=== PATIENT | male | born 1955 | race Caucasian/White ===

== ENCOUNTER 2018-06-13 11:13 | Emergency (ER) | payer MEDICAID, MEDICARE ==
[2018-06-13 11:22] VITALS: BP 96/79
[2018-06-13] MEDS ORDERED: LORazepam 2 MG/ML SDV IVPUSH ONE (11:45)
[2018-06-13] MEDS ORDERED: Sodium Chloride 0.9% 1,000 ML IV SCH (11:45)
[2018-06-13] MEDS ORDERED: Sodium Chloride 0.9% 10 ML Syringe FLUSH PRN (11:45)
--- NOTE | 2018-06-13 12:04 | EDM.PDOC ---
ED HPI GENERAL MEDICAL PROBLEM - General Chief Complaint: Drug or Alcohol Abuse Stated Complaint: [facility] Time Seen by Provider: 06/13/18 11:31 Source of Information: Reports: Patient, RN Notes Reviewed, Other ([facility] Staff) - History of Present Illness INITIAL COMMENTS - FREE TEXT/NARRATIVE: 62 year old male has been brought here by [facility] Staff for evaluation, medical clearance for admission to the [facility] program. He had been clear of alcohol for a couple of years or more, is stated to have started drinking again about a yr ago, drinking much more heavily the past several weeks or more. Family and his counselors have helped Boaz understand he needs help to stop, he has agreed to go voluntarily into the [facility] program for help to stop drinking. His last beer was last evening about 15 hours ago. He feels mildly shaky at this time. He does have hx of seizure disorder on keppra. He states he has continued to take that twice daily as prescribed. No chest pain or difficulty breathing. No abd pain, current N or vomiting. He states when he does go through withdrawal he gets "really shaky". He denies previous hx of Hallucinations, withdrawal seizures or what would sound like true Dt's Generalized Pain Score (Numeric/FACES): 3 - Related Data Allergies Allergy/AdvReac Type Severity Reaction Status Date / Time aspirin Allergy Cannot Verified 06/13/18 11:26 Remember Penicillins Allergy unknown Verified 06/13/18 11:26 Home Meds: Home Meds ClonazePAM [KlonoPIN] 0.5 mg PO DAILY 06/13/18 [History] Cyclobenzaprine [Flexeril] 10 mg PO DAILY 06/13/18 [History] Diltiazem HCl [Diltiazem ER] 240 mg PO DAILY 06/13/18 [History] Escitalopram [Lexapro] 20 mg PO DAILY 06/13/18 [History] levETIRAcetam [Keppra] 1,500 mg PO BID 06/13/18 [History] Past Medical History HEENT History: Reports: Cataract, Glaucoma Neurological History: Reports: Seizure Psychiatric History: Reports: Addiction, Depression - Past Surgical History HEENT Surgical History: Reports: Cataract Surgery Social & Family History - Family History Family Medical History: Noncontributory - Tobacco Use Smoking Status *Q: Current Every Day Smoker Years of Tobacco use: 40 Packs/Tins Daily: 1 - Alcohol Use Days Per Week of Alcohol Use: 7 Number of Drinks Per Day: 15 Total Drinks Per Week: 105 - Recreational Drug Use Recreational Drug Use: No ED ROS GENERAL - Review of Systems Review Of Systems: See Below Constitutional: Denies: Fever, Chills, Diaphoresis HEENT: Denies: Sinus Problem, Throat Pain Respiratory: Reports: Cough, Sputum (clear). Denies: Shortness of Breath, Wheezing Cardiovascular: Denies: Chest Pain GI/Abdominal: Reports: Decreased Appetite. Denies: Abdominal Pain, Nausea, Vomiting Musculoskeletal: Reports: Leg Pain (occas. leg cramps) Skin: Reports: No Symptoms Neurological: Reports: Tremors (mild at this time) Psychiatric: Denies: Hallucinations ED EXAM, GENERAL - Physical Exam Exam: See Below General Appearance: Alert, No Apparent Distress Eye Exam: Bilateral Eye: PERRL Throat/Mouth: Normal Inspection Head: Atraumatic. No: Facial Swelling Neck: Supple, Full Range of Motion Respiratory/Chest: No Respiratory Distress, Lungs Clear, Normal Breath Sounds. No: Rales, Rhonchi, Wheezing Cardiovascular: Regular Rate, Rhythm GI/Abdominal: Soft, Non-Tender. No: Guarding Extremities: No: Pedal Edema, Leg Pain Neurological: Alert, Oriented, No Motor/Sensory Deficits Skin Exam: Warm, Dry Course - Vital Signs Last Recorded V/S: Last Vital Signs Temp 98.1 F 06/13/18 11:20 Pulse 95 06/13/18 11:20 Resp 16 06/13/18 11:20 BP 96/79 06/13/18 11:20 Pulse Ox 92 L 06/13/18 11:20 - Orders/Labs/Meds Orders: Active Orders 24 hr Category Date Time Status Peripheral IV Care [RC] . DIRECTED Care 06/13/18 11:46 Active Peripheral IV Insertion Adult [OM.PC] Stat Oth 06/13/18 11:45 Ordered Labs: Laboratory Tests 06/13/18 06/13/18 Range/Units 11:55 11:55 WBC 9.69 H (4.23-9.07) K/mm3 RBC 5.46 (4.63-6.08) M/mm3 Hgb 18.2 H (13.7-17.5) gm/L Hct 54.6 H (40.1-51.0) % MCV 100.0 H (79.0-92.2) fl MCH 33.3 H (25.7-32.2) pg MCHC 33.3 (32.2-35.5) g/dl RDW Std Deviation 53.1 H (35.1-43.9) fL Plt Count 214 (163-337) K/mm3 MPV 10.2 (9.4-12.3) fl Neut % (Auto) 71.2 H (34.0-67.9) % Lymph % (Auto) 16.6 L (21.8-53.1) % [place] % (Auto) 9.8 (5.3-12.2) % Eos % (Auto) 1.5 (0.8-7.0) Baso % (Auto) 0.5 (0.1-1.2) % Neut # (Auto) 6.89 H (1.78-5.38) K/mm3 Lymph # (Auto) 1.61 (1.32-3.57) K/mm3 [place] # (Auto) 0.95 H (0.30-0.82) K/mm3 Eos # (Auto) 0.15 (0.04-0.54) K/mm3 Baso # (Auto) 0.05 (0.01-0.08) K/mm3 Sodium 138 (136-145) mEq/L Potassium 4.0 (3.5-5.1) mEq/L Chloride 98 (98-107) mEq/L Carbon Dioxide 29 (21-32) mEq/L Anion Gap 15.0 (5-15) BUN 9 (7-18) mg/dL Creatinine 1.3 (0.7-1.3) mg/dL Est Cr Clr Drug Dosing 69.61 mL/min Estimated GFR (MDRD) 56 (>60) mL/min BUN/Creatinine Ratio 6.9 L (14-18) Glucose 95 (80-115) mg/dL Calcium 9.7 (8.5-10.1) mg/dL Total Bilirubin 3.1 H (0.2-1.0) mg/dL AST 69 H (15-37) U/L ALT 79 H (16-63) U/L Alkaline Phosphatase 128 H (46-116) U/L Total Protein 8.6 H (6.4-8.2) g/dl Albumin 4.3 (3.4-5.0) g/dl Globulin 4.3 gm/dL Albumin/Globulin Ratio 1.0 (1-2) Ethyl Alcohol 0.00 (0.00) gm% Meds: Medications Discontinued Medications Generic Name Dose Route Start Last Admin Trade Name Freq PRN Reason Stop Dose Admin Sodium Chloride 1,000 mls @ 999 mls/hr 06/13/18 11:45 06/13/18 12:03 Normal Saline IV 999 mls/hr ONETIME PARVIN Administration Lorazepam 1 mg 06/13/18 11:45 06/13/18 12:03 Ativan IVPUSH 06/13/18 11:46 1 mg ONETIME ONE Administration Lorazepam 1 mg 06/13/18 14:25 06/13/18 14:33 Ativan PO 06/13/18 14:26 1 mg ONETIME ONE Administration Sodium Chloride 10 ml 06/13/18 11:45 06/13/18 12:04 Saline Flush FLUSH 10 ml ASDIRECTED PRN Administration Keep Vein Open - Re-Assessments/Exams Free Text/Narrative Re-Assessment/Exam: 06/13/18 18:41 I did discuss labs, hx, exam, course with Janis, intake nurse for the [facility] program. Labs are relatively OK, blood alcohol is zero. We did give ativan 1 mg IV and he has been resting very comfortably, very mild tremor only. Not anxious, restless or agitated. We did discharge him to the care of Andrae, staff member of [facility] who will help him get admitted to the [facility] program. Departure - Departure Time of Disposition: 14:22 Disposition: Home, Self-Care 01 Condition: Fair Clinical Impression: Alcohol abuse Alcohol dependency Qualifiers: Substance use status: unspecified alcohol-induced disorder Qualified Code(s): F10.29 - Alcohol dependence with unspecified alcohol-induced disorder - Discharge Information Instructions: What You Need to Know About Alcohol Abuse and Dependence, Adult Referrals: Yuriy Bowen Jr, MD [Primary Care Provider] - Additional Instructions: A medical screening exam has been provided. Alcohol abuse and dependency has been discussed. No acute medical emergency condition is apparent at this time. Discharge to the [facility] program as planned. 1 liter of NS has been given. Ativan 1 mg IV was given at around 12 noon today and ativan 1 mg orally will be given now at about 14:30. ativan 1 mg q 8 hr or three times daily for 3 days, than ativan 1 mg twice daily for 2 days, than ativan 1/2 mg twice daily for 2 days. Other meds: Keppra 1500 mg twice daily, lexapro 20 mg daily, diltiazam 240 mg daily. Drink plenty of water. Follow up clinic as needed, return to ED as needed. - My Orders Last 24 Hours: My Active Orders 06/13/18 11:45 Peripheral IV Insertion Adult [OM.PC] Stat 06/13/18 11:46 Peripheral IV Care [RC] . DIRECTED - Assessment/Plan Last 24 Hours: My Active Orders 06/13/18 11:45 Peripheral IV Insertion Adult [OM.PC] Stat 06/13/18 11:46 Peripheral IV Care [RC] . DIRECTED
[2018-06-13] MEDS ORDERED: LORazepam 1 MG Tab PO ONE (14:25)
== END 2018-06-13 14:45 | disposition home or self-care (01) ==
LOC: JD.ED 11:13
DX: F10.29 Alcohol dependence with unspecified alcohol-induced disorder (principal); F32.9 Major depressive disorder, single episode, unspecified; F17.210 Nicotine dependence, cigarettes, uncomplicated; Z88.0 Allergy status to penicillin; Z79.899 Other long term (current) drug therapy; Z88.8 Allergy status to other drugs, medicaments and biological substances
CPT/HCPCS: 36415; 80053; 85025; 96361; 96374; 99285; A9270; G0480; J2060; J7040; 99284

== ENCOUNTER 2018-06-20 11:38 | Emergency (ER) | payer MEDICAID ==
[2018-06-20 11:50] VITALS: BP 123/96
[2018-06-20] MEDS ORDERED: Sodium Chloride 0.9% 500 ML IV ONE (12:00)
[2018-06-20] MEDS ORDERED: Sodium Chloride 0.9% 10 ML Syringe FLUSH PRN (12:00)
--- NOTE | 2018-06-20 13:23 | CR ---
Chest: Frontal view of the chest was obtained. Comparison: Prior chest x-ray of 02/03/14. Heart size appears within normal limits for portable technique. Tortuous thoracic aorta is seen. Lungs are clear with no acute parenchymal change. Bony structures are grossly intact. Impression: 1. Nothing acute is appreciated on portable chest x-ray. Diagnostic code #1
[2018-06-20] MEDS ORDERED: levETIRAcetam 500 MG in Sodium Chloride 0.9% 100 ML IV ONE (14:12)
--- NOTE | 2018-06-20 14:38 | EDM.PDOC ---
ED HPI GENERAL MEDICAL PROBLEM - General Chief Complaint: General Stated Complaint: [facility] Time Seen by Provider: 06/20/18 11:50 Source of Information: Reports: Patient, EMS, RN Notes Reviewed - History of Present Illness INITIAL COMMENTS - FREE TEXT/NARRATIVE: 62-year-old male has been brought in by ambulance after some left jaw and arm discomfort and also severe "shakiness, lightheadedness and dizziness well over it [facility] for group therapy session. He currently is a resident at the residential home for alcohol treatment. He was admitted to the residential program about 7 or 8 days ago. He has not had any alcohol during this time. At this time on arrival to ED he denies chest or abdominal pain. He does not feel short of breath. He has no focal weakness. He no longer feels lightheaded or dizzy. He does have history of seizures. He states he has been taking his Keppra on a regular basis twice daily as prescribed. Right Eye Pain Score (Numeric/FACES): 1 - Related Data Allergies Allergy/AdvReac Type Severity Reaction Status Date / Time aspirin Allergy Cannot Verified 06/13/18 11:26 Remember Penicillins Allergy unknown Verified 06/13/18 11:26 Home Meds: Home Meds Cyclobenzaprine [Flexeril] 10 mg PO BID 06/13/18 [History] Diltiazem HCl [Diltiazem ER] 240 mg PO DAILY 06/13/18 [History] Escitalopram [Lexapro] 20 mg PO DAILY 06/13/18 [History] levETIRAcetam [Keppra] 1,500 mg PO BID 06/13/18 [History] LORazepam 1 mg PO TID 06/20/18 [History] traZODone HCl [Trazodone HCl] 75 mg PO BEDTIME 06/20/18 [History] Past Medical History HEENT History: Reports: Cataract, Glaucoma Cardiovascular History: Reports: Afib Neurological History: Reports: Seizure Psychiatric History: Reports: Addiction, Depression - Past Surgical History HEENT Surgical History: Reports: Cataract Surgery, Oral Surgery Dermatological Surgical History: Reports: Other (See Below) Social & Family History - Family History Family Medical History: Noncontributory - Tobacco Use Smoking Status *Q: Current Every Day Smoker Years of Tobacco use: 60 Packs/Tins Daily: 1 - Caffeine Use Caffeine Use: Reports: Tea - Recreational Drug Use Recreational Drug Use: Yes Drug Use in Last 12 Months: No ED ROS GENERAL - Review of Systems Review Of Systems: See Below Constitutional: Denies: Fever, Chills, Diaphoresis HEENT: Denies: Throat Pain Respiratory: Denies: Shortness of Breath Cardiovascular: Denies: Chest Pain GI/Abdominal: Denies: Abdominal Pain, Nausea, Vomiting Musculoskeletal: Reports: Shoulder Pain. Denies: Back Pain Neurological: Reports: Dizziness (Now better), Weakness ED EXAM, GENERAL - Physical Exam Exam: See Below General Appearance: Alert, No Apparent Distress Eye Exam: Bilateral Eye: PERRL Throat/Mouth: Normal Inspection, Normal Oropharynx Head: Atraumatic. No: Facial Swelling Neck: Normal Inspection, Supple, Full Range of Motion Respiratory/Chest: No Respiratory Distress, Lungs Clear, Normal Breath Sounds Cardiovascular: Irregularly Irregular GI/Abdominal: Soft, Non-Tender Back Exam: No: CVA Tenderness (L), CVA Tenderness (R) Extremities: Normal Inspection. No: Pedal Edema, Leg Pain Neurological: Alert, Oriented, No Motor/Sensory Deficits Skin Exam: Warm, Dry, Normal Color Course - Vital Signs Last Recorded V/S: Last Vital Signs Temp 97.6 F 06/20/18 11:44 Pulse 95 06/20/18 11:44 Resp 19 06/20/18 11:44 BP 123/96 H 06/20/18 11:44 Pulse Ox 97 06/20/18 11:44 - Orders/Labs/Meds Orders: Active Orders 24 hr Category Date Time Status EKG 12 Lead [EKG Documentation Completion] [RC] STAT Care 06/20/18 11:59 Active Peripheral IV Care [RC] . DIRECTED Care 06/20/18 12:00 Active Sodium Chloride 0.9% [Saline Flush] Med 06/20/18 12:00 Active 10 ml FLUSH ASDIRECTED PRN Peripheral IV Insertion Adult [OM.PC] Stat Oth 06/20/18 11:59 Ordered Medication Orders Sodium Chloride (Saline Flush) 10 ml FLUSH ASDIRECTED PRN PRN Reason: Keep Vein Open Last Admin: 06/20/18 12:08 Dose: 10 ml Labs: Laboratory Tests 06/20/18 06/20/18 06/20/18 Range/Units 12:10 12:10 14:25 WBC 7.68 (4.23-9.07) K/mm3 RBC 4.21 L (4.63-6.08) M/mm3 Hgb 14.0 (13.7-17.5) gm/L Hct 44.0 (40.1-51.0) % MCV 104.5 H (79.0-92.2) fl MCH 33.3 H (25.7-32.2) pg MCHC 31.8 L (32.2-35.5) g/dl RDW Std Deviation 51.7 H (35.1-43.9) fL Plt Count 176 (163-337) K/mm3 MPV 10.7 (9.4-12.3) fl Neut % (Auto) 54.1 (34.0-67.9) % Lymph % (Auto) 19.8 L (21.8-53.1) % [place] % (Auto) 22.0 H (5.3-12.2) % Eos % (Auto) 2.6 (0.8-7.0) Baso % (Auto) 1.0 (0.1-1.2) % Neut # (Auto) 4.15 (1.78-5.38) K/mm3 Lymph # (Auto) 1.52 (1.32-3.57) K/mm3 [place] # (Auto) 1.69 H (0.30-0.82) K/mm3 Eos # (Auto) 0.20 (0.04-0.54) K/mm3 Baso # (Auto) 0.08 (0.01-0.08) K/mm3 Manual Slide Review Abnormal smear Sodium 142 (136-145) mEq/L Potassium 3.7 (3.5-5.1) mEq/L Chloride 104 (98-107) mEq/L Carbon Dioxide 28 (21-32) mEq/L Anion Gap 13.7 (5-15) BUN 11 (7-18) mg/dL Creatinine 1.0 (0.7-1.3) mg/dL Est Cr Clr Drug Dosing 90.97 mL/min Estimated GFR (MDRD) > 60 (>60) mL/min BUN/Creatinine Ratio 11.0 L (14-18) Glucose 92 (80-115) mg/dL Calcium 9.4 (8.5-10.1) mg/dL Total Bilirubin 0.6 (0.2-1.0) mg/dL AST 36 (15-37) U/L ALT 81 H (16-63) U/L Alkaline Phosphatase 98 (46-116) U/L Troponin I 0.025 0.025 (0.00-0.056) ng/mL Total Protein 7.2 (6.4-8.2) g/dl Albumin 3.4 (3.4-5.0) g/dl Globulin 3.8 gm/dL Albumin/Globulin Ratio 0.9 L (1-2) Ethyl Alcohol 0.00 (0.00) gm% Meds: Medications Generic Name Dose Route Start Last Admin Trade Name Freq PRN Reason Stop Dose Admin Sodium Chloride 10 ml 06/20/18 12:00 06/20/18 12:08 Saline Flush FLUSH 10 ml ASDIRECTED PRN Administration Keep Vein Open Discontinued Medications Generic Name Dose Route Start Last Admin Trade Name Freq PRN Reason Stop Dose Admin Sodium Chloride 500 mls @ 999 mls/hr 06/20/18 12:00 06/20/18 12:08 Normal Saline IV 06/20/18 12:30 999 mls/hr .BOLUS ONE Administration Levetiracetam 500 mg/ Sodium 105 mls @ 400 mls/hr 06/20/18 14:12 06/20/18 14: 46 Chloride IV 06/20/18 14:26 400 mls/hr ONETIME ONE Administration Departure - Departure Time of Disposition: 16:16 Disposition: Home, Self-Care 01 Condition: Fair Clinical Impression: Atypical chest pain, Near syncope - Discharge Information Referrals: Yuriy Bowen Jr, MD [Primary Care Provider] - Forms: ED Department Discharge Additional Instructions: Drink plenty of water to maintain hydration, continue home medications as previously prescribed except hold diltiazem if blood pressure less than 120s systolic. Follow-up clinic as needed, return to ED as needed if symptoms worsening in any way. - My Orders Last 24 Hours: My Active Orders 06/20/18 11:59 EKG 12 Lead [EKG Documentation Completion] [RC] STAT Peripheral IV Insertion Adult [OM.PC] Stat 06/20/18 12:00 Peripheral IV Care [RC] . DIRECTED Sodium Chloride 0.9% [Saline Flush] 10 ml FLUSH ASDIRECTED PRN - Assessment/Plan Last 24 Hours: My Active Orders 06/20/18 11:59 EKG 12 Lead [EKG Documentation Completion] [RC] STAT Peripheral IV Insertion Adult [OM.PC] Stat 06/20/18 12:00 Peripheral IV Care [] . DIRECTED Sodium Chloride 0.9% [Saline Flush] 10 ml FLUSH ASDIRECTED PRN
== END 2018-06-20 16:30 | disposition home or self-care (01) ==
LOC: JD.ED 11:38
DX: R07.89 Other chest pain (principal); R55 Syncope and collapse; F32.9 Major depressive disorder, single episode, unspecified; I48.91 Unspecified atrial fibrillation; F17.210 Nicotine dependence, cigarettes, uncomplicated; Z88.0 Allergy status to penicillin; Z88.6 Allergy status to analgesic agent; Z79.899 Other long term (current) drug therapy
CPT/HCPCS: 36415; 71045; 80053; 84484; 85025; 93005; 96361; 96365; 99285; G0480; J1953; J7030; J7040

== ENCOUNTER 2019-06-19 22:18 | Inpatient (IN) | payer MEDICARE, MEDICAID ==
[2019-06-19] MEDS ORDERED: Ondansetron 4 MG/2 ML SDV IVPUSH ONE (22:22)
--- NOTE | 2019-06-19 22:26 | EDM.PDOC ---
ED HPI GENERAL MEDICAL PROBLEM - General Chief Complaint: Fever Stated Complaint: [facility] Time Seen by Provider: 06/19/19 22:21 Source of Information: Reports: Patient, EMS, Care Home Records History Limitations: Reports: Altered Mental Status, Physical Impairment (She has a history of dementia with behavior abnormalities and therefore history is taken with a gr of salt. He answers I don't know to a lot of questions.) - History of Present Illness INITIAL COMMENTS - FREE TEXT/NARRATIVE: 63-year-old male currently a resident at [facility] is brought to the ED per [place] [facility] due to recognized fever by 104.1. Apparently had a fever like this at 6:00 tonight and treated with Tylenol. Fever chills and rigors since early this morning. He does have bilateral flank pain. Apparently had a Goldman catheter placed on June [address] [facility] and taken out on June 17. Catheter was placed for urinary retention. it is unclear if he had in and out procedures or if he received prophylactic antibiotics. patient was in [facility] getting medications sorted out for his dementia with behavioral abnormalities and admitted to [facility] as a new patient on June 09. States it is somewhat painful to urinate and he does feel at this time that his bladder is emptying all the way. Denies cough or sputum production. He states he did eat and drink today. He has had no nausea vomiting or diarrhea. Does have a mild headache. Onset: Today, Other Onset Date: 06/19/19 (He reports fever and chills during the night last night.) Duration: Hour(s): (.), Getting Worse, Waxing/Waning Location: Reports: Generalized, Other (Dear fever chills with rigors. Urine 4.1 orally.) Quality: Reports: Ache (Normalized myalgia.), Other Severity: Severe Improves with: Reports: Medication (No seem to help a little bit with aches and pains and fever). Denies: Cold Therapy, Eating, Heat Therapy, Immobilization Worsens with: Reports: None Context: Reports: Other (Juan his currents of high fever with chills and rigors starting this morning by his history.). Denies: Activity, Exercise, Lifting, Sick Contact, Trauma Associated Symptoms: Reports: Fever/Chills, Headaches, Malaise, Weakness. 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: Acetaminophen (Analyzed weakness dosage was at 1800 hrs.) Back Pain Score (Numeric/FACES): 8 - Related Data Allergies Allergy/AdvReac Type Severity Reaction Status Date / Time aspirin Allergy Cannot Verified 06/19/19 22:24 Remember Penicillins Allergy unknown Verified 06/19/19 22:24 Home Meds: Home Meds levETIRAcetam [Levetiracetam] 1,500 mg PO BID 04/08/19 [History] Calamine/Zinc Oxide [Calamine Lotion] 118 ml TP ASDIRECTED PRN #1 suspension [Rx] Digoxin [Lanoxin] 250 mcg PO DAILY #1 tablet 04/23/19 [Rx] Metoprolol Succinate [Toprol XL] 25 mg PO DAILY tab.er 04/23/19 [Rx] Nicotine [Habitrol] 21 mg TRDERM DAILY patch 04/23/19 [Rx] Acetaminophen [Tylenol] 650 mg PO QID 06/19/19 [History] Albuterol [Proventil HFA] 2 puff INH Q6HR PRN 06/19/19 [History] Apixaban [Eliquis] 5 mg PO BID 06/19/19 [History] Diltiazem HCl [Cardizem Cd] 240 mg PO DAILY 06/19/19 [History] Donepezil [Aricept] 5 mg PO QPM 06/19/19 [History] Escitalopram [Lexapro] 15 mg PO DAILY 06/19/19 [History] Finasteride [Proscar] 5 mg PO DAILY 06/19/19 [History] Magnesium Chloride [Slow-Mag] 150 mg PO BID 06/19/19 [History] Mecobal/Levomefolat Ca/B6 Phos [Foltanx Tablet] 1 tab PO BID 06/19/19 [History] Memantine HCl [Namenda] 5 mg PO BID 06/19/19 [History] Multivit-Min/FA/Lycopen/Lutein [Certavite Sr-Antioxidant Tab] 1 tab PO DAILY [History] QUEtiapine [SEROquel] 100 mg PO BID 06/19/19 [History] Sennosides/Docusate Sodium [Senna Plus 8.6-50 mg Tablet] 1 tab PO BID 06/19/19 [ History] Tamsulosin HCl [Flomax] 0.4 mg PO BEDTIME 06/19/19 [History] Thiamine [Vitamin B-1] 100 mg PO BID 06/19/19 [History] Past Medical History HEENT History: Reports: Cataract, Glaucoma Cardiovascular History: Reports: Afib Other Respiratory History: Long time smoker with a barrell chest Neurological History: Reports: Seizure Psychiatric History: Reports: Addiction, Depression - Past Surgical History HEENT Surgical History: Reports: Cataract Surgery, Oral Surgery Dermatological Surgical History: Reports: Other (See Below) Social & Family History - Family History Family Medical History: Noncontributory - Caffeine Use Caffeine Use: Reports: Tea - Living Situation & Occupation Living situation: Reports: Single, Extended Care Facility Occupation: Disabled ([facility].) ED ROS GENERAL - Review of Systems Review Of Systems: Unable To Obtain (Unable to obtain with any degree of certainty as the patient has significant dementia and answers I don't note to most of the questions.) Reason Not Obtained: Has dementia and answers questions many times that I don't know. Constitutional: Reports: Fever, Chills, Malaise, Decreased Appetite, Other (As was recognized by staff early this morning.) Respiratory: Denies: Cough, Sputum ED EXAM, SEPSIS - Physical Exam Exam: See Below Exam Limited By: Altered Mental Status General Appearance: Alert, Mild Distress, Severe Distress, Other (Since current enters 38.6 by skin assessment he feels warmer than this.) Eye Exam: Bilateral Eye: Normal Inspection (No peripheral pallor. No scleral icterus.) Throat/Mouth: Normal Inspection, Normal Lips, Normal Oropharynx (Tongue is dry and coated.), Other Head: Atraumatic, Normocephalic Neck: Normal Inspection, Supple, Non-Tender, Full Range of Motion. No: Carotid Bruit, Lymphadenopathy (L), Lymphadenopathy (R) Respiratory/Chest: No Respiratory Distress, Lungs Clear, Normal Breath Sounds, No Accessory Muscle Use, Chest Non-Tender Cardiovascular: Normal Peripheral Pulses, Regular Rate, Rhythm, No Edema, No Gallop, No Murmur Peripheral Pulses: 2+: Posterior Tibial (L), Posterior Tibial (R), Dorsalis Pedis (L), Dorsalis Pedis (R) GI/Abdominal Exam: Normal Bowel Sounds, Soft, Non-Tender, No Organomegaly, No Abnormal Bruit, No Mass, Pelvis Stable, Other (Fullness appreciated suprapubically. Dullness to percussion in this area. Query full bladder) (Male) Exam: No Hernia, Other (No obvious pus at the urethral meatus.) Back: CVA Tenderness (L), CVA Tenderness (R) (3 she will tenderness to palpation both costovertebral angles.) Extremities: Normal Inspection, Normal Range of Motion Neurological: Alert, CN II-XII Intact (Oriented to time and place), No Motor/ Sensory Deficits (Moves all limbs.). No: Oriented, Normal Cognition, Normal Gait, Normal Reflexes Psychiatric: Anxious Skin: Warm, Intact (Mildly anxious but being phlebotomized at this time.), Normal Color, No Rash, Other (Are warm to palpation due to fever.) EKG INTERPRETATION EKG Date: 06/19/19 Time: 23:07 Rhythm: NSR Rate (Beats/Min): 90 Holmes: Normal P-Wave: Present (P-wave is inverted V1 nonspecific finding) QRS: Other (Decreased voltage limb leads COPD pattern) QT: Prolonged (Minimally prolonged) EKG Interpretation Comments: Borderline ECG Course - Vital Signs Last Recorded V/S: Last Vital Signs Temp 39.1 C H 06/19/19 23:05 Pulse 95 06/19/19 22:20 Resp 14 06/19/19 22:20 BP 138/68 06/19/19 22:20 Pulse Ox 93 L 06/19/19 22:20 - Orders/Labs/Meds Orders: Active Orders 24 hr Category Date Time Status Bladder Scan [RC] ASDIRECTED Care 06/19/19 22:47 Active EKG Documentation Completion [RC] STAT Care 06/19/19 22:23 Active Oxygen Therapy [RC] ASDIRECTED Care 06/20/19 00:05 Active Chest 1V Frontal [CR] Stat Exams 06/19/19 22:23 Taken CULTURE BLOOD [BC] Stat Lab 06/19/19 22:38 Received CULTURE BLOOD [BC] Stat Lab 06/19/19 23:01 Received CULTURE URINE [RM] Stat Lab 06/19/19 23:35 Received Acetaminophen [Tylenol] Med 06/19/19 22:22 Active 975 mg PO Q4H PRN Dextrose 5%-0.9% NaCl with KCl [D5 NS with 20 mEq KCl] Med 06/20/19 00:45 Active 1,000 ml IV ASDIRECTED Levofloxacin/Dextrose 5%-Water [Levaquin in D5W 750 MG/ Med 06/20/19 00:03 Active 150 ML] 750 mg Premix Bag 1 bag IV ONETIME Sodium Chloride 0.9% [Normal Saline] 1,000 ml Med 06/19/19 22:30 Active IV ASDIRECTED Blood Culture x2 Reflex Set [OM.PC] Stat Oth 06/19/19 22:24 Ordered Medication Orders Acetaminophen (Tylenol) 975 mg PO Q4H PRN PRN Reason: Pain Last Admin: 06/19/19 23:05 Dose: 975 mg Sodium Chloride (Normal Saline) 1,000 mls @ 999 mls/hr IV ASDIRECTED [facility] Last Admin: 06/19/19 23:05 Dose: 999 mls/hr Levofloxacin/Dextrose 750 mg/ (Premix) 150 mls @ 100 mls/hr IV ONETIME ONE Stop: 06/20/19 01:32 Last Admin: 06/20/19 00:08 Dose: 100 mls/hr Potassium Chloride/Dextrose/Sod Cl (D5 Ns With 20 Meq Kcl) 1,000 mls @ 125 mls/ hr IV ASDIRECTED [facility] Labs: Laboratory Tests 06/19/19 06/19/19 06/19/19 Range/Units 22:38 22:38 22:38 WBC (4.23-9.07) K/mm3 RBC (4.63-6.08) M/mm3 Hgb (13.7-17.5) gm/dl Hct (40.1-51.0) % MCV (79.0-92.2) fl MCH (25.7-32.2) pg MCHC (32.2-35.5) g/dl RDW Std Deviation (35.1-43.9) fL Plt Count (163-337) K/mm3 MPV (9.4-12.3) fl Neutrophils % (Manual) (40-60) % Band Neutrophils % (0-10) % Lymphocytes % (Manual) (20-40) % Atypical Lymphs % % Monocytes % (Manual) (2-10) % Eosinophils % (Manual) (0.8-7.0) % Basophils % (Manual) (0.2-1.2) Platelet Estimate RBC Morph Comment ESR (0-15) mm/hr PT 11.0 (9.7-12.0) SECONDS INR 1.01 APTT 29 (22-31) SECONDS Sodium 139 (136-145) mEq/L Potassium 4.2 (3.5-5.1) mEq/L Chloride 102 (98-107) mEq/L Carbon Dioxide 26 (21-32) mEq/L Anion Gap 15.2 H (5-15) BUN 17 (7-18) mg/dL Creatinine 1.5 H (0.7-1.3) mg/dL Est Cr Clr Drug Dosing 59.85 mL/min Estimated GFR (MDRD) 47 (>60) mL/min BUN/Creatinine Ratio 11.3 L (14-18) Glucose 126 H (80-115) mg/dL Lactic Acid 2.0 (0.4-2.0) mmol/L Calcium 9.2 (8.5-10.1) mg/dL Magnesium 1.5 L (1.8-2.4) mg/dl Total Bilirubin 0.3 (0.2-1.0) mg/dL AST 16 (15-37) U/L ALT 17 (16-63) U/L Alkaline Phosphatase 89 (46-116) U/L CK-MB (CK-2) < 0.5 (0-3.6) ng/ml Troponin I < 0.017 (0.00-0.056) ng/mL C-Reactive Protein 3.7 H* (<1.0) mg/dL NT-Pro-B Natriuret Pep (0-125) pg/mL Total Protein 7.9 (6.4-8.2) g/dl Albumin 3.5 (3.4-5.0) g/dl Globulin 4.4 gm/dL Albumin/Globulin Ratio 0.8 L (1-2) Urine Color (Yellow) Urine Appearance (Clear) Urine pH (5.0-8.0) Ur Specific [place] (1.005-1.030) Urine Protein (Negative) Urine Glucose (UA) (Negative) Urine Ketones (Negative) Urine Occult Blood (Negative) Urine Nitrite (Negative) Urine Bilirubin (Negative) Urine Urobilinogen (0.2-1.0) Ur Leukocyte Esterase (Negative) Urine RBC (0-5) /hpf Urine WBC (0-5) /hpf Ur Squamous Epith Cells (0-5) /hpf Urine Bacteria (FEW) /hpf Urine Mucus (FEW) /hpf 06/19/19 06/19/19 06/19/19 Range/Units 22:38 22:38 23:01 WBC 14.74 H (4.23-9.07) K/mm3 RBC 4.30 L (4.63-6.08) M/mm3 Hgb 12.9 L (13.7-17.5) gm/dl Hct 41.3 (40.1-51.0) % MCV 96.0 H D (79.0-92.2) fl MCH 30.0 (25.7-32.2) pg MCHC 31.2 L (32.2-35.5) g/dl RDW Std Deviation 48.3 H (35.1-43.9) fL Plt Count 334 D (163-337) K/mm3 MPV 9.8 (9.4-12.3) fl Neutrophils % (Manual) 91 H (40-60) % Band Neutrophils % 0 (0-10) % Lymphocytes % (Manual) 7 L (20-40) % Atypical Lymphs % 0 % Monocytes % (Manual) 1 L (2-10) % Eosinophils % (Manual) 1 (0.8-7.0) % Basophils % (Manual) 0 L (0.2-1.2) Platelet Estimate Adequate RBC Morph Comment Normal ESR 59 H (0-15) mm/hr PT (9.7-12.0) SECONDS INR APTT (22-31) SECONDS Sodium (136-145) mEq/L Potassium (3.5-5.1) mEq/L Chloride (98-107) mEq/L Carbon Dioxide (21-32) mEq/L Anion Gap (5-15) BUN (7-18) mg/dL Creatinine (0.7-1.3) mg/dL Est Cr Clr Drug Dosing mL/min Estimated GFR (MDRD) (>60) mL/min BUN/Creatinine Ratio (14-18) Glucose (80-115) mg/dL Lactic Acid (0.4-2.0) mmol/L Calcium (8.5-10.1) mg/dL Magnesium (1.8-2.4) mg/dl Total Bilirubin (0.2-1.0) mg/dL AST (15-37) U/L ALT (16-63) U/L Alkaline Phosphatase (46-116) U/L CK-MB (CK-2) (0-3.6) ng/ml Troponin I (0.00-0.056) ng/mL C-Reactive Protein (<1.0) mg/dL NT-Pro-B Natriuret Pep 606 H (0-125) pg/mL Total Protein (6.4-8.2) g/dl Albumin (3.4-5.0) g/dl Globulin gm/dL Albumin/Globulin Ratio (1-2) Urine Color (Yellow) Urine Appearance (Clear) Urine pH (5.0-8.0) Ur Specific [place] (1.005-1.030) Urine Protein (Negative) Urine Glucose (UA) (Negative) Urine Ketones (Negative) Urine Occult Blood (Negative) Urine Nitrite (Negative) Urine Bilirubin (Negative) Urine Urobilinogen (0.2-1.0) Ur Leukocyte Esterase (Negative) Urine RBC (0-5) /hpf Urine WBC (0-5) /hpf Ur Squamous Epith Cells (0-5) /hpf Urine Bacteria (FEW) /hpf Urine Mucus (FEW) /hpf 06/19/19 Range/Units 23:35 WBC (4.23-9.07) K/mm3 RBC (4.63-6.08) M/mm3 Hgb (13.7-17.5) gm/dl Hct (40.1-51.0) % MCV (79.0-92.2) fl MCH (25.7-32.2) pg MCHC (32.2-35.5) g/dl RDW Std Deviation (35.1-43.9) fL Plt Count (163-337) K/mm3 MPV (9.4-12.3) fl Neutrophils % (Manual) (40-60) % Band Neutrophils % (0-10) % Lymphocytes % (Manual) (20-40) % Atypical Lymphs % % Monocytes % (Manual) (2-10) % Eosinophils % (Manual) (0.8-7.0) % Basophils % (Manual) (0.2-1.2) Platelet Estimate RBC Morph Comment ESR (0-15) mm/hr PT (9.7-12.0) SECONDS INR APTT (22-31) SECONDS Sodium (136-145) mEq/L Potassium (3.5-5.1) mEq/L Chloride (98-107) mEq/L Carbon Dioxide (21-32) mEq/L Anion Gap (5-15) BUN (7-18) mg/dL Creatinine (0.7-1.3) mg/dL Est Cr Clr Drug Dosing mL/min Estimated GFR (MDRD) (>60) mL/min BUN/Creatinine Ratio (14-18) Glucose (80-115) mg/dL Lactic Acid (0.4-2.0) mmol/L Calcium (8.5-10.1) mg/dL Magnesium (1.8-2.4) mg/dl Total Bilirubin (0.2-1.0) mg/dL AST (15-37) U/L ALT (16-63) U/L Alkaline Phosphatase (46-116) U/L CK-MB (CK-2) (0-3.6) ng/ml Troponin I (0.00-0.056) ng/mL C-Reactive Protein (<1.0) mg/dL NT-Pro-B Natriuret Pep (0-125) pg/mL Total Protein (6.4-8.2) g/dl Albumin (3.4-5.0) g/dl Globulin gm/dL Albumin/Globulin Ratio (1-2) Urine Color Yellow (Yellow) Urine Appearance Clear (Clear) Urine pH 5.5 (5.0-8.0) Ur Specific [place] 1.020 (1.005-1.030) Urine Protein Negative (Negative) Urine Glucose (UA) Negative (Negative) Urine Ketones Negative (Negative) Urine Occult Blood 2+ H (Negative) Urine Nitrite Negative (Negative) Urine Bilirubin Negative (Negative) Urine Urobilinogen 0.2 (0.2-1.0) Ur Leukocyte Esterase Negative (Negative) Urine RBC 10-20 H (0-5) /hpf Urine WBC 5-10 H (0-5) /hpf Ur Squamous Epith Cells 0-5 (0-5) /hpf Urine Bacteria Few (FEW) /hpf Urine Mucus Not seen (FEW) /hpf Meds: Medications Generic Name Dose Route Start Last Admin Trade Name Freq PRN Reason Stop Dose Admin Acetaminophen 975 mg 06/19/19 22:22 06/19/19 23:05 Tylenol PO 975 mg Q4H PRN Administration Pain Sodium Chloride 1,000 mls @ 999 mls/hr 06/19/19 22:30 06/19/19 23:05 Normal Saline IV 999 mls/hr ASDIRECTED PARVIN Administration Levofloxacin/Dextrose 750 mg/ 150 mls @ 100 mls/hr 06/20/19 00:03 06/20/19 00 :08 Premix IV 06/20/19 01:32 100 mls/hr ONETIME ONE Administration Potassium Chloride/Dextrose/Sod Cl 1,000 mls @ 125 mls/hr 06/20/19 00:45 D5 Ns With 20 Meq Kcl IV ASDIRECTED PARVIN Discontinued Medications Generic Name Dose Route Start Last Admin Trade Name Freq PRN Reason Stop Dose Admin Ondansetron HCl 4 mg 06/19/19 22:22 06/19/19 23:06 Zofran IVPUSH 06/19/19 22:23 4 mg ONETIME ONE Administration - Radiology Interpretation Free Text/Narrative:: 63-year-old male from [facility] presents to the ED due to a high fever 104.1. From what I can ascertain he had fever and chills with rigors early this morning and again tonight. Tylenol was given at 1800 hrs. in the correction. Radiate fairly well I have no way of being able to know if this is true or not. Patient's has significant dementia and behavioral abnormalities on Seroquel. He answers I don't know to most questions. Clinically suffering high fever. Apparently there is some history of a Goldman catheter placed for urinary retention a few days ago for 2 days and then removed. This is the likely source of infection. S2 is clear. He will have a complete septic workup including chest x-ray blood cultures 2 lactic acid and influenza screen. He will have a bladder scan done post void. - Re-Assessments/Exams Free Text/Narrative Re-Assessment/Exam: 06/19/19 23:25 nurse reports that he is 227 mils in his bladder on bladder scan. He doesn't feel a need to void. He will therefore be catheterized for sample of urine as this is most likely the source of his current sepsis. Apparently was catheterized around the sixth of this month and the catheter was removed on the --2 days ago. Apparently was catheterized due to urinary retention. He been transferred from [place] to [facility]. Told the nurse to go ahead and Mee first specimen this time. 06/19/19 23:52 chest x-ray done portably reveals hyperinflated lung thomas statement of COPD. Prominent right pulmonary artery. Questionable nodule in the left lower lobe of the lung. No pneumonia.Count is elevated at 14.74 with 91% neutrophils and no band cells reported. Hemoglobin is 12.9 with hematocrit of 41.3. MCV is elevated at 96.0. Platelet count is 334,000. Lactic acid is 2.0 06/20/19 00:04 Sedimentation rate is 59. PT is 11.0 with an INR 1.01. PTT is 29. Urinalysis collected by catheterization shows 2+ occult blood negative leukocyte esterase with 10-20 RBCs per power field and 5-10 WBCs per high-power field. Urine culture has been ordered. We'll start him on Levaquin 750 mg IV. History is pending. He has completed the first liter of IV fluids. Current blood pressure is 111/82. Influenza screen is reported to be negative. 06/20/19 00:34 Chemistry is now back. Sodium 139 potassium of 4.2. Chloride is 102 with a bicarbonate 26. Anion gap is 15.2. B1 is 17 with a creatinine of 1.5. GFR is 47. Glucose 126. Lactic acid is 2.0. Calcium is 9.2 and a medium 1.5 slightly low. Liver function is normal. CK-MB fraction is less than 0.5. Troponin I is less than 0.017. C-reactive protein is 3.7. BNP is 606. Total protein is 7.9. Albumin fraction is 3.5. I will discuss the case with Dr. Laboy administration dean hospitalist. Plan will be to admit him to the [facility] surgery floor and I will write bridge orders for him. He doesn't need any sepsis criteria at this time. I will have lactic acid done in 3 hours. He completed the first liter of IV fluids. He will placed on D5 normal saline with 20 mg of KCl to run at 125 mils an hour overnight. She is showing mild signs of CHF with slightly elevated BNP. Source of infection is not yet clear. Urinalysis is only partially suggestive of infection. 06/20/19 00:[address] Laboy administration dean hospitalist and patient will be admitted to the med surgery floor on telemetry. He asked that we start Tamiflu 75 mg twice a day just in case he is a false-negative for influenza since it is rampant at present. Departure - Departure Time of Disposition: :02 Disposition: Admitted As Inpatient 64 Condition: Fair Clinical Impression: Acute febrile illness, Hypoxia, History of urinary retention, Prostatism Dementia Qualifiers: Dementia type: Alzheimer's disease Alzheimer's disease onset: early-onset Dementia behavioral disturbance: with behavioral disturbance Qualified Code(s): G30.0 - Alzheimer's disease with early onset; F02.81 - Dementia in other diseases classified elsewhere with behavioral disturbance Nicotine dependence Qualifiers: Nicotine product type: cigarettes Substance use status: in withdrawal Qualified Code(s): F17.213 - Nicotine dependence, cigarettes, with withdrawal COPD (chronic obstructive pulmonary disease) Qualifiers: COPD type: emphysema CHF (congestive heart failure) Qualifiers: Heart failure type: combined systolic and diastolic Heart failure chronicity: acute on chronic Qualified Code(s): I50.43 - Acute on chronic combined systolic (congestive) and diastolic (congestive) heart failure - Discharge Information *PRESCRIPTION DRUG MONITORING PROGRAM REVIEWED*: Not Applicable *COPY OF PRESCRIPTION DRUG MONITORING REPORT IN PATIENT AUSTEN: Not Applicable Referrals: Quirino Greene MD [Primary Care Provider] - Forms: ED Department Discharge Additional Instructions: Patient will be admitted to the hospital due to onset of high fever 104.1 recorded. No started within the last 24 hours. Recent Goldman catheterization from June 09 and removed June 17 suspect to be the source of infection but not conclusive on lab assessment. Leukocytosis and left shift. Other sources of infection identified including a negative influenza screen. Dilaudid on antibiotics prophylactically Levaquin 750 mg IV. Has a history of dementia with behavioral abnormalities recently discharged from [facility] to [facility] June 09. CODE STATUS is DO NOT RESUSCITATE Sepsis Event Note - Focused Exam Vital Signs: Vital Signs Temp Temp Pulse Resp BP Pulse Ox 06/19/19 23:05 39.1 C H 06/19/19 22:20 38.6 C H 95 14 138/68 93 L Date Exam was Performed: 06/20/19 Time Exam was Performed: 00:47 - My Orders Last 24 Hours: My Active Orders 06/19/19 22:22 Acetaminophen [Tylenol] 975 mg PO Q4H PRN 06/19/19 22:23 EKG Documentation Completion [RC] STAT Chest 1V Frontal [CR] Stat 06/19/19 22:24 Blood Culture x2 Reflex Set [OM.PC] Stat 06/19/19 22:30 Sodium Chloride 0.9% [Normal Saline] 1,000 ml IV ASDIRECTED 06/19/19 22:38 CULTURE BLOOD [BC] Stat 06/19/19 22:47 Bladder Scan [RC] ASDIRECTED 06/19/19 23:01 CULTURE BLOOD [BC] Stat 06/19/19 23:35 CULTURE URINE [RM] Stat 06/20/19 00:03 Levofloxacin/Dextrose 5%-Water [Levaquin in D5W 750 MG/150 ML] 750 mg Premix Bag 1 bag IV ONETIME 06/20/19 00:05 Oxygen Therapy [RC] ASDIRECTED 06/20/19 00:45 Dextrose 5%-0.9% NaCl with KCl [D5 NS with 20 mEq KCl] 1,000 ml IV ASDIRECTED - Assessment/Plan Last 24 Hours: My Active Orders 06/19/19 22:22 Acetaminophen [Tylenol] 975 mg PO Q4H PRN 06/19/19 22:23 EKG Documentation Completion [RC] STAT Chest 1V Frontal [CR] Stat 06/19/19 22:24 Blood Culture x2 Reflex Set [OM.PC] Stat 06/19/19 22:30 Sodium Chloride 0.9% [Normal Saline] 1,000 ml IV ASDIRECTED 06/19/19 22:38 CULTURE BLOOD [BC] Stat 06/19/19 22:47 Bladder Scan [RC] ASDIRECTED 06/19/19 23:01 CULTURE BLOOD [BC] Stat 06/19/19 23:35 CULTURE URINE [RM] Stat 06/20/19 00:03 Levofloxacin/Dextrose 5%-Water [Levaquin in D5W 750 MG/150 ML] 750 mg Premix Bag 1 bag IV ONETIME 06/20/19 00:05 Oxygen Therapy [RC] ASDIRECTED 06/20/19 00:45 Dextrose 5%-0.9% NaCl with KCl [D5 NS with 20 mEq KCl] 1,000 ml IV ASDIRECTED
[2019-06-19] MEDS ORDERED: Sodium Chloride 0.9% 1,000 ML IV SCH (22:30)
[2019-06-19] MEDS: Acetaminophen 325 MG Tab PO PRN (23:05)
[2019-06-20] MEDS ORDERED: Levofloxacin/Dextrose 5%-Water 750 MG in Premix Bag 1 BAG IV ONE (00:03)
[2019-06-20] MEDS ORDERED: Oseltamivir 75 MG Cap PO ONE (00:48)
[2019-06-20] MEDS ORDERED: Magnesium Sulfate/Water 4 GM in Premix Bag 1 BAG IV ONE (00:55)
[2019-06-20] MEDS ORDERED: Albuterol 6.7 GM Inhaler INH PRN (01:43)
[2019-06-20] MEDS: Dextrose 5%-0.9% NaCl with KCl 1,000 ML IV SCH ×2 (02:09→09:26)
[2019-06-20] MEDS: Acetaminophen 325 MG Tab PO PRN ×3 (04:24→13:46)
[2019-06-20] MEDS ORDERED: Ondansetron 4 MG/2 ML SDV IV PRN (07:08)
[2019-06-20] MEDS ORDERED: Albuterol/Ipratropium 3.0-0.5 MG/3 ML Neb Soln NEB PRN (07:08)
[2019-06-20] MEDS ORDERED: Calamine/Zinc Oxide Lotion 177 ML Bottle TOP PRN (07:13)
--- NOTE | 2019-06-20 07:29 | PCM.HP.2 ---
H&P History of Present Illness - General Date of Service: 06/20/19 Admit Problem/Dx: Admission Diagnosis/Problem Admission Diagnosis/Problem Fever Source of Information: Patient, Old Records, Provider, RN, RN Notes Reviewed History Limitations: Reports: Altered Mental Status (History of ETOH induced dementia ) - History of Present Illness Initial Comments - Free Text/Narative: Boaz Morrell is a 63 yo male who presented to our ED on 06/19/18 from [facility] with a fever via [facility]. Fever reportedly 104.1. Per the notes he had a prior fever which was similar around 1800 and was given Tylenol. Fever, chills, rigors, and bilateral flank pain have been ongoing since earlier in the morning. Patient notes he had a Goldman catheter placed on June 09 due to urinary retention at [facility] and this was taken out on June 17. Unclear if he had any antibiotics. Prior to this the patient had been admitted to the [facility] in [place] for psychiatric treatment. Per the patient he reports pain with urination but he reports that it feels like his bladder is emptying all the way. Denies cough, sputum, nausea, vomiting, diarrhea. In the ED temp was 39.1 Celsius. Pulse 95. Respirations 14. Blood pressure 138/68. Pulse ox 93%. Twelve-lead EKG is obtained showing a sinus rhythm at 90 bpm nonspecific T wave inversion in V1 and decreased limb lead voltage. QT is minimally prolonged. Labs were obtained: WBC is elevated at 14.74. Hemoglobin low at 12.9. Hematocrit 41.3. He is macrocytic. Platelets are good at 334,000. Neutrophils are elevated at 91%. There is no bandemia. ESR is 59. PT is 11. INR 1.01. APTT is 29. Sodium 139. Potassium 4.2. Chloride 102. Carbon oxide 26. Anion gap is slightly high at 15.2. BUN is 17. Creatinine 1.5. EGFR is 47. Glucose 126. Lactic acid 2.0. Magnesium is low 1.5. AST 16, ALT 17, alkaline phosphatase 89. CK-MB is less than 0.5. Troponin is less than 0.017. CRP is elevated at 3.71. Protein is 7.9. Albumin 3.5. proBNP is 606. Urine is obtained and is grossly negative however 2+ occult blood, 10-20 RBCs, and 5-10 WBCs are noted along with few bacteria. Is given Tylenol for fever and 1 L saline bolus. He is also given 750 mg Levaquin and 4 mg of Zofran. Magnesium is supplemented and he is started on D5 NS with 20 mEq KCl. Urine and blood cultures are was obtained. Chest x-rays obtained interpreted by Dr. Lopez as "1. Patchy increased density within the left base possibly due to early pneumonia. 2. mild bibasilar atelectasis. 3. Two healing left mid to lower rib fractures." Influenza screen is negative. Repeat lactic acid 3 hours later remains 2.0. He started on 75 mg twice daily Tamiflu. He carries a history of: cataracts, glaucoma, A. 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 He is a DNR. His PCP is Dr. Greene. Back Pain Score (Numeric/FACES): 8 - Related Data Allergies/Adverse Reactions: Allergies Allergy/AdvReac Type Severity Reaction Status Date / Time aspirin Allergy Cannot Verified 06/20/19 03:21 Remember Penicillins Allergy unknown Verified 06/20/19 03:21 Home Medications: Home Meds levETIRAcetam [Levetiracetam] 1,500 mg PO BID 04/08/19 [History] Digoxin [Lanoxin] 250 mcg PO DAILY #1 tablet 04/23/19 [Rx] Metoprolol Succinate [Toprol XL] 25 mg PO DAILY tab.er 04/23/19 [Rx] Nicotine [Habitrol] 21 mg TRDERM DAILY patch 04/23/19 [Rx] Acetaminophen [Tylenol] 650 mg PO QID 06/19/19 [History] Albuterol [Proventil HFA] 2 puff INH Q6HR PRN 06/19/19 [History] Apixaban [Eliquis] 5 mg PO BID 06/19/19 [History] Diltiazem HCl [Cardizem Cd] 240 mg PO DAILY 06/19/19 [History] Donepezil [Aricept] 5 mg PO QPM 06/19/19 [History] Escitalopram [Lexapro] 15 mg PO DAILY 06/19/19 [History] Finasteride [Proscar] 5 mg PO DAILY 06/19/19 [History] Magnesium Chloride [Slow-Mag] 140 mg PO BID 06/19/19 [History] Mecobal/Levomefolat Ca/B6 Phos [Foltanx Tablet] 1 tab PO BID 06/19/19 [History] Memantine HCl [Namenda] 5 mg PO BID 06/19/19 [History] Multivit-Min/FA/Lycopen/Lutein [Certavite Sr-Antioxidant Tab] 1 tab PO DAILY [History] QUEtiapine [SEROquel] 100 mg PO BID 06/19/19 [History] Sennosides/Docusate Sodium [Senna Plus 8.6-50 mg Tablet] 1 tab PO BID 06/19/19 [ History] Tamsulosin HCl [Flomax] 0.4 mg PO BEDTIME 06/19/19 [History] Thiamine [Vitamin B-1] 100 mg PO BID 06/19/19 [History] Calamine/Zinc Oxide [Calamine Lotion] 1 applic TOP Q8HR PRN 06/20/19 [History] Mupirocin Cream [Bactroban Crm] 1 applic TOP DAILY 06/20/19 [History] Past Medical History HEENT History: Reports: Cataract, Glaucoma Cardiovascular History: Reports: Afib Respiratory History: Reports: COPD Other Respiratory History: Long time smoker with a barrell chest Gastrointestinal History: Reports: Chronic Constipation Genitourinary History: Reports: BPH Neurological History: Reports: Seizure Psychiatric History: Reports: Addiction, Depression Other Psychiatric History: 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), nicotine dependence Endocrine/Metabolic History: Reports: Hypothyroidism Other Endocrine/Metabolic History: vitamin B deficiency Hematologic History: Reports: Anticoagulation Therapy Dermatologic History: Reports: Other (See Below) Other Dermatologic History: pruritus - Past Surgical History HEENT Surgical History: Reports: Cataract Surgery, Oral Surgery Dermatological Surgical History: Reports: Other (See Below) Social & Family History - Family History Family Medical History: Noncontributory - Tobacco Use Smoking Status *Q: Unknown Ever Smoked Used Tobacco, but Quit: Yes Month/Year Tobacco Last Used: 05/2019 Tobacco Use Comment: pt wears nicotine patch - Caffeine Use Caffeine Use: Reports: Tea - Recreational Drug Use Recreational Drug Use: No - Living Situation & Occupation Living situation: Reports: Single, Extended Care Facility Occupation: Disabled ([facility] H&P Review of Systems - Review of Systems: Review Of Systems: See Below General: Reports: Fever, Chills, Malaise, Weakness, Fatigue, Diaphoresis Pulmonary: Denies: Shortness of Breath, Cough, Sputum Cardiovascular: Denies: Chest Pain Gastrointestinal: Denies: Abdominal Pain, Constipation, Diarrhea, Nausea, Vomiting Genitourinary: Reports: Pain (with urination), Retention (history of ) Psychiatric: Reports: Confusion (baseline ) Neurological: Denies: Difficulty Walking, Gait Disturbance Review of Systems Comment:: Due to patient dementia ROS cannot be obtained with any certainty. ROS is a combination of patient responses, nursing notes, and SNF notes. Exam - Exam Exam: See Below - Vital Signs Vital Signs: Last Vital Signs Temp 102.7 F H 06/20/19 04:24 Pulse 84 06/20/19 04:21 Resp 16 06/20/19 04:21 BP 103/58 L 06/20/19 04:21 Pulse Ox 93 L 06/20/19 04:21 Weight: 185 lb 8 oz - Exam Quality Assessment: Supplemental Oxygen (2L), DVT Prophylaxis. No: Urinary Catheter General: Alert, Cooperative, Mild Distress (appears ill) HEENT: Conjunctiva Clear, EACs Clear, Hearing Intact, Mucosa Moist & [place], Posterior Pharynx Clear, PERRLA Neck: Supple, Trachea Midline Lungs: Clear to Auscultation, Normal Respiratory Effort Cardiovascular: Regular Rate, Regular Rhythm GI/Abdominal Exam: Normal Bowel Sounds, Soft, Non-Tender, No Distention, No Abnormal Bruit (Male) Exam: Deferred Rectal (Males) Exam: Deferred Back Exam: Normal Inspection, Full Range of Motion, CVA Tenderness (L), CVA Tenderness (R) Extremities: Normal Inspection, Normal Range of Motion, Non-Tender Skin: Warm, Dry, Intact Neurological: Cranial Nerves Intact (limited but intact ) Neuro Extensive - Mental Status: Alert - Patient Data Lab Results Last 24 hrs: Laboratory Results - last 24 hr 06/19/19 06/19/19 06/19/19 Range/Units 22:38 22:38 22:38 WBC (4.23-9.07) K/mm3 RBC (4.63-6.08) M/mm3 Hgb (13.7-17.5) gm/dl Hct (40.1-51.0) % MCV (79.0-92.2) fl MCH (25.7-32.2) pg MCHC (32.2-35.5) g/dl RDW Std Deviation (35.1-43.9) fL Plt Count (163-337) K/mm3 MPV (9.4-12.3) fl Neutrophils % (Manual) (40-60) % Band Neutrophils % (0-10) % Lymphocytes % (Manual) (20-40) % Atypical Lymphs % % Monocytes % (Manual) (2-10) % Eosinophils % (Manual) (0.8-7.0) % Basophils % (Manual) (0.2-1.2) Platelet Estimate RBC Morph Comment ESR (0-15) mm/hr PT 11.0 (9.7-12.0) SECONDS INR 1.01 APTT 29 (22-31) SECONDS Sodium 139 (136-145) mEq/L Potassium 4.2 (3.5-5.1) mEq/L Chloride 102 (98-107) mEq/L Carbon Dioxide 26 (21-32) mEq/L Anion Gap 15.2 H (5-15) BUN 17 (7-18) mg/dL Creatinine 1.5 H (0.7-1.3) mg/dL Est Cr Clr Drug Dosing 59.85 mL/min Estimated GFR (MDRD) 47 (>60) mL/min BUN/Creatinine Ratio 11.3 L (14-18) Glucose 126 H (80-115) mg/dL Lactic Acid 2.0 (0.4-2.0) mmol/L Calcium 9.2 (8.5-10.1) mg/dL Magnesium 1.5 L (1.8-2.4) mg/dl Total Bilirubin 0.3 (0.2-1.0) mg/dL AST 16 (15-37) U/L ALT 17 (16-63) U/L Alkaline Phosphatase 89 (46-116) U/L CK-MB (CK-2) < 0.5 (0-3.6) ng/ml Troponin I < 0.017 (0.00-0.056) ng/mL C-Reactive Protein 3.7 H* (<1.0) mg/dL NT-Pro-B Natriuret Pep (0-125) pg/mL Total Protein 7.9 (6.4-8.2) g/dl Albumin 3.5 (3.4-5.0) g/dl Globulin 4.4 gm/dL Albumin/Globulin Ratio 0.8 L (1-2) Urine Color (Yellow) Urine Appearance (Clear) Urine pH (5.0-8.0) Ur Specific [place] (1.005-1.030) Urine Protein (Negative) Urine Glucose (UA) (Negative) Urine Ketones (Negative) Urine Occult Blood (Negative) Urine Nitrite (Negative) Urine Bilirubin (Negative) Urine Urobilinogen (0.2-1.0) Ur Leukocyte Esterase (Negative) Urine RBC (0-5) /hpf Urine WBC (0-5) /hpf Ur Squamous Epith Cells (0-5) /hpf Urine Bacteria (FEW) /hpf Urine Mucus (FEW) /hpf MRSA (PCR) 06/19/19 06/19/19 06/19/19 Range/Units 22:38 22:38 23:01 WBC 14.74 H (4.23-9.07) K/mm3 RBC 4.30 L (4.63-6.08) M/mm3 Hgb 12.9 L (13.7-17.5) gm/dl Hct 41.3 (40.1-51.0) % MCV 96.0 H D (79.0-92.2) fl MCH 30.0 (25.7-32.2) pg MCHC 31.2 L (32.2-35.5) g/dl RDW Std Deviation 48.3 H (35.1-43.9) fL Plt Count 334 D (163-337) K/mm3 MPV 9.8 (9.4-12.3) fl Neutrophils % (Manual) 91 H (40-60) % Band Neutrophils % 0 (0-10) % Lymphocytes % (Manual) 7 L (20-40) % Atypical Lymphs % 0 % Monocytes % (Manual) 1 L (2-10) % Eosinophils % (Manual) 1 (0.8-7.0) % Basophils % (Manual) 0 L (0.2-1.2) Platelet Estimate Adequate RBC Morph Comment Normal ESR 59 H (0-15) mm/hr PT (9.7-12.0) SECONDS INR APTT (22-31) SECONDS Sodium (136-145) mEq/L Potassium (3.5-5.1) mEq/L Chloride (98-107) mEq/L Carbon Dioxide (21-32) mEq/L Anion Gap (5-15) BUN (7-18) mg/dL Creatinine (0.7-1.3) mg/dL Est Cr Clr Drug Dosing mL/min Estimated GFR (MDRD) (>60) mL/min BUN/Creatinine Ratio (14-18) Glucose (80-115) mg/dL Lactic Acid (0.4-2.0) mmol/L Calcium (8.5-10.1) mg/dL Magnesium (1.8-2.4) mg/dl Total Bilirubin (0.2-1.0) mg/dL AST (15-37) U/L ALT (16-63) U/L Alkaline Phosphatase (46-116) U/L CK-MB (CK-2) (0-3.6) ng/ml Troponin I (0.00-0.056) ng/mL C-Reactive Protein (<1.0) mg/dL NT-Pro-B Natriuret Pep 606 H (0-125) pg/mL Total Protein (6.4-8.2) g/dl Albumin (3.4-5.0) g/dl Globulin gm/dL Albumin/Globulin Ratio (1-2) Urine Color (Yellow) Urine Appearance (Clear) Urine pH (5.0-8.0) Ur Specific [place] (1.005-1.030) Urine Protein (Negative) Urine Glucose (UA) (Negative) Urine Ketones (Negative) Urine Occult Blood (Negative) Urine Nitrite (Negative) Urine Bilirubin (Negative) Urine Urobilinogen (0.2-1.0) Ur Leukocyte Esterase (Negative) Urine RBC (0-5) /hpf Urine WBC (0-5) /hpf Ur Squamous Epith Cells (0-5) /hpf Urine Bacteria (FEW) /hpf Urine Mucus (FEW) /hpf MRSA (PCR) 06/19/19 06/20/19 06/20/19 Range/Units 23:35 01:30 02:04 WBC (4.23-9.07) K/mm3 RBC (4.63-6.08) M/mm3 Hgb (13.7-17.5) gm/dl Hct (40.1-51.0) % MCV (79.0-92.2) fl MCH (25.7-32.2) pg MCHC (32.2-35.5) g/dl RDW Std Deviation (35.1-43.9) fL Plt Count (163-337) K/mm3 MPV (9.4-12.3) fl Neutrophils % (Manual) (40-60) % Band Neutrophils % (0-10) % Lymphocytes % (Manual) (20-40) % Atypical Lymphs % % Monocytes % (Manual) (2-10) % Eosinophils % (Manual) (0.8-7.0) % Basophils % (Manual) (0.2-1.2) Platelet Estimate RBC Morph Comment ESR (0-15) mm/hr PT (9.7-12.0) SECONDS INR APTT (22-31) SECONDS Sodium (136-145) mEq/L Potassium (3.5-5.1) mEq/L Chloride (98-107) mEq/L Carbon Dioxide (21-32) mEq/L Anion Gap (5-15) BUN (7-18) mg/dL Creatinine (0.7-1.3) mg/dL Est Cr Clr Drug Dosing mL/min Estimated GFR (MDRD) (>60) mL/min BUN/Creatinine Ratio (14-18) Glucose (80-115) mg/dL Lactic Acid 2.0 (0.4-2.0) mmol/L Calcium (8.5-10.1) mg/dL Magnesium (1.8-2.4) mg/dl Total Bilirubin (0.2-1.0) mg/dL AST (15-37) U/L ALT (16-63) U/L Alkaline Phosphatase (46-116) U/L CK-MB (CK-2) (0-3.6) ng/ml Troponin I (0.00-0.056) ng/mL C-Reactive Protein (<1.0) mg/dL NT-Pro-B Natriuret Pep (0-125) pg/mL Total Protein (6.4-8.2) g/dl Albumin (3.4-5.0) g/dl Globulin gm/dL Albumin/Globulin Ratio (1-2) Urine Color Yellow (Yellow) Urine Appearance Clear (Clear) Urine pH 5.5 (5.0-8.0) Ur Specific [place] 1.020 (1.005-1.030) Urine Protein Negative (Negative) Urine Glucose (UA) Negative (Negative) Urine Ketones Negative (Negative) Urine Occult Blood 2+ H (Negative) Urine Nitrite Negative (Negative) Urine Bilirubin Negative (Negative) Urine Urobilinogen 0.2 (0.2-1.0) Ur Leukocyte Esterase Negative (Negative) Urine RBC 10-20 H (0-5) /hpf Urine WBC 5-10 H (0-5) /hpf Ur Squamous Epith Cells 0-5 (0-5) /hpf Urine Bacteria Few (FEW) /hpf Urine Mucus Not seen (FEW) /hpf MRSA (PCR) Negative Result Diagrams: 06/20/19 08:10 06/20/19 08:10 Shekhar Results Last 24 hrs: Microbiology 06/19/19 22:40 Influenza Type A Antigen Screen - Final Nasal Aspirate, Unspecified NEGATIVE INFLUENZA A VIRUS AG REFERENCE RANGE: NEGATIVE Influenza Type B Antigen Screen - Final NEGATIVE INFLUENZA B VIRUS AG REFERENCE RANGE: NEGATIVE Sepsis Event Note - Evaluation Sepsis Screening Result: Sepsis Risk Current Stage of Sepsis: Ruled Out Reason for Ruling Out Sepsis: Lactic acid not greater than 2 - Focused Exam Vital Signs: Vital Signs Temp Temp Pulse Pulse Resp BP BP 06/20/19 04:24 102.7 F H 06/20/19 04:21 104.0 F H 84 16 103/58 L 06/20/19 01:29 101.1 F H 84 12 108/62 06/19/19 23:05 102.3 F H 06/19/19 22:20 101.4 F H 95 14 138/68 Pulse Ox 06/20/19 04:24 06/20/19 04:21 93 L 06/20/19 01:29 99 06/19/19 23:05 06/19/19 22:20 93 L Date Exam was Performed: 06/20/19 Time Exam was Performed: 11:35 - Problem List (1) Acute febrile illness SNOMED Code(s): 729436591 ICD Code: R50.9 - FEVER, UNSPECIFIED Status: Acute Priority: High Current Visit: Yes (2) COPD (chronic obstructive pulmonary disease) SNOMED Code(s): 53258636 ICD Code: J44.9 - CHRONIC OBSTRUCTIVE PULMONARY DISEASE, UNSPECIFIED Status : Chronic Priority: Medium Current Visit: Yes Qualifiers: COPD type: emphysema (3) Congestive heart failure SNOMED Code(s): 61909529 ICD Code: I50.9 - HEART FAILURE, UNSPECIFIED Status: Chronic Priority: Medium Current Visit: Yes Qualifiers: Heart failure type: combined systolic and diastolic Heart failure chronicity: acute on chronic Qualified Code(s): I50.43 - Acute on chronic combined systolic (congestive) and diastolic (congestive) heart failure (4) 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 SNOMED Code(s): 73395224 ICD Code: F10.26 - ALCOHOL DEPEND W ALCOH-INDUCE PERSISTING AMNESTIC DISORDER Status: Chronic Priority: Medium Current Visit: Yes (5) BPH (benign prostatic hyperplasia) SNOMED Code(s): 391603251 ICD Code: N40.0 - BENIGN PROSTATIC HYPERPLASIA WITHOUT LOWER URINRY TRACT SYMP Status: Chronic Priority: Medium Current Visit: Yes Qualifiers: Lower urinary tract symptom presence: unspecified whether lower urinary tract symptoms present Qualified Code(s): N40.0 - Benign prostatic hyperplasia without lower urinary tract symptoms (6) 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 SNOMED Code(s): 967622966 ICD Code: Z79.01 - [facility] (CURRENT) USE OF ANTICOAGULANTS Status: Chronic Priority: Low Current Visit: Yes (7) History of urinary retention SNOMED Code(s): 611422118 ICD Code: Z87.898 - PERSONAL HISTORY OF OTHER SPECIFIED CONDITIONS Status: Chronic Priority: Medium Current Visit: No (8) Hypoxia SNOMED Code(s): 035461502 ICD Code: R09.02 - HYPOXEMIA Status: Acute Priority: High Current Visit : Yes (9) Nicotine dependence SNOMED Code(s): 99451693 ICD Code: F17.200 - NICOTINE DEPENDENCE, UNSPECIFIED, UNCOMPLICATED Status : Chronic Priority: Medium Current Visit: Yes Qualifiers: Nicotine product type: cigarettes Substance use status: in withdrawal Qualified Code(s): F17.213 - Nicotine dependence, cigarettes, with withdrawal (10) Prostatism SNOMED Code(s): 50659373 ICD Code: N40.0 - BENIGN PROSTATIC HYPERPLASIA WITHOUT LOWER URINRY TRACT SYMP Status: Chronic Priority: Medium Current Visit: Yes Problem List Initiated/Reviewed/Updated: Yes Orders Last 24hrs: Active Orders 24 hr Category Date Time Status Admission Status [Patient Status] [ADT] Routine ADT 06/20/19 00:48 Active Antiembolic Devices [RC] PER UNIT ROUTINE Care 06/20/19 07:09 Active Bladder Scan [RC] ASDIRECTED Care 06/19/19 22:47 Active Cardiac Monitoring [RC] CONTINUOUS Care 06/20/19 07:08 Active Height and Weight [RC] DAILY Care 06/20/19 07:08 Active Intake and Output [RC] QSHIFT Care 06/20/19 07:08 Active Oxygen Therapy [RC] ASDIRECTED Care 06/20/19 00:05 Active Oxygen Therapy [RC] ASDIRECTED Care 06/20/19 01:40 Active Pulse Oximetry [RC] PRN Care 06/20/19 07:08 Active RT Aerosol Therapy [RC] ASDIRECTED Care 06/20/19 07:09 Active RT Incentive Spirometry [RC] ASDIRECTED Care 06/20/19 07:10 Active RT Post Treatment Assessment [RC] Click to Edit Care 06/20/19 01:44 Active RT Pre-Treatment Assessment [RC] Click to Edit Care 06/20/19 01:44 Active Up With Assistance [RC] ASDIRECTED Care 06/20/19 01:40 Active VTE/DVT Education [RC] PER UNIT ROUTINE Care 06/20/19 07:08 Active Vital Signs [RC] Q4H Care 06/20/19 07:08 Active Consult to Spiritual Care [CONS] Routine Cons 06/20/19 07:08 Active OT Evaluation and Treatment [CONS] Routine Cons 06/20/19 07:08 Active PT Evaluation and Treatment [CONS] Routine Cons 06/20/19 07:08 Active Respiratory Care Assess and Treatment [CONS] Routine Cons 06/20/19 07:08 Active Clear Liquid Diet [DIET] Diet 06/20/19 Breakfast Active Chest 1V Frontal [CR] Stat Exams 06/19/19 22:23 Taken Chest Abdomen Pelvis w Cont [CT] Routine Exams 06/20/19 07:19 Ordered BASIC METABOLIC PANEL,BMP [CHEM] AM Lab 06/21/19 05:11 Ordered BASIC METABOLIC PANEL,BMP [CHEM] AM Lab 06/22/19 05:11 Ordered BASIC METABOLIC PANEL,BMP [CHEM] AM Lab 06/23/19 05:11 Ordered BASIC METABOLIC PANEL,BMP [CHEM] AM Lab 06/24/19 05:11 Ordered CBC WITH AUTO DIFF [HEME] AM Lab 06/21/19 05:11 Ordered CBC WITH AUTO DIFF [HEME] AM Lab 06/22/19 05:11 Ordered CBC WITH AUTO DIFF [HEME] AM Lab 06/23/19 05:11 Ordered CBC WITH AUTO DIFF [HEME] AM Lab 06/24/19 05:11 Ordered CRP [C-REACTIVE PROTEIN] [CHEM] AM Lab 06/21/19 05:11 Ordered CRP [C-REACTIVE PROTEIN] [CHEM] AM Lab 06/22/19 05:11 Ordered CRP [C-REACTIVE PROTEIN] [CHEM] AM Lab 06/23/19 05:11 Ordered CRP [C-REACTIVE PROTEIN] [CHEM] AM Lab 06/24/19 05:11 Ordered CULTURE BLOOD [BC] Stat Lab 06/19/19 22:38 Received CULTURE BLOOD [BC] Stat Lab 06/19/19 23:01 Received CULTURE URINE [RM] Stat Lab 06/19/19 23:35 Received LEGIONELLA ANTIGEN [MREF] Routine Lab 06/20/19 07:12 Ordered MAGNESIUM [CHEM] AM Lab 06/21/19 05:11 Ordered MAGNESIUM [CHEM] AM Lab 06/22/19 05:11 Ordered MAGNESIUM [CHEM] AM Lab 06/23/19 05:11 Ordered MAGNESIUM [CHEM] AM Lab 06/24/19 05:11 Ordered RESPIRATORY PANEL Routine Lab 06/20/19 07:11 Ordered STREP PNEUMONIAE ANTIGEN [MREF] Routine Lab 06/20/19 07:10 Ordered Acetaminophen [Tylenol] Med 06/19/19 22:22 Active 975 mg PO Q4H PRN Albuterol [Proventil HFA] Med 06/20/19 01:43 Active See Dose Instructions INH Q2H PRN Albuterol/Ipratropium [DuoNeb 3.0-0.5 MG/3 ML] Med 06/20/19 07:08 Active 3 ml NEB Q4H PRN Apixaban [Eliquis] Med 06/20/19 09:00 Active 5 mg PO BID Calamine/Zinc Oxide [Calamine Lotion] Med 06/20/19 07:13 Ordered DOSE ml TOP Q8HR PRN Dextrose 5%-0.9% NaCl with KCl [D5 NS with 20 mEq KCl] Med 06/20/19 00:45 Active 1,000 ml IV ASDIRECTED Digoxin [Lanoxin] Med 06/20/19 09:00 Active 250 mcg PO DAILY Diltiazem [Dilacor XR] Med 06/20/19 09:00 Active 240 mg PO DAILY Docusate Sodium/Sennosides [Senna Plus] Med 06/20/19 09:00 Active 1 tab PO BID Donepezil Med 06/20/19 18:00 Ordered 5 mg PO QPM Escitalopram Med 06/20/19 09:00 Ordered 15 mg PO DAILY Finasteride [Proscar] Med 06/20/19 09:00 Active 5 mg PO DAILY Memantine HCl [Namenda] Med 06/20/19 09:00 Ordered 5 mg PO BID Metoprolol Succinate [Toprol XL] Med 06/20/19 09:00 Active 25 mg PO DAILY Multivit-Min/FA/Lycopen/Lutein [Certavite Sr- Med 06/20/19 09:00 Ordered Antioxidant Tab] 1 tab PO DAILY Mupirocin Cream Med 06/20/19 09:00 Ordered 1 applic TOP DAILY Nicotine [Habitrol] Med 06/20/19 09:00 Active 21 mg TRDERM DAILY Ondansetron [Zofran] Med 06/20/19 07:08 Active 4 mg IV Q6H PRN QUEtiapine [SEROqueL] Med 06/20/19 09:00 Ordered 100 mg PO BID Remove Patch Med 06/20/19 09:00 Active 1 ea TRDERM DAILY Tamsulosin [Flomax] Med 06/20/19 21:00 Ordered 0.4 mg PO BEDTIME Thiamine [Vitamin B-1] Med 06/20/19 09:00 Ordered 100 mg PO BID levETIRAcetam [Keppra] Med 06/20/19 09:00 Active 1,500 mg PO BID levETIRAcetam [Levetiracetam] Med 06/20/19 09:00 Ordered 1,500 mg PO BID Blood Culture x2 Reflex Set [OM.PC] Stat Oth 06/19/19 22:24 Ordered Resuscitation Status Routine Resus Stat 06/20/19 01:39 Ordered Medication Orders Acetaminophen (Tylenol) 975 mg PO Q4H PRN PRN Reason: Pain Last Admin: 06/20/19 04:24 Dose: 975 mg Admin: 06/19/19 23:05 Dose: 975 mg Albuterol (Proventil Hfa) 0 gm INH Q2H PRN PRN Reason: Shortness of Breath Albuterol/Ipratropium (Duoneb 3.0-0.5 Mg/3 Ml) 3 ml NEB Q4H PRN PRN Reason: Shortness Of Breath/wheezing Apixaban (Eliquis) 5 mg PO BID [facility] Calamine/Zinc Oxide (Calamine Lotion) ml TOP Q8HR PRN PRN Reason: Itching Citalopram Hydrobromide (Celexa) 30 mg PO DAILY [facility] Digoxin (Lanoxin) 250 mcg PO DAILY [facility] Diltiazem HCl (Dilacor Xr) 240 mg PO DAILY [facility] Donepezil HCl (Aricept) 5 mg PO QPM [facility] Finasteride (Proscar) 5 mg PO DAILY [facility] Potassium Chloride/Dextrose/Sod Cl (D5 Ns With 20 Meq Kcl) 1,000 mls @ 125 mls/ hr IV ASDIRECTED [facility] Last Admin: 06/20/19 02:09 Dose: 125 mls/hr Levetiracetam (Keppra) 1,500 mg PO BID [facility] Metoprolol Succinate (Toprol Xl) 25 mg PO DAILY [facility] Miscellaneous Information (Remove Patch) 1 ea TRDERM DAILY [facility] Nicotine (Habitrol) 21 mg TRDERM DAILY [facility] Non-Formulary Medication (Levetiracetam [Levetiracetam]) 1,500 mg PO BID [facility] Non-Formulary Medication (Memantine Hcl [Namenda]) 5 mg PO BID [facility] Non-Formulary Medication (Multivit-Min/Fa/Lycopen/Lutein [Certavite Sr- Antioxidant Tab]) 1 tab PO DAILY [facility] Non-Formulary Medication (Mupirocin Cream) 1 applic TOP DAILY [facility] Ondansetron HCl (Zofran) 4 mg IV Q6H PRN PRN Reason: Nausea/Vomiting Quetiapine Fumarate (Seroquel) 100 mg PO BID [facility] Senna/Docusate Sodium (Senna Plus) 1 tab PO BID [facility] Tamsulosin HCl (Flomax) 0.4 mg PO BEDTIME [facility] Thiamine HCl (Vitamin B-1) 100 mg PO BID [facility] Assessment/Plan Comment:: I/P: Acute: Fever of unknown origin -Reports 104 degree fever over past day at [facility], Chills, Rigor -Reports urinary pain, retention, but denies cough, SOB -Recently removed urinary catheter -Sepsis screen: -Fever greater than 100.9 -WBC >12K -Lactic acid not greater than 2 -Hx/o untreated suspected renal cell carcinoma with possible metastasis from prior CT scan -CXR shows questionable infiltrate in left lung base -UA negative -Urine culture pending -Blood cultures pending -WBC 14.74-->17.31 -CRP 3.7-->10.7 -Started on 750mg Levaquin in ED - continue -Lactic acid 2.0-->2.0 -MRSA negative -Influenza screen negative -RVP, Legionella, Strep pneumo pending -Chest/Abdomen/Pelvis CT -Droplet precautions -IS/RT/Acapella -PRN Duonebs -O2 as needed -Tamiflu 75mg started in ED - continue BID Acute Kidney Injury -Baseline GFR >60 -BUN 17 -Creatinine 1.5 -GFR 47 -IV fluids as ordered -Avoid nephrotoxice meds if possible Hypermagnesemia -Magnesium 1.3 in ED and supplemented -2/2 oversupplementation -monitor Chronic: cataracts glaucoma A. fib on Eliquis tobacco use seizure 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 Major depressive disorder single episode, unspecified COPD Constipation Pruritus BPH without lower urinary tract symptoms FDC use of anticoagulants Hypothyroidism Vitamin D deficiency Heart failure Plan: Admit to medical floor on telemetry CM/SW for discharge planning Routine AM Labs Home medications as ordered PT/OT DVT prophylaxis: Home Eliquis Code status:DNR; PCP: Dr. Greene - Mortality Measure Prognosis:: Poor
--- NOTE | 2019-06-20 08:58 | CR ---
Chest: Frontal view of the chest is obtained. Comparison: Prior chest CT of 04/16/19 and chest x-ray of 04/07/19. Patchy increased lung markings within the left base are noted. Findings may represent an early area of pneumonia. Mild atelectasis is also seen within both lung bases. Upper lungs are clear. Heart size is normal. Tortuous thoracic aorta is seen. Two healing rib fractures are seen within the left mid to lower chest. Impression: 1. Patchy increased density within the left base possibly due to early pneumonia. 2. Mild bibasilar atelectasis. 3. Two healing left mid to lower rib fractures. Diagnostic code #3 This report was dictated in [place] [employer]
[2019-06-20] MEDS ORDERED: Apixaban 5 MG Tab PO SCH (09:00)
[2019-06-20] MEDS ORDERED: Citalopram 10 MG Tab PO SCH (09:00)
[2019-06-20] MEDS ORDERED: Metoprolol Succinate 25 MG Tab.ER PO SCH (09:00)
[2019-06-20] MEDS ORDERED: levETIRAcetam 500 MG Tab PO SCH ×2 (09:00)
[2019-06-20] MEDS ORDERED: Memantine 10 MG Tab PO SCH (09:00)
[2019-06-20] MEDS ORDERED: Finasteride 5 MG Tab PO SCH (09:00)
[2019-06-20] MEDS ORDERED: Diltiazem 240 MG Cap.ER PO SCH (09:00)
[2019-06-20] MEDS ORDERED: Multivitamins with Minerals/Folic Acid/Lutein/Zeaxanth Tab PO SCH (09:00)
[2019-06-20] MEDS ORDERED: Thiamine 100 MG Tab PO SCH (09:00)
[2019-06-20] MEDS ORDERED: Nicotine 21 MG/24 Hr Patch TRDERM SCH (09:00)
[2019-06-20] MEDS ORDERED: QUEtiapine 100 MG Tab PO SCH (09:00)
[2019-06-20] MEDS ORDERED: Mupirocin Oint 22 GM Tube TOP SCH (09:00)
[2019-06-20] MEDS ORDERED: lamoTRIgine 100 MG Tab PO SCH (09:00)
[2019-06-20] MEDS ORDERED: Digoxin 250 MCG Tab PO SCH (09:00)
[2019-06-20] MEDS ORDERED: Sodium Chloride 0.9% 10 ML Syringe FLUSH PRN (09:40)
[2019-06-20] MEDS ORDERED: Iopamidol 612 MG/ML 100 ML Bottle IVPUSH ONE (09:40)
[2019-06-20] MEDS ORDERED: Sodium Chloride 0.9% 100 ML IV SCH (09:45)
--- NOTE | 2019-06-20 11:00 | CT ---
CT chest Technique: Multiple axial sections were obtained from above the lung apices inferiorly through the lung bases. Intravenous contrast was utilized. Comparison: Prior chest CT study of 04/16/19. Findings: Mild coronary artery calcification is seen. Mild calcification is noted within the thoracic aorta. No aneurysm is seen. No mediastinal adenopathy is noted. No axillary adenopathy is seen. No pericardial thickening is seen. Nodule noted within the right lung base measuring about 8 mm. This appears to be stable from previous exam. Mild emphysematous change is seen. Slight scarring is noted within both lung bases. Previous study showed a small pleural effusion which is no longer present. Incompletely healed rib fractures are noted within the posterior 9th and 10th left ribs. Impression: 1. Stable 8 mm nodule within the right lung base from previous chest CT. Differential still remains a solitary pulmonary nodule. 2. Incompletely healed rib fractures within the posterior 9th and 10th left ribs. 3. Other findings believed to be incidental as noted above. Diagnostic code #3 CT abdomen and pelvis Technique: Multiple axial sections were obtained from above the dome of the diaphragm inferiorly through the pubic symphysis. Intravenous contrast was utilized. No oral contrast has been given. Comparison: Previous CT stone protocol study of 04/14/19. Findings: There is an obstructing stone within the proximal right ureter. This is noted on prior study and has only slightly moved distally. This stone measures approximately 6 mm in size. Stone causes significant obstruction as there is decreased perfusion of the right kidney as compared to the left side. Enhancing mass is noted within the right kidney measuring approximately 4.4 cm in size. This appears to be fairly stable from prior study and has the appearance of a renal cell carcinoma. Cyst is noted off the upper right kidney measuring 1.9 cm. There is a low density mass being seen within the left kidney containing several calcifications measuring 2.7 cm. This also appears stable from prior exam. Difficult at this point to exclude second renal cell carcinoma. Left kidney shows evidence of stable cysts with largest cyst measuring about 3.1 cm. Left ureter shows no dilatation or obstruction. Small nodule is noted within the left adrenal gland which is stable. On the coronal image this measures 1.1 cm in size. Previously noted nodule within the right adrenal gland is not definitely appreciated on the coronal image. Liver contains no focal abnormality. Small hiatal hernia is noted. Spleen appears within normal limits. Gallbladder contains no calcified gallstones. Pancreas shows no discrete abnormality. Aorta shows atherosclerotic calcification which continues into the iliac vessels. No aneurysm is seen. No retroperitoneal adenopathy or mesenteric abnormalities are seen. No pelvic mass or adenopathy is noted. Bladder wall thickening is seen. Appendix not definitely visualized. No free fluid is identified. Bone window settings were reviewed which show a compression deformity within L1 which appears stable. Disc space narrowing and vacuum phenomena is noted at within the L5-S1 disc. No acute osseous finding is appreciated. Impression: 1. Obstructing stone within the proximal right ureter measuring 6 mm. This stone is noted on prior study and has slightly moved distally. This stone causes fairly significant obstruction as decreased enhancement is noted of this kidney. 2. Right sided renal mass is noted. This is stable from prior exam and likely represents a renal cell carcinoma. 3. Solid low density lesion within the left kidney showing calcifications. This finding measures 2.7 cm. Difficult to exclude additional renal cell carcinoma. 4. Cysts within both kidneys. 5. Previous right adrenal nodule not appreciated on this exam. Small stable nodule within the left adrenal gland is noted. 6. Other findings believed to be incidental. Diagnostic code #9 This report was dictated in [place] [employer] called report to Keo Finch at 10:50 on 06/20/2019
[2019-06-20] MEDS ORDERED: Cefepime 2 GM in Premix Bag 1 BAG IV ONE (11:30)
[2019-06-20 11:42] VITALS: BP 108/65; PULSE 79
--- NOTE | 2019-06-20 11:42 | PCM.DCSUM1 ---
Discharge Summary - Hospital Course HPI Initial Comments: Boaz Morrell is a 63 yo male who presented to our ED on 06/19/[address] [facility] with a fever via [facility]. Fever reportedly 104.1. Per the notes he had a prior fever which was similar around 1800 and was given Tylenol. Fever, chills, rigors, and bilateral flank pain have been ongoing since earlier in the morning. Patient notes he had a Goldman catheter placed on June 09 due to urinary retention at [facility] and this was taken out on June 17. Unclear if he had any antibiotics. Prior to this the patient had been admitted to the [facility] in [place] for psychiatric treatment. Per the patient he reports pain with urination but he reports that it feels like his bladder is emptying all the way. Denies cough, sputum, nausea, vomiting, diarrhea. In the ED temp was 39.1 Celsius. Pulse 95. Respirations 14. Blood pressure 138/68. Pulse ox 93%. Twelve-lead EKG is obtained showing a sinus rhythm at 90 bpm nonspecific T wave inversion in V1 and decreased limb lead voltage. QT is minimally prolonged. Labs were obtained: WBC is elevated at 14.74. Hemoglobin low at 12.9. Hematocrit 41.3. He is macrocytic. Platelets are good at 334,000. Neutrophils are elevated at 91%. There is no bandemia. ESR is 59. PT is 11. INR 1.01. APTT is 29. Sodium 139. Potassium 4.2. Chloride 102. Carbon oxide 26. Anion gap is slightly high at 15.2. BUN is 17. Creatinine 1.5. EGFR is 47. Glucose 126. Lactic acid 2.0. Magnesium is low 1.5. AST 16, ALT 17, alkaline phosphatase 89. CK-MB is less than 0.5. Troponin is less than 0.017. CRP is elevated at 3.71. Protein is 7.9. Albumin 3.5. proBNP is 606. Urine is obtained and is grossly negative however 2+ occult blood, 10-20 RBCs, and 5-10 WBCs are noted along with few bacteria. Is given Tylenol for fever and 1 L saline bolus. He is also given 750 mg Levaquin and 4 mg of Zofran. Magnesium is supplemented and he is started on D5 NS with 20 mEq KCl. Urine and blood cultures are was obtained. Chest x-rays obtained interpreted by Dr. Lopez as "1. Patchy increased density within the left base possibly due to early pneumonia. 2. mild bibasilar atelectasis. 3. Two healing left mid to lower rib fractures." Influenza screen is negative. Repeat lactic acid 3 hours later remains 2.0. He started on 75 mg twice daily Tamiflu. He carries a history of: cataracts, glaucoma, A. 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 He is a DNR. His PCP is Dr. Greene. Diagnosis: Stroke: No - Discharge Data Discharge Date: 06/20/19 (Admit date: 06/20/19) Discharge Disposition: DC/Tfer to Acute Hospital 02 Condition: Stable - Referral to Home Health Primary Care Physician: Quirino Greene MD - Discharge Diagnosis/Problem(s) (1) Acute febrile illness SNOMED Code(s): 091464929 ICD Code: R50.9 - FEVER, UNSPECIFIED Status: Acute Priority: High Current Visit: Yes (2) COPD (chronic obstructive pulmonary disease) SNOMED Code(s): 77916545 ICD Code: J44.9 - CHRONIC OBSTRUCTIVE PULMONARY DISEASE, UNSPECIFIED Status : Chronic Priority: Medium Current Visit: Yes Qualifiers: COPD type: emphysema (3) Congestive heart failure SNOMED Code(s): 53624713 ICD Code: I50.9 - HEART FAILURE, UNSPECIFIED Status: Chronic Priority: Medium Current Visit: Yes Qualifiers: Heart failure type: combined systolic and diastolic Heart failure chronicity: acute on chronic Qualified Code(s): I50.43 - Acute on chronic combined systolic (congestive) and diastolic (congestive) heart failure (4) 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 SNOMED Code(s): 74427358 ICD Code: F10.26 - ALCOHOL DEPEND W ALCOH-INDUCE PERSISTING AMNESTIC DISORDER Status: Chronic Priority: Medium Current Visit: Yes (5) BPH (benign prostatic hyperplasia) SNOMED Code(s): 611974460 ICD Code: N40.0 - BENIGN PROSTATIC HYPERPLASIA WITHOUT LOWER URINRY TRACT SYMP Status: Chronic Priority: Medium Current Visit: Yes Qualifiers: Lower urinary tract symptom presence: unspecified whether lower urinary tract symptoms present Qualified Code(s): N40.0 - Benign prostatic hyperplasia without lower urinary tract symptoms (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 SNOMED Code(s): 338898902 ICD Code: Z79.01 - [facility] (CURRENT) USE OF ANTICOAGULANTS Status: Chronic Priority: Low Current Visit: Yes (7) History of urinary retention SNOMED Code(s): 144306031 ICD Code: Z87.898 - PERSONAL HISTORY OF OTHER SPECIFIED CONDITIONS Status: Chronic Priority: Medium Current Visit: No (8) Hypoxia SNOMED Code(s): 063894215 ICD Code: R09.02 - HYPOXEMIA Status: Acute Priority: High Current Visit : Yes (9) Nicotine dependence SNOMED Code(s): 66695915 ICD Code: F17.200 - NICOTINE DEPENDENCE, UNSPECIFIED, UNCOMPLICATED Status : Chronic Priority: Medium Current Visit: Yes Qualifiers: Nicotine product type: cigarettes Substance use status: in withdrawal Qualified Code(s): F17.213 - Nicotine dependence, cigarettes, with withdrawal (10) Prostatism SNOMED Code(s): 41077918 ICD Code: N40.0 - BENIGN PROSTATIC HYPERPLASIA WITHOUT LOWER URINRY TRACT SYMP Status: Chronic Priority: Medium Current Visit: Yes - Patient Summary/Data Consults: Consultations 06/20/19 07:08 Consult to Spiritual Care [CONS] Routine OT Evaluation and Treatment [CONS] Routine PT Evaluation and Treatment [CONS] Routine Respiratory Care Assess and Treatment [CONS] Routine Labs Pending at D/C: Respiratory viral panel, Blood cultures, Urine cultures, Strep Pneumo, Legionella, Procalcitonin Hospital Course: Boaz Morrell was admitted to the floor with telemetry this morning due to a fever of unknown origin. Patient denies any respiratory symptoms. He did have a Goldman catheter which was recently removed at the retirement. Urine was negative with the exception of some red blood cells. Due to no clear source patient was started on Levaquin in the ED and a thorough infectious work-up was started. Respiratory viral panel, strep pneumo, Legionella, blood cultures, and urine cultures were obtained but had not yet returned. CT of the chest abdomen pelvis was obtained after there was some suggestion of a pneumonia on the official read of the chest x-ray. Chest CT was interpreted by Dr. Goodson, radiology as "1. Stable 8 mm nodule within the right lung base from previous chest CT. Differential still remains a solitary pulmonary nodule. 2. Incompletely healed rib fractures within the posterior ninth and 10th left ribs. 3. Other findings believed to be incidental as noted above." CT of the abdomen and pelvis was obtained and interpreted by Dr. Goodson, radiologist, as 1. Obstructing stone within the proximal right ureter measuring 6 mm. This stone is noted on prior study and has slightly moved distally. The stone causes fairly significant obstruction as decreased enhancement is noted of this kidney. 2. Right-sided renal mass is noted. This is stable from prior exam and likely represents a renal cell carcinoma. 3. Solid low-density lesion within the left kidney showing calcifications. This finding measures 2.7 cm. Difficult to exclude additional renal cell carcinoma. 4. Cyst within both kidneys. 5. Previous right adrenal nodule not appreciated on this exam. Small stable nodule within the left adrenal gland is noted. 6. Other findings believed to be incidental." [facility] one call was then contacted and report was given to Dr. Salas, Hospitalist. She would like the patient started on Zosyn and accepted care. Unfortunately patient is allergic to penicillins so cefepime was started, as it should have similar coverage. Unfortunately local ambulance services were unavailable to take the patient with ALS, so [facility] ambulance service was contacted and did transfer the patient to [place]. He left without incident. - Discharge Plan *PRESCRIPTION DRUG MONITORING PROGRAM REVIEWED*: Not Applicable *COPY OF PRESCRIPTION DRUG MONITORING REPORT IN PATIENT AUSTEN: Not Applicable Home Medications: Home Meds levETIRAcetam [Levetiracetam] 1,500 mg PO BID 04/08/19 [History] Digoxin [Lanoxin] 250 mcg PO DAILY #1 tablet 04/23/19 [Rx] Metoprolol Succinate [Toprol XL] 25 mg PO DAILY tab.er 04/23/19 [Rx] Nicotine [Habitrol] 21 mg TRDERM DAILY patch 04/23/19 [Rx] Acetaminophen [Tylenol] 650 mg PO QID 06/19/19 [History] Albuterol [Proventil HFA] 2 puff INH Q6HR PRN 06/19/19 [History] Apixaban [Eliquis] 5 mg PO BID 06/19/19 [History] Diltiazem HCl [Cardizem Cd] 240 mg PO DAILY 06/19/19 [History] Donepezil [Aricept] 5 mg PO QPM 06/19/19 [History] Escitalopram [Lexapro] 15 mg PO DAILY 06/19/19 [History] Finasteride [Proscar] 5 mg PO DAILY 06/19/19 [History] Magnesium Chloride [Slow-Mag] 140 mg PO BID 06/19/19 [History] Mecobal/Levomefolat Ca/B6 Phos [Foltanx Tablet] 1 tab PO BID 06/19/19 [History] Memantine HCl [Namenda] 5 mg PO BID 06/19/19 [History] Multivit-Min/FA/Lycopen/Lutein [Certavite Sr-Antioxidant Tab] 1 tab PO DAILY [History] QUEtiapine [SEROquel] 100 mg PO BID 06/19/19 [History] Sennosides/Docusate Sodium [Senna Plus 8.6-50 mg Tablet] 1 tab PO BID 06/19/19 [ History] Tamsulosin HCl [Flomax] 0.4 mg PO BEDTIME 06/19/19 [History] Thiamine [Vitamin B-1] 100 mg PO BID 06/19/19 [History] Calamine/Zinc Oxide [Calamine Lotion] 1 applic TOP Q8HR PRN 06/20/19 [History] Mupirocin Cream [Bactroban Crm] 1 applic TOP DAILY 06/20/19 [History] Oxygen Therapy Mode: Nasal Cannula Oxygen Flow Rate (L/min): 2 Patient Handouts: Sepsis, Adult, Heart Failure, Steps to Quit Smoking Referrals: Quirino Greene MD [Primary Care Provider] - - Discharge Summary/Plan Comment DC Time >30 min.: Yes (60 minutes) - General Info Date of Service: 06/20/19 Admission Dx/Problem (Free Text: Admission Diagnosis/Problem Admission Diagnosis/Problem Fever Functional Status: Reports: Pain Controlled, Tolerating Diet, Ambulating, Urinating, Incentive Spirometry, Other (acapella ). Denies: New Symptoms - Review of Systems General: Reports: Fever, Weakness, Fatigue, Malaise, Chills HEENT: Reports: No Symptoms. Denies: Headaches, Sore Throat Pulmonary: Reports: No Symptoms. Denies: Shortness of Breath, Cough, Sputum, Wheezing Cardiovascular: Reports: No Symptoms. Denies: Chest Pain, Palpitations, Edema Gastrointestinal: Reports: No Symptoms. Denies: Abdominal Pain, Constipation, Diarrhea, Nausea, Vomiting Genitourinary: Reports: Pain, Hematuria, Retention Musculoskeletal: Reports: Neck Pain (chroinc ), Hand Pain (left - chronic ) Skin: Reports: No Symptoms. Denies: Cyanosis Neurological: Reports: Confusion (baseline ) - Patient Data Vitals - Most Recent: Last Vital Signs Temp 100.5 F 06/20/19 09:13 Pulse 111 H 06/20/19 09:13 Resp 20 06/20/19 08:11 BP 121/61 06/20/19 09:13 Pulse Ox 100 06/20/19 08:11 Weight - Most Recent: 185 lb 8 oz I&O - Last 24 hours: Intake & Output 06/19/19 06/20/19 06/20/19 22:59 06:59 14:59 Intake Total 534 0 Output Total 0 Balance 534 0 Lab Results - Last 24 hrs: Laboratory Results - last 24 hr 06/19/19 06/19/19 06/19/19 Range/Units 22:38 22:38 22:38 WBC (4.23-9.07) K/mm3 RBC (4.63-6.08) M/mm3 Hgb (13.7-17.5) gm/dl Hct (40.1-51.0) % MCV (79.0-92.2) fl MCH (25.7-32.2) pg MCHC (32.2-35.5) g/dl RDW Std Deviation (35.1-43.9) fL Plt Count (163-337) K/mm3 MPV (9.4-12.3) fl Neut % (Auto) (34.0-67.9) % Lymph % (Auto) (21.8-53.1) % [place] % (Auto) (5.3-12.2) % Eos % (Auto) (0.8-7.0) Baso % (Auto) (0.1-1.2) % Neut # (Auto) (1.78-5.38) K/mm3 Lymph # (Auto) (1.32-3.57) K/mm3 [place] # (Auto) (0.30-0.82) K/mm3 Eos # (Auto) (0.04-0.54) K/mm3 Baso # (Auto) (0.01-0.08) K/mm3 Neutrophils % (Manual) (40-60) % Band Neutrophils % (0-10) % Lymphocytes % (Manual) (20-40) % Atypical Lymphs % % Monocytes % (Manual) (2-10) % Eosinophils % (Manual) (0.8-7.0) % Basophils % (Manual) (0.2-1.2) Manual Slide Review Platelet Estimate RBC Morph Comment ESR (0-15) mm/hr PT 11.0 (9.7-12.0) SECONDS INR 1.01 APTT 29 (22-31) SECONDS Sodium 139 (136-145) mEq/L Potassium 4.2 (3.5-5.1) mEq/L Chloride 102 (98-107) mEq/L Carbon Dioxide 26 (21-32) mEq/L Anion Gap 15.2 H (5-15) BUN 17 (7-18) mg/dL Creatinine 1.5 H (0.7-1.3) mg/dL Est Cr Clr Drug Dosing 59.85 mL/min Estimated GFR (MDRD) 47 (>60) mL/min BUN/Creatinine Ratio 11.3 L (14-18) Glucose 126 H (80-115) mg/dL Lactic Acid 2.0 (0.4-2.0) mmol/L Calcium 9.2 (8.5-10.1) mg/dL Magnesium 1.5 L (1.8-2.4) mg/dl Total Bilirubin 0.3 (0.2-1.0) mg/dL AST 16 (15-37) U/L ALT 17 (16-63) U/L Alkaline Phosphatase 89 (46-116) U/L CK-MB (CK-2) < 0.5 (0-3.6) ng/ml Troponin I < 0.017 (0.00-0.056) ng/mL C-Reactive Protein 3.7 H* (<1.0) mg/dL NT-Pro-B Natriuret Pep (0-125) pg/mL Total Protein 7.9 (6.4-8.2) g/dl Albumin 3.5 (3.4-5.0) g/dl Globulin 4.4 gm/dL Albumin/Globulin Ratio 0.8 L (1-2) Urine Color (Yellow) Urine Appearance (Clear) Urine pH (5.0-8.0) Ur Specific [place] (1.005-1.030) Urine Protein (Negative) Urine Glucose (UA) (Negative) Urine Ketones (Negative) Urine Occult Blood (Negative) Urine Nitrite (Negative) Urine Bilirubin (Negative) Urine Urobilinogen (0.2-1.0) Ur Leukocyte Esterase (Negative) Urine RBC (0-5) /hpf Urine WBC (0-5) /hpf Ur Squamous Epith Cells (0-5) /hpf Urine Bacteria (FEW) /hpf Urine Mucus (FEW) /hpf MRSA (PCR) 06/19/19 06/19/19 06/19/19 Range/Units 22:38 22:38 23:01 WBC 14.74 H (4.23-9.07) K/mm3 RBC 4.30 L (4.63-6.08) M/mm3 Hgb 12.9 L (13.7-17.5) gm/dl Hct 41.3 (40.1-51.0) % MCV 96.0 H D (79.0-92.2) fl MCH 30.0 (25.7-32.2) pg MCHC 31.2 L (32.2-35.5) g/dl RDW Std Deviation 48.3 H (35.1-43.9) fL Plt Count 334 D (163-337) K/mm3 MPV 9.8 (9.4-12.3) fl Neut % (Auto) (34.0-67.9) % Lymph % (Auto) (21.8-53.1) % [place] % (Auto) (5.3-12.2) % Eos % (Auto) (0.8-7.0) Baso % (Auto) (0.1-1.2) % Neut # (Auto) (1.78-5.38) K/mm3 Lymph # (Auto) (1.32-3.57) K/mm3 [place] # (Auto) (0.30-0.82) K/mm3 Eos # (Auto) (0.04-0.54) K/mm3 Baso # (Auto) (0.01-0.08) K/mm3 Neutrophils % (Manual) 91 H (40-60) % Band Neutrophils % 0 (0-10) % Lymphocytes % (Manual) 7 L (20-40) % Atypical Lymphs % 0 % Monocytes % (Manual) 1 L (2-10) % Eosinophils % (Manual) 1 (0.8-7.0) % Basophils % (Manual) 0 L (0.2-1.2) Manual Slide Review Platelet Estimate Adequate RBC Morph Comment Normal ESR 59 H (0-15) mm/hr PT (9.7-12.0) SECONDS INR APTT (22-31) SECONDS Sodium (136-145) mEq/L Potassium (3.5-5.1) mEq/L Chloride (98-107) mEq/L Carbon Dioxide (21-32) mEq/L Anion Gap (5-15) BUN (7-18) mg/dL Creatinine (0.7-1.3) mg/dL Est Cr Clr Drug Dosing mL/min Estimated GFR (MDRD) (>60) mL/min BUN/Creatinine Ratio (14-18) Glucose (80-115) mg/dL Lactic Acid (0.4-2.0) mmol/L Calcium (8.5-10.1) mg/dL Magnesium (1.8-2.4) mg/dl Total Bilirubin (0.2-1.0) mg/dL AST (15-37) U/L ALT (16-63) U/L Alkaline Phosphatase (46-116) U/L CK-MB (CK-2) (0-3.6) ng/ml Troponin I (0.00-0.056) ng/mL C-Reactive Protein (<1.0) mg/dL NT-Pro-B Natriuret Pep 606 H (0-125) pg/mL Total Protein (6.4-8.2) g/dl Albumin (3.4-5.0) g/dl Globulin gm/dL Albumin/Globulin Ratio (1-2) Urine Color (Yellow) Urine Appearance (Clear) Urine pH (5.0-8.0) Ur Specific [place] (1.005-1.030) Urine Protein (Negative) Urine Glucose (UA) (Negative) Urine Ketones (Negative) Urine Occult Blood (Negative) Urine Nitrite (Negative) Urine Bilirubin (Negative) Urine Urobilinogen (0.2-1.0) Ur Leukocyte Esterase (Negative) Urine RBC (0-5) /hpf Urine WBC (0-5) /hpf Ur Squamous Epith Cells (0-5) /hpf Urine Bacteria (FEW) /hpf Urine Mucus (FEW) /hpf MRSA (PCR) 06/19/19 06/20/19 06/20/19 Range/Units 23:35 01:30 02:04 WBC (4.23-9.07) K/mm3 RBC (4.63-6.08) M/mm3 Hgb (13.7-17.5) gm/dl Hct (40.1-51.0) % MCV (79.0-92.2) fl MCH (25.7-32.2) pg MCHC (32.2-35.5) g/dl RDW Std Deviation (35.1-43.9) fL Plt Count (163-337) K/mm3 MPV (9.4-12.3) fl Neut % (Auto) (34.0-67.9) % Lymph % (Auto) (21.8-53.1) % [place] % (Auto) (5.3-12.2) % Eos % (Auto) (0.8-7.0) Baso % (Auto) (0.1-1.2) % Neut # (Auto) (1.78-5.38) K/mm3 Lymph # (Auto) (1.32-3.57) K/mm3 [place] # (Auto) (0.30-0.82) K/mm3 Eos # (Auto) (0.04-0.54) K/mm3 Baso # (Auto) (0.01-0.08) K/mm3 Neutrophils % (Manual) (40-60) % Band Neutrophils % (0-10) % Lymphocytes % (Manual) (20-40) % Atypical Lymphs % % Monocytes % (Manual) (2-10) % Eosinophils % (Manual) (0.8-7.0) % Basophils % (Manual) (0.2-1.2) Manual Slide Review Platelet Estimate RBC Morph Comment ESR (0-15) mm/hr PT (9.7-12.0) SECONDS INR APTT (22-31) SECONDS Sodium (136-145) mEq/L Potassium (3.5-5.1) mEq/L Chloride (98-107) mEq/L Carbon Dioxide (21-32) mEq/L Anion Gap (5-15) BUN (7-18) mg/dL Creatinine (0.7-1.3) mg/dL Est Cr Clr Drug Dosing mL/min Estimated GFR (MDRD) (>60) mL/min BUN/Creatinine Ratio (14-18) Glucose (80-115) mg/dL Lactic Acid 2.0 (0.4-2.0) mmol/L Calcium (8.5-10.1) mg/dL Magnesium (1.8-2.4) mg/dl Total Bilirubin (0.2-1.0) mg/dL AST (15-37) U/L ALT (16-63) U/L Alkaline Phosphatase (46-116) U/L CK-MB (CK-2) (0-3.6) ng/ml Troponin I (0.00-0.056) ng/mL C-Reactive Protein (<1.0) mg/dL NT-Pro-B Natriuret Pep (0-125) pg/mL Total Protein (6.4-8.2) g/dl Albumin (3.4-5.0) g/dl Globulin gm/dL Albumin/Globulin Ratio (1-2) Urine Color Yellow (Yellow) Urine Appearance Clear (Clear) Urine pH 5.5 (5.0-8.0) Ur Specific [place] 1.020 (1.005-1.030) Urine Protein Negative (Negative) Urine Glucose (UA) Negative (Negative) Urine Ketones Negative (Negative) Urine Occult Blood 2+ H (Negative) Urine Nitrite Negative (Negative) Urine Bilirubin Negative (Negative) Urine Urobilinogen 0.2 (0.2-1.0) Ur Leukocyte Esterase Negative (Negative) Urine RBC 10-20 H (0-5) /hpf Urine WBC 5-10 H (0-5) /hpf Ur Squamous Epith Cells 0-5 (0-5) /hpf Urine Bacteria Few (FEW) /hpf Urine Mucus Not seen (FEW) /hpf MRSA (PCR) Negative 06/20/19 06/20/19 Range/Units 08:10 08:10 WBC 17.31 H (4.23-9.07) K/mm3 RBC 4.18 L (4.63-6.08) M/mm3 Hgb 12.7 L (13.7-17.5) gm/dl Hct 40.7 (40.1-51.0) % MCV 97.4 H (79.0-92.2) fl MCH 30.4 (25.7-32.2) pg MCHC 31.2 L (32.2-35.5) g/dl RDW Std Deviation 48.8 H (35.1-43.9) fL Plt Count 321 (163-337) K/mm3 MPV 9.1 L (9.4-12.3) fl Neut % (Auto) 84.1 H (34.0-67.9) % Lymph % (Auto) 4.0 L (21.8-53.1) % [place] % (Auto) 11.3 (5.3-12.2) % Eos % (Auto) 0.1 L (0.8-7.0) Baso % (Auto) 0.2 (0.1-1.2) % Neut # (Auto) 14.56 H (1.78-5.38) K/mm3 Lymph # (Auto) 0.70 L (1.32-3.57) K/mm3 [place] # (Auto) 1.96 H (0.30-0.82) K/mm3 Eos # (Auto) 0.01 L (0.04-0.54) K/mm3 Baso # (Auto) 0.03 (0.01-0.08) K/mm3 Neutrophils % (Manual) (40-60) % Band Neutrophils % (0-10) % Lymphocytes % (Manual) (20-40) % Atypical Lymphs % % Monocytes % (Manual) (2-10) % Eosinophils % (Manual) (0.8-7.0) % Basophils % (Manual) (0.2-1.2) Manual Slide Review Abnormal smear Platelet Estimate RBC Morph Comment ESR (0-15) mm/hr PT (9.7-12.0) SECONDS INR APTT (22-31) SECONDS Sodium 135 L (136-145) mEq/L Potassium 4.1 (3.5-5.1) mEq/L Chloride 101 (98-107) mEq/L Carbon Dioxide 26 (21-32) mEq/L Anion Gap 12.1 (5-15) BUN 17 (7-18) mg/dL Creatinine 1.5 H (0.7-1.3) mg/dL Est Cr Clr Drug Dosing 58.43 mL/min Estimated GFR (MDRD) 47 (>60) mL/min BUN/Creatinine Ratio 11.3 L (14-18) Glucose 113 (80-115) mg/dL Lactic Acid (0.4-2.0) mmol/L Calcium 9.2 (8.5-10.1) mg/dL Magnesium 2.5 H (1.8-2.4) mg/dl Total Bilirubin (0.2-1.0) mg/dL AST (15-37) U/L ALT (16-63) U/L Alkaline Phosphatase (46-116) U/L CK-MB (CK-2) (0-3.6) ng/ml Troponin I (0.00-0.056) ng/mL C-Reactive Protein 10.7 H* (<1.0) mg/dL NT-Pro-B Natriuret Pep (0-125) pg/mL Total Protein (6.4-8.2) g/dl Albumin (3.4-5.0) g/dl Globulin gm/dL Albumin/Globulin Ratio (1-2) Urine Color (Yellow) Urine Appearance (Clear) Urine pH (5.0-8.0) Ur Specific [place] (1.005-1.030) Urine Protein (Negative) Urine Glucose (UA) (Negative) Urine Ketones (Negative) Urine Occult Blood (Negative) Urine Nitrite (Negative) Urine Bilirubin (Negative) Urine Urobilinogen (0.2-1.0) Ur Leukocyte Esterase (Negative) Urine RBC (0-5) /hpf Urine WBC (0-5) /hpf Ur Squamous Epith Cells (0-5) /hpf Urine Bacteria (FEW) /hpf Urine Mucus (FEW) /hpf MRSA (PCR) [facility] Results - Last 24 hrs: Microbiology 06/19/19 22:40 Influenza Type A Antigen Screen - Final Nasal Aspirate, Unspecified NEGATIVE INFLUENZA A VIRUS AG REFERENCE RANGE: NEGATIVE Influenza Type B Antigen Screen - Final NEGATIVE INFLUENZA B VIRUS AG REFERENCE RANGE: NEGATIVE Med Orders - Current: Current Medications Acetaminophen (Tylenol) 975 mg PO Q4H PRN PRN Reason: Pain Last Admin: 06/20/19 09:13 Dose: 975 mg Albuterol (Proventil Hfa) 0 gm INH Q2H PRN PRN Reason: Shortness of Breath Albuterol/Ipratropium (Duoneb 3.0-0.5 Mg/3 Ml) 3 ml NEB Q4H PRN PRN Reason: Shortness Of Breath/wheezing Apixaban (Eliquis) 5 mg PO BID [facility] Last Admin: 06/20/19 09:11 Dose: 5 mg Citalopram Hydrobromide (Celexa) 30 mg PO DAILY [facility] Last Admin: 06/20/19 09:12 Dose: 30 mg Digoxin (Lanoxin) 250 mcg PO DAILY [facility] Last Admin: 06/20/19 09:12 Dose: 250 mcg Diltiazem HCl (Dilacor Xr) 240 mg PO DAILY [facility] Last Admin: 06/20/19 09:12 Dose: 240 mg Donepezil HCl (Aricept) 5 mg PO QPM [facility] Finasteride (Proscar) 5 mg PO DAILY [facility] Last Admin: 06/20/19 09:11 Dose: 5 mg Potassium Chloride/Dextrose/Sod Cl (D5 Ns With 20 Meq Kcl) 1,000 mls @ 125 mls/ hr IV ASDIRECTED [facility] Last Admin: 06/20/19 09:26 Dose: 125 mls/hr Levofloxacin/Dextrose 750 mg/ (Premix) 150 mls @ 100 mls/hr IV Q24H [facility] Sodium Chloride (Normal Saline) 100 mls @ 75 mls/hr IV ASDIRECTED [facility] Stop: 06/20/19 18:00 Last Admin: 06/20/19 09:51 Dose: 75 mls/hr Cefepime HCl 2 gm/ Premix 50 mls @ 100 mls/hr IV ONETIME ONE Stop: 06/20/19 11:59 Levetiracetam (Keppra) 1,500 mg PO BID [facility] Last Admin: 06/20/19 09:12 Dose: 1,500 mg Memantine (Namenda) 5 mg PO BID [facility] Last Admin: 06/20/19 09:14 Dose: 5 mg Metoprolol Succinate (Toprol Xl) 25 mg PO DAILY [facility] Last Admin: 06/20/19 09:13 Dose: 25 mg Miscellaneous Information (Remove Patch) 1 ea TRDERM DAILY [facility] Last Admin: 06/20/19 09:34 Dose: 1 ea Mupirocin (Bactroban Oint) 0 gm TOP DAILY [facility] Last Admin: 06/20/19 09:14 Dose: 1 applic Nicotine (Habitrol) 21 mg TRDERM DAILY [facility] Last Admin: 06/20/19 09:13 Dose: 21 mg Calamine/Zinc Oxide (Lotion 177 Ml Bottle) 0 each TOP Q8H PRN PRN Reason: Itching Ondansetron HCl (Zofran) 4 mg IV Q6H PRN PRN Reason: Nausea/Vomiting Oseltamivir Phosphate (Tamiflu) 75 mg PO BID [facility] Quetiapine Fumarate (Seroquel) 100 mg PO BID [facility] Last Admin: 06/20/19 09:12 Dose: 100 mg Senna/Docusate Sodium (Senna Plus) 1 tab PO BID [facility] Last Admin: 06/20/19 09:12 Dose: 1 tab Sodium Chloride (Saline Flush) 10 ml FLUSH ONETIME PRN PRN Reason: IV FLUSH Stop: 06/20/19 18:00 Last Admin: 06/20/19 09:51 Dose: 10 ml Tamsulosin HCl (Flomax) 0.4 mg PO BEDTIME [facility] Thiamine HCl (Vitamin B-1) 100 mg PO BID [facility] Last Admin: 06/20/19 09:11 Dose: 100 mg Vit A/Vit C/Vit E/Selen/Cu/Zn/Lutei (Icaps Mv) 1 tab PO DAILY [facility] Last Admin: 06/20/19 09:12 Dose: 1 tab Discontinued Medications Sodium Chloride (Normal Saline) 1,000 mls @ 999 mls/hr IV ASDIRECTED [facility] Last Admin: 06/19/19 23:05 Dose: 999 mls/hr Levofloxacin/Dextrose 750 mg/ (Premix) 150 mls @ 100 mls/hr IV ONETIME ONE Stop: 06/20/19 01:32 Last Admin: 06/20/19 00:08 Dose: 100 mls/hr Magnesium Sulfate 4 gm/ Premix 50 mls @ 12.5 mls/hr IV ONETIME ONE Stop: 06/20/19 04:54 Last Admin: 06/20/19 02:09 Dose: 12.5 mls/hr Iopamidol (Isovue-300 (61%)) 100 ml IVPUSH ONETIME ONE Stop: 06/20/19 09:41 Last Admin: 06/20/19 09:51 Dose: 100 ml Levetiracetam (Keppra) 1,500 mg PO BID [facility] Ondansetron HCl (Zofran) 4 mg IVPUSH ONETIME ONE Stop: 06/19/19 22:23 Last Admin: 06/19/19 23:06 Dose: 4 mg Oseltamivir Phosphate (Tamiflu) 75 mg PO ONETIME ONE Stop: 06/20/19 00:49 Last Admin: 06/20/19 02:07 Dose: 75 mg - Exam Quality Assessment: Reports: Supplemental Oxygen (2L), DVT Prophylaxis. Denies : Urine Catheter General: Reports: Alert, Cooperative, Mild Distress (looks ill). Denies: Oriented HEENT: Reports: Pupils Equal, Pupils Reactive, Mucous Membr. Moist/[place] Neck: Reports: Supple, Trachea Midline Lungs: Reports: Clear to Auscultation, Normal Respiratory Effort Cardiovascular: Reports: Regular Rate, Regular Rhythm GI/Abdominal Exam: Normal Bowel Sounds, Soft, Non-Tender, No Distention (Male) Exam: Deferred Rectal (Males) Exam: Deferred Back Exam: Reports: Normal Inspection, Full Range of Motion, CVA Tenderness (L) , CVA Tenderness (R) Extremities: Normal Inspection, Normal Range of Motion, Non-Tender, No Pedal Edema, Normal Capillary Refill Skin: Reports: Warm, Intact, Other (Diaphoretic. ) Neurological: Reports: No New Focal Deficit Psy/Mental Status: Reports: Alert, Normal Mood
[2019-06-20] MEDS ORDERED: Donepezil 10 MG Tab PO SCH (18:00)
[2019-06-20] MEDS ORDERED: Oseltamivir 75 MG Cap PO SCH (21:00)
[2019-06-20] MEDS ORDERED: Tamsulosin 0.4 MG Cap.ER PO SCH (21:00)
[2019-06-21] MEDS ORDERED: Levofloxacin/Dextrose 5%-Water 750 MG in Premix Bag 1 BAG IV SCH ×2
== END 2019-06-20 13:53 | DRG 871 ==
LOC: JD.ED 22:18 → JD.MS 06-20 00:48
PROVIDERS: ADMIT Family Medicine; ATTEND Family Medicine
DX: R50.9 Fever, unspecified (principal); A41.9 Sepsis, unspecified organism; J18.9 Pneumonia, unspecified organism; I50.43 Acute on chronic combined systolic (congestive) and diastolic (congestive) heart failure; F17.213 Nicotine dependence, cigarettes, with withdrawal; N17.9 Acute kidney failure, unspecified; N40.0 Benign prostatic hyperplasia without lower urinary tract symptoms; F02.81 Dementia in other diseases classified elsewhere, unspecified severity, with behavioral disturbance; J98.11 Atelectasis; I48.91 Unspecified atrial fibrillation; F32.9 Major depressive disorder, single episode, unspecified; Z66 Do not resuscitate; G40.909 Epilepsy, unspecified, not intractable, without status epilepticus; H40.9 Unspecified glaucoma; E03.9 Hypothyroidism, unspecified; F10.26 Alcohol dependence with alcohol-induced persisting amnestic disorder; R09.02 Hypoxemia; J43.9 Emphysema, unspecified; E83.41 Hypermagnesemia; H26.9 Unspecified cataract; N40.1 Benign prostatic hyperplasia with lower urinary tract symptoms; R33.8 Other retention of urine; G30.0 Alzheimer's disease with early onset; Z79.01 Long term (current) use of anticoagulants; Z88.0 Allergy status to penicillin; Z88.6 Allergy status to analgesic agent; Z79.899 Other long term (current) drug therapy; Z98.49 Cataract extraction status, unspecified eye; Z99.81 Dependence on supplemental oxygen
CPT/HCPCS: 36415; 71045; 80053; 81001; 82553; 83605; 83735; 83880; 84484; 85007; 85027; 85610; 85652; 85730; 86140; 87040 ×2; 87086; 87088; 87186; 87804 ×2; 93005; A9270; J1956; J2405; J7030; 51798; 71260; 71260-26; 74177; 74177-26; 80048; 84145; 85025; 87077; 87486; 87581; 87632; 87641; 87798; 93010; 94667; 94760; 96361; 96365; 96375; 97162-GP; 97165-GO; 97535-GO; 99235; 99285; 99285-25; J0692; J3475; J3480; J7050; Q9967

== ENCOUNTER 2020-12-29 07:16 | Emergency (ER) | payer MEDICARE, MEDICAID ==
--- NOTE | 2020-12-29 07:27 | EDM.PDOC ---
ED HPI GENERAL MEDICAL PROBLEM - General Chief Complaint: Neuro Symptoms/Deficits Stated Complaint: [facility] Time Seen by Provider: 12/29/20 07:22 Source of Information: Reports: EMS, Skilled Nursing Records History Limitations: Reports: Altered Mental Status (Patient is unresponsive to verbal and physical stimuli) - History of Present Illness INITIAL COMMENTS - FREE TEXT/NARRATIVE: 65-year-old male presents to the ED from [facility] where he resides. Last known well time was apparently midnight. He presents to the ED unresponsive after being found this way in bed this morning. He is nonverbal and not responding even to deep painful stimuli. He moans a wee bit on movement of his head and opening of his eyes. Pupils are pinpoint and no gaze palsy. They did not appear to be responding to light. Patient by history is on Eliquis. No known falls or injuries. No other history is gleaned from the patient or the [facility]. Bedside blood sugar is 169. CODE STATUS is listed as DNR/DNI. Onset: Today, Sudden Onset Date: 12/29/20 Duration: Hour(s): Location: Reports: Generalized Quality: Reports: Other (Patient arrives unresponsive to verbal and physical stimuli. Unresponsive to physical and verbal stimuli.) Severity: Severe Improves with: Reports: None Worsens with: Reports: None Context: Denies: Activity, Exercise, Lifting, Sick Contact, Trauma, Other Associated Symptoms: Reports: Other Treatments LIBRARIAN HEAD: Reports: Other (see below) (Lately unresponsive. Patient is on [place] 3 times daily as well as lorazepam unclear when he would have received his last dose of medications.) - Related Data Allergies Allergy/AdvReac Type Severity Reaction Status Date / Time aspirin Allergy Cannot Verified 12/29/20 07:58 Remember Penicillins Allergy unknown Verified 12/29/20 07:58 Home Meds: Home Meds levETIRAcetam [Levetiracetam] 750 mg PO BID 04/08/19 [History] Digoxin [Lanoxin] 250 mcg PO DAILY #1 tablet 04/23/19 [Rx] Acetaminophen [Tylenol] 650 mg PO QID 06/19/19 [History] Albuterol [Proventil HFA] 2 puff INH Q6HR PRN 06/19/19 [History] Apixaban [Eliquis] 5 mg PO BID 06/19/19 [History] Donepezil [Aricept] 10 mg PO QPM 06/19/19 [History] Escitalopram [Lexapro] 10 mg PO DAILY 06/19/19 [History] Finasteride [Proscar] 5 mg PO DAILY 06/19/19 [History] Magnesium Chloride [Slow-Mag] 140 mg PO BID 06/19/19 [History] Memantine HCl [Namenda] 28 mg PO BID 06/19/19 [History] Multivit-Min/FA/Lycopen/Lutein [Certavite Sr-Antioxidant Tab] 1 tab PO DAILY 06/19/19 [History] QUEtiapine [SEROquel] 300 mg PO BID 06/19/19 [History] Sennosides/Docusate Sodium [Senna Plus 8.6-50 mg Tablet] 1 tab PO BID 06/19/19 [History] Tamsulosin HCl [Flomax] 0.4 mg PO BEDTIME 06/19/19 [History] Thiamine [Vitamin B-1] 100 mg PO BID 06/19/19 [History] Calamine/Zinc Oxide [Calamine Lotion] 1 applic TOP Q8HR PRN 06/20/19 [History] Acetaminophen/HYDROcodone [HYDROcodone-Acetaminophen 5-525 MG] 2.5 - 162.5 mg PO 12/29/20 [History] Cyanocobalamin (Vitamin B-12) [Cyanocobalamin Injection] 1,000 mcg INJECT WEEKLY 12/29/20 [History] Hydrocodone/Acetaminophen [HYDROcodone-Acetaminophen 5-325 MG] 2.5 - 162.5 mg PO BID PRN 12/29/20 [History] Insulin Aspart [Novolog Flexpen] 4 units SQ TIDMEALS 12/29/20 [History] Insulin Aspart [Novolog Flexpen] See Protocol SQ TID 12/29/20 [History] Insulin Glarg,Human.Rec.Analog [Lantus] 10 units SQ ACBREAKFAST 12/29/20 [History] Insulin Glarg,Human.Rec.Analog [Lantus] 40 units SQ 12/29/20 [History] LORazepam [Ativan] 1 mg PO BID 12/29/20 [History] Metoprolol Succinate [Toprol XL] 50 mg PO DAILY 12/29/20 [History] amLODIPine [Norvasc] 10 mg PO DAILY 12/29/20 [History] bisacodyL [Bisacodyl] 10 mg PO DAILY PRN 12/29/20 [History] Past Medical History HEENT History: Reports: Cataract, Glaucoma Cardiovascular History: Reports: Afib Respiratory History: Reports: COPD Other Respiratory History: Long time smoker with a barrell chest Gastrointestinal History: Reports: Chronic Constipation Genitourinary History: Reports: BPH Neurological History: Reports: Seizure Psychiatric History: Reports: Addiction, Depression Other Psychiatric History: 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), nicotine dependence Endocrine/Metabolic History: Reports: Hypothyroidism Other Endocrine/Metabolic History: vitamin B deficiency Hematologic History: Reports: Anticoagulation Therapy Dermatologic History: Reports: Other (See Below) Other Dermatologic History: pruritus - Past Surgical History HEENT Surgical History: Reports: Cataract Surgery, Oral Surgery Dermatological Surgical History: Reports: Other (See Below) Social & Family History - Family History Family Medical History: No Pertinent Family History - Caffeine Use Caffeine Use: Reports: Tea - Living Situation & Occupation Living situation: Reports: Single, Extended Care Facility Occupation: Disabled ([facility].) ED ROS GENERAL - Review of Systems Review Of Systems: See Below (Patient arrives in the ED unresponsive to verbal and physical stimuli) Constitutional: Denies: Fever ED EXAM, NEURO - Physical Exam Exam: See Below Exam Limited By: Altered Mental Status (Unresponsive to verbal or physical stimuli.) General Appearance: Obtunded, Other Eye Exam: Bilateral Eye: Normal Inspection, PERRL (Pinpoint pupils no gaze palsy no response to light previous intraocular lens implants and cataract extrac tions) Throat/Mouth: Normal Lips, Other. No: Normal Teeth (Dentures uppers.) Head Exam: Atraumatic, Normocephalic Neck: Normal Inspection, Supple, Full Range of Motion. No: Non-Tender, Carotid Bruit, Lymphadenopathy (L), Lymphadenopathy (R) Respiratory/Chest: No Respiratory Distress, Lungs Clear, Normal Breath Sounds, No Accessory Muscle Use Cardiovascular: Normal Peripheral Pulses, Regular Rate, Rhythm, No Edema, No Gallop, No JVD, No Rub GI/Abdominal: Normal Bowel Sounds, Soft, Non-Tender, No Organomegaly, No Abnormal Bruit, No Mass, Pelvis Stable Neurological: No Response to Pain, Abnormal Motor (No spontaneous movement of any of his limbs.), Other (No sustained clonus). No: Normal Mood/Affect, Normal Dorsiflexion, CN II-XII Intact, Normal Plantar Flexion, Normal Gait, Normal Reflexes, No Motor/Sensory Deficits, Babinski DTR: 0: Bicep (R), Bicep (L), Patella (R), Patella (L), Achilles (R), Achilles (L) Extremities: Normal Inspection, Other (No spontaneous movement of any of his limbs. Hyporeflexic no musculoskeletal tone no spasm.) Skin Exam: Warm, Dry, Intact, Normal Color, No Rash #1 Interpretation EKG Date: 12/29/20 Time: 07:52 Rhythm: NSR Rate (Beats/Min): 90 [place]: Normal P-Wave: Present QRS: Other ST-T: Other (Initial poor R wave progression decreased voltage limb leads. Nonspecific T wave flattening aVL.) QT: Prolonged EKG Interpretation Comments: Borderline ECG Course - Vital Signs Last Recorded V/S: Last Vital Signs Temp 36.4 C 12/29/20 07:20 Pulse 88 12/29/20 07:20 Resp 16 12/29/20 07:20 BP 150/95 H 12/29/20 07:20 Pulse Ox 95 12/29/20 07:20 - Orders/Labs/Meds Orders: Active Orders 24 hr Category Date Time Status EKG Documentation Completion [RC] STAT Care 12/29/20 07:23 Active REFLEX LACTIC ACID YES OR NO [CHEM] Routine Lab 12/29/20 12:52 Received URINALYSIS W/MICROSCOPIC [UA W/MICROSCOPIC] [URIN] Stat Lab 12/29/20 10:10 Results Dextrose 5%-0.9% NaCl [Dextrose 5%-Normal Saline] 1,000 Med 12/29/20 10:15 Active ml IV ASDIRECTED Blood Culture x2 Reflex Set [OM.PC] Stat Oth 12/29/20 07:24 Ordered Medication Orders Dextrose/Sodium Chloride (Dextrose 5%-Normal Saline) 1,000 mls @ 999 mls/hr IV ASDIRECTED PARVIN Last Admin: 12/29/20 12:34 Dose: 999 mls/hr Documented by: SHAYY Labs: Laboratory Tests 12/29/20 12/29/20 12/29/20 Range/Units 07:24 07:40 07:40 WBC 9.52 H (4.23-9.07) K/mm3 RBC 4.58 L (4.63-6.08) M/mm3 Hgb 13.1 L (13.7-17.5) gm/dl Hct 42.4 (40.1-51.0) % MCV 92.6 H D (79.0-92.2) fl MCH 28.6 (25.7-32.2) pg MCHC 30.9 L (32.2-35.5) g/dl RDW Std Deviation 46.7 H (35.1-43.9) fL Plt Count 334 (163-337) K/mm3 MPV 9.2 L (9.4-12.3) fl Neut % (Auto) 70.0 H (34.0-67.9) % Lymph % (Auto) 17.3 L (21.8-53.1) % Rice % (Auto) 10.0 (5.3-12.2) % Eos % (Auto) 1.3 (0.8-7.0) Baso % (Auto) 0.3 (0.1-1.2) % Neut # (Auto) 6.67 H (1.78-5.38) K/mm3 Lymph # (Auto) 1.65 (1.32-3.57) K/mm3 [place] # (Auto) 0.95 H (0.30-0.82) K/mm3 Eos # (Auto) 0.12 (0.04-0.54) K/mm3 Baso # (Auto) 0.03 (0.01-0.08) K/mm3 ESR (0-15) mm/hr PT 10.6 (9.7-12.0) SECONDS INR 0.99 APTT 28.8 (21.7-31.4) SECONDS Sodium (136-145) mEq/L Potassium (3.5-5.1) mEq/L Chloride (98-107) mEq/L Carbon Dioxide (21-32) mEq/L Anion Gap (5-15) BUN (7-18) mg/dL Creatinine (0.7-1.3) mg/dL Est Cr Clr Drug Dosing Estimated GFR (MDRD) (>60) mL/min BUN/Creatinine Ratio (14-18) Glucose (70-99) mg/dL POC Glucose 159 H (70-99) mg/dL Lactic Acid (0.4-2.0) mmol/L Calcium (8.5-10.1) mg/dL Magnesium (1.8-2.4) mg/dL Total Bilirubin (0.2-1.0) mg/dL AST (15-37) U/L ALT (16-63) U/L Alkaline Phosphatase (46-116) U/L Troponin I (0.00-0.056) ng/mL C-Reactive Protein (<1.0) mg/dL NT-Pro-B Natriuret Pep (0-125) pg/mL Total Protein (6.4-8.2) g/dl Albumin (3.4-5.0) g/dl Globulin gm/dL Albumin/Globulin Ratio (1-2) Urine Color (Yellow) Urine Appearance (Clear) Urine pH (5.0-8.0) Ur Specific [place] (1.005-1.030) Urine Protein (Negative) Urine Glucose (UA) (Negative) Urine Ketones (Negative) Urine Occult Blood (Negative) Urine Nitrite (Negative) Urine Bilirubin (Negative) Urine Urobilinogen (0.2-1.0) Ur Leukocyte Esterase (Negative) Digoxin (0.9-2.0) ng/mL 12/29/20 12/29/20 12/29/20 Range/Units 07:40 07:40 07:40 WBC (4.23-9.07) K/mm3 RBC (4.63-6.08) M/mm3 Hgb (13.7-17.5) gm/dl Hct (40.1-51.0) % MCV (79.0-92.2) fl MCH (25.7-32.2) pg MCHC (32.2-35.5) g/dl RDW Std Deviation (35.1-43.9) fL Plt Count (163-337) K/mm3 MPV (9.4-12.3) fl Neut % (Auto) (34.0-67.9) % Lymph % (Auto) (21.8-53.1) % [place] % (Auto) (5.3-12.2) % Eos % (Auto) (0.8-7.0) Baso % (Auto) (0.1-1.2) % Neut # (Auto) (1.78-5.38) K/mm3 Lymph # (Auto) (1.32-3.57) K/mm3 [place] # (Auto) (0.30-0.82) K/mm3 Eos # (Auto) (0.04-0.54) K/mm3 Baso # (Auto) (0.01-0.08) K/mm3 ESR 73 H (0-15) mm/hr PT (9.7-12.0) SECONDS INR APTT (21.7-31.4) SECONDS Sodium 138 (136-145) mEq/L Potassium 4.6 (3.5-5.1) mEq/L Chloride 101 (98-107) mEq/L Carbon Dioxide 27 (21-32) mEq/L Anion Gap 14.6 (5-15) BUN 13 (7-18) mg/dL Creatinine 1.8 H (0.7-1.3) mg/dL Est Cr Clr Drug Dosing TNP Estimated GFR (MDRD) 38 (>60) mL/min BUN/Creatinine Ratio 7.2 L (14-18) Glucose 163 H (70-99) mg/dL POC Glucose (70-99) mg/dL Lactic Acid (0.4-2.0) mmol/L Calcium 9.2 (8.5-10.1) mg/dL Magnesium 2.0 (1.8-2.4) mg/dL Total Bilirubin 0.3 (0.2-1.0) mg/dL AST 11 L (15-37) U/L ALT 30 (16-63) U/L Alkaline Phosphatase 123 H (46-116) U/L Troponin I < 0.017 (0.00-0.056) ng/mL C-Reactive Protein 6.5 H* (<1.0) mg/dL NT-Pro-B Natriuret Pep 134 H (0-125) pg/mL Total Protein 7.8 (6.4-8.2) g/dl Albumin 3.2 L (3.4-5.0) g/dl Globulin 4.6 gm/dL Albumin/Globulin Ratio 0.7 L (1-2) Urine Color (Yellow) Urine Appearance (Clear) Urine pH (5.0-8.0) Ur Specific [place] (1.005-1.030) Urine Protein (Negative) Urine Glucose (UA) (Negative) Urine Ketones (Negative) Urine Occult Blood (Negative) Urine Nitrite (Negative) Urine Bilirubin (Negative) Urine Urobilinogen (0.2-1.0) Ur Leukocyte Esterase (Negative) Digoxin (0.9-2.0) ng/mL 12/29/20 12/29/20 12/29/20 Range/Units 07:40 08:40 10:10 WBC (4.23-9.07) K/mm3 RBC (4.63-6.08) M/mm3 Hgb (13.7-17.5) gm/dl Hct (40.1-51.0) % MCV (79.0-92.2) fl MCH (25.7-32.2) pg MCHC (32.2-35.5) g/dl RDW Std Deviation (35.1-43.9) fL Plt Count (163-337) K/mm3 MPV (9.4-12.3) fl Neut % (Auto) (34.0-67.9) % Lymph % (Auto) (21.8-53.1) % [place] % (Auto) (5.3-12.2) % Eos % (Auto) (0.8-7.0) Baso % (Auto) (0.1-1.2) % Neut # (Auto) (1.78-5.38) K/mm3 Lymph # (Auto) (1.32-3.57) K/mm3 [place] # (Auto) (0.30-0.82) K/mm3 Eos # (Auto) (0.04-0.54) K/mm3 Baso # (Auto) (0.01-0.08) K/mm3 ESR (0-15) mm/hr PT (9.7-12.0) SECONDS INR APTT (21.7-31.4) SECONDS Sodium (136-145) mEq/L Potassium (3.5-5.1) mEq/L Chloride (98-107) mEq/L Carbon Dioxide (21-32) mEq/L Anion Gap (5-15) BUN (7-18) mg/dL Creatinine (0.7-1.3) mg/dL Est Cr Clr Drug Dosing Estimated GFR (MDRD) (>60) mL/min BUN/Creatinine Ratio (14-18) Glucose (70-99) mg/dL POC Glucose (70-99) mg/dL Lactic Acid 2.8 H* (0.4-2.0) mmol/L Calcium (8.5-10.1) mg/dL Magnesium (1.8-2.4) mg/dL Total Bilirubin (0.2-1.0) mg/dL AST (15-37) U/L ALT (16-63) U/L Alkaline Phosphatase (46-116) U/L Troponin I (0.00-0.056) ng/mL C-Reactive Protein (<1.0) mg/dL NT-Pro-B Natriuret Pep (0-125) pg/mL Total Protein (6.4-8.2) g/dl Albumin (3.4-5.0) g/dl Globulin gm/dL Albumin/Globulin Ratio (1-2) Urine Color Yellow (Yellow) Urine Appearance Clear (Clear) Urine pH 6.5 (5.0-8.0) Ur Specific [place] 1.015 (1.005-1.030) Urine Protein Negative (Negative) Urine Glucose (UA) Negative (Negative) Urine Ketones Negative (Negative) Urine Occult Blood Negative (Negative) Urine Nitrite Negative (Negative) Urine Bilirubin Negative (Negative) Urine Urobilinogen 0.2 (0.2-1.0) Ur Leukocyte Esterase Negative (Negative) Digoxin 1.1 (0.9-2.0) ng/mL 12/29/20 Range/Units 12:10 WBC (4.23-9.07) K/mm3 RBC (4.63-6.08) M/mm3 Hgb (13.7-17.5) gm/dl Hct (40.1-51.0) % MCV (79.0-92.2) fl MCH (25.7-32.2) pg MCHC (32.2-35.5) g/dl RDW Std Deviation (35.1-43.9) fL Plt Count (163-337) K/mm3 MPV (9.4-12.3) fl Neut % (Auto) (34.0-67.9) % Lymph % (Auto) (21.8-53.1) % [place] % (Auto) (5.3-12.2) % Eos % (Auto) (0.8-7.0) Baso % (Auto) (0.1-1.2) % Neut # (Auto) (1.78-5.38) K/mm3 Lymph # (Auto) (1.32-3.57) K/mm3 [place] # (Auto) (0.30-0.82) K/mm3 Eos # (Auto) (0.04-0.54) K/mm3 Baso # (Auto) (0.01-0.08) K/mm3 ESR (0-15) mm/hr PT (9.7-12.0) SECONDS INR APTT (21.7-31.4) SECONDS Sodium (136-145) mEq/L Potassium (3.5-5.1) mEq/L Chloride (98-107) mEq/L Carbon Dioxide (21-32) mEq/L Anion Gap (5-15) BUN (7-18) mg/dL Creatinine (0.7-1.3) mg/dL Est Cr Clr Drug Dosing Estimated GFR (MDRD) (>60) mL/min BUN/Creatinine Ratio (14-18) Glucose (70-99) mg/dL POC Glucose (70-99) mg/dL Lactic Acid 2.9 H* (0.4-2.0) mmol/L Calcium (8.5-10.1) mg/dL Magnesium (1.8-2.4) mg/dL Total Bilirubin (0.2-1.0) mg/dL AST (15-37) U/L ALT (16-63) U/L Alkaline Phosphatase (46-116) U/L Troponin I (0.00-0.056) ng/mL C-Reactive Protein (<1.0) mg/dL NT-Pro-B Natriuret Pep (0-125) pg/mL Total Protein (6.4-8.2) g/dl Albumin (3.4-5.0) g/dl Globulin gm/dL Albumin/Globulin Ratio (1-2) Urine Color (Yellow) Urine Appearance (Clear) Urine pH (5.0-8.0) Ur Specific [place] (1.005-1.030) Urine Protein (Negative) Urine Glucose (UA) (Negative) Urine Ketones (Negative) Urine Occult Blood (Negative) Urine Nitrite (Negative) Urine Bilirubin (Negative) Urine Urobilinogen (0.2-1.0) Ur Leukocyte Esterase (Negative) Digoxin (0.9-2.0) ng/mL Meds: Medications Generic Name Dose Route Start Last Admin Trade Name Graciela PRN Reason Stop Dose Admin Dextrose/Sodium Chloride 1,000 mls @ 999 mls/hr 12/29/20 10:15 12/29/20 12:34 Dextrose 5%-Normal Saline IV 999 mls/hr ASDIRECTED PARVIN Administration Discontinued Medications Generic Name Dose Route Start Last Admin Trade Name Arbenq PRN Reason Stop Dose Admin Dextrose/Sodium Chloride 1,000 mls @ 125 mls/hr 12/29/20 07:30 12/29/20 07:51 Dextrose 5%-Normal Saline IV 125 mls/hr ASDIRECTED PARVIN Administration Ceftriaxone Sodium 2 gm/ 100 mls @ 200 mls/hr 12/29/20 12:09 12/29/20 12:34 Sodium Chloride IV 12/29/20 12:38 200 mls/hr ONETIME ONE Administration Naloxone HCl 0.4 mg 12/29/20 07:31 12/29/20 07:45 Naloxone 0.4 Mg/Ml Sdv IVPUSH 12/29/20 07:32 0.4 mg ONETIME ONE Administration Naloxone HCl Confirm 12/29/20 07:32 12/29/20 07:53 Naloxone 0.4 Mg/Ml Sdv Administered 12/29/20 07:33 Not Given Dose 0.4 mg .ROUTE .[facility] - Radiology Interpretation Free Text/Narrative:: 65-year-old male [facility] un[facility] to verbal and painful stimuli. Pupils are pinpoint with no gaze palsy he is completely areflexic and moves no limbs. Stertorous respirations. Few rhonchi left upper lobe. He appears to have had a intracranial or brainstem event. Patient is on Eliquis. Bedside blood sugar is 169. He is on [place] 3 times daily plus lorazepam. He will give me a dose of Narcan to see if it makes any difference. Last known well time was midnight or 0 0 hours. - Re-Assessments/Exams Free Text/Narrative Re-Assessment/Exam: 12/29/20 07:47 CT of the brain has been completed. It read far reveals prominence of the sulci and convexities compared with the patient's age. There is dilated ventricles again combined with the patient's age. Diffuse small vessel ischemic change appreciated in both basal ganglia without any obvious infarcts. There is no intracranial bleeding or mass-effect. Calvarium appears to be intact. 12/29/20 08:20: Patient showed no response to Narcan 0.4 mg IV. Over read of head CT is similar to my findings other than mention of slight atherosclerotic calcification within the carotid siphon. He agrees with diffuse atrophy which is similar to prior head CT exam. 12/29/20 08:33 nurses are commenting the patient is now speaking a little bit and answering a few questions. He may of had an autonomic nervous system dysfunction secondary to severe dementia causing deep obtundation as there is no sign of stroke on CT of the head. The brainstem that is visualized also appears normal. Chest x-ray done portably reveals prominence of the right pulmonary artery and I believe a chronic infiltrate at the right medial heart border. Linear densities are also seen within the left lung base. Mild cardiomegaly. Unable to assess the left costophrenic angle. Previous CTs showed a small nodule within the right lung base which is too small to be seen on the chest x-ray. Mild tortuosity of the thoracic aorta is seen. 12/29/20 08:54 White count is normal at 9.52. The auto differential reveals 70% neutrophils. Hemoglobin is 13.1 with hematocrit of 42.4. Platelet count 334,000. PT is 10.6 with an INR of 0.99 and a PTT of 28.8. Sodium 138 with a potassium of 4.6 and a chloride of 101 bicarb is 27. Anion gap is 14.6 with a BUN of 13 and a creatinine of 1.8 GFR is 38. Glucose 163 bedside glucose was 159. Calcium 9.2 with a magnesium of 2.0 liver function normal. Troponin I is less than 0.017. C-reactive protein is mildly elevated at 6.5. BNP is 134 with a total protein of 7.8 digoxin level is therapeutic at 1.1. 12/29/20 10:00 Lactic acid has returned elevated at 2.8. IV fluids will be increased to 999 mils per hour. Urine catheterization has yet to be performed. 12/29/20 11:14 still awaiting urinalysis. 12/29/20 11:53 Apparently there has been some mixup in the urinalysis on this patient with another patient's urine. Patient has awoken and is cursing and swearing at the nursing staff. It therefore appears that his sudden lapse of unconsciousness was secondary to autonomic dysfunction secondary to dementia. I am still waiting a urinalysis. 12/29/20 13:36 Urinalysis came back completely normal. His lactic acid is 2.8. Did go down at all after a liter of IV fluids and it appears that this is fuller brush man mary from one of his medications. He is showing no signs of sepsis there is no fever there is no tachypnea there is no hypoxia there is no low blood pressure readings 163/87. I did give him 1 dose of Rocephin as there was a mixup in urinalyses and I was told initial 1 was positive for an infective process. I would not continue any further antibiotics he will be [facility] back [facility] the jail. Departure - Departure Time of Disposition: 13:36 Disposition: DC[facility] Condition: Poor Clinical Impression: Dysfunctional autonomic nervous system Dementia Qualifiers: Dementia type: Alzheimer's disease Alzheimer's disease onset: early-onset Dementia behavioral disturbance: with behavioral disturbance Qualified Code(s): G30.0 - Alzheimer's disease with early onset - Discharge Information *PRESCRIPTION DRUG MONITORING PROGRAM REVIEWED*: Not Applicable *COPY OF PRESCRIPTION DRUG MONITORING REPORT IN PATIENT AUSTEN: Not Applicable Referrals: Quirino Greene MD [Primary Care Provider] - Forms: ED Department Discharge Additional Instructions: Evaluation in the emergency room today in regards to unresponsive spell when found this morning. Last known well time was midnight. A stroke alert was called on this patient as he was completely areflexic with pinpoint pupils. He responded minimally to painful stimuli ie.sternal rub. CT of the head reveals changes compatible with dementia but there was no signs of intracranial bleeding mass-effect or new stroke. Patient awoke approximately an hour after arrival in the ED and was of course disoriented to person place and time and and exhibiting behavioral abnormalities with cursing at the nurses as well as hitting out etc. the cause of his prolonged unresponsive event is secondary to autonomic nervous system dysfunction which we see associated with some patients with bad dementia. This is going to happen again. He was worked up to make sure there was no signs of infection his initial urinalysis suggested he did have a urinary tract infection but apparently there was a mixup in the lab and his urinalysis in fact came back completely normal. In the meantime he had received Rocephin 2 g intravenously for suspect urinary tract infection. His vital signs of remained completely stable while in the ED with no signs of infection a fever no hypoxemia and blood pressure of 163/87. He has a persistent mild lactic acidosis likely secondary to medications. Follow-up with personal physician in this regard Sepsis Event Note (ED) - Focused Exam Vital Signs: Vital Signs Temp Pulse Resp BP Pulse Ox 12/29/20 07:20 36.4 C 88 16 150/95 H 95 - My Orders Last 24 Hours: My Active Orders 12/29/20 07:23 EKG Documentation Completion [RC] STAT 12/29/20 07:24 Blood Culture x2 Reflex Set [OM.PC] Stat 12/29/20 10:10 URINALYSIS W/MICROSCOPIC [UA W/MICROSCOPIC] [URIN] Stat 12/29/20 10:15 Dextrose 5%-0.9% NaCl [Dextrose 5%-Normal Saline] 1,000 ml IV ASDIRECTED 12/29/20 12:52 REFLEX LACTIC ACID YES OR NO [CHEM] Routine - Assessment/Plan Last 24 Hours: My Active Orders 12/29/20 07:23 EKG Documentation Completion [RC] STAT 12/29/20 07:24 Blood Culture x2 Reflex Set [OM.PC] Stat 12/29/20 10:10 URINALYSIS W/MICROSCOPIC [UA W/MICROSCOPIC] [URIN] Stat 12/29/20 10:15 Dextrose 5%-0.9% NaCl [Dextrose 5%-Normal Saline] 1,000 ml IV ASDIRECTED 12/29/20 12:52 REFLEX LACTIC ACID YES OR NO [CHEM] Routine
[2020-12-29] MEDS ORDERED: Dextrose 5%-0.9% NaCl 1,000 ML IV SCH ×2 (07:30→10:15)
[2020-12-29] MEDS ORDERED: Naloxone 0.4 MG/ML SDV IVPUSH ONE (07:31)
[2020-12-29] MEDS ORDERED: Naloxone 0.4 MG/ML SDV ONE (07:32)
[2020-12-29 07:41] VITALS: BP 150/95; PULSE 88
--- NOTE | 2020-12-29 08:08 | CT ---
Head CT Technique: Multiple axial sections through the brain were obtained. Intravenous contrast was not utilized. Reconstructed coronal and sagittal images were obtained. Comparison: Prior head CT study of 04/07/19. Findings: Ventricles along with basal cisterns and sulci over the convexities are moderately prominent. No abnormal parenchymal densities are seen. No evidence of intracranial hemorrhage is seen. No midline shift or mass-effect is seen. Bone window settings were reviewed. No acute calvarial abnormality is appreciated. Visualized mastoid sinuses show a small amount of fluid on the left side. Visualized paranasal sinuses show a small retention cyst within the right maxillary sinus. Slight atherosclerotic calcification is seen within the carotid siphon. Impression: 1. Diffuse atrophy which is similar to prior head CT study. Other senescent change as noted above. 2. Minimal sinus findings which are most likely incidental. 3. Nothing acute is otherwise seen on noncontrast CT study of the brain. Diagnostic code #2
--- NOTE | 2020-12-29 08:45 | CR ---
Chest: Portable view of the chest was obtained. Comparison: Prior chest CT study of 10/04/20 and chest x-ray of 06/19/19. Linear densities are seen within the left lung base. Mild linear density is noted within the right lung base. Lungs otherwise are clear. CT study shows a small nodule within the right lung base which is too small to be seen by chest x-ray. Heart is within normal limits. Mild tortuosity of the thoracic aorta is seen. No definite acute osseous abnormality is appreciated. Impression: 1. Atelectasis within both lung bases, worse on the left side. 2. Nothing acute is otherwise seen on portable chest x-ray. Diagnostic code #2
[2020-12-29] MEDS ORDERED: cefTRIAXone 2 GM in Sodium Chloride 0.9% 100 ML IV ONE (12:09)
== END 2020-12-29 14:12 ==
LOC: JD.ED 07:16
DX: G30.0 Alzheimer's disease with early onset (principal); F02.81 Dementia in other diseases classified elsewhere, unspecified severity, with behavioral disturbance; G90.8 Other disorders of autonomic nervous system; I48.91 Unspecified atrial fibrillation; J44.9 Chronic obstructive pulmonary disease, unspecified; Z79.01 Long term (current) use of anticoagulants; Z88.0 Allergy status to penicillin; Z88.8 Allergy status to other drugs, medicaments and biological substances; Z79.899 Other long term (current) drug therapy
CPT/HCPCS: 36415; 70450; 71045; 80053; 80162; 81001; 82947; 83605; 83735; 83880; 84484; 85025; 85610; 85652; 85730; 86140; 93005; 96365; 96375; 99285; J0696; J2310; J7042; 93010; 99284

== ENCOUNTER 2021-04-22 10:50 | Inpatient (IN) | payer MEDICARE, MEDICAID ==
[2021-04-22] MEDS ORDERED: Sodium Chloride 0.9% 10 ML Syringe FLUSH PRN (11:30)
--- NOTE | 2021-04-22 11:44 | EDM.PDOC ---
ED HPI GENERAL MEDICAL PROBLEM - General Chief Complaint: General Stated Complaint: ABDOMINAL PAIN Time Seen by Provider: 04/22/21 11:26 Source of Information: Reports: Patient, Snf Records, Old Records (outpt visit from today (CT and Lab)), Provider (Dr. Lyles), RN Notes Reviewed History Limitations: Reports: Other (PT has dementia-is poor historian) - History of Present Illness INITIAL COMMENTS - FREE TEXT/NARRATIVE: Patient is a 65-year-old male who presents to the ER for evaluation of abnormal CT findings. Patient has a history of renal cell carcinoma, and gets regular CT scans performed. Patient showed up for routine CT scan and basic labs today, and his CT scan did demonstrate an enlarged appendix that measured about 1.4 cm in size with slight inflammatory change that was suspicious for appendicitis, it was an interval change from his prior exam. Other findings included several slightly enlarged lymph nodes within the right axillary difficult to exclude mild metastatic disease, and a suspicious increased density within the right lung base possible pneumonia please correlate symptoms. The patient's BMP was unremarkable. We did get a call from his primary care provider, Dr. Greene, and was made aware of the CT findings and that he was being sent over for evaluation. Dr. Greene stated that he did not have any sort of abdominal pain or other symptoms. When I go in to examine the patient, he does not really know why he is in the ER, and he does flinch a little bit when I palpate his abdomen indicating some slight abdominal discomfort. States that he did not eat anything this morning however due to his dementia and being a poor historian we will contact the snf in which he resides to make sure. Patient's vital signs are stable, no fever, he is not complaining about any cough or other sick- like symptoms. - Related Data Allergies Allergy/AdvReac Type Severity Reaction Status Date / Time aspirin Allergy Cannot Verified 04/22/21 11:33 Remember Penicillins Allergy unknown Verified 04/22/21 11:33 Home Meds: Home Meds levETIRAcetam [Levetiracetam] 750 mg PO BID 04/08/19 [History] Digoxin [Lanoxin] 250 mcg PO DAILY #1 tablet 04/23/19 [Rx] Acetaminophen [Tylenol] 650 mg PO QID 06/19/19 [History] Albuterol [Proventil HFA] 2 puff INH Q6HR PRN 06/19/19 [History] Apixaban [Eliquis] 5 mg PO BID 06/19/19 [History] Donepezil [Aricept] 10 mg PO QPM 06/19/19 [History] Escitalopram [Lexapro] 10 mg PO DAILY 06/19/19 [History] Finasteride [Proscar] 5 mg PO DAILY 06/19/19 [History] Magnesium Chloride [Slow-Mag] 140 mg PO BID 06/19/19 [History] Memantine HCl [Namenda] 28 mg PO BID 06/19/19 [History] Multivit-Min/FA/Lycopen/Lutein [Certavite Sr-Antioxidant Tab] 1 tab PO DAILY 06/19/19 [History] QUEtiapine [SEROquel] 300 mg PO BID 06/19/19 [History] Sennosides/Docusate Sodium [Senna Plus 8.6-50 mg Tablet] 1 tab PO BID 06/19/19 [History] Tamsulosin HCl [Flomax] 0.4 mg PO BEDTIME 06/19/19 [History] Thiamine [Vitamin B-1] 100 mg PO BID 06/19/19 [History] Calamine/Zinc Oxide [Calamine Lotion] 1 applic TOP Q8HR PRN 06/20/19 [History] Acetaminophen/HYDROcodone [HYDROcodone-Acetaminophen 5-525 MG] 2.5 - 162.5 mg PO 12/29/20 [History] Cyanocobalamin (Vitamin B-12) [Cyanocobalamin Injection] 1,000 mcg INJECT WEEKLY 12/29/20 [History] Hydrocodone/Acetaminophen [HYDROcodone-Acetaminophen 5-325 MG] 2.5 - 162.5 mg PO BID PRN 12/29/20 [History] Insulin Aspart [Novolog Flexpen] 4 units SQ TIDMEALS 12/29/20 [History] Insulin Aspart [Novolog Flexpen] See Protocol SQ TID 12/29/20 [History] Insulin Glarg,Human.Rec.Analog [Lantus] 10 units SQ ACBREAKFAST 12/29/20 [History] Insulin Glarg,Human.Rec.Analog [Lantus] 40 units SQ 12/29/20 [History] LORazepam [Ativan] 1 mg PO BID 12/29/20 [History] Metoprolol Succinate [Toprol XL] 50 mg PO DAILY 12/29/20 [History] amLODIPine [Norvasc] 10 mg PO DAILY 12/29/20 [History] bisacodyL [Bisacodyl] 10 mg PO DAILY PRN 12/29/20 [History] Past Medical History HEENT History: Reports: Cataract, Glaucoma Cardiovascular History: Reports: Afib Respiratory History: Reports: COPD Other Respiratory History: Long time smoker with a barrell chest Gastrointestinal History: Reports: Chronic Constipation Genitourinary History: Reports: BPH Neurological History: Reports: Seizure Psychiatric History: Reports: Addiction, Dementia, Depression Other Psychiatric History: 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), nicotine dependence Endocrine/Metabolic History: Reports: Diabetes, Type II, Hypothyroidism, Obesity/BMI 30+ Other Endocrine/Metabolic History: vitamin B deficiency Hematologic History: Reports: Anticoagulation Therapy Oncologic (Cancer) History: Reports: Renal (renal carcinoma) Dermatologic History: Reports: Other (See Below) Other Dermatologic History: pruritus - Infectious Disease History Infectious Disease History: Reports: Shingles - Past Surgical History HEENT Surgical History: Reports: Cataract Surgery, Oral Surgery Social & Family History - Family History Family Medical History: No Pertinent Family History - Caffeine Use Caffeine Use: Reports: Other Other Caffeine Use: Unknown - Living Situation & Occupation Living situation: Reports: Single, Extended Care Facility ([facility]) Occupation: Disabled ED ROS GENERAL - Review of Systems Review Of Systems: Comprehensive ROS is negative, except as noted in HPI. ED EXAM, GENERAL - Physical Exam Exam: See Below Exam Limited By: No Limitations General Appearance: Alert, WD/WN, No Apparent Distress Respiratory/Chest: No Respiratory Distress, Lungs Clear, Normal Breath Sounds, No Accessory Muscle Use, Chest Non-Tender Cardiovascular: Normal Peripheral Pulses, Regular Rate, Rhythm, No Edema GI/Abdominal: Normal Bowel Sounds, Soft, No Distention, No Mass, Tender (slight generalized - seems more tender on Right abdomen) Extremities: Normal Inspection, Normal Capillary Refill Neurological: Alert, Oriented, Normal Cognition, No Motor/Sensory Deficits Psychiatric: Normal Affect, Normal Mood Skin Exam: Warm, Dry, Intact, Normal Color, No Rash Course - Vital Signs Last Recorded V/S: Last Vital Signs Temp 97.6 F 04/22/21 11:27 Pulse 65 04/22/21 11:27 Resp 16 04/22/21 11:27 BP 154/80 H 04/22/21 11:27 Pulse Ox 96 04/22/21 11:27 - Orders/Labs/Meds Orders: Active Orders 24 hr Category Date Time Status Admission Status [Patient Status] [ADT] Routine ADT 04/22/21 12:36 Ordered Peripheral IV Care [RC] . DIRECTED Care 04/22/21 11:30 Active Ertapenem [INVanz] 1 gm Med 04/22/21 12:36 Ordered Sodium Chloride 0.9% [Normal Saline] 50 ml IV ONETIME Sodium Chloride 0.9% [Normal Saline] 1,000 ml Med 04/22/21 12:35 Ordered IV ONETIME Sodium Chloride 0.9% [Saline Flush] Med 04/22/21 11:30 Active 10 ml FLUSH ASDIRECTED PRN Peripheral IV Insertion Adult [OM.PC] Routine Oth 04/22/21 11:30 Ordered Medication Orders Sodium Chloride (Sodium Chloride 0.9% 10 Ml Syringe) 10 ml FLUSH ASDIRECTED PRN PRN Reason: Keep Vein Open Last Admin: 04/22/21 11:45 Dose: 10 ml Documented by: YECENIA Labs: Laboratory Tests 04/22/21 04/22/21 04/22/21 Range/Units 11:20 11:42 11:42 WBC 6.56 (4.23-9.07) K/mm3 RBC 4.68 (4.63-6.08) M/mm3 Hgb 13.4 L (13.7-17.5) gm/dl Hct 43.5 (40.1-51.0) % MCV 92.9 H (79.0-92.2) fl MCH 28.6 (25.7-32.2) pg MCHC 30.8 L (32.2-35.5) g/dl RDW Std Deviation 48.2 H (35.1-43.9) fL Plt Count 234 D (163-337) K/mm3 MPV 9.0 L (9.4-12.3) fl Neut % (Auto) 63.9 (34.0-67.9) % Lymph % (Auto) 18.6 L (21.8-53.1) % [place] % (Auto) 10.7 (5.3-12.2) % Eos % (Auto) 5.8 (0.8-7.0) Baso % (Auto) 0.5 (0.1-1.2) % Neut # (Auto) 4.20 (1.78-5.38) K/mm3 Lymph # (Auto) 1.22 L (1.32-3.57) K/mm3 [place] # (Auto) 0.70 (0.30-0.82) K/mm3 Eos # (Auto) 0.38 (0.04-0.54) K/mm3 Baso # (Auto) 0.03 (0.01-0.08) K/mm3 Total Bilirubin 0.3 (0.2-1.0) mg/dL Direct Bilirubin 0.10 (0.0-0.2) mg/dl Indirect Bilirubin 0.20 AST 23 (15-37) U/L ALT 33 (16-63) U/L Alkaline Phosphatase 88 (46-116) U/L C-Reactive Protein 3.2 H* (<1.0) mg/dL Total Protein 8.0 (6.4-8.2) g/dl Albumin 3.5 (3.4-5.0) g/dl Globulin 4.5 gm/dL Albumin/Globulin Ratio 0.8 L (1-2) Influenza Type A RNA Negative (NEGATIVE) Influenza Type B RNA Negative (NEGATIVE) SARS-CoV-2 RNA (MADELEINE) Negative (NEGATIVE) Meds: Medications Generic Name Dose Route Start Last Admin Trade Name Freq PRN Reason Stop Dose Admin Sodium Chloride 10 ml 04/22/21 11:30 04/22/21 11:45 Sodium Chloride 0.9% 10 Ml Syringe FLUSH 10 ml ASDIRECTED PRN Administration Keep Vein Open - Re-Assessments/Exams Free Text/Narrative Re-Assessment/Exam: 04/22/21 12:38 Patient's other laboratory evaluation done at today's visit is fairly unremarkable, white cell count within normal limits, CRP mildly elevated at 3.2. I did go over the patient's course with Dr. Coronel, and he states that the patient will need to be admitted to have oral anticoagulants held for about 48 hours prior to surgery, have put in admission orders per Dr. Coronel's verbal orders and patient will be admitted to the floor for appendicitis. Departure - Departure Time of Disposition: 12:39 Disposition: Refer to Observation Condition: Good Clinical Impression: Appendicitis Qualifiers: Appendicitis type: acute appendicitis Acute appendicitis type: with localized peritonitis Appendicitis gangrene presence: without gangrene Appendicitis perforation presence: without perforation Appendicitis abscess presence: without abscess Qualified Code(s): K35.30 - Acute appendicitis with localized peritonitis, without perforation or gangrene - Discharge Information Referrals: Quirino Greene MD [Primary Care Provider] - Forms: ED Department Discharge Sepsis Event Note (ED) - Evaluation Sepsis Screening Result: No Definite Risk - Focused Exam Vital Signs: Vital Signs Temp Pulse Pulse Resp BP Pulse Ox 04/22/21 11:27 97.6 F 65 16 154/80 H 96 04/22/21 11:25 96.8 F L 66 18 154/80 H 95 - My Orders Last 24 Hours: My Active Orders 04/22/21 11:30 Peripheral IV Care [RC] . DIRECTED Sodium Chloride 0.9% [Saline Flush] 10 ml FLUSH ASDIRECTED PRN Peripheral IV Insertion Adult [OM.PC] Routine 04/22/21 12:35 Sodium Chloride 0.9% [Normal Saline] 1,000 ml IV ONETIME 04/22/21 12:36 Admission Status [Patient Status] [ADT] Routine Ertapenem [INVanz] 1 gm Sodium Chloride 0.9% [Normal Saline] 50 ml IV ONETIME - Assessment/Plan Last 24 Hours: My Active Orders 04/22/21 11:30 Peripheral IV Care [RC] . DIRECTED Sodium Chloride 0.9% [Saline Flush] 10 ml FLUSH ASDIRECTED PRN Peripheral IV Insertion Adult [OM.PC] Routine 04/22/21 12:35 Sodium Chloride 0.9% [Normal Saline] 1,000 ml IV ONETIME 04/22/21 12:36 Admission Status [Patient Status] [ADT] Routine Ertapenem [INVanz] 1 gm Sodium Chloride 0.9% [Normal Saline] 50 ml IV ONETIME
[2021-04-22 12:26] LABS: CORONAVIRUS COVID-19 NAA NEGATIVE (NEGATIVE)
[2021-04-22] MEDS ORDERED: Sodium Chloride 0.9% 1,000 ML IV ONE (12:35)
[2021-04-22] MEDS ORDERED: Ertapenem 1 GM in Sodium Chloride 0.9% 50 ML IV ONE ×2 (12:36→16:15)
[2021-04-22] MEDS ORDERED: Ertapenem 1 GM Vial ONE (12:41)
--- NOTE | 2021-04-22 16:23 | PCM.HP.2 ---
H&P History of Present Illness - General Date of Service: 04/22/21 Admit Problem/Dx: Admission Diagnosis/Problem Admission Diagnosis/Problem Appendicitis Source of Information: Patient History Limitations: Reports: No Limitations - History of Present Illness Initial Comments - Free Text/Narative: The patient has dementia and lives in a SNF. He has history of renal cell cancer s/p right nephrectomy in the past for which he undergoes annual CT scans for surveillance. He presented for another exam today and incident inflamed, dilated appendix was found so the patient was sent to the ER for evaluation. He he cannot give me a history so this was obtained from his brother who is POA. He had Afib - on Digoxin and Eliquis, CHF - with ECHO in 2019 showing EF around 50%. He is on 2L oxygen at baseline. I reviewed his CT from today compared to the one from December 2019, the appendix is now enlarged with mild inflammation. Duration of Symptoms: Reports: Day(s): (1) Location: Reports: Abdomen Quality: Reports: Other (no pain, CT findings) Severity: Mild Improves with: Reports: None Worsens with: Reports: None Associated Symptoms: Reports: No Other Symptoms - Related Data Allergies/Adverse Reactions: Allergies Allergy/AdvReac Type Severity Reaction Status Date / Time aspirin Allergy Cannot Verified 04/22/21 11:33 Remember Penicillins Allergy unknown Verified 04/22/21 11:33 Home Medications: Home Meds levETIRAcetam [Levetiracetam] 750 mg PO BID 04/08/19 [History] Digoxin [Lanoxin] 250 mcg PO DAILY #1 tablet 04/23/19 [Rx] Acetaminophen [Tylenol] 650 mg PO QID 06/19/19 [History] Albuterol [Proventil HFA] 2 puff INH Q6HR PRN 06/19/19 [History] Apixaban [Eliquis] 5 mg PO BID 06/19/19 [History] Donepezil [Aricept] 10 mg PO QPM 06/19/19 [History] Escitalopram [Lexapro] 10 mg PO DAILY 06/19/19 [History] Finasteride [Proscar] 5 mg PO DAILY 06/19/19 [History] Magnesium Chloride [Slow-Mag] 140 mg PO BID 06/19/19 [History] Memantine HCl [Namenda] 28 mg PO BID 06/19/19 [History] Multivit-Min/FA/Lycopen/Lutein [Certavite Sr-Antioxidant Tab] 1 tab PO DAILY 06/19/19 [History] QUEtiapine [SEROquel] 200 mg PO BID 06/19/19 [History] Sennosides/Docusate Sodium [Senna Plus 8.6-50 mg Tablet] 1 tab PO BID 06/19/19 [History] Tamsulosin HCl [Flomax] 0.8 mg PO BEDTIME 06/19/19 [History] Thiamine [Vitamin B-1] 100 mg PO DAILY 06/19/19 [History] Calamine/Zinc Oxide [Calamine Lotion] 1 applic TOP Q8HR PRN 06/20/19 [History] Acetaminophen/HYDROcodone [HYDROcodone-Acetaminophen 5-525 MG] 5 - 325 mg PO TID 12/29/20 [History] Cyanocobalamin (Vitamin B-12) [Cyanocobalamin Injection] 1,000 mcg INJECT WEEKLY 12/29/20 [History] Hydrocodone/Acetaminophen [HYDROcodone-Acetaminophen 5-325 MG] 2.5 - 162.5 mg PO BID PRN 12/29/20 [History] Insulin Aspart [Novolog Flexpen] 4 units SQ TIDMEALS 12/29/20 [History] Insulin Aspart [Novolog Flexpen] See Protocol SQ TID 12/29/20 [History] Insulin Glarg,Human.Rec.Analog [Lantus] 10 units SQ ACBREAKFAST 12/29/20 [History] Insulin Glarg,Human.Rec.Analog [Lantus] 40 units SQ DAILY 12/29/20 [History] LORazepam [Ativan] 1 mg PO BID 12/29/20 [History] Metoprolol Succinate [Toprol XL] 50 mg PO DAILY 12/29/20 [History] amLODIPine [Norvasc] 10 mg PO DAILY 12/29/20 [History] bisacodyL [Bisacodyl] 10 mg PO DAILY PRN 12/29/20 [History] Gabapentin [Neurontin] 100 mg PO TID 04/22/21 [History] Insulin Lispro [Insulin Lispro Kwikpen U-100] 3 units SQ TID 04/22/21 [History] Insulin Lispro [Insulin Lispro Kwikpen U-100] See Protocol SQ TIDMEALS 04/22/21 [History] Lanolin Alcohol/MO/W.Pet/[place] [Therapeutic Moisturizing Cream] 1 applic TOP BID 04/22/21 [History] Magnesium Oxide 400 mg PO BID 04/22/21 [History] Meloxicam 7.5 mg PO DAILY 04/22/21 [History] Memantine HCl/Donepezil HCl [Namzaric 28 mg-10 mg Capsule] 1 cap.sr PO DAILY 04/22/21 [History] Past Medical History HEENT History: Reports: Cataract, Glaucoma Cardiovascular History: Reports: Afib, Hypertension Respiratory History: Reports: COPD Other Respiratory History: Long time smoker with a barrell chest Gastrointestinal History: Reports: Chronic Constipation Genitourinary History: Reports: BPH Musculoskeletal History: Reports: Other (See Below) Other Musculoskeletal History: bilat knee pain, generalized muscle weakness Neurological History: Reports: Seizure Psychiatric History: Reports: Addiction, Dementia, Depression Other Psychiatric History: 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), nicotine dependence Endocrine/Metabolic History: Reports: Diabetes, Type II, Hypothyroidism, Obesity/BMI 30+ Other Endocrine/Metabolic History: vitamin B deficiency Hematologic History: Reports: Anticoagulation Therapy Oncologic (Cancer) History: Reports: Renal (renal carcinoma) Other Oncologic History: renal cell carcinoma Dermatologic History: Reports: Other (See Below) Other Dermatologic History: pruritus - Infectious Disease History Infectious Disease History: Reports: Shingles - Past Surgical History HEENT Surgical History: Reports: Cataract Surgery, Oral Surgery Social & Family History - Family History Family Medical History: No Pertinent Family History - Tobacco Use Tobacco Use Status *Q: Former Tobacco User Used Tobacco, but Quit: Yes Month/Year Tobacco Last Used: [place] - Caffeine Use Caffeine Use: Reports: Other Other Caffeine Use: Unknown - Recreational Drug Use Recreational Drug Use: No - Living Situation & Occupation Living situation: Reports: Single, Extended Care Facility ([facility]) Occupation: Disabled H&P Review of Systems - Review of Systems: Review Of Systems: Unable To Obtain (due to severe dementia) Reason Not Obtained: Patient has severe dementia Exam - Exam Exam: See Below - Vital Signs Vital Signs: Last Vital Signs Temp 97.6 F 04/22/21 11:27 Pulse 65 04/22/21 11:27 Resp 16 04/22/21 11:27 BP 154/80 H 04/22/21 11:27 Pulse Ox 96 04/22/21 11:27 Weight: 122.651 kg - Exam General: Alert, Other (oriented only to self) Lungs: Clear to Auscultation Cardiovascular: Normal S1, Normal S2, Irregular Rhythm GI/Abdominal Exam: Soft, No Distention, No Abnormal Bruit, No Mass - Patient Data Lab Results Last 24 hrs: Laboratory Results - last 24 hr 04/22/21 04/22/21 04/22/21 Range/Units 11:20 11:42 11:42 WBC 6.56 (4.23-9.07) K/mm3 RBC 4.68 (4.63-6.08) M/mm3 Hgb 13.4 L (13.7-17.5) gm/dl Hct 43.5 (40.1-51.0) % MCV 92.9 H (79.0-92.2) fl MCH 28.6 (25.7-32.2) pg MCHC 30.8 L (32.2-35.5) g/dl RDW Std Deviation 48.2 H (35.1-43.9) fL Plt Count 234 D (163-337) K/mm3 MPV 9.0 L (9.4-12.3) fl Neut % (Auto) 63.9 (34.0-67.9) % Lymph % (Auto) 18.6 L (21.8-53.1) % [place] % (Auto) 10.7 (5.3-12.2) % Eos % (Auto) 5.8 (0.8-7.0) Baso % (Auto) 0.5 (0.1-1.2) % Neut # (Auto) 4.20 (1.78-5.38) K/mm3 Lymph # (Auto) 1.22 L (1.32-3.57) K/mm3 [place] # (Auto) 0.70 (0.30-0.82) K/mm3 Eos # (Auto) 0.38 (0.04-0.54) K/mm3 Baso # (Auto) 0.03 (0.01-0.08) K/mm3 Total Bilirubin 0.3 (0.2-1.0) mg/dL Direct Bilirubin 0.10 (0.0-0.2) mg/dl Indirect Bilirubin 0.20 AST 23 (15-37) U/L ALT 33 (16-63) U/L Alkaline Phosphatase 88 (46-116) U/L C-Reactive Protein 3.2 H* (<1.0) mg/dL Total Protein 8.0 (6.4-8.2) g/dl Albumin 3.5 (3.4-5.0) g/dl Globulin 4.5 gm/dL Albumin/Globulin Ratio 0.8 L (1-2) Influenza Type A RNA Negative (NEGATIVE) Influenza Type B RNA Negative (NEGATIVE) SARS-CoV-2 RNA (MADELEINE) Negative (NEGATIVE) Result Diagrams: 04/22/21 11:42 Sepsis Event Note - Evaluation Sepsis Screening Result: No Definite Risk - Focused Exam Vital Signs: Vital Signs Temp Pulse Pulse Resp BP Pulse Ox 04/22/21 11:27 97.6 F 65 16 154/80 H 96 04/22/21 11:25 96.8 F L 66 18 154/80 H 95 Problem List Initiated/Reviewed/Updated: No Orders Last 24hrs: Active Orders 24 hr Category Date Time Status Admission Status [Patient Status] [ADT] Routine ADT 04/22/21 12:36 Active Notify Provider Consults [RC] ASDIRECTED Care 04/22/21 12:43 Active Peripheral IV Care [RC] . DIRECTED Care 04/22/21 11:30 Active Consult to Physician [CONS] Stat Cons 04/22/21 12:42 Active Sodium Chloride 0.9% [Normal Saline] 1,000 ml Med 04/22/21 12:35 Active IV ONETIME Sodium Chloride 0.9% [Saline Flush] Med 04/22/21 11:30 Active 10 ml FLUSH ASDIRECTED PRN Peripheral IV Insertion Adult [OM.PC] Routine Oth 04/22/21 11:30 Ordered Medication Orders Sodium Chloride (Normal Saline) 1,000 mls @ 75 mls/hr IV ONETIME ONE Stop: 04/23/21 01:54 Last Admin: 04/22/21 12:46 Dose: 75 mls/hr Documented by: MIKI Sodium Chloride (Sodium Chloride 0.9% 10 Ml Syringe) 10 ml FLUSH ASDIRECTED PRN PRN Reason: Keep Vein Open Last Admin: 04/22/21 11:45 Dose: 10 ml Documented by: YECENIA Assessment/Plan Comment:: Patient has incidental finding of acute appendicitis. He has severe dementia and exam not reliable. The patient is at risk for disease progression as he is not communicative. Best approach would be to proceed with appendectomy. I discussed this with his older brother Navarro Morrell who is POA and discussed my recommendations. He agrees. We will suspend DNR status 24 hrs perioperatively. We will hold Eliquis for 48 hrs and proceed with surgery after that if deemed candidate. informed consent was obtained. Plan - Ok to have CLD - IVF - NPO 04/23 at [facility] daily - CBC/BMP in the AM - Mortality Measure Prognosis:: Good (localized disease)
--- NOTE | 2021-04-22 16:30 | PCM.PREANE ---
Preanesthetic Assessment - Procedure Proposed Procedure: Laparoscopic appendicitis - Anesthesia/Transfusion/Family Hx Anesthesia History: Prior Anesthesia Without Reaction Family History of Anesthesia Reaction: No Transfusion History: No Prior Transfusion(s) Intubation History: Unknown - Review of Systems General: No Symptoms Pulmonary: Wheezing (2 liters nasal cannula baseline all the time, PRN albuterol) Cardiovascular: Edema (wears ANDREA hose) Gastrointestinal: Abdominal Pain Neurological: Confusion (dementia/alzheimeiers ), Numbness, Tingling (bilateral legs, diabetic neuropathy), Difficulty Walking (uses wheelchair), Weakness Other: Reports: Easy Bleeding, Easy Bruising, Diabetes, Liver Problems (history of ETOH abuse in past), Thyroid Problems (hypothyroidism), Anxiety - Physical Assessment NPO Status Date: 04/23/21 NPO Status Time: 23:59 Vital Signs: Last Vital Signs Temp 97.6 F 04/22/21 11:27 Pulse 65 04/22/21 11:27 Resp 16 04/22/21 11:27 BP 154/80 H 04/22/21 11:27 Pulse Ox 96 04/22/21 11:27 Height: 1.96 m Weight: 122.651 kg ASA Class: 3 Mental Status: Other (Dementia/Alzheimers) Airway Class: Mallampati = 3 Dentition: Reports: Edentulous Thyro-Mental Finger Breadths: 2 Mouth Opening Finger Breadths: 2 ROM/Head Extension: Full Lungs: Clear to Auscultation, Normal Respiratory Effort Cardiovascular: Regular Rate, Regular Rhythm (History of Afib, on exam patient sounded regular, will observed rhythm in OR), No Murmurs - Lab Values: Laboratory Last Values WBC 6.56 K/mm3 (4.23-9.07) 04/22/21 11:42 RBC 4.68 M/mm3 (4.63-6.08) 04/22/21 11:42 Hgb 13.4 gm/dl (13.7-17.5) L 04/22/21 11:42 Hct 43.5 % (40.1-51.0) 04/22/21 11:42 MCV 92.9 fl (79.0-92.2) H 04/22/21 11:42 MCH 28.6 pg (25.7-32.2) 04/22/21 11:42 MCHC 30.8 g/dl (32.2-35.5) L 04/22/21 11:42 RDW Std Deviation 48.2 fL (35.1-43.9) H 04/22/21 11:42 Plt Count 234 K/mm3 (163-337) D 04/22/21 11:42 MPV 9.0 fl (9.4-12.3) L 04/22/21 11:42 Neut % (Auto) 63.9 % (34.0-67.9) 04/22/21 11:42 Lymph % (Auto) 18.6 % (21.8-53.1) L 04/22/21 11:42 Louisa % (Auto) 10.7 % (5.3-12.2) 04/22/21 11:42 Eos % (Auto) 5.8 (0.8-7.0) 04/22/21 11:42 Baso % (Auto) 0.5 % (0.1-1.2) 04/22/21 11:42 Neut # (Auto) 4.20 K/mm3 (1.78-5.38) 04/22/21 11:42 Lymph # (Auto) 1.22 K/mm3 (1.32-3.57) L 04/22/21 11:42 Louisa # (Auto) 0.70 K/mm3 (0.30-0.82) 04/22/21 11:42 Eos # (Auto) 0.38 K/mm3 (0.04-0.54) 04/22/21 11:42 Baso # (Auto) 0.03 K/mm3 (0.01-0.08) 04/22/21 11:42 Total Bilirubin 0.3 mg/dL (0.2-1.0) 04/22/21 11:42 Direct Bilirubin 0.10 mg/dl (0.0-0.2) 04/22/21 11:42 Indirect Bilirubin 0.20 04/22/21 11:42 AST 23 U/L (15-37) 04/22/21 11:42 ALT 33 U/L (16-63) 04/22/21 11:42 Alkaline Phosphatase 88 U/L (46-116) 04/22/21 11:42 C-Reactive Protein 3.2 mg/dL (<1.0) H* 04/22/21 11:42 Total Protein 8.0 g/dl (6.4-8.2) 04/22/21 11:42 Albumin 3.5 g/dl (3.4-5.0) 04/22/21 11:42 Globulin 4.5 gm/dL 04/22/21 11:42 Albumin/Globulin Ratio 0.8 (1-2) L 04/22/21 11:42 Influenza Type A RNA Negative (NEGATIVE) 04/22/21 11:20 Influenza Type B RNA Negative (NEGATIVE) 04/22/21 11:20 SARS-CoV-2 RNA (MADELEINE) Negative (NEGATIVE) 04/22/21 11:20 - Imaging/EKG Impressions: EKG NSR HR 90 - Allergies Allergies/Adverse Reactions: Allergies Allergy/AdvReac Type Severity Reaction Status Date / Time aspirin Allergy Cannot Verified 04/22/21 11:33 Remember Penicillins Allergy unknown Verified 04/22/21 11:33 - Anesthesia Plan Beta David: Metoprolol Med Last Dose Date: 04/24/21 Med Last Dose Time: 08:33 - Acknowledgements Anesthesia Type Planned: General Anesthesia Pt an Appropriate Candidate for the Planned Anesthesia: Yes Alternatives and Risks of Anesthesia Discussed w Pt/Guardian: Yes Pt/Guardian Understands and Agrees with Anesthesia Plan: Yes Additional Comments: Confirmed medical history with TASNEEM Rose from [facility], [facility], and with CHUCK Morrell also requested for patient to be full code the entire hospital stay. accounting administrative assistant and assigned floor RN aware and code status changed. PreAnesthesia Questionnaire HEENT History: Reports: Cataract, Glaucoma Cardiovascular History: Reports: Afib, Heart Failure, Hypertension Respiratory History: Reports: COPD Other Respiratory History: Long time smoker with a barrell chest Gastrointestinal History: Reports: Chronic Constipation Genitourinary History: Reports: BPH, Diabetic Nephropathy, Other (See Below) Other Genitourinary History: only one kidney, history of kidney cancer- kidney removed Musculoskeletal History: Reports: Other (See Below) Other Musculoskeletal History: bilat knee pain, generalized muscle weakness Neurological History: Reports: Seizure (on keppra, no witnessed seizures since December (since the RN I spoke with whom started working with him in December) or longer; 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, not intractable, with status epilepticus) Psychiatric History: Reports: Addiction, Dementia (Apr 2019), Depression Other Psychiatric History: 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), nicotine dependence Endocrine/Metabolic History: Reports: Diabetes, Type II, Hypothyroidism, Obesity/BMI 30+ Other Endocrine/Metabolic History: vitamin B deficiency Hematologic History: Reports: Anticoagulation Therapy Immunologic History: Reports: None Oncologic (Cancer) History: Reports: Renal (renal carcinoma) Other Oncologic History: renal cell carcinoma Dermatologic History: Reports: Other (See Below) Other Dermatologic History: pruritus - Infectious Disease History Infectious Disease History: Reports: Shingles - Past Surgical History HEENT Surgical History: Reports: Cataract Surgery, Oral Surgery Male Surgical History: Reports: Other (See Below) (kidney removal) Other Surgical History Comment: Apr 2019 - no seizures since medical coma for seizures - SUBSTANCE USE Tobacco Use Status *Q: Former Tobacco User Tobacco Use Within Last Twelve Months: No Second Hand Smoke Exposure: No Days Per Week of Alcohol Use: 0 Number of Drinks Per Day: 0 Total Drinks Per Week: 0 Recreational Drug Use History: No - HOME MEDS Home Medications: Home Meds levETIRAcetam [Levetiracetam] 750 mg PO BID 04/08/19 [History] Digoxin [Lanoxin] 250 mcg PO DAILY #1 tablet 04/23/19 [Rx] Albuterol [Proventil HFA] 2 puff INH Q6HR PRN 06/19/19 [History] Apixaban [Eliquis] 5 mg PO BID 06/19/19 [History] Escitalopram [Lexapro] 10 mg PO DAILY 06/19/19 [History] Finasteride [Proscar] 5 mg PO DAILY 06/19/19 [History] Multivit-Min/FA/Lycopen/Lutein [Certavite Sr-Antioxidant Tab] 1 tab PO DAILY 06/19/19 [History] QUEtiapine [SEROquel] 200 mg PO BID 06/19/19 [History] Sennosides/Docusate Sodium [Senna Plus 8.6-50 mg Tablet] 1 tab PO BID 06/19/19 [History] Tamsulosin HCl [Flomax] 0.8 mg PO BEDTIME 06/19/19 [History] Thiamine [Vitamin B-1] 100 mg PO DAILY 06/19/19 [History] Calamine/Zinc Oxide [Calamine Lotion] 1 applic TOP Q8HR PRN 06/20/19 [History] Acetaminophen/HYDROcodone [HYDROcodone-Acetaminophen 5-525 MG] 5 - 325 mg PO TID 12/29/20 [History] Cyanocobalamin (Vitamin B-12) [Cyanocobalamin Injection] 1,000 mcg INJECT WEEKLY 12/29/20 [History] Insulin Glarg,Human.Rec.Analog [Lantus] 10 units SQ ACBREAKFAST 12/29/20 [History] Insulin Glarg,Human.Rec.Analog [Lantus] 40 units SQ BEDTIME 12/29/20 [History] LORazepam [Ativan] 1 mg PO BID 12/29/20 [History] Metoprolol Succinate [Toprol XL] 50 mg PO DAILY 12/29/20 [History] amLODIPine [Norvasc] 10 mg PO DAILY 12/29/20 [History] bisacodyL [Bisacodyl] 10 mg PO DAILY PRN 12/29/20 [History] Gabapentin [Neurontin] 100 mg PO TID 04/22/21 [History] Insulin Lispro [Insulin Lispro Kwikpen U-100] 3 units SQ TID 04/22/21 [History] Insulin Lispro [Insulin Lispro Kwikpen U-100] See Protocol SQ TIDMEALS 04/22/21 [History] Lanolin Alcohol/MO/W.Pet/[place] [Therapeutic Moisturizing Cream] 1 applic TOP BID 04/22/21 [History] Magnesium Oxide 400 mg PO BID 04/22/21 [History] Meloxicam 7.5 mg PO DAILY 04/22/21 [History] Memantine HCl/Donepezil HCl [Namzaric 28 mg-10 mg Capsule] 1 cap.sr PO BEDTIME 04/22/21 [History] - CURRENT (IN HOUSE) MEDS Current Meds: Current Medications Sodium Chloride (Normal Saline) 1,000 mls @ 75 mls/hr IV ONETIME ONE Stop: 04/23/21 01:54 Last Admin: 04/22/21 12:46 Dose: 75 mls/hr Documented by: Sodium Chloride (Sodium Chloride 0.9% 10 Ml Syringe) 10 ml FLUSH ASDIRECTED PRN PRN Reason: Keep Vein Open Last Admin: 04/22/21 11:45 Dose: 10 ml Documented by: Discontinued Medications Ertapenem (Ertapenem 1 Gm Vial) Confirm Administered Dose 1 gm .ROUTE .STK-MED ONE Stop: 04/22/21 12:42 Last Admin: 04/22/21 12:46 Dose: Not Given Documented by: Ertapenem 1 gm/ Sodium (Chloride) 50 mls @ 100 mls/hr IV ONETIME ONE Stop: 04/22/21 13:05 Ertapenem 1 gm/ Sodium (Chloride) 50 mls @ 100 mls/hr IV ONETIME ONE Stop: 04/22/21 16:44
[2021-04-22] MEDS ORDERED: Ondansetron 4 MG/2 ML SDV IV PRN (16:48)
[2021-04-22] MEDS ORDERED: Albuterol 6.7 GM Inhaler INH PRN (16:56)
[2021-04-22] MEDS ORDERED: Bisacodyl 5 MG Tab PO PRN (16:56)
[2021-04-22] MEDS ORDERED: Insulin Lispro 100 Unit/ML 3 ML KwikPen SUBCUT PRN (20:02)
--- NOTE | 2021-04-22 20:24 | PCM.CONS ---
H&P History of Present Illness - General Date of Service: 04/22/21 Admit Problem/Dx: Admission Diagnosis/Problem Admission Diagnosis/Problem Appendicitis - History of Present Illness Initial Comments - Free Text/Narative: 65-year-old male with history of severe dementia, CHF, atrial fibrillation, renal cell carcinoma diabetes, hypertension, COPD, chronic constipation, BPH, seizure disorder, depression, alcohol dependence with alcohol-induced persistent amnestic disorder, hypothyroidism admitted by Dr. Coronel after a routine follow-up CT scan of his abdomen for renal cell carcinoma showed an enlarged appendix measuring about 1.4 cm in size with slight inflammatory changes that was suspicious for appendicitis. After evaluation by Dr. Coronel it was felt patient would need an appendectomy. Patient was unable to give a history so the entire history was obtained through ER and surgeries chart notes. In the emergency department patient was found to have stable vitals with temperature of 97.6, respiratory rate of 16, pulse of 65, and a blood pressure of 154/80. Oxygen saturations in the mid 90s on 2 L. He is on 2 L baseline at home. DBC of 6.56, hemoglobin 13.4, platelets 234. CRP 3.2. No electrolytes, renal function was drawn in the emergency department. LFTs were normal. - Related Data Allergies/Adverse Reactions: Allergies Allergy/AdvReac Type Severity Reaction Status Date / Time aspirin Allergy Cannot Verified 04/22/21 11:33 Remember Penicillins Allergy unknown Verified 04/22/21 11:33 Home Medications: Home Meds levETIRAcetam [Levetiracetam] 750 mg PO BID 04/08/19 [History] Digoxin [Lanoxin] 250 mcg PO DAILY #1 tablet 04/23/19 [Rx] Albuterol [Proventil HFA] 2 puff INH Q6HR PRN 06/19/19 [History] Apixaban [Eliquis] 5 mg PO BID 06/19/19 [History] Escitalopram [Lexapro] 10 mg PO DAILY 06/19/19 [History] Finasteride [Proscar] 5 mg PO DAILY 06/19/19 [History] Multivit-Min/FA/Lycopen/Lutein [Certavite Sr-Antioxidant Tab] 1 tab PO DAILY 06/19/19 [History] QUEtiapine [SEROquel] 200 mg PO BID 06/19/19 [History] Sennosides/Docusate Sodium [Senna Plus 8.6-50 mg Tablet] 1 tab PO BID 06/19/19 [History] Tamsulosin HCl [Flomax] 0.8 mg PO BEDTIME 06/19/19 [History] Thiamine [Vitamin B-1] 100 mg PO DAILY 06/19/19 [History] Calamine/Zinc Oxide [Calamine Lotion] 1 applic TOP Q8HR PRN 06/20/19 [History] Acetaminophen/HYDROcodone [HYDROcodone-Acetaminophen 5-525 MG] 5 - 325 mg PO TID 12/29/20 [History] Cyanocobalamin (Vitamin B-12) [Cyanocobalamin Injection] 1,000 mcg INJECT WEEKLY 12/29/20 [History] Insulin Glarg,Human.Rec.Analog [Lantus] 10 units SQ ACBREAKFAST 12/29/20 [History] Insulin Glarg,Human.Rec.Analog [Lantus] 40 units SQ BEDTIME 12/29/20 [History] LORazepam [Ativan] 1 mg PO BID 12/29/20 [History] Metoprolol Succinate [Toprol XL] 50 mg PO DAILY 12/29/20 [History] amLODIPine [Norvasc] 10 mg PO DAILY 12/29/20 [History] bisacodyL [Bisacodyl] 10 mg PO DAILY PRN 12/29/20 [History] Gabapentin [Neurontin] 100 mg PO TID 04/22/21 [History] Insulin Lispro [Insulin Lispro Kwikpen U-100] 3 units SQ TID 04/22/21 [History] Insulin Lispro [Insulin Lispro Kwikpen U-100] See Protocol SQ TIDMEALS 04/22/21 [History] Lanolin Alcohol/MO/W.Pet/Naches [Therapeutic Moisturizing Cream] 1 applic TOP BID 04/22/21 [History] Magnesium Oxide 400 mg PO BID 04/22/21 [History] Meloxicam 7.5 mg PO DAILY 04/22/21 [History] Memantine HCl/Donepezil HCl [Namzaric 28 mg-10 mg Capsule] 1 cap.sr PO BEDTIME 04/22/21 [History] Past Medical History HEENT History: Reports: Cataract, Glaucoma Cardiovascular History: Reports: Afib, Heart Failure, Hypertension Respiratory History: Reports: COPD Other Respiratory History: Long time smoker with a barrell chest Gastrointestinal History: Reports: Chronic Constipation Genitourinary History: Reports: BPH, Diabetic Nephropathy, Other (See Below) Other Genitourinary History: only one kidney, history of kidney cancer- kidney removed Musculoskeletal History: Reports: Other (See Below) Other Musculoskeletal History: bilat knee pain, generalized muscle weakness, shoulder pain Neurological History: Reports: Seizure (on keppra, no witnessed seizures since December (since the RN I spoke with whom started working with him in December) or longer; 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, not intractable, with status epilepticus) Other Neuro History: dementia Psychiatric History: Reports: Addiction, Dementia (Apr 2019), Depression Other Psychiatric History: 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), nicotine dependence; psychosis with delusions Endocrine/Metabolic History: Reports: Diabetes, Type II, Hypomagnesemia, Hypothyroidism, Obesity/BMI 30+ Other Endocrine/Metabolic History: vitamin B deficiency Hematologic History: Reports: Anticoagulation Therapy Immunologic History: Reports: None Oncologic (Cancer) History: Reports: Renal Other Oncologic History: renal cell carcinoma Dermatologic History: Reports: Other (See Below) Other Dermatologic History: pruritus - Infectious Disease History Infectious Disease History: Reports: Shingles, Other (See Below) Other Infectious Disease History: nCOV acute respiratory disease, other than SNF record, unable to obtain from patient - Past Surgical History Other Surgical History Comment: Apr 2019 - no seizures since medical coma for seizures Social & Family History - Family History Family Medical History: No Pertinent Family History - Tobacco Use Tobacco Use Status *Q: Former Tobacco User Used Tobacco, but Quit: Yes Month/Year Tobacco Last Used: unknown Second Hand Smoke Exposure: No - Caffeine Use Caffeine Use: Reports: Other Other Caffeine Use: Unknown - Alcohol Use Days Per Week of Alcohol Use: 0 Number of Drinks Per Day: 0 Total Drinks Per Week: 0 - Recreational Drug Use Recreational Drug Use: No - Living Situation & Occupation Living situation: Reports: Single, Extended Care Facility ([facility]) Occupation: Disabled H&P Review of Systems - Review of Systems: Review Of Systems: Unable To Obtain Reason Not Obtained: Severe dementia Exam - Exam Exam: See Below - Vital Signs Vital Signs: Last Vital Signs Temp 97.7 F 04/22/21 15:54 Pulse 60 04/22/21 15:54 Resp 14 04/22/21 15:54 BP 138/72 04/22/21 15:54 Pulse Ox 96 04/22/21 16:48 Weight: 275 lb 11.2 oz - Exam Quality Assessment: Supplemental Oxygen General: Alert. No: Oriented HEENT: Conjunctiva Clear, Mucosa Moist & [place] Neck: Supple, Trachea Midline, 2 Lungs: Clear to Auscultation, Normal Respiratory Effort Cardiovascular: Irregular Rhythm (Rate and rhythm) GI/Abdominal Exam: Normal Bowel Sounds, Soft, Non-Tender, No Organomegaly, No Distention, No Abnormal Bruit, No Mass Extremities: Non-Tender, Normal Capillary Refill, Pedal Edema (2+) Skin: Warm, Dry, Intact Neuro Extensive - Mental Status: Alert. No: Normal Cognition, Memory Intact Psychiatric: Alert, Normal Affect, Normal Mood - Patient Data Lab Results Last 24 hrs: Laboratory Results - last 24 hr 04/22/21 04/22/21 04/22/21 Range/Units 11:20 11:42 11:42 WBC 6.56 (4.23-9.07) K/mm3 RBC 4.68 (4.63-6.08) M/mm3 Hgb 13.4 L (13.7-17.5) gm/dl Hct 43.5 (40.1-51.0) % MCV 92.9 H (79.0-92.2) fl MCH 28.6 (25.7-32.2) pg MCHC 30.8 L (32.2-35.5) g/dl RDW Std Deviation 48.2 H (35.1-43.9) fL Plt Count 234 D (163-337) K/mm3 MPV 9.0 L (9.4-12.3) fl Neut % (Auto) 63.9 (34.0-67.9) % Lymph % (Auto) 18.6 L (21.8-53.1) % Cameron % (Auto) 10.7 (5.3-12.2) % Eos % (Auto) 5.8 (0.8-7.0) Baso % (Auto) 0.5 (0.1-1.2) % Neut # (Auto) 4.20 (1.78-5.38) K/mm3 Lymph # (Auto) 1.22 L (1.32-3.57) K/mm3 Cameron # (Auto) 0.70 (0.30-0.82) K/mm3 Eos # (Auto) 0.38 (0.04-0.54) K/mm3 Baso # (Auto) 0.03 (0.01-0.08) K/mm3 Total Bilirubin 0.3 (0.2-1.0) mg/dL Direct Bilirubin 0.10 (0.0-0.2) mg/dl Indirect Bilirubin 0.20 AST 23 (15-37) U/L ALT 33 (16-63) U/L Alkaline Phosphatase 88 (46-116) U/L C-Reactive Protein 3.2 H* (<1.0) mg/dL Total Protein 8.0 (6.4-8.2) g/dl Albumin 3.5 (3.4-5.0) g/dl Globulin 4.5 gm/dL Albumin/Globulin Ratio 0.8 L (1-2) Influenza Type A RNA Negative (NEGATIVE) Influenza Type B RNA Negative (NEGATIVE) SARS-CoV-2 RNA (MADELEINE) Negative (NEGATIVE) Result Diagrams: 04/22/21 11:42 Sepsis Event Note - Evaluation Sepsis Screening Result: No Definite Risk - Focused Exam Vital Signs: Vital Signs Temp Temp Pulse Pulse Pulse Resp BP 04/22/21 16:48 04/22/21 15:54 97.7 F 60 14 138/72 04/22/21 14:15 97.3 F 61 18 136/69 04/22/21 11:27 97.6 F 65 16 04/22/21 11:25 96.8 F L 66 18 BP Pulse Ox Pulse Ox 04/22/21 16:48 96 04/22/21 15:54 94 L 04/22/21 14:15 95 04/22/21 11:27 154/80 H 96 04/22/21 11:25 154/80 H 95 Consult PN Assessment/Plan Procedures: Procedures APPLY FOREARM SPLINT (09/11/14) ASSAY GLUCOSE BLOOD QUANT (12/29/20) ASSAY OF CK (CPK) (04/07/19) ASSAY OF CREATININE (10/04/20) ASSAY OF DIGOXIN TOTAL (12/29/20) ASSAY OF ETHANOL (02/03/14) ASSAY OF LACTIC ACID (12/29/20) ASSAY OF LIPASE (04/07/19) ASSAY OF MAGNESIUM (12/29/20) ASSAY OF NATRIURETIC PEPTIDE (12/29/20) ASSAY OF PHENYTOIN TOTAL (11/05/14) ASSAY OF PHOSPHORUS (04/07/19) ASSAY OF TROPONIN QUANT (12/29/20) ASSAY OF VANCOMYCIN (04/07/19) ASSAY THYROID STIM HORMONE (04/07/19) BL SMEAR W/DIFF WBC COUNT (06/20/19) BLOOD CULTURE FOR BACTERIA (06/20/19) BLOOD GASES ANY COMBINATION (04/07/19) C-REACTIVE PROTEIN (12/29/20) CHEST WALL MANIPULATION (06/20/19) CHEST X-RAY 1 VIEW FRONTAL (02/03/14) CHYLMD PNEUM DNA AMP PROBE (06/20/19) COMPLETE CBC AUTOMATED (06/20/19) COMPLETE CBC W/AUTO DIFF WBC (12/29/20) COMPREHEN METABOLIC PANEL (12/29/20) CREATINE MB FRACTION (06/20/19) CT ABD & PELV 1/> REGNS (12/25/19) CT ABD & PELV W/CONTRAST (10/04/20) CT HEAD/BRAIN W/O DYE (12/29/20) CT NECK SPINE W/O DYE (02/03/14) CT THORAX DX C+ (10/04/20) CT THORAX DX C- (11/26/19) CT THORAX DX C-/C+ (04/07/19) DETECT AGENT NOS DNA AMP (06/20/19) DRUG SCRN MARK LEVETIRACETAM (04/07/19) DRUG TEST PRSMV INSTRMNT (04/07/19) ELECTROCARDIOGRAM TRACING (12/29/20) EMERGENCY DEPT VISIT (12/29/20) EMERGENCY DEPT VISIT (10/25/14) EMERGENCY DEPT VISIT (09/11/14) EMERGENCY DEPT VISIT (02/03/14) EVALUATE SWALLOWING FUNCTION (04/07/19) GAIT TRAINING THERAPY (04/07/19) HEPATIC FUNCTION PANEL (04/07/19) HYDRATE IV INFUSION ADD-ON (04/07/19) INFLUENZA ASSAY W/OPTIC (06/20/19) INSERT TEMP BLADDER CATH (04/07/19) LOWER EXTREMITY STUDY (04/07/19) M.PNEUMON DNA AMP PROBE (06/20/19) MANUAL THERAPY 1/> REGIONS (04/07/19) MEASURE BLOOD OXYGEN LEVEL (06/20/19) METABOLIC PANEL TOTAL CA (06/20/19) MICROBE SUSCEPTIBLE LIVAN (06/20/19) MR-STAPH DNA AMP PROBE (06/20/19) ORAL FUNCTION THERAPY (04/07/19) OT EVAL HIGH COMPLEX 60 MIN (04/07/19) OT EVAL LOW COMPLEX 30 MIN (06/20/19) PROCALCITONIN (PCT) (06/20/19) PROTHROMBIN TIME (12/29/20) PT EVAL MOD COMPLEX 30 MIN (06/20/19) RBC SED RATE AUTOMATED (12/29/20) RESP VIRUS 6-11 TARGETS (06/20/19) ROUTINE VENIPUNCTURE (12/29/20) RPR F/E/E/N/L/M 2.5 CM/< (02/03/14) SELF CARE MNGMENT TRAINING (06/20/19) SYPHILIS TEST NON-TREP QUAL (04/07/19) THER/PROPH/DIAG INJ IV PUSH (06/13/18) THER/PROPH/DIAG INJ SC/IM (09/11/14) THER/PROPH/DIAG IV INF INIT (12/29/20) THERAPEUTIC ACTIVITIES (04/07/19) THERAPEUTIC EXERCISES (04/07/19) THROMBOPLASTIN TIME PARTIAL (12/29/20) TTE W/DOPPLER COMPLETE (04/07/19) TX/PRO/DX INJ NEW DRUG ADDON (12/29/20) TX/PRO/DX INJ SAME DRUG CAMPUS REP (04/07/19) URINALYSIS AUTO W/SCOPE (12/29/20) URINE BACTERIA CULTURE (06/20/19) URINE CULTURE/COLONY COUNT (06/20/19) US URINE CAPACITY MEASURE (04/07/19) VITAMIN B-12 (04/07/19) WITHDRAWAL OF ARTERIAL BLOOD (04/07/19) X-RAY EXAM CHEST 1 VIEW (12/29/20) X-RAY EXAM OF FOREARM (09/11/14) X-RAY EXAM OF HAND (09/11/14) (1) Atrial fibrillation SNOMED Code(s): 90962144 Code(s): I48.91 - UNSPECIFIED ATRIAL FIBRILLATION Current Visit: Yes (2) Diabetes SNOMED Code(s): 89110709 Code(s): E11.9 - TYPE 2 DIABETES MELLITUS WITHOUT COMPLICATIONS Current Visit: Yes (3) Appendicitis SNOMED Code(s): 42794020 Code(s): K37 - UNSPECIFIED APPENDICITIS Current Visit: No Qualifiers: Appendicitis type: acute appendicitis Acute appendicitis type: with localized peritonitis Appendicitis gangrene presence: without gangrene Appendicitis perforation presence: without perforation Appendicitis abscess presence: without abscess Qualified Code(s): K35.30 - Acute appendicitis with localized peritonitis, without perforation or gangrene (4) BPH (benign prostatic hyperplasia) SNOMED Code(s): 783415046 Code(s): N40.0 - BENIGN PROSTATIC HYPERPLASIA WITHOUT LOWER URINRY TRACT SYMP Priority: Medium Current Visit: No Qualifiers: Lower urinary tract symptom presence: unspecified whether lower urinary tract symptoms present Qualified Code(s): N40.0 - Benign prostatic hyperplasia without lower urinary tract symptoms (5) COPD (chronic obstructive pulmonary disease) SNOMED Code(s): 94735713 Code(s): J44.9 - CHRONIC OBSTRUCTIVE PULMONARY DISEASE, UNSPECIFIED Priority: Medium Current Visit: No Qualifiers: COPD type: emphysema (6) Chronic atrial fibrillation with RVR SNOMED Code(s): 963581301, 459497938082483 Code(s): I48.20 - CHRONIC ATRIAL FIBRILLATION, UNSPECIFIED Current Visit: No (7) Congestive heart failure SNOMED Code(s): 13020490 Code(s): I50.9 - HEART FAILURE, UNSPECIFIED Priority: Medium Current Visit: No Qualifiers: Heart failure type: combined systolic and diastolic Heart failure chronicity: acute on chronic Qualified Code(s): I50.43 - Acute on chronic combined systolic (congestive) and diastolic (congestive) heart failure (8) Dementia SNOMED Code(s): 16031731 Code(s): F03.90 - UNSPECIFIED DEMENTIA WITHOUT BEHAVIORAL DISTURBANCE Current Visit: No Qualifiers: Dementia type: Alzheimer's disease Alzheimer's disease onset: early-onset Dementia behavioral disturbance: with behavioral disturbance Qualified Code(s): G30.0 - Alzheimer's disease with early onset; F02.81 - Dementia in other diseases classified elsewhere with behavioral disturbance (9) Major depressive disorder SNOMED Code(s): 153487638 Code(s): F32.9 - MAJOR DEPRESSIVE DISORDER, SINGLE EPISODE, UNSPECIFIED Current Visit: No (10) Moderate to severe pulmonary hypertension SNOMED Code(s): 11517393 Code(s): I27.20 - PULMONARY HYPERTENSION, UNSPECIFIED Current Visit: No (11) Seizure disorder SNOMED Code(s): 080228432 Code(s): G40.909 - EPILEPSY, UNSP, NOT INTRACTABLE, WITHOUT STATUS EPILEPTICUS Current Visit: No Problem List Initiated/Reviewed/Updated: Yes My Orders Last 24 Hours: My Active Orders 04/22/21 20:02 Insulin Lispro [HumaLOG] See Protocol SUBCUT QIDACANDBED PRN 04/22/21 20:03 Blood Glucose Check, Bedside [RC] WITHMEALSANDBED 04/23/21 05:11 DIGOXIN [CHEM] AM GLYCOSYLATED HEMOGLOBIN,HGBA1C [CHEM] AM Plan: 65-year-old male with atrial fibrillation on Eliquis found to have appendicitis on follow-up CT scan of renal cell carcinoma admitted to surgical service with plan on appendectomy in [address]. [address] Coronel plan surgery in 48 hours Hold Eliquis per Dr. Coronel Antibiotics Per Dr. Berna Hull. fib CHF, echocardiogram from 2019 showing EF around 50% Hypertension Continue home meds prior to surgery with the exception of Eliquis No current renal function available. Get CMP in the morning. Conservative fluid management secondary to CHF. Type 2 diabetes on insulin Recommend continue with home insulin regimen until night before surgery. Consider decreasing long-acting insulin, Lantus, to half dose night before surgery. Sliding scale insulin with bedside glucose monitoring before every meal and nightly Hemoglobin A1c Dementia, likely secondary to alcohol abuse Seizure disorder On multiple mood stabilizing agents Recommend continuation of his home medication throughout hospitalization. COPD, oxygen dependent On 2 L via nasal cannula chronically. No change in oxygen status at this time. Continue home meds. Adjust FiO2 to keep SPO2 greater than 90%. We will continue to follow patient. Requesting Provider: Dr. Forbes Date Consult Requested: 04/22/21 Reason for Consult: Medical management Patient History Reviewed: Yes Admission H&P Reviewed: Yes Notified Requestor: Yes Time Spent (in minutes): 40
[2021-04-22] MEDS ORDERED: levETIRAcetam 500 MG Tab PO ONE (21:00)
[2021-04-22] MEDS ORDERED: Gabapentin 100 MG Cap PO ONE (21:00)
[2021-04-22] MEDS ORDERED: LORazepam 1 MG Tab PO ONE (21:00)
[2021-04-22] MEDS ORDERED: QUEtiapine 25 MG Tab PO ONE (21:00)
[2021-04-22] MEDS ORDERED: Tamsulosin 0.4 MG Cap.ER PO ONE (21:00)
[2021-04-23] MEDS: Thiamine 100 MG Tab PO SCH (08:40)
[2021-04-23 08:57] LABS: HEMOGLOBIN A1C 7.1 %
--- NOTE | 2021-04-23 09:40 | PCM.CONSN ---
- General Info Date of Service: 04/23/21 Admission Dx/Problem (Free Text): Admission Diagnosis/Problem Admission Diagnosis/Problem Appendicitis Subjective Update: Patient voices no complaints including no abdominal pain. He does have severe dementia. Nursing noted no significant changes overnight. Functional Status: Reports: Pain Controlled - Review of Systems General: Reports: No Symptoms HEENT: Reports: No Symptoms Pulmonary: Reports: No Symptoms Cardiovascular: Reports: No Symptoms Gastrointestinal: Reports: No Symptoms - Patient Data Vitals - Most Recent: Last Vital Signs Temp 99.0 F 04/23/21 07:23 Pulse 70 04/23/21 08:43 Resp 13 04/23/21 07:23 BP 130/75 04/23/21 07:23 Pulse Ox 91 L 04/23/21 08:43 Weight - Most Recent: 278 lb 1.6 oz I&O - Last 24 Hours: Intake & Output 04/22/21 04/23/21 04/23/21 22:59 06:59 14:59 Intake Total 838 Output Total 1250 Balance -412 Lab Results Last 24 Hours: Laboratory Results - last 24 hr 04/22/21 04/22/21 04/22/21 Range/Units 11:20 11:42 11:42 WBC 6.56 (4.23-9.07) K/mm3 RBC 4.68 (4.63-6.08) M/mm3 Hgb 13.4 L (13.7-17.5) gm/dl Hct 43.5 (40.1-51.0) % MCV 92.9 H (79.0-92.2) fl MCH 28.6 (25.7-32.2) pg MCHC 30.8 L (32.2-35.5) g/dl RDW Std Deviation 48.2 H (35.1-43.9) fL Plt Count 234 D (163-337) K/mm3 MPV 9.0 L (9.4-12.3) fl Neut % (Auto) 63.9 (34.0-67.9) % Lymph % (Auto) 18.6 L (21.8-53.1) % [place] % (Auto) 10.7 (5.3-12.2) % Eos % (Auto) 5.8 (0.8-7.0) Baso % (Auto) 0.5 (0.1-1.2) % Neut # (Auto) 4.20 (1.78-5.38) K/mm3 Lymph # (Auto) 1.22 L (1.32-3.57) K/mm3 [place] # (Auto) 0.70 (0.30-0.82) K/mm3 Eos # (Auto) 0.38 (0.04-0.54) K/mm3 Baso # (Auto) 0.03 (0.01-0.08) K/mm3 Sodium (136-145) mEq/L Potassium (3.5-5.1) mEq/L Chloride (98-107) mEq/L Carbon Dioxide (21-32) mEq/L Anion Gap (5-15) BUN (7-18) mg/dL Creatinine (0.7-1.3) mg/dL Est Cr Clr Drug Dosing mL/min Estimated GFR (MDRD) (>60) mL/min BUN/Creatinine Ratio (14-18) Glucose (70-99) mg/dL POC Glucose (70-99) mg/dL Hemoglobin A1c ( - 5.6) % Calcium (8.5-10.1) mg/dL Total Bilirubin 0.3 (0.2-1.0) mg/dL Direct Bilirubin 0.10 (0.0-0.2) mg/dl Indirect Bilirubin 0.20 AST 23 (15-37) U/L ALT 33 (16-63) U/L Alkaline Phosphatase 88 (46-116) U/L C-Reactive Protein 3.2 H* (<1.0) mg/dL Total Protein 8.0 (6.4-8.2) g/dl Albumin 3.5 (3.4-5.0) g/dl Globulin 4.5 gm/dL Albumin/Globulin Ratio 0.8 L (1-2) Digoxin (0.9-2.0) ng/mL Influenza Type A RNA Negative (NEGATIVE) Influenza Type B RNA Negative (NEGATIVE) SARS-CoV-2 RNA ([place]) Negative (NEGATIVE) MRSA (PCR) 04/22/21 04/22/21 04/23/21 Range/Units 16:10 21:40 06:48 WBC (4.23-9.07) K/mm3 RBC (4.63-6.08) M/mm3 Hgb (13.7-17.5) gm/dl Hct (40.1-51.0) % MCV (79.0-92.2) fl MCH (25.7-32.2) pg MCHC (32.2-35.5) g/dl RDW Std Deviation (35.1-43.9) fL Plt Count (163-337) K/mm3 MPV (9.4-12.3) fl Neut % (Auto) (34.0-67.9) % Lymph % (Auto) (21.8-53.1) % [place] % (Auto) (5.3-12.2) % Eos % (Auto) (0.8-7.0) Baso % (Auto) (0.1-1.2) % Neut # (Auto) (1.78-5.38) K/mm3 Lymph # (Auto) (1.32-3.57) K/mm3 [place] # (Auto) (0.30-0.82) K/mm3 Eos # (Auto) (0.04-0.54) K/mm3 Baso # (Auto) (0.01-0.08) K/mm3 Sodium (136-145) mEq/L Potassium (3.5-5.1) mEq/L Chloride (98-107) mEq/L Carbon Dioxide (21-32) mEq/L Anion Gap (5-15) BUN (7-18) mg/dL Creatinine (0.7-1.3) mg/dL Est Cr Clr Drug Dosing mL/min Estimated GFR (MDRD) (>60) mL/min BUN/Creatinine Ratio (14-18) Glucose (70-99) mg/dL POC Glucose 128 H 123 H (70-99) mg/dL Hemoglobin A1c ( - 5.6) % Calcium (8.5-10.1) mg/dL Total Bilirubin (0.2-1.0) mg/dL Direct Bilirubin (0.0-0.2) mg/dl Indirect Bilirubin AST (15-37) U/L ALT (16-63) U/L Alkaline Phosphatase (46-116) U/L C-Reactive Protein (<1.0) mg/dL Total Protein (6.4-8.2) g/dl Albumin (3.4-5.0) g/dl Globulin gm/dL Albumin/Globulin Ratio (1-2) Digoxin (0.9-2.0) ng/mL Influenza Type A RNA (NEGATIVE) Influenza Type B RNA (NEGATIVE) SARS-CoV-2 RNA ([place]) (NEGATIVE) MRSA (PCR) Negative 04/23/21 04/23/21 04/23/21 Range/Units 08:01 08:01 08:01 WBC 7.94 (4.23-9.07) K/mm3 RBC 4.83 (4.63-6.08) M/mm3 Hgb 13.6 L (13.7-17.5) gm/dl Hct 44.7 (40.1-51.0) % MCV 92.5 H (79.0-92.2) fl MCH 28.2 (25.7-32.2) pg MCHC 30.4 L (32.2-35.5) g/dl RDW Std Deviation 48.0 H (35.1-43.9) fL Plt Count 249 (163-337) K/mm3 MPV 9.2 L (9.4-12.3) fl Neut % (Auto) 65.4 (34.0-67.9) % Lymph % (Auto) 17.9 L (21.8-53.1) % [place] % (Auto) 9.9 (5.3-12.2) % Eos % (Auto) 5.8 (0.8-7.0) Baso % (Auto) 0.5 (0.1-1.2) % Neut # (Auto) 5.19 (1.78-5.38) K/mm3 Lymph # (Auto) 1.42 (1.32-3.57) K/mm3 [place] # (Auto) 0.79 (0.30-0.82) K/mm3 Eos # (Auto) 0.46 (0.04-0.54) K/mm3 Baso # (Auto) 0.04 (0.01-0.08) K/mm3 Sodium 139 (136-145) mEq/L Potassium 4.5 (3.5-5.1) mEq/L Chloride 103 (98-107) mEq/L Carbon Dioxide 28 (21-32) mEq/L Anion Gap 12.5 (5-15) BUN 18 (7-18) mg/dL Creatinine 1.6 H (0.7-1.3) mg/dL Est Cr Clr Drug Dosing 56.46 mL/min Estimated GFR (MDRD) 43 (>60) mL/min BUN/Creatinine Ratio 11.3 L (14-18) Glucose 126 H (70-99) mg/dL POC Glucose (70-99) mg/dL Hemoglobin A1c 7.1 H ( - 5.6) % Calcium 9.2 (8.5-10.1) mg/dL Total Bilirubin (0.2-1.0) mg/dL Direct Bilirubin (0.0-0.2) mg/dl Indirect Bilirubin AST (15-37) U/L ALT (16-63) U/L Alkaline Phosphatase (46-116) U/L C-Reactive Protein 2.6 H* (<1.0) mg/dL Total Protein (6.4-8.2) g/dl Albumin (3.4-5.0) g/dl Globulin gm/dL Albumin/Globulin Ratio (1-2) Digoxin 0.9 (0.9-2.0) ng/mL Influenza Type A RNA (NEGATIVE) Influenza Type B RNA (NEGATIVE) SARS-CoV-2 RNA ([place]) (NEGATIVE) MRSA (PCR) Med Orders - Current: Current Medications Albuterol (Albuterol 6.7 Gm Inhaler) gm INH Q6HR PRN PRN Reason: Shortness of Breath Amlodipine Besylate (Amlodipine 5 Mg Tab) 10 mg PO DAILY [facility] Bisacodyl (Bisacodyl 5 Mg Tab) 10 mg PO DAILY PRN PRN Reason: Constipation Digoxin (Digoxin 250 Mcg Tab) 250 mcg PO DAILY [facility] Finasteride (Finasteride 5 Mg Tab) 5 mg PO DAILY [facility] Gabapentin (Gabapentin 100 Mg Cap) 100 mg PO TID [facility] Ertapenem 1 gm/ Sodium (Chloride) 50 mls @ 100 mls/hr IV Q24H [facility] Insulin Human Lispro (Insulin Lispro 100 Unit/Ml 3 Ml Kwikpen) 0 unit SUBCUT QIDACANDBED PRN; Protocol PRN Reason: Hyperglycemia Lorazepam (Lorazepam 1 Mg Tab) 1 mg PO BID [facility] Meloxicam (Meloxicam 7.5 Mg Tab) 7.5 mg PO DAILY [facility] Metoprolol Succinate (Metoprolol Succinate 25 Mg Tab.Er) 50 mg PO DAILY [facility] Non-Formulary Medication (Escitalopram) 10 mg PO DAILY [facility] Non-Formulary Medication (Insulin Glarg,Human.Rec.Analog) 10 units SQ ACBREAKFAST [facility] Non-Formulary Medication (Insulin Glarg,Human.Rec.Analog) 40 units SQ DAILY [facility] Non-Formulary Medication (Levetiracetam [Levetiracetam]) 750 mg PO BID [facility] Non-Formulary Medication (Memantine Hcl/Donepezil Hcl [Namzaric 28 Mg-10 Mg Capsule]) 1 cap.sr PO DAILY [facility] Ondansetron HCl (Ondansetron 4 Mg/2 Ml Sdv) 4 mg IV Q4H PRN PRN Reason: Nausea/Vomiting Quetiapine Fumarate (Quetiapine 25 Mg Tab) 200 mg PO BID [facility] Senna/Docusate Sodium (Docusate Sodium/Sennosides 50-8.6 Mg Tab) 1 tab PO BID [facility] Last Admin: 04/23/21 08:40 Dose: 1 tab Documented by: Sodium Chloride (Sodium Chloride 0.9% 10 Ml Syringe) 10 ml FLUSH ASDIRECTED PRN PRN Reason: Keep Vein Open Last Admin: 04/22/21 11:45 Dose: 10 ml Documented by: Tamsulosin HCl (Tamsulosin 0.4 Mg Cap.Er) 0.8 mg PO BEDTIME [facility] Thiamine HCl (Thiamine 100 Mg Tab) 100 mg PO DAILY [facility] Last Admin: 04/23/21 08:40 Dose: 100 mg Documented by: Discontinued Medications Ertapenem (Ertapenem 1 Gm Vial) Confirm Administered Dose 1 gm .ROUTE .STK-MED ONE Stop: 04/22/21 12:42 Last Admin: 04/22/21 12:46 Dose: Not Given Documented by: Gabapentin (Gabapentin 100 Mg Cap) 100 mg PO ONETIME ONE Stop: 04/22/21 21:01 Last Admin: 04/22/21 22:06 Dose: 100 mg Documented by: Sodium Chloride (Normal Saline) 1,000 mls @ 75 mls/hr IV ONETIME ONE Stop: 04/23/21 01:54 Last Infusion: 04/22/21 23:24 Dose: 50 mls/hr Documented by: Ertapenem 1 gm/ Sodium (Chloride) 50 mls @ 100 mls/hr IV ONETIME ONE Stop: 04/22/21 13:05 Last Admin: 04/22/21 16:49 Dose: Not Given Documented by: Ertapenem 1 gm/ Sodium (Chloride) 50 mls @ 100 mls/hr IV ONETIME ONE Stop: 04/22/21 16:44 Last Admin: 04/22/21 16:54 Dose: 100 mls/hr Documented by: Levetiracetam (Levetiracetam 500 Mg Tab) 750 mg PO ONETIME ONE Stop: 04/22/21 21:01 Last Admin: 04/22/21 22:06 Dose: 750 mg Documented by: Lorazepam (Lorazepam 1 Mg Tab) 1 mg PO ONETIME ONE Stop: 04/22/21 21:01 Last Admin: 04/22/21 22:07 Dose: 1 mg Documented by: Quetiapine Fumarate (Quetiapine 25 Mg Tab) 200 mg PO ONETIME ONE Stop: 04/22/21 21:01 Last Admin: 04/22/21 22:07 Dose: 200 mg Documented by: Tamsulosin HCl (Tamsulosin 0.4 Mg Cap.Er) 0.8 mg PO ONETIME ONE Stop: 04/22/21 21:01 Last Admin: 04/22/21 22:08 Dose: 0.8 mg Documented by: - Exam Quality Assessment: Supplemental Oxygen General: Alert HEENT: Pupils Equal, Mucous Membr. Moist/[place] Neck: Supple Lungs: Clear to Auscultation, Normal Respiratory Effort Cardiovascular: Regular Rate, Regular Rhythm GI/Abdominal Exam: Normal Bowel Sounds, Soft, Non-Tender, No Distention Extremities: Normal Inspection, Normal Range of Motion, Non-Tender, No Pedal Edema, Normal Capillary Refill Sepsis Event Note - Evaluation Sepsis Screening Result: No Definite Risk - Focused Exam Vital Signs: Vital Signs Temp Pulse Resp BP Pulse Ox Pulse Ox 04/23/21 08:43 70 91 L 04/23/21 08:42 65 89 L 04/23/21 08:36 92 L 04/23/21 08:23 70 90 L 04/23/21 07:23 99.0 F 72 13 130/75 87 L 04/23/21 03:48 98.2 F 66 18 119/71 92 L 04/23/21 01:33 98.2 F 63 18 123/68 92 L Consult PN Assessment/Plan Procedures: Procedures APPLY FOREARM SPLINT (09/11/14) ASSAY GLUCOSE BLOOD QUANT (12/29/20) ASSAY OF CK (CPK) (04/07/19) ASSAY OF CREATININE (10/04/20) ASSAY OF DIGOXIN TOTAL (12/29/20) ASSAY OF ETHANOL (02/03/14) ASSAY OF LACTIC ACID (12/29/20) ASSAY OF LIPASE (04/07/19) ASSAY OF MAGNESIUM (12/29/20) ASSAY OF NATRIURETIC PEPTIDE (12/29/20) ASSAY OF PHENYTOIN TOTAL (11/05/14) ASSAY OF PHOSPHORUS (04/07/19) ASSAY OF TROPONIN QUANT (12/29/20) ASSAY OF VANCOMYCIN (04/07/19) ASSAY THYROID STIM HORMONE (04/07/19) BL SMEAR W/DIFF WBC COUNT (06/20/19) BLOOD CULTURE FOR BACTERIA (06/20/19) BLOOD GASES ANY COMBINATION (04/07/19) C-REACTIVE PROTEIN (12/29/20) CHEST WALL MANIPULATION (06/20/19) CHEST X-RAY 1 VIEW FRONTAL (02/03/14) CHYLMD PNEUM DNA AMP PROBE (06/20/19) COMPLETE CBC AUTOMATED (06/20/19) COMPLETE CBC W/AUTO DIFF WBC (12/29/20) COMPREHEN METABOLIC PANEL (12/29/20) CREATINE MB FRACTION (06/20/19) CT ABD & PELV 1/> REGNS (12/25/19) CT ABD & PELV W/CONTRAST (10/04/20) CT HEAD/BRAIN W/O DYE (12/29/20) CT NECK SPINE W/O DYE (02/03/14) CT THORAX DX C+ (10/04/20) CT THORAX DX C- (11/26/19) CT THORAX DX C-/C+ (04/07/19) DETECT AGENT NOS DNA AMP (06/20/19) DRUG SCRN MARK LEVETIRACETAM (04/07/19) DRUG TEST PRSMV INSTRMNT (04/07/19) ELECTROCARDIOGRAM TRACING (12/29/20) EMERGENCY DEPT VISIT (12/29/20) EMERGENCY DEPT VISIT (10/25/14) EMERGENCY DEPT VISIT (09/11/14) EMERGENCY DEPT VISIT (02/03/14) EVALUATE SWALLOWING FUNCTION (04/07/19) GAIT TRAINING THERAPY (04/07/19) HEPATIC FUNCTION PANEL (04/07/19) HYDRATE IV INFUSION ADD-ON (04/07/19) INFLUENZA ASSAY W/OPTIC (06/20/19) INSERT TEMP BLADDER CATH (04/07/19) LOWER EXTREMITY STUDY (04/07/19) M.PNEUMON DNA AMP PROBE (06/20/19) MANUAL THERAPY 1/> REGIONS (04/07/19) MEASURE BLOOD OXYGEN LEVEL (06/20/19) METABOLIC PANEL TOTAL CA (06/20/19) MICROBE SUSCEPTIBLE LIVAN (06/20/19) MR-STAPH DNA AMP PROBE (06/20/19) ORAL FUNCTION THERAPY (04/07/19) OT EVAL HIGH COMPLEX 60 MIN (04/07/19) OT EVAL LOW COMPLEX 30 MIN (06/20/19) PROCALCITONIN (PCT) (06/20/19) PROTHROMBIN TIME (12/29/20) PT EVAL MOD COMPLEX 30 MIN (06/20/19) RBC SED RATE AUTOMATED (12/29/20) RESP VIRUS 6-11 TARGETS (06/20/19) ROUTINE VENIPUNCTURE (12/29/20) RPR F/E/E/N/L/M 2.5 CM/< (02/03/14) SELF CARE MNGMENT TRAINING (06/20/19) SYPHILIS TEST NON-TREP QUAL (04/07/19) THER/PROPH/DIAG INJ IV PUSH (06/13/18) THER/PROPH/DIAG INJ SC/IM (09/11/14) THER/PROPH/DIAG IV INF INIT (12/29/20) THERAPEUTIC ACTIVITIES (04/07/19) THERAPEUTIC EXERCISES (04/07/19) THROMBOPLASTIN TIME PARTIAL (12/29/20) TTE W/DOPPLER COMPLETE (04/07/19) TX/PRO/DX INJ NEW DRUG ADDON (12/29/20) TX/PRO/DX INJ SAME DRUG FINGERPRINT TECHNICIAN (04/07/19) URINALYSIS AUTO W/SCOPE (12/29/20) URINE BACTERIA CULTURE (06/20/19) URINE CULTURE/COLONY COUNT (06/20/19) US URINE CAPACITY MEASURE (04/07/19) VITAMIN B-12 (04/07/19) WITHDRAWAL OF ARTERIAL BLOOD (04/07/19) X-RAY EXAM CHEST 1 VIEW (12/29/20) X-RAY EXAM OF FOREARM (09/11/14) X-RAY EXAM OF HAND (09/11/14) (1) Atrial fibrillation SNOMED Code(s): 36887982 Code(s): I48.91 - UNSPECIFIED ATRIAL FIBRILLATION Current Visit: Yes (2) Diabetes SNOMED Code(s): 01498204 Code(s): E11.9 - TYPE 2 DIABETES MELLITUS WITHOUT COMPLICATIONS Current Visit: Yes (3) Appendicitis SNOMED Code(s): 45029716 Code(s): K37 - UNSPECIFIED APPENDICITIS Current Visit: No Qualifiers: Appendicitis type: acute appendicitis Acute appendicitis type: with localized peritonitis Appendicitis gangrene presence: without gangrene Wendi endicitis perforation presence: without perforation Appendicitis abscess presence: without abscess Qualified Code(s): K35.30 - Acute appendicitis with localized peritonitis, without perforation or gangrene (4) BPH (benign prostatic hyperplasia) SNOMED Code(s): 620876173 Code(s): N40.0 - BENIGN PROSTATIC HYPERPLASIA WITHOUT LOWER URINRY TRACT SYMP Priority: Medium Current Visit: No Qualifiers: Lower urinary tract symptom presence: unspecified whether lower urinary tract symptoms present Qualified Code(s): N40.0 - Benign prostatic hyperplasia with out lower urinary tract symptoms (5) COPD (chronic obstructive pulmonary disease) SNOMED Code(s): 80828335 Code(s): J44.9 - CHRONIC OBSTRUCTIVE PULMONARY DISEASE, UNSPECIFIED Priority: Medium Current Visit: No Qualifiers: COPD type: emphysema (6) Chronic atrial fibrillation with RVR SNOMED Code(s): 486744549, 101746564613481 Code(s): I48.20 - CHRONIC ATRIAL FIBRILLATION, UNSPECIFIED Current Visit: No (7) Congestive heart failure SNOMED Code(s): 99789650 Code(s): I50.9 - HEART FAILURE, UNSPECIFIED Priority: Medium Current Visit: No Qualifiers: Heart failure type: combined systolic and diastolic Heart failure chronicity: acute on chronic Qualified Code(s): I50.43 - Acute on chronic combined systolic (congestive) and diastolic (congestive) heart failure (8) Dementia SNOMED Code(s): 85606793 Code(s): F03.90 - UNSPECIFIED DEMENTIA WITHOUT BEHAVIORAL DISTURBANCE Current Visit: No Qualifiers: Dementia type: Alzheimer's disease Alzheimer's disease onset: early-onset Dementia behavioral disturbance: with behavioral disturbance (9) Major depressive disorder SNOMED Code(s): 942697726 Code(s): F32.9 - MAJOR DEPRESSIVE DISORDER, SINGLE EPISODE, UNSPECIFIED Current Visit: No (10) Moderate to severe pulmonary hypertension SNOMED Code(s): 98267590 Code(s): I27.20 - PULMONARY HYPERTENSION, UNSPECIFIED Current Visit: No (11) Seizure disorder SNOMED Code(s): 603004578 Code(s): G40.909 - EPILEPSY, UNSP, NOT INTRACTABLE, WITHOUT STATUS EPILEPTICUS Current Visit: No Problem List Initiated/Reviewed/Updated: Yes My Orders Last 24 Hours: My Active Orders 04/22/21 20:02 Insulin Lispro [HumaLOG] See Protocol SUBCUT QIDACANDBED PRN 04/22/21 20:03 Blood Glucose Check, Bedside [RC] WITHMEALSANDBED Plan: 65-year-old male with atrial fibrillation on Eliquis found to have appendicitis on follow-up CT scan of renal cell carcinoma admitted to surgical service with plan on appendectomy in [address]. [address] Coronel plan surgery tomorrow morning Hold Eliquis per Dr. Coronel Antibiotics Per Dr. Berna Hull. fib CHF, echocardiogram from 2019 showing EF around 50% Hypertensionstable Continue home meds prior to surgery with the exception of Eliquis No current renal function available. Get CMP in the morning. Conservative fluid management secondary to CHF. Digoxin level 0.9. No recommendations on adjustment. Type 2 diabetes on insulin Recommend continue with home insulin regimen until night before surgery. Consider decreasing long-acting insulin, Lantus, to half dose night before surgery. Sliding scale insulin with bedside glucose monitoring before every meal and nightly Hemoglobin A1c-7.1 Dementia, likely secondary to alcohol abuse Seizure disorder On multiple mood stabilizing agents Recommend continuation of his home medication throughout hospitalization. COPD, oxygen dependent On 2 L via nasal cannula chronically. No change in oxygen status at this time. Continue home meds. Adjust FiO2 to keep SPO2 greater than 90%. Medical team will continue to follow patient.
[2021-04-23] MEDS: LEVETIRACETAM 750 MG PO SCH ×3 (10:51→22:11)
[2021-04-23] MEDS: LORazepam 1 MG Tab PO SCH ×3 (10:51→22:10)
[2021-04-23] MEDS: Gabapentin 100 MG Cap PO SCH ×10 (10:52→22:11)
[2021-04-23] MEDS: Insulin Glargine,Hum.Rec.Anlog 100 UNIT/ML 3 ML Pen SUBCUT SCH ×2 (11:11→22:12)
[2021-04-23] MEDS: Digoxin 250 MCG Tab PO SCH (11:12)
[2021-04-23] MEDS: Non-Formulary Medication 1 Each (Escitalopram 10 MG Tablet) PO SCH (11:12)
[2021-04-23] MEDS: Metoprolol Succinate 50 MG Tab.ER PO SCH (11:13)
[2021-04-23] MEDS: amLODIPine 5 MG Tab PO SCH (11:13)
[2021-04-23] MEDS: Finasteride 5 MG Tab PO SCH (11:13)
[2021-04-23] MEDS: Meloxicam 7.5 MG Tab PO SCH (11:13)
--- NOTE | 2021-04-23 11:55 | PCM.PN ---
- General Info Date of Service: 04/23/21 Admission Dx/Problem (Free Text): Admission Diagnosis/Problem Admission Diagnosis/Problem Appendicitis Subjective Update: No new issues overnight Functional Status: Reports: Pain Controlled, Tolerating Diet, Ambulating, Urinating - Review of Systems General: Reports: No Symptoms HEENT: Reports: No Symptoms Pulmonary: Reports: No Symptoms Cardiovascular: Reports: No Symptoms Gastrointestinal: Reports: No Symptoms, Abdominal Pain Genitourinary: Reports: No Symptoms Musculoskeletal: Reports: No Symptoms Skin: Reports: No Symptoms - Patient Data Vitals - Most Recent: Last Vital Signs Temp 99.0 F 04/23/21 07:23 Pulse 70 04/23/21 11:13 Resp 13 04/23/21 07:23 BP 130/75 04/23/21 11:13 Pulse Ox 91 L 04/23/21 08:43 Weight - Most Recent: 126.144 kg I&O - Last 24 Hours: Intake & Output 04/22/21 04/23/21 04/23/21 22:59 06:59 14:59 Intake Total 560 838 Output Total 1250 Balance 560 -412 Lab Results Last 24 Hours: Laboratory Results - last 24 hr 04/22/21 04/22/21 04/22/21 Range/Units 11:20 11:42 11:42 WBC 6.56 (4.23-9.07) K/mm3 RBC 4.68 (4.63-6.08) M/mm3 Hgb 13.4 L (13.7-17.5) gm/dl Hct 43.5 (40.1-51.0) % MCV 92.9 H (79.0-92.2) fl MCH 28.6 (25.7-32.2) pg MCHC 30.8 L (32.2-35.5) g/dl RDW Std Deviation 48.2 H (35.1-43.9) fL Plt Count 234 D (163-337) K/mm3 MPV 9.0 L (9.4-12.3) fl Neut % (Auto) 63.9 (34.0-67.9) % Lymph % (Auto) 18.6 L (21.8-53.1) % [place] % (Auto) 10.7 (5.3-12.2) % Eos % (Auto) 5.8 (0.8-7.0) Baso % (Auto) 0.5 (0.1-1.2) % Neut # (Auto) 4.20 (1.78-5.38) K/mm3 Lymph # (Auto) 1.22 L (1.32-3.57) K/mm3 [place] # (Auto) 0.70 (0.30-0.82) K/mm3 Eos # (Auto) 0.38 (0.04-0.54) K/mm3 Baso # (Auto) 0.03 (0.01-0.08) K/mm3 Sodium (136-145) mEq/L Potassium (3.5-5.1) mEq/L Chloride (98-107) mEq/L Carbon Dioxide (21-32) mEq/L Anion Gap (5-15) BUN (7-18) mg/dL Creatinine (0.7-1.3) mg/dL Est Cr Clr Drug Dosing mL/min Estimated GFR (MDRD) (>60) mL/min BUN/Creatinine Ratio (14-18) Glucose (70-99) mg/dL POC Glucose (70-99) mg/dL Hemoglobin A1c ( - 5.6) % Calcium (8.5-10.1) mg/dL Total Bilirubin 0.3 (0.2-1.0) mg/dL Direct Bilirubin 0.10 (0.0-0.2) mg/dl Indirect Bilirubin 0.20 AST 23 (15-37) U/L ALT 33 (16-63) U/L Alkaline Phosphatase 88 (46-116) U/L C-Reactive Protein 3.2 H* (<1.0) mg/dL Total Protein 8.0 (6.4-8.2) g/dl Albumin 3.5 (3.4-5.0) g/dl Globulin 4.5 gm/dL Albumin/Globulin Ratio 0.8 L (1-2) Digoxin (0.9-2.0) ng/mL Influenza Type A RNA Negative (NEGATIVE) Influenza Type B RNA Negative (NEGATIVE) SARS-CoV-2 RNA ([place]) Negative (NEGATIVE) MRSA (PCR) 04/22/21 04/22/21 04/23/21 Range/Units 16:10 21:40 06:48 WBC (4.23-9.07) K/mm3 RBC (4.63-6.08) M/mm3 Hgb (13.7-17.5) gm/dl Hct (40.1-51.0) % MCV (79.0-92.2) fl MCH (25.7-32.2) pg MCHC (32.2-35.5) g/dl RDW Std Deviation (35.1-43.9) fL Plt Count (163-337) K/mm3 MPV (9.4-12.3) fl Neut % (Auto) (34.0-67.9) % Lymph % (Auto) (21.8-53.1) % [place] % (Auto) (5.3-12.2) % Eos % (Auto) (0.8-7.0) Baso % (Auto) (0.1-1.2) % Neut # (Auto) (1.78-5.38) K/mm3 Lymph # (Auto) (1.32-3.57) K/mm3 [place] # (Auto) (0.30-0.82) K/mm3 Eos # (Auto) (0.04-0.54) K/mm3 Baso # (Auto) (0.01-0.08) K/mm3 Sodium (136-145) mEq/L Potassium (3.5-5.1) mEq/L Chloride (98-107) mEq/L Carbon Dioxide (21-32) mEq/L Anion Gap (5-15) BUN (7-18) mg/dL Creatinine (0.7-1.3) mg/dL Est Cr Clr Drug Dosing mL/min Estimated GFR (MDRD) (>60) mL/min BUN/Creatinine Ratio (14-18) Glucose (70-99) mg/dL POC Glucose 128 H 123 H (70-99) mg/dL Hemoglobin A1c ( - 5.6) % Calcium (8.5-10.1) mg/dL Total Bilirubin (0.2-1.0) mg/dL Direct Bilirubin (0.0-0.2) mg/dl Indirect Bilirubin AST (15-37) U/L ALT (16-63) U/L Alkaline Phosphatase (46-116) U/L C-Reactive Protein (<1.0) mg/dL Total Protein (6.4-8.2) g/dl Albumin (3.4-5.0) g/dl Globulin gm/dL Albumin/Globulin Ratio (1-2) Digoxin (0.9-2.0) ng/mL Influenza Type A RNA (NEGATIVE) Influenza Type B RNA (NEGATIVE) SARS-CoV-2 RNA ([place]) (NEGATIVE) MRSA (PCR) Negative 04/23/21 04/23/21 04/23/21 Range/Units 08:01 08:01 08:01 WBC 7.94 (4.23-9.07) K/mm3 RBC 4.83 (4.63-6.08) M/mm3 Hgb 13.6 L (13.7-17.5) gm/dl Hct 44.7 (40.1-51.0) % MCV 92.5 H (79.0-92.2) fl MCH 28.2 (25.7-32.2) pg MCHC 30.4 L (32.2-35.5) g/dl RDW Std Deviation 48.0 H (35.1-43.9) fL Plt Count 249 (163-337) K/mm3 MPV 9.2 L (9.4-12.3) fl Neut % (Auto) 65.4 (34.0-67.9) % Lymph % (Auto) 17.9 L (21.8-53.1) % [place] % (Auto) 9.9 (5.3-12.2) % Eos % (Auto) 5.8 (0.8-7.0) Baso % (Auto) 0.5 (0.1-1.2) % Neut # (Auto) 5.19 (1.78-5.38) K/mm3 Lymph # (Auto) 1.42 (1.32-3.57) K/mm3 [place] # (Auto) 0.79 (0.30-0.82) K/mm3 Eos # (Auto) 0.46 (0.04-0.54) K/mm3 Baso # (Auto) 0.04 (0.01-0.08) K/mm3 Sodium 139 (136-145) mEq/L Potassium 4.5 (3.5-5.1) mEq/L Chloride 103 (98-107) mEq/L Carbon Dioxide 28 (21-32) mEq/L Anion Gap 12.5 (5-15) BUN 18 (7-18) mg/dL Creatinine 1.6 H (0.7-1.3) mg/dL Est Cr Clr Drug Dosing 56.46 mL/min Estimated GFR (MDRD) 43 (>60) mL/min BUN/Creatinine Ratio 11.3 L (14-18) Glucose 126 H (70-99) mg/dL POC Glucose (70-99) mg/dL Hemoglobin A1c 7.1 H ( - 5.6) % Calcium 9.2 (8.5-10.1) mg/dL Total Bilirubin (0.2-1.0) mg/dL Direct Bilirubin (0.0-0.2) mg/dl Indirect Bilirubin AST (15-37) U/L ALT (16-63) U/L Alkaline Phosphatase (46-116) U/L C-Reactive Protein 2.6 H* (<1.0) mg/dL Total Protein (6.4-8.2) g/dl Albumin (3.4-5.0) g/dl Globulin gm/dL Albumin/Globulin Ratio (1-2) Digoxin 0.9 (0.9-2.0) ng/mL Influenza Type A RNA (NEGATIVE) Influenza Type B RNA (NEGATIVE) SARS-CoV-2 RNA ([place]) (NEGATIVE) MRSA (PCR) 04/23/21 Range/Units 11:37 WBC (4.23-9.07) K/mm3 RBC (4.63-6.08) M/mm3 Hgb (13.7-17.5) gm/dl Hct (40.1-51.0) % MCV (79.0-92.2) fl MCH (25.7-32.2) pg MCHC (32.2-35.5) g/dl RDW Std Deviation (35.1-43.9) fL Plt Count (163-337) K/mm3 MPV (9.4-12.3) fl Neut % (Auto) (34.0-67.9) % Lymph % (Auto) (21.8-53.1) % [place] % (Auto) (5.3-12.2) % Eos % (Auto) (0.8-7.0) Baso % (Auto) (0.1-1.2) % Neut # (Auto) (1.78-5.38) K/mm3 Lymph # (Auto) (1.32-3.57) K/mm3 [place] # (Auto) (0.30-0.82) K/mm3 Eos # (Auto) (0.04-0.54) K/mm3 Baso # (Auto) (0.01-0.08) K/mm3 Sodium (136-145) mEq/L Potassium (3.5-5.1) mEq/L Chloride (98-107) mEq/L Carbon Dioxide (21-32) mEq/L Anion Gap (5-15) BUN (7-18) mg/dL Creatinine (0.7-1.3) mg/dL Est Cr Clr Drug Dosing mL/min Estimated GFR (MDRD) (>60) mL/min BUN/Creatinine Ratio (14-18) Glucose (70-99) mg/dL POC Glucose 183 H (70-99) mg/dL Hemoglobin A1c ( - 5.6) % Calcium (8.5-10.1) mg/dL Total Bilirubin (0.2-1.0) mg/dL Direct Bilirubin (0.0-0.2) mg/dl Indirect Bilirubin AST (15-37) U/L ALT (16-63) U/L Alkaline Phosphatase (46-116) U/L C-Reactive Protein (<1.0) mg/dL Total Protein (6.4-8.2) g/dl Albumin (3.4-5.0) g/dl Globulin gm/dL Albumin/Globulin Ratio (1-2) Digoxin (0.9-2.0) ng/mL Influenza Type A RNA (NEGATIVE) Influenza Type B RNA (NEGATIVE) SARS-CoV-2 RNA ([place]) (NEGATIVE) MRSA (PCR) Med Orders - Current: Current Medications Albuterol (Albuterol 6.7 Gm Inhaler) 0 gm INH Q6HR PRN PRN Reason: Shortness of Breath Amlodipine Besylate (Amlodipine 5 Mg Tab) 10 mg PO DAILY [facility] Last Admin: 04/23/21 11:13 Dose: 10 mg Documented by: Bisacodyl (Bisacodyl 5 Mg Tab) 10 mg PO DAILY PRN PRN Reason: Constipation Digoxin (Digoxin 250 Mcg Tab) 250 mcg PO DAILY [facility] Last Admin: 04/23/21 11:12 Dose: 250 mcg Documented by: Finasteride (Finasteride 5 Mg Tab) 5 mg PO DAILY [facility] Last Admin: 04/23/21 11:13 Dose: 5 mg Documented by: Gabapentin (Gabapentin 100 Mg Cap) 100 mg PO TID [facility] Last Admin: 04/23/21 11:13 Dose: 100 mg Documented by: Ertapenem 1 gm/ Sodium (Chloride) 50 mls @ 100 mls/hr IV Q24H [facility] Insulin Glargine (Insulin Glargine,Hum.Rec.Anlog 100 Unit/Ml 3 Ml Pen) 10 unit SUBCUT ACBREAKFAST [facility] Last Admin: 04/23/21 11:11 Dose: 10 units Documented by: Insulin Glargine (Insulin Glargine,Hum.Rec.Anlog 100 Unit/Ml 3 Ml Pen) 40 unit SUBCUT BEDTIME [facility] Insulin Human Lispro (Insulin Lispro 100 Unit/Ml 3 Ml Kwikpen) 0 unit SUBCUT QIDACANDBED PRN; Protocol PRN Reason: Hyperglycemia Lorazepam (Lorazepam 1 Mg Tab) 1 mg PO BID [facility] Last Admin: 04/23/21 11:12 Dose: 1 mg Documented by: Meloxicam (Meloxicam 7.5 Mg Tab) 7.5 mg PO DAILY [facility] Last Admin: 04/23/21 11:13 Dose: 7.5 mg Documented by: Metoprolol Succinate (Metoprolol Succinate 50 Mg Tab.Er) 50 mg PO DAILY [facility] Last Admin: 04/23/21 11:13 Dose: 50 mg Documented by: Non-Formulary Medication (Escitalopram) 10 mg PO DAILY [facility] Last Admin: 04/23/21 11:12 Dose: 10 mg Documented by: (Levetiracetam [ Levetiracetam] 750mg Tablet) 750 mg PO BID [facility] Last Admin: 04/23/21 11:13 Dose: 750 mg Documented by: Memantine Hcl/Donepezil Hcl Namzaric 28 Mg-10 Mg Capsule 1 cap.sr PO BEDTIME [facility] Quetiapine 200mg - (Pt Own Med) 0 each PO BID [facility] Ondansetron HCl (Ondansetron 4 Mg/2 Ml Sdv) 4 mg IV Q4H PRN PRN Reason: Nausea/Vomiting Senna/Docusate Sodium (Docusate Sodium/Sennosides 50-8.6 Mg Tab) 1 tab PO BID [facility] Last Admin: 04/23/21 08:40 Dose: 1 tab Documented by: Sodium Chloride (Sodium Chloride 0.9% 10 Ml Syringe) 10 ml FLUSH ASDIRECTED PRN PRN Reason: Keep Vein Open Last Admin: 04/22/21 11:45 Dose: 10 ml Documented by: Tamsulosin HCl (Tamsulosin 0.4 Mg Cap.Er - Pt Own Med) 0.8 mg PO BEDTIME [facility] Thiamine HCl (Thiamine 100 Mg Tab) 100 mg PO DAILY [facility] Last Admin: 04/23/21 08:40 Dose: 100 mg Documented by: Discontinued Medications Ertapenem (Ertapenem 1 Gm Vial) Confirm Administered Dose 1 gm .ROUTE .STK-MED ONE Stop: 04/22/21 12:42 Last Admin: 04/22/21 12:46 Dose: Not Given Documented by: Gabapentin (Gabapentin 100 Mg Cap) 100 mg PO ONETIME ONE Stop: 04/22/21 21:01 Last Admin: 04/22/21 22:06 Dose: 100 mg Documented by: Sodium Chloride (Normal Saline) 1,000 mls @ 75 mls/hr IV ONETIME ONE Stop: 04/23/21 01:54 Last Infusion: 04/22/21 23:24 Dose: 50 mls/hr Documented by: Ertapenem 1 gm/ Sodium (Chloride) 50 mls @ 100 mls/hr IV ONETIME ONE Stop: 04/22/21 13:05 Last Admin: 04/22/21 16:49 Dose: Not Given Documented by: Ertapenem 1 gm/ Sodium (Chloride) 50 mls @ 100 mls/hr IV ONETIME ONE Stop: 04/22/21 16:44 Last Admin: 04/22/21 16:54 Dose: 100 mls/hr Documented by: Levetiracetam (Levetiracetam 500 Mg Tab) 750 mg PO ONETIME ONE Stop: 04/22/21 21:01 Last Admin: 04/22/21 22:06 Dose: 750 mg Documented by: Lorazepam (Lorazepam 1 Mg Tab) 1 mg PO ONETIME ONE Stop: 04/22/21 21:01 Last Admin: 04/22/21 22:07 Dose: 1 mg Documented by: Quetiapine Fumarate (Quetiapine 25 Mg Tab) 200 mg PO ONETIME ONE Stop: 04/22/21 21:01 Last Admin: 04/22/21 22:07 Dose: 200 mg Documented by: Tamsulosin HCl (Tamsulosin 0.4 Mg Cap.Er) 0.8 mg PO ONETIME ONE Stop: 04/22/21 21:01 Last Admin: 04/22/21 22:08 Dose: 0.8 mg Documented by: - Exam General: Alert Lungs: Clear to Auscultation, Normal Respiratory Effort Cardiovascular: Regular Rate, Regular Rhythm GI/Abdominal Exam: Soft, No Distention, Tender (slightly RLQ tenderness) (Male) Exam: No Hernia - Patient Data Lab Results Last 24 hrs: Laboratory Results - last 24 hr 04/22/21 04/22/21 04/22/21 Range/Units 11:20 11:42 11:42 WBC 6.56 (4.23-9.07) K/mm3 RBC 4.68 (4.63-6.08) M/mm3 Hgb 13.4 L (13.7-17.5) gm/dl Hct 43.5 (40.1-51.0) % MCV 92.9 H (79.0-92.2) fl MCH 28.6 (25.7-32.2) pg MCHC 30.8 L (32.2-35.5) g/dl RDW Std Deviation 48.2 H (35.1-43.9) fL Plt Count 234 D (163-337) K/mm3 MPV 9.0 L (9.4-12.3) fl Neut % (Auto) 63.9 (34.0-67.9) % Lymph % (Auto) 18.6 L (21.8-53.1) % [place] % (Auto) 10.7 (5.3-12.2) % Eos % (Auto) 5.8 (0.8-7.0) Baso % (Auto) 0.5 (0.1-1.2) % Neut # (Auto) 4.20 (1.78-5.38) K/mm3 Lymph # (Auto) 1.22 L (1.32-3.57) K/mm3 [place] # (Auto) 0.70 (0.30-0.82) K/mm3 Eos # (Auto) 0.38 (0.04-0.54) K/mm3 Baso # (Auto) 0.03 (0.01-0.08) K/mm3 Sodium (136-145) mEq/L Potassium (3.5-5.1) mEq/L Chloride (98-107) mEq/L Carbon Dioxide (21-32) mEq/L Anion Gap (5-15) BUN (7-18) mg/dL Creatinine (0.7-1.3) mg/dL Est Cr Clr Drug Dosing mL/min Estimated GFR (MDRD) (>60) mL/min BUN/Creatinine Ratio (14-18) Glucose (70-99) mg/dL POC Glucose (70-99) mg/dL Hemoglobin A1c ( - 5.6) % Calcium (8.5-10.1) mg/dL Total Bilirubin 0.3 (0.2-1.0) mg/dL Direct Bilirubin 0.10 (0.0-0.2) mg/dl Indirect Bilirubin 0.20 AST 23 (15-37) U/L ALT 33 (16-63) U/L Alkaline Phosphatase 88 (46-116) U/L C-Reactive Protein 3.2 H* (<1.0) mg/dL Total Protein 8.0 (6.4-8.2) g/dl Albumin 3.5 (3.4-5.0) g/dl Globulin 4.5 gm/dL Albumin/Globulin Ratio 0.8 L (1-2) Digoxin (0.9-2.0) ng/mL Influenza Type A RNA Negative (NEGATIVE) Influenza Type B RNA Negative (NEGATIVE) SARS-CoV-2 RNA ([place]) Negative (NEGATIVE) MRSA (PCR) 04/22/21 04/22/21 04/23/21 Range/Units 16:10 21:40 06:48 WBC (4.23-9.07) K/mm3 RBC (4.63-6.08) M/mm3 Hgb (13.7-17.5) gm/dl Hct (40.1-51.0) % MCV (79.0-92.2) fl MCH (25.7-32.2) pg MCHC (32.2-35.5) g/dl RDW Std Deviation (35.1-43.9) fL Plt Count (163-337) K/mm3 MPV (9.4-12.3) fl Neut % (Auto) (34.0-67.9) % Lymph % (Auto) (21.8-53.1) % [place] % (Auto) (5.3-12.2) % Eos % (Auto) (0.8-7.0) Baso % (Auto) (0.1-1.2) % Neut # (Auto) (1.78-5.38) K/mm3 Lymph # (Auto) (1.32-3.57) K/mm3 [place] # (Auto) (0.30-0.82) K/mm3 Eos # (Auto) (0.04-0.54) K/mm3 Baso # (Auto) (0.01-0.08) K/mm3 Sodium (136-145) mEq/L Potassium (3.5-5.1) mEq/L Chloride (98-107) mEq/L Carbon Dioxide (21-32) mEq/L Anion Gap (5-15) BUN (7-18) mg/dL Creatinine (0.7-1.3) mg/dL Est Cr Clr Drug Dosing mL/min Estimated GFR (MDRD) (>60) mL/min BUN/Creatinine Ratio (14-18) Glucose (70-99) mg/dL POC Glucose 128 H 123 H (70-99) mg/dL Hemoglobin A1c ( - 5.6) % Calcium (8.5-10.1) mg/dL Total Bilirubin (0.2-1.0) mg/dL Direct Bilirubin (0.0-0.2) mg/dl Indirect Bilirubin AST (15-37) U/L ALT (16-63) U/L Alkaline Phosphatase (46-116) U/L C-Reactive Protein (<1.0) mg/dL Total Protein (6.4-8.2) g/dl Albumin (3.4-5.0) g/dl Globulin gm/dL Albumin/Globulin Ratio (1-2) Digoxin (0.9-2.0) ng/mL Influenza Type A RNA (NEGATIVE) Influenza Type B RNA (NEGATIVE) SARS-CoV-2 RNA ([place]) (NEGATIVE) MRSA (PCR) Negative 04/23/21 04/23/21 04/23/21 Range/Units 08:01 08:01 08:01 WBC 7.94 (4.23-9.07) K/mm3 RBC 4.83 (4.63-6.08) M/mm3 Hgb 13.6 L (13.7-17.5) gm/dl Hct 44.7 (40.1-51.0) % MCV 92.5 H (79.0-92.2) fl MCH 28.2 (25.7-32.2) pg MCHC 30.4 L (32.2-35.5) g/dl RDW Std Deviation 48.0 H (35.1-43.9) fL Plt Count 249 (163-337) K/mm3 MPV 9.2 L (9.4-12.3) fl Neut % (Auto) 65.4 (34.0-67.9) % Lymph % (Auto) 17.9 L (21.8-53.1) % [place] % (Auto) 9.9 (5.3-12.2) % Eos % (Auto) 5.8 (0.8-7.0) Baso % (Auto) 0.5 (0.1-1.2) % Neut # (Auto) 5.19 (1.78-5.38) K/mm3 Lymph # (Auto) 1.42 (1.32-3.57) K/mm3 [place] # (Auto) 0.79 (0.30-0.82) K/mm3 Eos # (Auto) 0.46 (0.04-0.54) K/mm3 Baso # (Auto) 0.04 (0.01-0.08) K/mm3 Sodium 139 (136-145) mEq/L Potassium 4.5 (3.5-5.1) mEq/L Chloride 103 (98-107) mEq/L Carbon Dioxide 28 (21-32) mEq/L Anion Gap 12.5 (5-15) BUN 18 (7-18) mg/dL Creatinine 1.6 H (0.7-1.3) mg/dL Est Cr Clr Drug Dosing 56.46 mL/min Estimated GFR (MDRD) 43 (>60) mL/min BUN/Creatinine Ratio 11.3 L (14-18) Glucose 126 H (70-99) mg/dL POC Glucose (70-99) mg/dL Hemoglobin A1c 7.1 H ( - 5.6) % Calcium 9.2 (8.5-10.1) mg/dL Total Bilirubin (0.2-1.0) mg/dL Direct Bilirubin (0.0-0.2) mg/dl Indirect Bilirubin AST (15-37) U/L ALT (16-63) U/L Alkaline Phosphatase (46-116) U/L C-Reactive Protein 2.6 H* (<1.0) mg/dL Total Protein (6.4-8.2) g/dl Albumin (3.4-5.0) g/dl Globulin gm/dL Albumin/Globulin Ratio (1-2) Digoxin 0.9 (0.9-2.0) ng/mL Influenza Type A RNA (NEGATIVE) Influenza Type B RNA (NEGATIVE) SARS-CoV-2 RNA ([place]) (NEGATIVE) MRSA (PCR) 04/23/21 Range/Units 11:37 WBC (4.23-9.07) K/mm3 RBC (4.63-6.08) M/mm3 Hgb (13.7-17.5) gm/dl Hct (40.1-51.0) % MCV (79.0-92.2) fl MCH (25.7-32.2) pg MCHC (32.2-35.5) g/dl RDW Std Deviation (35.1-43.9) fL Plt Count (163-337) K/mm3 MPV (9.4-12.3) fl Neut % (Auto) (34.0-67.9) % Lymph % (Auto) (21.8-53.1) % [place] % (Auto) (5.3-12.2) % Eos % (Auto) (0.8-7.0) Baso % (Auto) (0.1-1.2) % Neut # (Auto) (1.78-5.38) K/mm3 Lymph # (Auto) (1.32-3.57) K/mm3 [place] # (Auto) (0.30-0.82) K/mm3 Eos # (Auto) (0.04-0.54) K/mm3 Baso # (Auto) (0.01-0.08) K/mm3 Sodium (136-145) mEq/L Potassium (3.5-5.1) mEq/L Chloride (98-107) mEq/L Carbon Dioxide (21-32) mEq/L Anion Gap (5-15) BUN (7-18) mg/dL Creatinine (0.7-1.3) mg/dL Est Cr Clr Drug Dosing mL/min Estimated GFR (MDRD) (>60) mL/min BUN/Creatinine Ratio (14-18) Glucose (70-99) mg/dL POC Glucose 183 H (70-99) mg/dL Hemoglobin A1c ( - 5.6) % Calcium (8.5-10.1) mg/dL Total Bilirubin (0.2-1.0) mg/dL Direct Bilirubin (0.0-0.2) mg/dl Indirect Bilirubin AST (15-37) U/L ALT (16-63) U/L Alkaline Phosphatase (46-116) U/L C-Reactive Protein (<1.0) mg/dL Total Protein (6.4-8.2) g/dl Albumin (3.4-5.0) g/dl Globulin gm/dL Albumin/Globulin Ratio (1-2) Digoxin (0.9-2.0) ng/mL Influenza Type A RNA (NEGATIVE) Influenza Type B RNA (NEGATIVE) SARS-CoV-2 RNA ([place]) (NEGATIVE) MRSA (PCR) Result Diagrams: 04/23/21 08:01 04/23/21 08:01 Sepsis Event Note - Evaluation Sepsis Screening Result: No Definite Risk - Focused Exam Vital Signs: Vital Signs Temp Pulse Resp BP Pulse Ox Pulse Ox 04/23/21 11:13 70 130/75 04/23/21 11:12 70 04/23/21 08:43 70 91 L 04/23/21 08:42 65 89 L 04/23/21 08:36 92 L 04/23/21 08:23 70 90 L 04/23/21 07:23 99.0 F 72 13 130/75 87 L 04/23/21 03:48 98.2 F 66 18 119/71 92 L 04/23/21 01:33 98.2 F 63 18 123/68 92 L - Problem List Review Problem List Initiated/Reviewed/Updated: No - My Orders Last 24 Hours: My Active Orders 04/22/21 16:48 Oxygen Therapy [RC] PRN Up With Assistance [RC] BID Vital Signs [RC] Q4HR Ondansetron [Zofran] 4 mg IV Q4H PRN 04/22/21 16:49 Intake and Output [RC] 04,16 04/22/21 16:56 Albuterol [Proventil HFA] 0 gm INH Q6HR PRN bisacodyL [Dulcolax] 10 mg PO DAILY PRN 04/22/21 17:00 RT Pre-Treatment Assessment [RC] Click to Edit Regular Diet [DIET] 04/22/21 17:06 Consult to Physician [CONS] Routine 04/22/21 17:07 Notify Provider Consults [RC] DAILY 04/22/21 17:35 Code Status [Resuscitation Status] Routine 04/22/21 21:00 Docusate Sodium/Sennosides [Senna Plus] 1 tab PO BID Gabapentin [Neurontin] 100 mg PO TID LORazepam [Ativan] 1 mg PO BID levETIRAcetam [Levetiracetam] 750 mg PO BID 04/23/21 06:00 Insulin Glargine,Hum.Rec.Anlog [Semglee Pen] 10 unit SUBCUT ACBREAKFAST 04/23/21 09:00 Digoxin [Lanoxin] 250 mcg PO DAILY Escitalopram 10 mg PO DAILY Finasteride [Proscar] 5 mg PO DAILY Meloxicam [Mobic] 7.5 mg PO DAILY Metoprolol Succinate [Toprol XL] 50 mg PO DAILY Thiamine [Vitamin B-1] 100 mg PO DAILY amLODIPine [Norvasc] 10 mg PO DAILY 04/23/21 17:00 Ertapenem [INVanz] 1 gm Sodium Chloride 0.9% [Normal Saline] 50 ml IV Q24H 04/23/21 21:00 Insulin Glargine,Hum.Rec.Anlog [Semglee Pen] 40 unit SUBCUT BEDTIME Memantine HCl/Donepezil HCl [Namzaric 28 mg-10 mg Capsule] 1 cap.sr PO BEDTIME Non-Formulary Medication [NF Drug] 0 each PO BID Tamsulosin [Flomax] 0.8 mg PO BEDTIME 04/24/21 05:11 BASIC METABOLIC PANEL,BMP [CHEM] AM C-REACTIVE PROTEIN [CHEM] AM CBC WITH AUTO DIFF [HEME] AM 04/25/21 05:11 BASIC METABOLIC PANEL,BMP [CHEM] AM C-REACTIVE PROTEIN [CHEM] AM CBC WITH AUTO DIFF [HEME] AM - Assessment Assessment:: HD1 acute appendicitis per imaging. Holding Eliquis for 48 hrs before surgery. Patient is stable, CRP is improving. - Plan Plan:: Plan - continue reg diet - continue home meds - [facility] - Planning to proceed with lap appendectomy tomorrow am
[2021-04-23] MEDS: Insulin Lispro 100 Unit/ML 3 ML KwikPen SUBCUT SCH ×3 (12:06→22:12)
[2021-04-23] MEDS: Ertapenem 1 GM in Sodium Chloride 0.9% 50 ML IV SCH (16:27)
[2021-04-23] MEDS: TAMSULOSIN 0.4 MG PO SCH (22:10)
[2021-04-23] MEDS: QUETIAPINE 200 MG PO SCH (22:11)
[2021-04-23] MEDS: [UNRECOGNIZED DRUG - OTHER] PO SCH (22:11)
[2021-04-23] MEDS: MEMANTINE HCL PO SCH (22:11)
[2021-04-24] MEDS ORDERED: Midazolam 1 MG/ML 2 ML SDV ONE (07:56)
[2021-04-24] MEDS ORDERED: Propofol 200 MG/20 ML SDV ONE (07:56)
[2021-04-24] MEDS ORDERED: fentaNYL 250 MCG/5 ML SDV ONE (07:57)
[2021-04-24] MEDS ORDERED: Rocuronium 50 MG/5 ML Vial ONE (07:57)
[2021-04-24] MEDS ORDERED: ceFAZolin 1 GM Vial ONE (07:57)
[2021-04-24] MEDS ORDERED: Dexamethasone 4 MG/ML 5 ML MDV ONE (07:57)
[2021-04-24] MEDS ORDERED: Ondansetron 4 MG/2 ML SDV ONE (07:57)
[2021-04-24] MEDS ORDERED: Lactated Ringers 0 ML ONE (07:59)
[2021-04-24] MEDS ORDERED: Bupivacaine 0.25% 10 ML SDV ONE (08:27)
[2021-04-24] MEDS: Insulin Glargine,Hum.Rec.Anlog 100 UNIT/ML 3 ML Pen SUBCUT SCH ×2 (08:30→21:25)
[2021-04-24] MEDS: Insulin Lispro 100 Unit/ML 3 ML KwikPen SUBCUT SCH ×4 (08:30→21:26)
[2021-04-24] MEDS: LORazepam 1 MG Tab PO SCH ×2 (08:30→20:17)
[2021-04-24] MEDS: Thiamine 100 MG Tab PO SCH (08:30)
[2021-04-24] MEDS: Gabapentin 100 MG Cap PO SCH ×6 (08:32→20:18)
[2021-04-24] MEDS: LEVETIRACETAM 750 MG PO SCH ×2 (08:32→20:18)
[2021-04-24] MEDS: QUETIAPINE 200 MG PO SCH ×2 (08:32→20:19)
[2021-04-24] MEDS: Digoxin 250 MCG Tab PO SCH (08:32)
[2021-04-24] MEDS: amLODIPine 5 MG Tab PO SCH (08:33)
[2021-04-24] MEDS: Finasteride 5 MG Tab PO SCH (08:33)
[2021-04-24] MEDS: Metoprolol Succinate 50 MG Tab.ER PO SCH (08:33)
[2021-04-24] MEDS: Non-Formulary Medication 1 Each (Escitalopram 10 MG Tablet) PO SCH (08:34)
[2021-04-24] MEDS: Meloxicam 7.5 MG Tab PO SCH (08:34)
[2021-04-24] MEDS ORDERED: diphenhydrAMINE 50 MG/ML SDV ONE (09:14)
[2021-04-24] MEDS ORDERED: ePHEDrine 50 MG/ML SDV ONE (09:20)
--- NOTE | 2021-04-24 09:29 | PCM.CONSN ---
- General Info Date of Service: 04/24/21 Admission Dx/Problem (Free Text): Admission Diagnosis/Problem Admission Diagnosis/Problem Appendicitis Subjective Update: Preoperatively patient was doing well. He denied any fever, chills, or night sweats. Denied any abdominal pain. Denied any shortness of breath or cough. Functional Status: Reports: Pain Controlled - Review of Systems General: Reports: No Symptoms HEENT: Reports: No Symptoms Pulmonary: Reports: No Symptoms Cardiovascular: Reports: No Symptoms Gastrointestinal: Reports: No Symptoms Musculoskeletal: Reports: No Symptoms - Patient Data Vitals - Most Recent: Last Vital Signs Temp 97.9 F 04/24/21 06:11 Pulse 68 04/24/21 08:33 Resp 16 04/24/21 06:11 BP 137/71 04/24/21 08:33 Pulse Ox 94 L 04/24/21 08:27 Weight - Most Recent: 275 lb 1.6 oz I&O - Last 24 Hours: Intake & Output 04/23/21 04/24/21 04/24/21 22:59 06:59 14:59 Intake Total 800 200 Output Total 1200 250 Balance -400 -50 Lab Results Last 24 Hours: Laboratory Results - last 24 hr 04/23/21 04/23/21 04/23/21 Range/Units 11:37 14:54 20:08 WBC (4.23-9.07) K/mm3 RBC (4.63-6.08) M/mm3 Hgb (13.7-17.5) gm/dl Hct (40.1-51.0) % MCV (79.0-92.2) fl MCH (25.7-32.2) pg MCHC (32.2-35.5) g/dl RDW Std Deviation (35.1-43.9) fL Plt Count (163-337) K/mm3 MPV (9.4-12.3) fl Neut % (Auto) (34.0-67.9) % Lymph % (Auto) (21.8-53.1) % B[place]soe % (Auto) (5.3-12.2) % Eos % (Auto) (0.8-7.0) Baso % (Auto) (0.1-1.2) % Neut # (Auto) (1.78-5.38) K/mm3 Lymph # (Auto) (1.32-3.57) K/mm3 Bledsoe # (Auto) (0.30-0.82) K/mm3 Eos # (Auto) (0.04-0.54) K/mm3 Baso # (Auto) (0.01-0.08) K/mm3 PT (9.7-12.0) SECONDS INR APTT (21.7-31.4) SECONDS Sodium (136-145) mEq/L Potassium (3.5-5.1) mEq/L Chloride (98-107) mEq/L Carbon Dioxide (21-32) mEq/L Anion Gap (5-15) BUN (7-18) mg/dL Creatinine (0.7-1.3) mg/dL Est Cr Clr Drug Dosing mL/min Estimated GFR (MDRD) (>60) mL/min BUN/Creatinine Ratio (14-18) Glucose (70-99) mg/dL POC Glucose 183 H 194 H 219 H (70-99) mg/dL Calcium (8.5-10.1) mg/dL C-Reactive Protein (<1.0) mg/dL 04/24/21 04/24/21 04/24/21 Range/Units 05:51 05:51 05:56 WBC 8.16 (4.23-9.07) K/mm3 RBC 4.83 (4.63-6.08) M/mm3 Hgb 13.8 (13.7-17.5) gm/dl Hct 45.0 (40.1-51.0) % MCV 93.2 H (79.0-92.2) fl MCH 28.6 (25.7-32.2) pg MCHC 30.7 L (32.2-35.5) g/dl RDW Std Deviation 48.7 H (35.1-43.9) fL Plt Count 262 (163-337) K/mm3 MPV 9.0 L (9.4-12.3) fl Neut % (Auto) 59.2 (34.0-67.9) % Lymph % (Auto) 23.5 (21.8-53.1) % Bledsoe % (Auto) 10.7 (5.3-12.2) % Eos % (Auto) 5.4 (0.8-7.0) Baso % (Auto) 0.6 (0.1-1.2) % Neut # (Auto) 4.83 (1.78-5.38) K/mm3 Lymph # (Auto) 1.92 (1.32-3.57) K/mm3 Bledsoe # (Auto) 0.87 H (0.30-0.82) K/mm3 Eos # (Auto) 0.44 (0.04-0.54) K/mm3 Baso # (Auto) 0.05 (0.01-0.08) K/mm3 PT (9.7-12.0) SECONDS INR APTT (21.7-31.4) SECONDS Sodium 142 (136-145) mEq/L Potassium 4.4 (3.5-5.1) mEq/L Chloride 104 (98-107) mEq/L Carbon Dioxide 27 (21-32) mEq/L Anion Gap 15.4 H (5-15) BUN 18 (7-18) mg/dL Creatinine 1.6 H (0.7-1.3) mg/dL Est Cr Clr Drug Dosing 56.46 mL/min Estimated GFR (MDRD) 43 (>60) mL/min BUN/Creatinine Ratio 11.3 L (14-18) Glucose 144 H (70-99) mg/dL POC Glucose 139 H (70-99) mg/dL Calcium 9.1 (8.5-10.1) mg/dL C-Reactive Protein 1.1 H* (<1.0) mg/dL 04/24/21 04/24/21 Range/Units 05:57 08:05 WBC (4.23-9.07) K/mm3 RBC (4.63-6.08) M/mm3 Hgb (13.7-17.5) gm/dl Hct (40.1-51.0) % MCV (79.0-92.2) fl MCH (25.7-32.2) pg MCHC (32.2-35.5) g/dl RDW Std Deviation (35.1-43.9) fL Plt Count (163-337) K/mm3 MPV (9.4-12.3) fl Neut % (Auto) (34.0-67.9) % Lymph % (Auto) (21.8-53.1) % Bledsoe % (Auto) (5.3-12.2) % Eos % (Auto) (0.8-7.0) Baso % (Auto) (0.1-1.2) % Neut # (Auto) (1.78-5.38) K/mm3 Lymph # (Auto) (1.32-3.57) K/mm3 [place]e # (Auto) (0.30-0.82) K/mm3 Eos # (Auto) (0.04-0.54) K/mm3 Baso # (Auto) (0.01-0.08) K/mm3 PT 10.3 (9.7-12.0) SECONDS INR 0.93 APTT 28.4 (21.7-31.4) SECONDS Sodium (136-145) mEq/L Potassium (3.5-5.1) mEq/L Chloride (98-107) mEq/L Carbon Dioxide (21-32) mEq/L Anion Gap (5-15) BUN (7-18) mg/dL Creatinine (0.7-1.3) mg/dL Est Cr Clr Drug Dosing mL/min Estimated GFR (MDRD) (>60) mL/min BUN/Creatinine Ratio (14-18) Glucose (70-99) mg/dL POC Glucose 124 H (70-99) mg/dL Calcium (8.5-10.1) mg/dL C-Reactive Protein (<1.0) mg/dL Med Orders - Current: Current Medications Albuterol (Albuterol 6.7 Gm Inhaler) 0 gm INH Q6HR PRN PRN Reason: Shortness of Breath Last Admin: 04/24/21 08:27 Dose: 2 inhalation Documented by: Amlodipine Besylate (Amlodipine 5 Mg Tab) 10 mg PO DAILY [facility] Last Admin: 04/24/21 08:33 Dose: 10 mg Documented by: Bisacodyl (Bisacodyl 5 Mg Tab) 10 mg PO DAILY PRN PRN Reason: Constipation Digoxin (Digoxin 250 Mcg Tab) 250 mcg PO DAILY [facility] Last Admin: 04/24/21 08:32 Dose: 250 mcg Documented by: Finasteride (Finasteride 5 Mg Tab) 5 mg PO DAILY [facility] Last Admin: 04/24/21 08:33 Dose: 5 mg Documented by: Gabapentin (Gabapentin 100 Mg Cap) 100 mg PO TID [facility] Last Admin: 04/24/21 08:32 Dose: 100 mg Documented by: Ertapenem 1 gm/ Sodium (Chloride) 50 mls @ 100 mls/hr IV Q24H [facility] Last Admin: 04/23/21 16:27 Dose: 100 mls/hr Documented by: Insulin Glargine (Insulin Glargine,Hum.Rec.Anlog 100 Unit/Ml 3 Ml Pen) 10 unit SUBCUT ACBREAKFAST [facility] Last Admin: 04/24/21 08:30 Dose: Not Given Documented by: Insulin Glargine (Insulin Glargine,Hum.Rec.Anlog 100 Unit/Ml 3 Ml Pen) 40 unit SUBCUT BEDTIME [facility] Last Admin: 04/23/21 22:12 Dose: 40 units Documented by: Insulin Human Lispro (Insulin Lispro 100 Unit/Ml 3 Ml Kwikpen) 0 unit SUBCUT QIDACANDBED [facility]; Protocol Last Admin: 04/24/21 08:30 Dose: Not Given Documented by: Lorazepam (Lorazepam 1 Mg Tab) 1 mg PO BID [facility] Last Admin: 04/24/21 08:30 Dose: 1 mg Documented by: Meloxicam (Meloxicam 7.5 Mg Tab) 7.5 mg PO DAILY [facility] Last Admin: 04/24/21 08:34 Dose: Not Given Documented by: Metoprolol Succinate (Metoprolol Succinate 50 Mg Tab.Er) 50 mg PO DAILY [facility] Last Admin: 04/24/21 08:33 Dose: 50 mg Documented by: Non-Formulary Medication (Escitalopram) 10 mg PO DAILY [facility] Last Admin: 04/24/21 08:34 Dose: Not Given Documented by: (Levetiracetam [ Levetiracetam] 750mg Tablet) 750 mg PO BID [facility] Last Admin: 04/24/21 08:32 Dose: 750 mg Documented by: Memantine Hcl/Donepezil Hcl Namzaric 28 Mg-10 Mg Capsule 1 cap.sr PO BEDTIME [facility] Last Admin: 04/23/21 22:11 Dose: 1 cap.sr Documented by: Quetiapine 200mg - (Pt Own Med) 0 each PO BID [facility] Last Admin: 04/24/21 08:32 Dose: 200 each Documented by: Ondansetron HCl (Ondansetron 4 Mg/2 Ml Sdv) 4 mg IV Q4H PRN PRN Reason: Nausea/Vomiting Senna/Docusate Sodium (Docusate Sodium/Sennosides 50-8.6 Mg Tab) 1 tab PO BID [facility] Last Admin: 04/24/21 08:33 Dose: 1 tab Documented by: Sodium Chloride (Sodium Chloride 0.9% 10 Ml Syringe) 10 ml FLUSH ASDIRECTED PRN PRN Reason: Keep Vein Open Last Admin: 04/22/21 11:45 Dose: 10 ml Documented by: Tamsulosin HCl (Tamsulosin 0.4 Mg Cap.Er - Pt Own Med) 0.8 mg PO BEDTIME [facility] Last Admin: 04/23/21 22:10 Dose: 0.8 mg Documented by: Thiamine HCl (Thiamine 100 Mg Tab) 100 mg PO DAILY [facility] Last Admin: 04/24/21 08:30 Dose: 100 mg Documented by: Discontinued Medications Bupivacaine HCl (Bupivacaine 0.25% 10 Ml Sdv) Confirm Administered Dose 30 ml .ROUTE .STK-MED ONE Stop: 04/24/21 08:28 Cefazolin Sodium (Cefazolin 1 Gm Vial) Confirm Administered Dose 3 gm .ROUTE .STK-MED ONE Stop: 04/24/21 07:58 Dexamethasone (Dexamethasone 4 Mg/Ml 5 Ml Mdv) Confirm Administered Dose 20 mg .ROUTE .STK-MED ONE Stop: 04/24/21 07:58 Diphenhydramine HCl (Diphenhydramine 50 Mg/Ml Sdv) Confirm Administered Dose 50 mg .ROUTE .STK-MED ONE Stop: 04/24/21 09:15 Ephedrine Sulfate (Ephedrine 50 Mg/Ml Sdv) Confirm Administered Dose 50 mg .ROUTE .STK-MED ONE Stop: 04/24/21 09:21 Ertapenem (Ertapenem 1 Gm Vial) Confirm Administered Dose 1 gm .ROUTE .STK-MED ONE Stop: 04/22/21 12:42 Last Admin: 04/22/21 12:46 Dose: Not Given Documented by: Fentanyl (Fentanyl 250 Mcg/5 Ml Sdv) Confirm Administered Dose 250 mcg .ROUTE .STK-MED ONE Stop: 04/24/21 07:58 Gabapentin (Gabapentin 100 Mg Cap) 100 mg PO ONETIME ONE Stop: 04/22/21 21:01 Last Admin: 04/22/21 22:06 Dose: 100 mg Documented by: Sodium Chloride (Normal Saline) 1,000 mls @ 75 mls/hr IV ONETIME ONE Stop: 04/23/21 01:54 Last Infusion: 04/22/21 23:24 Dose: 50 mls/hr Documented by: Ertapenem 1 gm/ Sodium (Chloride) 50 mls @ 100 mls/hr IV ONETIME ONE Stop: 04/22/21 13:05 Last Admin: 04/22/21 16:49 Dose: Not Given Documented by: Ertapenem 1 gm/ Sodium (Chloride) 50 mls @ 100 mls/hr IV ONETIME ONE Stop: 04/22/21 16:44 Last Admin: 04/22/21 16:54 Dose: 100 mls/hr Documented by: Lactated Ringer's (Ringers, Lactated) Confirm Administered Dose 1,000 mls @ as directed .ROUTE .STK-MED ONE Stop: 04/24/21 08:00 Insulin Human Lispro (Insulin Lispro 100 Unit/Ml 3 Ml Kwikpen) 0 unit SUBCUT QIDACANDBED PRN; Protocol PRN Reason: Hyperglycemia Levetiracetam (Levetiracetam 500 Mg Tab) 750 mg PO ONETIME ONE Stop: 04/22/21 21:01 Last Admin: 04/22/21 22:06 Dose: 750 mg Documented by: Lidocaine HCl (Lidocaine 1% 5 Ml Sdv) Confirm Administered Dose 5 ml .ROUTE .STK-MED ONE Stop: 04/24/21 07:58 Lorazepam (Lorazepam 1 Mg Tab) 1 mg PO ONETIME ONE Stop: 04/22/21 21:01 Last Admin: 04/22/21 22:07 Dose: 1 mg Documented by: Midazolam HCl (Midazolam 1 Mg/Ml 2 Ml Sdv) Confirm Administered Dose 2 mg .ROUTE .STK-MED ONE Stop: 04/24/21 07:57 Miscellaneous Medication (Phenylephrine Hcl In 0.9% Nacl 1 Mg/10 Ml Syringe) Confirm Administered Dose 1 mg .ROUTE .STK-MED ONE Stop: 04/24/21 09:25 Ondansetron HCl (Ondansetron 4 Mg/2 Ml Sdv) Confirm Administered Dose 4 mg .ROUTE .STK-MED ONE Stop: 04/24/21 07:58 Propofol (Propofol 200 Mg/20 Ml Sdv) Confirm Administered Dose 400 mg .ROUTE .STK-MED ONE Stop: 04/24/21 07:57 Quetiapine Fumarate (Quetiapine 25 Mg Tab) 200 mg PO ONETIME ONE Stop: 04/22/21 21:01 Last Admin: 04/22/21 22:07 Dose: 200 mg Documented by: Rocuronium Mears (Rocuronium 50 Mg/5 Ml Vial) Confirm Administered Dose 50 mg .ROUTE .STK-MED ONE Stop: 04/24/21 07:58 Tamsulosin HCl (Tamsulosin 0.4 Mg Cap.Er) 0.8 mg PO ONETIME ONE Stop: 04/22/21 21:01 Last Admin: 04/22/21 22:08 Dose: 0.8 mg Documented by: - Exam Quality Assessment: Supplemental Oxygen General: Alert HEENT: Pupils Equal, Mucous Membr. Moist/[place] Neck: Supple Lungs: Clear to Auscultation, Normal Respiratory Effort Cardiovascular: Regular Rate, Regular Rhythm GI/Abdominal Exam: Normal Bowel Sounds, Soft, Non-Tender, No Distention Extremities: Normal Inspection, Normal Range of Motion, Non-Tender, No Pedal Edema, Normal Capillary Refill Sepsis Event Note - Evaluation Sepsis Screening Result: No Definite Risk - Focused Exam Vital Signs: Vital Signs Temp Pulse Resp BP Pulse Ox Pulse Ox 04/24/21 08:33 68 137/71 04/24/21 08:32 65 04/24/21 08:27 94 L 04/24/21 06:11 97.9 F 67 16 133/76 96 04/23/21 22:11 98.4 F 70 16 136/68 95 Consult PN Assessment/Plan POD#: 0 Procedures: Procedures APPLY FOREARM SPLINT (09/11/14) ASSAY GLUCOSE BLOOD QUANT (12/29/20) ASSAY OF CK (CPK) (04/07/19) ASSAY OF CREATININE (10/04/20) ASSAY OF DIGOXIN TOTAL (12/29/20) ASSAY OF ETHANOL (02/03/14) ASSAY OF LACTIC ACID (12/29/20) ASSAY OF LIPASE (04/07/19) ASSAY OF MAGNESIUM (12/29/20) ASSAY OF NATRIURETIC PEPTIDE (12/29/20) ASSAY OF PHENYTOIN TOTAL (11/05/14) ASSAY OF PHOSPHORUS (04/07/19) ASSAY OF TROPONIN QUANT (12/29/20) ASSAY OF VANCOMYCIN (04/07/19) ASSAY THYROID STIM HORMONE (04/07/19) BL SMEAR W/DIFF WBC COUNT (06/20/19) BLOOD CULTURE FOR BACTERIA (06/20/19) BLOOD GASES ANY COMBINATION (04/07/19) C-REACTIVE PROTEIN (12/29/20) CHEST WALL MANIPULATION (06/20/19) CHEST X-RAY 1 VIEW FRONTAL (02/03/14) CHYLMD PNEUM DNA AMP PROBE (06/20/19) COMPLETE CBC AUTOMATED (06/20/19) COMPLETE CBC W/AUTO DIFF WBC (12/29/20) COMPREHEN METABOLIC PANEL (12/29/20) CREATINE MB FRACTION (06/20/19) CT ABD & PELV 1/> REGNS (12/25/19) CT ABD & PELV W/CONTRAST (10/04/20) CT HEAD/BRAIN W/O DYE (12/29/20) CT NECK SPINE W/O DYE (02/03/14) CT THORAX DX C+ (10/04/20) CT THORAX DX C- (11/26/19) CT THORAX DX C-/C+ (04/07/19) DETECT AGENT NOS DNA AMP (06/20/19) DRUG SCRN MARK LEVETIRACETAM (04/07/19) DRUG TEST PRSMV INSTRMNT (04/07/19) ELECTROCARDIOGRAM TRACING (12/29/20) EMERGENCY DEPT VISIT (12/29/20) EMERGENCY DEPT VISIT (10/25/14) EMERGENCY DEPT VISIT (09/11/14) EMERGENCY DEPT VISIT (02/03/14) EVALUATE SWALLOWING FUNCTION (04/07/19) GAIT TRAINING THERAPY (04/07/19) HEPATIC FUNCTION PANEL (04/07/19) HYDRATE IV INFUSION ADD-ON (04/07/19) INFLUENZA ASSAY W/OPTIC (06/20/19) INSERT TEMP BLADDER CATH (04/07/19) LOWER EXTREMITY STUDY (04/07/19) M.PNEUMON DNA AMP PROBE (06/20/19) MANUAL THERAPY 1/> REGIONS (04/07/19) MEASURE BLOOD OXYGEN LEVEL (06/20/19) METABOLIC PANEL TOTAL CA (06/20/19) MICROBE SUSCEPTIBLE LIVAN (06/20/19) MR-STAPH DNA AMP PROBE (06/20/19) ORAL FUNCTION THERAPY (04/07/19) OT EVAL HIGH COMPLEX 60 MIN (04/07/19) OT EVAL LOW COMPLEX 30 MIN (06/20/19) PROCALCITONIN (PCT) (06/20/19) PROTHROMBIN TIME (12/29/20) PT EVAL MOD COMPLEX 30 MIN (06/20/19) RBC SED RATE AUTOMATED (12/29/20) RESP VIRUS 6-11 TARGETS (06/20/19) ROUTINE VENIPUNCTURE (12/29/20) RPR F/E/E/N/L/M 2.5 CM/< (02/03/14) SELF CARE MNGMENT TRAINING (06/20/19) SYPHILIS TEST NON-TREP QUAL (04/07/19) THER/PROPH/DIAG INJ IV PUSH (06/13/18) THER/PROPH/DIAG INJ SC/IM (09/11/14) THER/PROPH/DIAG IV INF INIT (12/29/20) THERAPEUTIC ACTIVITIES (04/07/19) THERAPEUTIC EXERCISES (04/07/19) THROMBOPLASTIN TIME PARTIAL (12/29/20) TTE W/DOPPLER COMPLETE (04/07/19) TX/PRO/DX INJ NEW DRUG ADDON (12/29/20) TX/PRO/DX INJ SAME DRUG DISTRIBUTION FIELD TECHNICIAN (04/07/19) URINALYSIS AUTO W/SCOPE (12/29/20) URINE BACTERIA CULTURE (06/20/19) URINE CULTURE/COLONY COUNT (06/20/19) US URINE CAPACITY MEASURE (04/07/19) VITAMIN B-12 (04/07/19) WITHDRAWAL OF ARTERIAL BLOOD (04/07/19) X-RAY EXAM CHEST 1 VIEW (12/29/20) X-RAY EXAM OF FOREARM (09/11/14) X-RAY EXAM OF HAND (09/11/14) (1) Atrial fibrillation SNOMED Code(s): 82202357 Code(s): I48.91 - UNSPECIFIED ATRIAL FIBRILLATION Current Visit: Yes (2) Diabetes SNOMED Code(s): 58676360 Code(s): E11.9 - TYPE 2 DIABETES MELLITUS WITHOUT COMPLICATIONS Current Visit: Yes (3) Appendicitis SNOMED Code(s): 21633918 Code(s): K37 - UNSPECIFIED APPENDICITIS Current Visit: No Qualifiers: Appendicitis type: acute appendicitis Acute appendicitis type: with localized peritonitis Appendicitis gangrene presence: without gangrene Appendicitis perforation presence: without perforation Appendicitis abscess presence: without abscess Qualified Code(s): K35.30 - Acute appendicitis with localized peritonitis, without perforation or gangrene (4) BPH (benign prostatic hyperplasia) SNOMED Code(s): 185901105 Code(s): N40.0 - BENIGN PROSTATIC HYPERPLASIA WITHOUT LOWER URINRY TRACT SYMP Priority: Medium Current Visit: No Qualifiers: Lower urinary tract symptom presence: unspecified whether lower urinary tract symptoms present Qualified Code(s): N40.0 - Benign prostatic hyperplasia without lower urinary tract symptoms (5) COPD (chronic obstructive pulmonary disease) SNOMED Code(s): 80203310 Code(s): J44.9 - CHRONIC OBSTRUCTIVE PULMONARY DISEASE, UNSPECIFIED Priority: Medium Current Visit: No Qualifiers: COPD type: emphysema (6) Chronic atrial fibrillation with RVR SNOMED Code(s): 124381203, 458196179502513 Code(s): I48.20 - CHRONIC ATRIAL FIBRILLATION, UNSPECIFIED Current Visit: No (7) Congestive heart failure SNOMED Code(s): 94803634 Code(s): I50.9 - HEART FAILURE, UNSPECIFIED Priority: Medium Current Visit: No Qualifiers: Heart failure type: combined systolic and diastolic Heart failure chronicity: acute on chronic Qualified Code(s): I50.43 - Acute on chronic combined systolic (congestive) and diastolic (congestive) heart failure (8) Dementia SNOMED Code(s): 45291695 Code(s): F03.90 - UNSPECIFIED DEMENTIA WITHOUT BEHAVIORAL DISTURBANCE Current Visit: No Qualifiers: Dementia type: Alzheimer's disease Alzheimer's disease onset: early-onset Dementia behavioral disturbance: with behavioral disturbance (9) Major depressive disorder SNOMED Code(s): 208007744 Code(s): F32.9 - MAJOR DEPRESSIVE DISORDER, SINGLE EPISODE, UNSPECIFIED Current Visit: No (10) Moderate to severe pulmonary hypertension SNOMED Code(s): 12523925 Code(s): I27.20 - PULMONARY HYPERTENSION, UNSPECIFIED Current Visit: No (11) Seizure disorder SNOMED Code(s): 734547371 Code(s): G40.909 - EPILEPSY, UNSP, NOT INTRACTABLE, WITHOUT STATUS EPILEPTICUS Current Visit: No Problem List Initiated/Reviewed/Updated: Yes Plan: 65-year-old male with atrial fibrillation on Eliquis found to have appendicitis on follow-up CT scan of renal cell carcinoma admitted to surgical service with plan on appendectomy in 48 hours. Acute appendicitis Surgery today Hold Eliquis per Dr. Coronel Antibiotics Per Dr. Berna vera CHF, echocardiogram from 2019 showing EF around 50% Hypertensionstable Continue home meds prior to surgery with the exception of Eliquis Conservative fluid management secondary to CHF. Digoxin level 0.9. No recommendations on adjustment. Renal insufficiency Speech creatinine 1.6 and estimated GFR 43 this appears to be stable over the last year. Type 2 diabetes on insulin Recommend continue with home insulin regimen until night before surgery. Resume normal diabetic medications when back to taking orally Sliding scale insulin with bedside glucose monitoring before every meal and nightly Hemoglobin A1c-7.1 Dementia, likely secondary to alcohol abuse Seizure disorder On multiple mood stabilizing agents Recommend continuation of his home medication throughout hospitalization. COPD, oxygen dependent On 2 L via nasal cannula chronically. No change in oxygen status at this time. Continue home meds. Adjust FiO2 to keep SPO2 greater than 90%. Medical team will continue to follow patient.
[2021-04-24] MEDS ORDERED: Sodium Chloride 0.9% 1,000 ML ONE (09:57)
[2021-04-24] MEDS ORDERED: fentaNYL 100 MCG/2 ML SDV IVPUSH PRN (10:49)
--- NOTE | 2021-04-24 10:49 | PCM.PN ---
- General Info Date of Service: 04/24/21 Admission Dx/Problem (Free Text): Admission Diagnosis/Problem Admission Diagnosis/Problem Appendicitis Subjective Update: No new issues. No complaints Functional Status: Reports: Pain Controlled, Tolerating Diet, Ambulating, Urinating - Review of Systems General: Reports: No Symptoms HEENT: Reports: No Symptoms Pulmonary: Reports: No Symptoms Cardiovascular: Reports: No Symptoms Gastrointestinal: Reports: No Symptoms Genitourinary: Reports: No Symptoms Musculoskeletal: Reports: No Symptoms - Patient Data Vitals - Most Recent: Last Vital Signs Temp 97.9 F 04/24/21 06:11 Pulse 68 04/24/21 08:33 Resp 16 04/24/21 06:11 BP 137/71 04/24/21 08:33 Pulse Ox 94 L 04/24/21 08:27 Weight - Most Recent: 124.783 kg I&O - Last 24 Hours: Intake & Output 04/23/21 04/24/21 04/24/21 22:59 06:59 14:59 Intake Total 1120 200 Output Total 1200 250 Balance -80 -50 Lab Results Last 24 Hours: Laboratory Results - last 24 hr 04/23/21 04/23/21 04/23/21 Range/Units 11:37 14:54 20:08 WBC (4.23-9.07) K/mm3 RBC (4.63-6.08) M/mm3 Hgb (13.7-17.5) gm/dl Hct (40.1-51.0) % MCV (79.0-92.2) fl MCH (25.7-32.2) pg MCHC (32.2-35.5) g/dl RDW Std Deviation (35.1-43.9) fL Plt Count (163-337) K/mm3 MPV (9.4-12.3) fl Neut % (Auto) (34.0-67.9) % Lymph % (Auto) (21.8-53.1) % [place] % (Auto) (5.3-12.2) % Eos % (Auto) (0.8-7.0) Baso % (Auto) (0.1-1.2) % Neut # (Auto) (1.78-5.38) K/mm3 Lymph # (Auto) (1.32-3.57) K/mm3 [place] # (Auto) (0.30-0.82) K/mm3 Eos # (Auto) (0.04-0.54) K/mm3 Baso # (Auto) (0.01-0.08) K/mm3 PT (9.7-12.0) SECONDS INR APTT (21.7-31.4) SECONDS Sodium (136-145) mEq/L Potassium (3.5-5.1) mEq/L Chloride (98-107) mEq/L Carbon Dioxide (21-32) mEq/L Anion Gap (5-15) BUN (7-18) mg/dL Creatinine (0.7-1.3) mg/dL Est Cr Clr Drug Dosing mL/min Estimated GFR (MDRD) (>60) mL/min BUN/Creatinine Ratio (14-18) Glucose (70-99) mg/dL POC Glucose 183 H 194 H 219 H (70-99) mg/dL Calcium (8.5-10.1) mg/dL C-Reactive Protein (<1.0) mg/dL 04/24/21 04/24/21 04/24/21 Range/Units 05:51 05:51 05:56 WBC 8.16 (4.23-9.07) K/mm3 RBC 4.83 (4.63-6.08) M/mm3 Hgb 13.8 (13.7-17.5) gm/dl Hct 45.0 (40.1-51.0) % MCV 93.2 H (79.0-92.2) fl MCH 28.6 (25.7-32.2) pg MCHC 30.7 L (32.2-35.5) g/dl RDW Std Deviation 48.7 H (35.1-43.9) fL Plt Count 262 (163-337) K/mm3 MPV 9.0 L (9.4-12.3) fl Neut % (Auto) 59.2 (34.0-67.9) % Lymph % (Auto) 23.5 (21.8-53.1) % [place] % (Auto) 10.7 (5.3-12.2) % Eos % (Auto) 5.4 (0.8-7.0) Baso % (Auto) 0.6 (0.1-1.2) % Neut # (Auto) 4.83 (1.78-5.38) K/mm3 Lymph # (Auto) 1.92 (1.32-3.57) K/mm3 [place] # (Auto) 0.87 H (0.30-0.82) K/mm3 Eos # (Auto) 0.44 (0.04-0.54) K/mm3 Baso # (Auto) 0.05 (0.01-0.08) K/mm3 PT (9.7-12.0) SECONDS INR APTT (21.7-31.4) SECONDS Sodium 142 (136-145) mEq/L Potassium 4.4 (3.5-5.1) mEq/L Chloride 104 (98-107) mEq/L Carbon Dioxide 27 (21-32) mEq/L Anion Gap 15.4 H (5-15) BUN 18 (7-18) mg/dL Creatinine 1.6 H (0.7-1.3) mg/dL Est Cr Clr Drug Dosing 56.46 mL/min Estimated GFR (MDRD) 43 (>60) mL/min BUN/Creatinine Ratio 11.3 L (14-18) Glucose 144 H (70-99) mg/dL POC Glucose 139 H (70-99) mg/dL Calcium 9.1 (8.5-10.1) mg/dL C-Reactive Protein 1.1 H* (<1.0) mg/dL 04/24/21 04/24/21 Range/Units 05:57 08:05 WBC (4.23-9.07) K/mm3 RBC (4.63-6.08) M/mm3 Hgb (13.7-17.5) gm/dl Hct (40.1-51.0) % MCV (79.0-92.2) fl MCH (25.7-32.2) pg MCHC (32.2-35.5) g/dl RDW Std Deviation (35.1-43.9) fL Plt Count (163-337) K/mm3 MPV (9.4-12.3) fl Neut % (Auto) (34.0-67.9) % Lymph % (Auto) (21.8-53.1) % [place] % (Auto) (5.3-12.2) % Eos % (Auto) (0.8-7.0) Baso % (Auto) (0.1-1.2) % Neut # (Auto) (1.78-5.38) K/mm3 Lymph # (Auto) (1.32-3.57) K/mm3 [place] # (Auto) (0.30-0.82) K/mm3 Eos # (Auto) (0.04-0.54) K/mm3 Baso # (Auto) (0.01-0.08) K/mm3 PT 10.3 (9.7-12.0) SECONDS INR 0.93 APTT 28.4 (21.7-31.4) SECONDS Sodium (136-145) mEq/L Potassium (3.5-5.1) mEq/L Chloride (98-107) mEq/L Carbon Dioxide (21-32) mEq/L Anion Gap (5-15) BUN (7-18) mg/dL Creatinine (0.7-1.3) mg/dL Est Cr Clr Drug Dosing mL/min Estimated GFR (MDRD) (>60) mL/min BUN/Creatinine Ratio (14-18) Glucose (70-99) mg/dL POC Glucose 124 H (70-99) mg/dL Calcium (8.5-10.1) mg/dL C-Reactive Protein (<1.0) mg/dL Med Orders - Current: Current Medications Albuterol (Albuterol 6.7 Gm Inhaler) 0 gm INH Q6HR PRN PRN Reason: Shortness of Breath Last Admin: 04/24/21 08:27 Dose: 2 inhalation Documented by: Amlodipine Besylate (Amlodipine 5 Mg Tab) 10 mg PO DAILY [facility] Last Admin: 04/24/21 08:33 Dose: 10 mg Documented by: Bisacodyl (Bisacodyl 5 Mg Tab) 10 mg PO DAILY PRN PRN Reason: Constipation Digoxin (Digoxin 250 Mcg Tab) 250 mcg PO DAILY [facility] Last Admin: 04/24/21 08:32 Dose: 250 mcg Documented by: Finasteride (Finasteride 5 Mg Tab) 5 mg PO DAILY [facility] Last Admin: 04/24/21 08:33 Dose: 5 mg Documented by: Gabapentin (Gabapentin 100 Mg Cap) 100 mg PO TID [facility] Last Admin: 04/24/21 08:32 Dose: 100 mg Documented by: Ertapenem 1 gm/ Sodium (Chloride) 50 mls @ 100 mls/hr IV Q24H [facility] Last Admin: 04/23/21 16:27 Dose: 100 mls/hr Documented by: Insulin Glargine (Insulin Glargine,Hum.Rec.Anlog 100 Unit/Ml 3 Ml Pen) 10 unit SUBCUT ACBREAKFAST [facility] Last Admin: 04/24/21 08:30 Dose: Not Given Documented by: Insulin Glargine (Insulin Glargine,Hum.Rec.Anlog 100 Unit/Ml 3 Ml Pen) 40 unit SUBCUT BEDTIME [facility] Last Admin: 04/23/21 22:12 Dose: 40 units Documented by: Insulin Human Lispro (Insulin Lispro 100 Unit/Ml 3 Ml Kwikpen) 0 unit SUBCUT QIDACANDBED [facility]; Protocol Last Admin: 04/24/21 08:30 Dose: Not Given Documented by: Lorazepam (Lorazepam 1 Mg Tab) 1 mg PO BID [facility] Last Admin: 04/24/21 08:30 Dose: 1 mg Documented by: Meloxicam (Meloxicam 7.5 Mg Tab) 7.5 mg PO DAILY [facility] Last Admin: 04/24/21 08:34 Dose: Not Given Documented by: Metoprolol Succinate (Metoprolol Succinate 50 Mg Tab.Er) 50 mg PO DAILY [facility] Last Admin: 04/24/21 08:33 Dose: 50 mg Documented by: Non-Formulary Medication (Escitalopram) 10 mg PO DAILY [facility] Last Admin: 04/24/21 08:34 Dose: Not Given Documented by: (Levetiracetam [ Levetiracetam] 750mg Tablet) 750 mg PO BID [facility] Last Admin: 04/24/21 08:32 Dose: 750 mg Documented by: Memantine Hcl/Donepezil Hcl Namzaric 28 Mg-10 Mg Capsule 1 cap.sr PO BEDTIME [facility] Last Admin: 04/23/21 22:11 Dose: 1 cap.sr Documented by: Quetiapine 200mg - (Pt Own Med) 0 each PO BID [facility] Last Admin: 04/24/21 08:32 Dose: 200 each Documented by: Ondansetron HCl (Ondansetron 4 Mg/2 Ml Sdv) 4 mg IV Q4H PRN PRN Reason: Nausea/Vomiting Senna/Docusate Sodium (Docusate Sodium/Sennosides 50-8.6 Mg Tab) 1 tab PO BID [facility] Last Admin: 04/24/21 08:33 Dose: 1 tab Documented by: Sodium Chloride (Sodium Chloride 0.9% 10 Ml Syringe) 10 ml FLUSH ASDIRECTED PRN PRN Reason: Keep Vein Open Last Admin: 04/22/21 11:45 Dose: 10 ml Documented by: Tamsulosin HCl (Tamsulosin 0.4 Mg Cap.Er - Pt Own Med) 0.8 mg PO BEDTIME [facility] Last Admin: 04/23/21 22:10 Dose: 0.8 mg Documented by: Thiamine HCl (Thiamine 100 Mg Tab) 100 mg PO DAILY [facility] Last Admin: 04/24/21 08:30 Dose: 100 mg Documented by: Discontinued Medications Bupivacaine HCl (Bupivacaine 0.25% 10 Ml Sdv) Confirm Administered Dose 30 ml .ROUTE .STK-MED ONE Stop: 04/24/21 08:28 Cefazolin Sodium (Cefazolin 1 Gm Vial) Confirm Administered Dose 3 gm .ROUTE .STK-MED ONE Stop: 04/24/21 07:58 Dexamethasone (Dexamethasone 4 Mg/Ml 5 Ml Mdv) Confirm Administered Dose 20 mg .ROUTE .STK-MED ONE Stop: 04/24/21 07:58 Diphenhydramine HCl (Diphenhydramine 50 Mg/Ml Sdv) Confirm Administered Dose 50 mg .ROUTE .STK-MED ONE Stop: 04/24/21 09:15 Ephedrine Sulfate (Ephedrine 50 Mg/Ml Sdv) Confirm Administered Dose 50 mg .ROUTE .STK-MED ONE Stop: 04/24/21 09:21 Ertapenem (Ertapenem 1 Gm Vial) Confirm Administered Dose 1 gm .ROUTE .STK-MED ONE Stop: 04/22/21 12:42 Last Admin: 04/22/21 12:46 Dose: Not Given Documented by: Fentanyl (Fentanyl 250 Mcg/5 Ml Sdv) Confirm Administered Dose 250 mcg .ROUTE .STK-MED ONE Stop: 04/24/21 07:58 Gabapentin (Gabapentin 100 Mg Cap) 100 mg PO ONETIME ONE Stop: 04/22/21 21:01 Last Admin: 04/22/21 22:06 Dose: 100 mg Documented by: Glycopyrrolate (Glycopyrrolate 0.2 Mg/Ml 2 Ml Syringe) Confirm Administered Dose 0.4 mg .ROUTE .STK-MED ONE Stop: 04/24/21 10:21 Sodium Chloride (Normal Saline) 1,000 mls @ 75 mls/hr IV ONETIME ONE Stop: 04/23/21 01:54 Last Infusion: 04/22/21 23:24 Dose: 50 mls/hr Documented by: Ertapenem 1 gm/ Sodium (Chloride) 50 mls @ 100 mls/hr IV ONETIME ONE Stop: 04/22/21 13:05 Last Admin: 04/22/21 16:49 Dose: Not Given Documented by: Ertapenem 1 gm/ Sodium (Chloride) 50 mls @ 100 mls/hr IV ONETIME ONE Stop: 04/22/21 16:44 Last Admin: 04/22/21 16:54 Dose: 100 mls/hr Documented by: Lactated Ringer's (Ringers, Lactated) Confirm Administered Dose 1,000 mls @ as directed .ROUTE .STK-MED ONE Stop: 04/24/21 08:00 Sodium Chloride (Normal Saline) Confirm Administered Dose 1,000 mls @ as directed .ROUTE .STK-MED ONE Stop: 04/24/21 09:58 Insulin Human Lispro (Insulin Lispro 100 Unit/Ml 3 Ml Kwikpen) 0 unit SUBCUT QIDACANDBED PRN; Protocol PRN Reason: Hyperglycemia Levetiracetam (Levetiracetam 500 Mg Tab) 750 mg PO ONETIME ONE Stop: 04/22/21 21:01 Last Admin: 04/22/21 22:06 Dose: 750 mg Documented by: Lidocaine HCl (Lidocaine 1% 5 Ml Sdv) Confirm Administered Dose 5 ml .ROUTE .STK-MED ONE Stop: 04/24/21 07:58 Lorazepam (Lorazepam 1 Mg Tab) 1 mg PO ONETIME ONE Stop: 04/22/21 21:01 Last Admin: 04/22/21 22:07 Dose: 1 mg Documented by: Midazolam HCl (Midazolam 1 Mg/Ml 2 Ml Sdv) Confirm Administered Dose 2 mg .ROUTE .STK-MED ONE Stop: 04/24/21 07:57 Miscellaneous Medication (Phenylephrine Hcl In 0.9% Nacl 1 Mg/10 Ml Syringe) Confirm Administered Dose 1 mg .ROUTE .STK-MED ONE Stop: 04/24/21 09:25 Neostigmine Methylsulfate (Neostigmine Methylsulfate 5 Mg/5 Ml Syringe) Confirm Administered Dose 5 mg .ROUTE .STK-MED ONE Stop: 04/24/21 10:21 Ondansetron HCl (Ondansetron 4 Mg/2 Ml Sdv) Confirm Administered Dose 4 mg .ROUTE .STK-MED ONE Stop: 04/24/21 07:58 Propofol (Propofol 200 Mg/20 Ml Sdv) Confirm Administered Dose 400 mg .ROUTE .STK-MED ONE Stop: 04/24/21 07:57 Quetiapine Fumarate (Quetiapine 25 Mg Tab) 200 mg PO ONETIME ONE Stop: 04/22/21 21:01 Last Admin: 04/22/21 22:07 Dose: 200 mg Documented by: Rocuronium Stanton (Rocuronium 50 Mg/5 Ml Vial) Confirm Administered Dose 50 mg .ROUTE .STK-MED ONE Stop: 04/24/21 07:58 Tamsulosin HCl (Tamsulosin 0.4 Mg Cap.Er) 0.8 mg PO ONETIME ONE Stop: 04/22/21 21:01 Last Admin: 04/22/21 22:08 Dose: 0.8 mg Documented by: - Exam General: Alert, Oriented, Cooperative Lungs: Clear to Auscultation, Normal Respiratory Effort Cardiovascular: Regular Rate, Regular Rhythm GI/Abdominal Exam: Soft, No Distention, Tender (RLQ) - Patient Data Lab Results Last 24 hrs: Laboratory Results - last 24 hr 04/23/21 04/23/21 04/23/21 Range/Units 11:37 14:54 20:08 WBC (4.23-9.07) K/mm3 RBC (4.63-6.08) M/mm3 Hgb (13.7-17.5) gm/dl Hct (40.1-51.0) % MCV (79.0-92.2) fl MCH (25.7-32.2) pg MCHC (32.2-35.5) g/dl RDW Std Deviation (35.1-43.9) fL Plt Count (163-337) K/mm3 MPV (9.4-12.3) fl Neut % (Auto) (34.0-67.9) % Lymph % (Auto) (21.8-53.1) % [place] % (Auto) (5.3-12.2) % Eos % (Auto) (0.8-7.0) Baso % (Auto) (0.1-1.2) % Neut # (Auto) (1.78-5.38) K/mm3 Lymph # (Auto) (1.32-3.57) K/mm3 [place] # (Auto) (0.30-0.82) K/mm3 Eos # (Auto) (0.04-0.54) K/mm3 Baso # (Auto) (0.01-0.08) K/mm3 PT (9.7-12.0) SECONDS INR APTT (21.7-31.4) SECONDS Sodium (136-145) mEq/L Potassium (3.5-5.1) mEq/L Chloride (98-107) mEq/L Carbon Dioxide (21-32) mEq/L Anion Gap (5-15) BUN (7-18) mg/dL Creatinine (0.7-1.3) mg/dL Est Cr Clr Drug Dosing mL/min Estimated GFR (MDRD) (>60) mL/min BUN/Creatinine Ratio (14-18) Glucose (70-99) mg/dL POC Glucose 183 H 194 H 219 H (70-99) mg/dL Calcium (8.5-10.1) mg/dL C-Reactive Protein (<1.0) mg/dL 04/24/21 04/24/21 04/24/21 Range/Units 05:51 05:51 05:56 WBC 8.16 (4.23-9.07) K/mm3 RBC 4.83 (4.63-6.08) M/mm3 Hgb 13.8 (13.7-17.5) gm/dl Hct 45.0 (40.1-51.0) % MCV 93.2 H (79.0-92.2) fl MCH 28.6 (25.7-32.2) pg MCHC 30.7 L (32.2-35.5) g/dl RDW Std Deviation 48.7 H (35.1-43.9) fL Plt Count 262 (163-337) K/mm3 MPV 9.0 L (9.4-12.3) fl Neut % (Auto) 59.2 (34.0-67.9) % Lymph % (Auto) 23.5 (21.8-53.1) % [place] % (Auto) 10.7 (5.3-12.2) % Eos % (Auto) 5.4 (0.8-7.0) Baso % (Auto) 0.6 (0.1-1.2) % Neut # (Auto) 4.83 (1.78-5.38) K/mm3 Lymph # (Auto) 1.92 (1.32-3.57) K/mm3 [place] # (Auto) 0.87 H (0.30-0.82) K/mm3 Eos # (Auto) 0.44 (0.04-0.54) K/mm3 Baso # (Auto) 0.05 (0.01-0.08) K/mm3 PT (9.7-12.0) SECONDS INR APTT (21.7-31.4) SECONDS Sodium 142 (136-145) mEq/L Potassium 4.4 (3.5-5.1) mEq/L Chloride 104 (98-107) mEq/L Carbon Dioxide 27 (21-32) mEq/L Anion Gap 15.4 H (5-15) BUN 18 (7-18) mg/dL Creatinine 1.6 H (0.7-1.3) mg/dL Est Cr Clr Drug Dosing 56.46 mL/min Estimated GFR (MDRD) 43 (>60) mL/min BUN/Creatinine Ratio 11.3 L (14-18) Glucose 144 H (70-99) mg/dL POC Glucose 139 H (70-99) mg/dL Calcium 9.1 (8.5-10.1) mg/dL C-Reactive Protein 1.1 H* (<1.0) mg/dL 04/24/21 04/24/21 Range/Units 05:57 08:05 WBC (4.23-9.07) K/mm3 RBC (4.63-6.08) M/mm3 Hgb (13.7-17.5) gm/dl Hct (40.1-51.0) % MCV (79.0-92.2) fl MCH (25.7-32.2) pg MCHC (32.2-35.5) g/dl RDW Std Deviation (35.1-43.9) fL Plt Count (163-337) K/mm3 MPV (9.4-12.3) fl Neut % (Auto) (34.0-67.9) % Lymph % (Auto) (21.8-53.1) % [place] % (Auto) (5.3-12.2) % Eos % (Auto) (0.8-7.0) Baso % (Auto) (0.1-1.2) % Neut # (Auto) (1.78-5.38) K/mm3 Lymph # (Auto) (1.32-3.57) K/mm3 [place] # (Auto) (0.30-0.82) K/mm3 Eos # (Auto) (0.04-0.54) K/mm3 Baso # (Auto) (0.01-0.08) K/mm3 PT 10.3 (9.7-12.0) SECONDS INR 0.93 APTT 28.4 (21.7-31.4) SECONDS Sodium (136-145) mEq/L Potassium (3.5-5.1) mEq/L Chloride (98-107) mEq/L Carbon Dioxide (21-32) mEq/L Anion Gap (5-15) BUN (7-18) mg/dL Creatinine (0.7-1.3) mg/dL Est Cr Clr Drug Dosing mL/min Estimated GFR (MDRD) (>60) mL/min BUN/Creatinine Ratio (14-18) Glucose (70-99) mg/dL POC Glucose 124 H (70-99) mg/dL Calcium (8.5-10.1) mg/dL C-Reactive Protein (<1.0) mg/dL Result Diagrams: 04/24/21 05:51 04/24/21 05:51 Sepsis Event Note - Evaluation Sepsis Screening Result: No Definite Risk - Focused Exam Vital Signs: Vital Signs Temp Pulse Resp BP Pulse Ox Pulse Ox 04/24/21 08:33 68 137/71 04/24/21 08:32 65 04/24/21 08:27 94 L 04/24/21 06:11 97.9 F 67 16 133/76 96 - Problem List Review Problem List Initiated/Reviewed/Updated: No - My Orders Last 24 Hours: My Active Orders 04/23/21 11:00 Insulin Lispro [HumaLOG] See Protocol SUBCUT QIDACANDBED 04/23/21 17:00 Ertapenem [INVanz] 1 gm Sodium Chloride 0.9% [Normal Saline] 50 ml IV Q24H 04/23/21 19:59 Schedule Procedure [COMM] Routine 04/23/21 21:00 Insulin Glargine,Hum.Rec.Anlog [Semglee Pen] 40 unit SUBCUT BEDTIME Memantine HCl/Donepezil HCl [Namzaric 28 mg-10 mg Capsule] 1 cap.sr PO BEDTIME Non-Formulary Medication [NF Drug] 0 each PO BID Tamsulosin [Flomax] 0.8 mg PO BEDTIME 04/24/21 Breakfast NPO After Midnight [Nothing per Oral After Midnight Diet] [DIET] 04/24/21 09:17 Patient Status [ADT] Routine 04/25/21 05:11 BASIC METABOLIC PANEL,BMP [CHEM] AM C-REACTIVE PROTEIN [CHEM] AM CBC WITH AUTO DIFF [HEME] AM - Assessment Assessment:: patient is s/p laparoscopic appendectomy today. The entire appendix was inflamed and firm. Was retrocecal. No abscess. Removed without any immediate complications. EBL was <5 mL. - Plan Plan:: Plan - resume regular diet - resume Eliquis tonight - resume previous care and home meds - If the patient remains stable today, we will plan to discharge him tomorrow.
--- NOTE | 2021-04-24 10:51 | PCM.POSTAN ---
POST ANESTHESIA ASSESSMENT - MENTAL STATUS Mental Status: Alert, Oriented - VITAL SIGNS Vital Signs: Last Vital Signs Temp 98.0 F 04/24/21 10:34 Pulse 91 04/24/21 10:34 Resp 13 04/24/21 10:34 BP 137/77 04/24/21 10:34 Pulse Ox 95 04/24/21 10:34 - RESPIRATORY Respiratory Status: Respiratory Rate WNL, Airway Patent, O2 Saturation Stable - CARDIOVASCULAR CV Status: Pulse Rate WNL, Blood Pressure Stable - GASTROINTESTINAL GI Status: No Symptoms - PAIN Pain Score: 0 - POST OP HYDRATION Hydration Status: Adequate & Stable - OBSERVATIONS Free Text/Narrative:: Navarro Morrell (POA) updated on patient's status. No questions or concerns voiced at this time.
--- NOTE | 2021-04-24 11:42 | OR ---
DATE OF OPERATION: 04/24/2021 SURGEON: Kelly Coronel MD PREOPERATIVE DIAGNOSIS: Acute appendicitis. POSTOPERATIVE DIAGNOSIS: Acute appendicitis. OPERATION PERFORMED: Laparoscopic appendectomy. ANESTHESIA: General endotracheal with local consisting of 0.25% bupivacaine. ESTIMATED BLOOD LOSS: Minimal. COMPLICATIONS: None. NEED FOR ASSISTANCE: Skilled assistance was needed in this case for holding retractors and camera during the operation and incision closure at the end of the operation. Skilled assistance was provided by our medical student, Arianna Gamboa. INDICATION AND CONSENT: The patient is 65 yo. The patient has history of dementia and he lives in assistance facility. Also has history of renal cell cancer on the right kidney s/p right nephrectomy in the past. The patient gets annual CT scans for surveillance. This was done 2 days ago and on that scan, he was found to have incidental acute appendicitis with appendix dilated to 1.4 cm and surrounding inflammation. The patient has a history of atrial fibrillation and he is on Eliquis. I was called to see the patient and recommended that the patient undergo appendectomy due to high risk of complication since he is not readily examinable and cannot voice any abdomen changes such as pain. To do this, we admitted the patient, put him on antibiotics, and held Eliquis for 48 hours to minimize risk of bleeding complications since the patient was stable. The patient was observed for the 48 hours, and today, he completed the 48 hours and we went in to do the appendectomy. CHUCK, who is the patient's older brother was contacted. We discussed the plan and we discussed risks, benefits, and alternatives of the procedure and informed consent was obtained. The patient is also do not resuscitate, however, LORENKurtis did agree to suspend this status for the duration of his hospital stay. DESCRIPTION OF PROCEDURE: The patient was taken to the operating room, placed in supine position. SCDs were placed. The patient was padded appropriately. The left arm was packed. Then, general endotracheal anesthesia was induced. Then, the abdomen was prepped and draped in the usual sterile fashion. The patient has prior umbilical surgery and low abdominal scar indicating a midline incision. He is not able to voice what kind of surgeries, but I suspect he had umbilical hernia repair in the past in addition to his surgery from low midline incision. So, decision was made to use a Veress needle in the left upper quadrant to access the abdomen. After time-out was performed, then the Ancef given. Local anesthesia was infiltrated in the left upper quadrant at Mckenna's point. A stab incision was made and Veress needle was introduced into the abdomen, and the abdomen was insufflated to 15 mmHg. Then, a 5 mm trocar was placed in the left upper quadrant about 5 cm above the midline and lateral to the rectus abdominis muscles. Abdomen was entered safely as the trocar was placed under laparoscopic visualization. Then, we inspected the abdomen, we saw no injury from Veress needle insertion. Veress needle was removed at this time. Then, we examined the abdominal wall. We saw that there was no visible mesh around the umbilicus and there was a small hernia just below the umbilicus that was just a defect in the peritoneum and with muscles being visible. This was about 1 cm. There was a small amount of omentum adherent onto this area. This was taken down with LigaSure. Then, we placed another 5 mm trocar in the left lower quadrant and another 5 mm trocar in the suprapubic area. The patient was placed in slight Trendelenburg with left side down and then we focussed on the right lower quadrant. We were able to remove the small bowel and locate the appendix, which was retrocecal and tightly adherent to the retroperitoneal tissues due to what appeared to be acute on chronic inflammation. With LigaSure Impact, careful dissection was conducted to remove the appendix from its attachment to the retroperitoneum with judicious use of electrosurgery. Eventually, the entire appendix was detached. Mesoappendix was taken also with LigaSure Impact. The entire appendix was firm all the way to the base. Therefore, effort was made to clear out a small portion of the cecum right beyond the base of the appendix to remove the appendix in its entirety. Once this was done, a purple load was used using Endo MELA staple to transect the appendix. Two loads were required to complete this transection. Appendix was placed into the EndoCatch bag. The staple line was inspected. There was no bleeding. There were no other abnormalities on inspection of the abdomen. Then, the appendix was removed through the left upper quadrant incision which at this point it had been upgraded to a 12 trocar. Then this incision was closed at the fascial level with 0 Vicryl stitch using Lewis-Josafat device. Then abdomen was desufflated and procedure was concluded. Additional local anesthetic was injected into the incision sites and skin at all 3 incision sites was closed with 0 Monocryl followed by Dermabond. The patient tolerated the procedure well. Post procedure, the patient will be placed back to the floor for observation and possible return home tomorrow. MMLOUIE /[id number] MTDGloria
[2021-04-24] MEDS ORDERED: oxyCODONE 5 MG Tab PO PRN (13:39)
[2021-04-24] MEDS: Acetaminophen 325 MG Tab PO SCH ×2 (14:43→20:16)
[2021-04-24] MEDS: Ertapenem 1 GM in Sodium Chloride 0.9% 50 ML IV SCH (17:18)
[2021-04-24] MEDS: [UNRECOGNIZED DRUG - OTHER] PO SCH (20:18)
[2021-04-24] MEDS: TAMSULOSIN 0.4 MG PO SCH (20:18)
[2021-04-24] MEDS: MEMANTINE HCL PO SCH (20:18)
[2021-04-25] MEDS: Acetaminophen 325 MG Tab PO SCH ×2 (01:58→10:35)
[2021-04-25] MEDS: Insulin Glargine,Hum.Rec.Anlog 100 UNIT/ML 3 ML Pen SUBCUT SCH (06:15)
[2021-04-25] MEDS ORDERED: Meloxicam 7.5 MG Tab PO SCH (09:00)
[2021-04-25] MEDS ORDERED: levETIRAcetam 500 MG Tab PO SCH (09:00)
[2021-04-25] MEDS ORDERED: Digoxin 250 MCG Tab PO SCH (09:00)
[2021-04-25] MEDS ORDERED: Metoprolol Succinate 50 MG Tab.ER PO SCH (09:00)
[2021-04-25] MEDS ORDERED: LORazepam 1 MG Tab PO SCH (09:00)
[2021-04-25] MEDS ORDERED: Finasteride 5 MG Tab PO SCH (09:00)
[2021-04-25] MEDS ORDERED: QUEtiapine 100 MG Tab PO SCH (09:00)
[2021-04-25] MEDS ORDERED: amLODIPine 10 MG Tab PO SCH (09:00)
--- NOTE | 2021-04-25 09:49 | PCM48HPAN ---
Post Anesthesia Note - EVALUATION WITHIN 48HRS OF ANESTHETIC Vital Signs in Normal Range: Yes Patient Participated in Evaluation: Yes Respiratory Function Stable: Yes Airway Patent: Yes Cardiovascular Function Stable: Yes Hydration Status Stable: Yes Pain Control Satisfactory: Yes Nausea and Vomiting Control Satisfactory: Yes Mental Status Recovered: Yes Vital Signs: Last Vital Signs Temp 36.7 C 04/25/21 08:31 Pulse 60 04/25/21 08:19 Resp 18 04/24/21 23:54 BP 131/66 04/25/21 08:19 Pulse Ox 95 04/25/21 08:19
--- NOTE | 2021-04-25 10:19 | PCM.CONSN ---
- General Info Date of Service: 04/25/21 Admission Dx/Problem (Free Text): Admission Diagnosis/Problem Admission Diagnosis/Problem Appendicitis Subjective Update: Patient is doing well. He complains of some left lower abdominal bloating otherwise no fever, chills, night sweats. Tolerating diet well and when I walked in he had finished his entire breakfast. Functional Status: Reports: Pain Controlled - Review of Systems General: Reports: No Symptoms HEENT: Reports: No Symptoms Pulmonary: Reports: No Symptoms Cardiovascular: Reports: No Symptoms Gastrointestinal: Reports: Other (Bloating) Musculoskeletal: Reports: No Symptoms - Patient Data Vitals - Most Recent: Last Vital Signs Temp 98.1 F 04/25/21 08:31 Pulse 60 04/25/21 08:19 Resp 18 04/24/21 23:54 BP 131/66 04/25/21 08:19 Pulse Ox 95 04/25/21 08:19 Weight - Most Recent: 276 lb 9.6 oz I&O - Last 24 Hours: Intake & Output 04/24/21 04/25/21 04/25/21 22:59 06:59 14:59 Intake Total 50 Balance 50 Lab Results Last 24 Hours: Laboratory Results - last 24 hr 04/24/21 04/24/21 04/24/21 Range/Units 11:07 11:41 13:20 WBC (4.23-9.07) K/mm3 RBC (4.63-6.08) M/mm3 Hgb (13.7-17.5) gm/dl Hct (40.1-51.0) % MCV (79.0-92.2) fl MCH (25.7-32.2) pg MCHC (32.2-35.5) g/dl RDW Std Deviation (35.1-43.9) fL Plt Count (163-337) K/mm3 MPV (9.4-12.3) fl Neut % (Auto) (34.0-67.9) % Lymph % (Auto) (21.8-53.1) % Harper % (Auto) (5.3-12.2) % Eos % (Auto) (0.8-7.0) Baso % (Auto) (0.1-1.2) % Neut # (Auto) (1.78-5.38) K/mm3 Lymph # (Auto) (1.32-3.57) K/mm3 Harper # (Auto) (0.30-0.82) K/mm3 Eos # (Auto) (0.04-0.54) K/mm3 Baso # (Auto) (0.01-0.08) K/mm3 Sodium (136-145) mEq/L Potassium (3.5-5.1) mEq/L Chloride (98-107) mEq/L Carbon Dioxide (21-32) mEq/L Anion Gap (5-15) BUN (7-18) mg/dL Creatinine (0.7-1.3) mg/dL Est Cr Clr Drug Dosing mL/min Estimated GFR (MDRD) (>60) mL/min BUN/Creatinine Ratio (14-18) Glucose (70-99) mg/dL POC Glucose 179 H 151 H 159 H (70-99) mg/dL Calcium (8.5-10.1) mg/dL 04/24/21 04/24/21 04/25/21 Range/Units 16:19 21:07 05:52 WBC (4.23-9.07) K/mm3 RBC (4.63-6.08) M/mm3 Hgb (13.7-17.5) gm/dl Hct (40.1-51.0) % MCV (79.0-92.2) fl MCH (25.7-32.2) pg MCHC (32.2-35.5) g/dl RDW Std Deviation (35.1-43.9) fL Plt Count (163-337) K/mm3 MPV (9.4-12.3) fl Neut % (Auto) (34.0-67.9) % Lymph % (Auto) (21.8-53.1) % Harper % (Auto) (5.3-12.2) % Eos % (Auto) (0.8-7.0) Baso % (Auto) (0.1-1.2) % Neut # (Auto) (1.78-5.38) K/mm3 Lymph # (Auto) (1.32-3.57) K/mm3 Harper # (Auto) (0.30-0.82) K/mm3 Eos # (Auto) (0.04-0.54) K/mm3 Baso # (Auto) (0.01-0.08) K/mm3 Sodium (136-145) mEq/L Potassium (3.5-5.1) mEq/L Chloride (98-107) mEq/L Carbon Dioxide (21-32) mEq/L Anion Gap (5-15) BUN (7-18) mg/dL Creatinine (0.7-1.3) mg/dL Est Cr Clr Drug Dosing mL/min Estimated GFR (MDRD) (>60) mL/min BUN/Creatinine Ratio (14-18) Glucose (70-99) mg/dL POC Glucose 205 H 288 H 139 H (70-99) mg/dL Calcium (8.5-10.1) mg/dL 04/25/21 04/25/21 Range/Units 06:06 06:06 WBC 12.34 H (4.23-9.07) K/mm3 RBC 4.53 L (4.63-6.08) M/mm3 Hgb 13.0 L (13.7-17.5) gm/dl Hct 42.5 (40.1-51.0) % MCV 93.8 H (79.0-92.2) fl MCH 28.7 (25.7-32.2) pg MCHC 30.6 L (32.2-35.5) g/dl RDW Std Deviation 48.9 H (35.1-43.9) fL Plt Count 264 (163-337) K/mm3 MPV 9.1 L (9.4-12.3) fl Neut % (Auto) 70.8 H (34.0-67.9) % Lymph % (Auto) 17.3 L (21.8-53.1) % Harper % (Auto) 10.3 (5.3-12.2) % Eos % (Auto) 0.8 (0.8-7.0) Baso % (Auto) 0.2 (0.1-1.2) % Neut # (Auto) 8.75 H (1.78-5.38) K/mm3 Lymph # (Auto) 2.13 (1.32-3.57) K/mm3 Harper # (Auto) 1.27 H (0.30-0.82) K/mm3 Eos # (Auto) 0.10 (0.04-0.54) K/mm3 Baso # (Auto) 0.02 (0.01-0.08) K/mm3 Sodium 143 (136-145) mEq/L Potassium 4.6 (3.5-5.1) mEq/L Chloride 106 (98-107) mEq/L Carbon Dioxide 26 (21-32) mEq/L Anion Gap 15.6 H (5-15) BUN 25 H (7-18) mg/dL Creatinine 1.7 H (0.7-1.3) mg/dL Est Cr Clr Drug Dosing 53.14 mL/min Estimated GFR (MDRD) 40 (>60) mL/min BUN/Creatinine Ratio 14.7 (14-18) Glucose 148 H (70-99) mg/dL POC Glucose (70-99) mg/dL Calcium 8.7 (8.5-10.1) mg/dL Med Orders - Current: Current Medications Acetaminophen (Acetaminophen 325 Mg Tab) 650 mg PO Q6H [facility] Last Admin: 04/25/21 01:58 Dose: Not Given Documented by: Albuterol (Albuterol 6.7 Gm Inhaler) 0 gm INH Q6HR PRN PRN Reason: Shortness of Breath Last Admin: 04/24/21 08:27 Dose: 2 inhalation Documented by: Amlodipine Besylate (Amlodipine 10 Mg Tab) 10 mg PO DAILY [facility] Bisacodyl (Bisacodyl 5 Mg Tab) 10 mg PO DAILY PRN PRN Reason: Constipation Digoxin (Digoxin 250 Mcg Tab) 250 mcg PO DAILY [facility] Fentanyl (Fentanyl 100 Mcg/2 Ml Sdv) 50 mcg IVPUSH Q5M PRN PRN Reason: Pain Finasteride (Finasteride 5 Mg Tab) 5 mg PO DAILY [facility] Gabapentin (Gabapentin 100 Mg Cap) 100 mg PO TID [facility] Ertapenem 1 gm/ Sodium (Chloride) 50 mls @ 100 mls/hr IV Q24H [facility] Last Admin: 04/24/21 17:18 Dose: 100 mls/hr Documented by: Insulin Glargine (Insulin Glargine,Hum.Rec.Anlog 100 Unit/Ml 3 Ml Pen) 10 unit SUBCUT ACBREAKFAST [facility] Last Admin: 04/25/21 06:15 Dose: 10 units Documented by: Insulin Glargine (Insulin Glargine,Hum.Rec.Anlog 100 Unit/Ml 3 Ml Pen) 40 unit SUBCUT BEDTIME [facility] Last Admin: 04/24/21 21:25 Dose: 40 units Documented by: Insulin Human Lispro (Insulin Lispro 100 Unit/Ml 3 Ml Kwikpen) 0 unit SUBCUT QIDACANDBED [facility]; Protocol Last Admin: 04/24/21 21:26 Dose: 6 units Documented by: Levetiracetam (Levetiracetam 500 Mg Tab) 750 mg PO BID [facility] Lorazepam (Lorazepam 1 Mg Tab) 1 mg PO BID [facility] Meloxicam (Meloxicam 7.5 Mg Tab) 7.5 mg PO DAILY [facility] Metoprolol Succinate (Metoprolol Succinate 50 Mg Tab.Er) 50 mg PO DAILY [facility] Non-Formulary Medication (Escitalopram) 10 mg PO DAILY [facility] Last Admin: 04/24/21 08:34 Dose: Not Given Documented by: Memantine Hcl/Donepezil Hcl Namzaric 28 Mg-10 Mg Capsule 1 cap.sr PO BEDTIME [facility] Last Admin: 04/24/21 20:18 Dose: 1 cap.sr Documented by: Ondansetron HCl (Ondansetron 4 Mg/2 Ml Sdv) 4 mg IV Q4H PRN PRN Reason: Nausea/Vomiting Oxycodone HCl (Oxycodone 5 Mg Tab) 5 mg PO Q6H PRN PRN Reason: Abdominal Pain Last Admin: 04/24/21 14:44 Dose: 5 mg Documented by: Quetiapine Fumarate (Quetiapine 100 Mg Tab) 200 mg PO BID [facility] Senna/Docusate Sodium (Docusate Sodium/Sennosides 50-8.6 Mg Tab) 1 tab PO BID [facility] Last Admin: 04/24/21 20:16 Dose: 1 tab Documented by: Sodium Chloride (Sodium Chloride 0.9% 10 Ml Syringe) 10 ml FLUSH ASDIRECTED PRN PRN Reason: Keep Vein Open Last Admin: 04/22/21 11:45 Dose: 10 ml Documented by: Tamsulosin HCl (Tamsulosin 0.4 Mg Cap.Er) 0.8 mg PO BEDTIME [facility] Thiamine HCl (Thiamine 100 Mg Tab) 100 mg PO DAILY [facility] Last Admin: 04/24/21 08:30 Dose: 100 mg Documented by: Discontinued Medications Amlodipine Besylate (Amlodipine 5 Mg Tab) 10 mg PO DAILY [facility] Last Admin: 04/24/21 08:33 Dose: 10 mg Documented by: Bupivacaine HCl (Bupivacaine 0.25% 10 Ml Sdv) Confirm Administered Dose 30 ml .ROUTE .STK-MED ONE Stop: 04/24/21 08:28 Cefazolin Sodium (Cefazolin 1 Gm Vial) Confirm Administered Dose 3 gm .ROUTE .STK-MED ONE Stop: 04/24/21 07:58 Dexamethasone (Dexamethasone 4 Mg/Ml 5 Ml Mdv) Confirm Administered Dose 20 mg .ROUTE .STK-MED ONE Stop: 04/24/21 07:58 Digoxin (Digoxin 250 Mcg Tab) 250 mcg PO DAILY [facility] Last Admin: 04/24/21 08:32 Dose: 250 mcg Documented by: Diphenhydramine HCl (Diphenhydramine 50 Mg/Ml Sdv) Confirm Administered Dose 50 mg .ROUTE .STK-MED ONE Stop: 04/24/21 09:15 Ephedrine Sulfate (Ephedrine 50 Mg/Ml Sdv) Confirm Administered Dose 50 mg .ROUTE .STK-MED ONE Stop: 04/24/21 09:21 Ertapenem (Ertapenem 1 Gm Vial) Confirm Administered Dose 1 gm .ROUTE .STK-MED ONE Stop: 04/22/21 12:42 Last Admin: 04/22/21 12:46 Dose: Not Given Documented by: Fentanyl (Fentanyl 250 Mcg/5 Ml Sdv) Confirm Administered Dose 250 mcg .ROUTE .STK-MED ONE Stop: 04/24/21 07:58 Finasteride (Finasteride 5 Mg Tab) 5 mg PO DAILY [facility] Last Admin: 04/24/21 08:33 Dose: 5 mg Documented by: Gabapentin (Gabapentin 100 Mg Cap) 100 mg PO TID [facility] Last Admin: 04/24/21 20:18 Dose: 100 mg Documented by: Gabapentin (Gabapentin 100 Mg Cap) 100 mg PO ONETIME ONE Stop: 04/22/21 21:01 Last Admin: 04/22/21 22:06 Dose: 100 mg Documented by: Glycopyrrolate (Glycopyrrolate 0.2 Mg/Ml 2 Ml Syringe) Confirm Administered Dose 0.4 mg .ROUTE .STK-MED ONE Stop: 04/24/21 10:21 Sodium Chloride (Normal Saline) 1,000 mls @ 75 mls/hr IV ONETIME ONE Stop: 04/23/21 01:54 Last Infusion: 04/22/21 23:24 Dose: 50 mls/hr Documented by: Ertapenem 1 gm/ Sodium (Chloride) 50 mls @ 100 mls/hr IV ONETIME ONE Stop: 04/22/21 13:05 Last Admin: 04/22/21 16:49 Dose: Not Given Documented by: Ertapenem 1 gm/ Sodium (Chloride) 50 mls @ 100 mls/hr IV ONETIME ONE Stop: 04/22/21 16:44 Last Admin: 04/22/21 16:54 Dose: 100 mls/hr Documented by: Lactated Ringer's (Ringers, Lactated) Confirm Administered Dose 1,000 mls @ as directed .ROUTE .STK-MED ONE Stop: 04/24/21 08:00 Sodium Chloride (Normal Saline) Confirm Administered Dose 1,000 mls @ as directed .ROUTE .ST-MED ONE Stop: 04/24/21 09:58 Insulin Human Lispro (Insulin Lispro 100 Unit/Ml 3 Ml Kwikpen) 0 unit SUBCUT QIDACANDBED PRN; Protocol PRN Reason: Hyperglycemia Levetiracetam (Levetiracetam 500 Mg Tab) 750 mg PO ONETIME ONE Stop: 04/22/21 21:01 Last Admin: 04/22/21 22:06 Dose: 750 mg Documented by: Lidocaine HCl (Lidocaine 1% 5 Ml Sdv) Confirm Administered Dose 5 ml .ROUTE .STK-MED ONE Stop: 04/24/21 07:58 Lorazepam (Lorazepam 1 Mg Tab) 1 mg PO BID [facility] Last Admin: 04/24/21 20:17 Dose: 1 mg Documented by: Lorazepam (Lorazepam 1 Mg Tab) 1 mg PO ONETIME ONE Stop: 04/22/21 21:01 Last Admin: 04/22/21 22:07 Dose: 1 mg Documented by: Meloxicam (Meloxicam 7.5 Mg Tab) 7.5 mg PO DAILY [facility] Last Admin: 04/24/21 08:34 Dose: Not Given Documented by: Metoprolol Succinate (Metoprolol Succinate 50 Mg Tab.Er) 50 mg PO DAILY [facility] Last Admin: 04/24/21 08:33 Dose: 50 mg Documented by: Midazolam HCl (Midazolam 1 Mg/Ml 2 Ml Sdv) Confirm Administered Dose 2 mg .ROUTE .STK-MED ONE Stop: 04/24/21 07:57 Miscellaneous Medication (Phenylephrine Hcl In 0.9% Nacl 1 Mg/10 Ml Syringe) Confirm Administered Dose 1 mg .ROUTE .STK-MED ONE Stop: 04/24/21 09:25 Neostigmine Methylsulfate (Neostigmine Methylsulfate 5 Mg/5 Ml Syringe) Confirm Administered Dose 5 mg .ROUTE .STK-MED ONE Stop: 04/24/21 10:21 (Levetiracetam [ Levetiracetam] 750mg Tablet) 750 mg PO BID [facility] Last Admin: 04/24/21 20:18 Dose: 750 mg Documented by: Quetiapine 200mg - (Pt Own Med) 0 each PO BID [facility] Last Admin: 04/24/21 20:19 Dose: 1 each Documented by: Ondansetron HCl (Ondansetron 4 Mg/2 Ml Sdv) Confirm Administered Dose 4 mg .ROUTE .STK-MED ONE Stop: 04/24/21 07:58 Propofol (Propofol 200 Mg/20 Ml Sdv) Confirm Administered Dose 400 mg .ROUTE .STK-MED ONE Stop: 04/24/21 07:57 Quetiapine Fumarate (Quetiapine 25 Mg Tab) 200 mg PO ONETIME ONE Stop: 04/22/21 21:01 Last Admin: 04/22/21 22:07 Dose: 200 mg Documented by: Rocuronium Odell (Rocuronium 50 Mg/5 Ml Vial) Confirm Administered Dose 50 mg .ROUTE .STK-MED ONE Stop: 04/24/21 07:58 Tamsulosin HCl (Tamsulosin 0.4 Mg Cap.Er - Pt Own Med) 0.8 mg PO BEDTIME [facility] Last Admin: 04/24/21 20:18 Dose: 0.8 mg Documented by: Tamsulosin HCl (Tamsulosin 0.4 Mg Cap.Er) 0.8 mg PO ONETIME ONE Stop: 04/22/21 21:01 Last Admin: 04/22/21 22:08 Dose: 0.8 mg Documented by: - Exam Quality Assessment: Supplemental Oxygen General: Alert HEENT: Pupils Equal, Mucous Membr. Moist/[place] Neck: Supple Lungs: Clear to Auscultation, Normal Respiratory Effort Cardiovascular: Regular Rate, Regular Rhythm GI/Abdominal Exam: Normal Bowel Sounds, No Distention, No Abnormal Bruit Extremities: Normal Inspection, Normal Range of Motion, No Pedal Edema Skin: Warm, Dry, Intact Psy/Mental Status: Alert Sepsis Event Note - Evaluation Sepsis Screening Result: No Definite Risk - Focused Exam Vital Signs: Vital Signs Temp Pulse Resp BP Pulse Ox 04/25/21 08:31 98.1 F 04/25/21 08:19 60 131/66 95 04/25/21 03:13 97.9 F 65 131/99 H 94 L 04/25/21 01:18 70 92 L 04/24/21 23:54 97.2 F 74 18 118/59 L 87 L Consult PN Assessment/Plan POD#: 1 Procedures: Procedures APPLY FOREARM SPLINT (09/11/14) ASSAY GLUCOSE BLOOD QUANT (12/29/20) ASSAY OF CK (CPK) (04/07/19) ASSAY OF CREATININE (10/04/20) ASSAY OF DIGOXIN TOTAL (12/29/20) ASSAY OF ETHANOL (02/03/14) ASSAY OF LACTIC ACID (12/29/20) ASSAY OF LIPASE (04/07/19) ASSAY OF MAGNESIUM (12/29/20) ASSAY OF NATRIURETIC PEPTIDE (12/29/20) ASSAY OF PHENYTOIN TOTAL (11/05/14) ASSAY OF PHOSPHORUS (04/07/19) ASSAY OF TROPONIN QUANT (12/29/20) ASSAY OF VANCOMYCIN (04/07/19) ASSAY THYROID STIM HORMONE (04/07/19) BL SMEAR W/DIFF WBC COUNT (06/20/19) BLOOD CULTURE FOR BACTERIA (06/20/19) BLOOD GASES ANY COMBINATION (04/07/19) C-REACTIVE PROTEIN (12/29/20) CHEST WALL MANIPULATION (06/20/19) CHEST X-RAY 1 VIEW FRONTAL (02/03/14) CHYLMD PNEUM DNA AMP PROBE (06/20/19) COMPLETE CBC AUTOMATED (06/20/19) COMPLETE CBC W/AUTO DIFF WBC (12/29/20) COMPREHEN METABOLIC PANEL (12/29/20) CREATINE MB FRACTION (06/20/19) CT ABD & PELV 1/> REGNS (12/25/19) CT ABD & PELV W/CONTRAST (04/22/21) CT HEAD/BRAIN W/O DYE (12/29/20) CT NECK SPINE W/O DYE (02/03/14) CT THORAX DX C+ (04/22/21) CT THORAX DX C- (11/26/19) CT THORAX DX C-/C+ (04/07/19) DETECT AGENT NOS DNA AMP (06/20/19) DRUG SCRN MARK LEVETIRACETAM (04/07/19) DRUG TEST PRSMV INSTRMNT (04/07/19) ELECTROCARDIOGRAM TRACING (12/29/20) EMERGENCY DEPT VISIT (12/29/20) EMERGENCY DEPT VISIT (10/25/14) EMERGENCY DEPT VISIT (09/11/14) EMERGENCY DEPT VISIT (02/03/14) EVALUATE SWALLOWING FUNCTION (04/07/19) GAIT TRAINING THERAPY (04/07/19) HEPATIC FUNCTION PANEL (04/07/19) HYDRATE IV INFUSION ADD-ON (04/07/19) INFLUENZA ASSAY W/OPTIC (06/20/19) INSERT TEMP BLADDER CATH (04/07/19) LOWER EXTREMITY STUDY (04/07/19) M.PNEUMON DNA AMP PROBE (06/20/19) MANUAL THERAPY 1/> REGIONS (04/07/19) MEASURE BLOOD OXYGEN LEVEL (06/20/19) METABOLIC PANEL TOTAL CA (04/22/21) MICROBE SUSCEPTIBLE LIVAN (06/20/19) MR-STAPH DNA AMP PROBE (06/20/19) ORAL FUNCTION THERAPY (04/07/19) OT EVAL HIGH COMPLEX 60 MIN (04/07/19) OT EVAL LOW COMPLEX 30 MIN (06/20/19) PROCALCITONIN (PCT) (06/20/19) PROTHROMBIN TIME (12/29/20) PT EVAL MOD COMPLEX 30 MIN (06/20/19) RBC SED RATE AUTOMATED (12/29/20) RESP VIRUS 6-11 TARGETS (06/20/19) ROUTINE VENIPUNCTURE (04/22/21) RPR F/E/E/N/L/M 2.5 CM/< (02/03/14) SELF CARE MNGMENT TRAINING (06/20/19) SYPHILIS TEST NON-TREP QUAL (04/07/19) THER/PROPH/DIAG INJ IV PUSH (06/13/18) THER/PROPH/DIAG INJ SC/IM (09/11/14) THER/PROPH/DIAG IV INF INIT (12/29/20) THERAPEUTIC ACTIVITIES (04/07/19) THERAPEUTIC EXERCISES (04/07/19) THROMBOPLASTIN TIME PARTIAL (12/29/20) TTE W/DOPPLER COMPLETE (04/07/19) TX/PRO/DX INJ NEW DRUG ADDON (12/29/20) TX/PRO/DX INJ SAME DRUG EAP CONSULTANT (04/07/19) URINALYSIS AUTO W/SCOPE (12/29/20) URINE BACTERIA CULTURE (06/20/19) URINE CULTURE/COLONY COUNT (06/20/19) US URINE CAPACITY MEASURE (04/07/19) VITAMIN B-12 (04/07/19) WITHDRAWAL OF ARTERIAL BLOOD (04/07/19) X-RAY EXAM CHEST 1 VIEW (12/29/20) X-RAY EXAM OF FOREARM (09/11/14) X-RAY EXAM OF HAND (09/11/14) (1) Atrial fibrillation SNOMED Code(s): 71530556 Code(s): I48.91 - UNSPECIFIED ATRIAL FIBRILLATION Current Visit: Yes (2) Diabetes SNOMED Code(s): 96584013 Code(s): E11.9 - TYPE 2 DIABETES MELLITUS WITHOUT COMPLICATIONS Current Visit: Yes (3) Appendicitis SNOMED Code(s): 34461294 Code(s): K37 - UNSPECIFIED APPENDICITIS Current Visit: No Qualifiers: Appendicitis type: acute appendicitis Acute appendicitis type: with localized peritonitis Appendicitis gangrene presence: without gangrene Appendicitis perforation presence: without perforation Appendicitis abscess presence: without abscess Qualified Code(s): K35.30 - Acute appendicitis with localized peritonitis, without perforation or gangrene (4) BPH (benign prostatic hyperplasia) SNOMED Code(s): 353336474 Code(s): N40.0 - BENIGN PROSTATIC HYPERPLASIA WITHOUT LOWER URINRY TRACT SYMP Priority: Medium Current Visit: No Qualifiers: Lower urinary tract symptom presence: unspecified whether lower urinary tract symptoms present Qualified Code(s): N40.0 - Benign prostatic hyperplasia without lower urinary tract symptoms (5) COPD (chronic obstructive pulmonary disease) SNOMED Code(s): 45580037 Code(s): J44.9 - CHRONIC OBSTRUCTIVE PULMONARY DISEASE, UNSPECIFIED Priority: Medium Current Visit: No Qualifiers: COPD type: emphysema (6) Chronic atrial fibrillation with RVR SNOMED Code(s): 308972095, 805425850595089 Code(s): I48.20 - CHRONIC ATRIAL FIBRILLATION, UNSPECIFIED Current Visit: No (7) Congestive heart failure SNOMED Code(s): 17712763 Code(s): I50.9 - HEART FAILURE, UNSPECIFIED Priority: Medium Current Visit: No Qualifiers: Heart failure type: combined systolic and diastolic Heart failure chronicity: acute on chronic Qualified Code(s): I50.43 - Acute on chronic combined systolic (congestive) and diastolic (congestive) heart failure (8) Dementia SNOMED Code(s): 12518276 Code(s): F03.90 - UNSPECIFIED DEMENTIA WITHOUT BEHAVIORAL DISTURBANCE Current Visit: No Qualifiers: Dementia type: Alzheimer's disease Alzheimer's disease onset: early-onset Dementia behavioral disturbance: with behavioral disturbance (9) Major depressive disorder SNOMED Code(s): 254931865 Code(s): F32.9 - MAJOR DEPRESSIVE DISORDER, SINGLE EPISODE, UNSPECIFIED Current Visit: No (10) Moderate to severe pulmonary hypertension SNOMED Code(s): 34910324 Code(s): I27.20 - PULMONARY HYPERTENSION, UNSPECIFIED Current Visit: No (11) Seizure disorder SNOMED Code(s): 885940206 Code(s): G40.909 - EPILEPSY, UNSP, NOT INTRACTABLE, WITHOUT STATUS EPILEPTICUS Current Visit: No Problem List Initiated/Reviewed/Updated: Yes Plan: 65-year-old male with atrial fibrillation on Eliquis found to have appendicitis on follow-up CT scan of renal cell carcinoma admitted to surgical service with plan on appendectomy in 48 hours. Acute appendicitisresolved postop day 1 Plan on patient going back to facility today. Restart Eliquis last night. A. chuy CHF, echocardiogram from 2019 showing EF around 50% Hypertensionstable Restarted home meds Renal insufficiency Serum creatinine 1.7 and 40 this appears to be stable over the last year. Type 2 diabetes on insulin Recommend continue with home insulin regimen until night before surgery. Resume normal diabetic medications when back to taking orally Sliding scale insulin with bedside glucose monitoring before every meal and nightly Hemoglobin A1c-7.1 Dementia, likely secondary to alcohol abuse Seizure disorder On multiple mood stabilizing agents Recommend continuation of his home medication throughout hospitalization. COPD, oxygen dependent On 2 L via nasal cannula chronically. No change in oxygen status at this time. Continue home meds. Adjust FiO2 to keep SPO2 greater than 90%. Medical team will continue to follow patient.
[2021-04-25] MEDS: Thiamine 100 MG Tab PO SCH (10:35)
[2021-04-25] MEDS: Non-Formulary Medication 1 Each (Escitalopram 10 MG Tablet) PO SCH (10:43)
[2021-04-25] MEDS: Gabapentin 100 MG Cap PO SCH (10:43)
[2021-04-25] MEDS: Insulin Lispro 100 Unit/ML 3 ML KwikPen SUBCUT SCH ×2 (10:44→12:16)
--- NOTE | 2021-04-25 12:08 | PCM.PN ---
- General Info Date of Service: 04/25/21 Admission Dx/Problem (Free Text): Appendicitis Subjective Update: Patient has tolerated diet. Hgb is stable. Is ambulating. Oxygen supplementation is back to baseline. Functional Status: Reports: Pain Controlled, Tolerating Diet, Ambulating, Urinating - Review of Systems General: Reports: No Symptoms HEENT: Reports: No Symptoms Pulmonary: Reports: No Symptoms Cardiovascular: Reports: No Symptoms Gastrointestinal: Reports: No Symptoms Genitourinary: Reports: No Symptoms - Patient Data Vitals - Most Recent: Last Vital Signs Temp 98.1 F 04/25/21 08:31 Pulse 60 04/25/21 10:43 Resp 18 04/24/21 23:54 BP 131/66 04/25/21 10:43 Pulse Ox 95 04/25/21 08:19 Weight - Most Recent: 125.464 kg I&O - Last 24 Hours: Intake & Output 04/24/21 04/25/21 04/25/21 22:59 06:59 14:59 Intake Total 370 Balance 370 Lab Results Last 24 Hours: Laboratory Results - last 24 hr 04/24/21 04/24/21 04/24/21 Range/Units 13:20 16:19 21:07 WBC (4.23-9.07) K/mm3 RBC (4.63-6.08) M/mm3 Hgb (13.7-17.5) gm/dl Hct (40.1-51.0) % MCV (79.0-92.2) fl MCH (25.7-32.2) pg MCHC (32.2-35.5) g/dl RDW Std Deviation (35.1-43.9) fL Plt Count (163-337) K/mm3 MPV (9.4-12.3) fl Neut % (Auto) (34.0-67.9) % Lymph % (Auto) (21.8-53.1) % [place] % (Auto) (5.3-12.2) % Eos % (Auto) (0.8-7.0) Baso % (Auto) (0.1-1.2) % Neut # (Auto) (1.78-5.38) K/mm3 Lymph # (Auto) (1.32-3.57) K/mm3 [place] # (Auto) (0.30-0.82) K/mm3 Eos # (Auto) (0.04-0.54) K/mm3 Baso # (Auto) (0.01-0.08) K/mm3 Sodium (136-145) mEq/L Potassium (3.5-5.1) mEq/L Chloride (98-107) mEq/L Carbon Dioxide (21-32) mEq/L Anion Gap (5-15) BUN (7-18) mg/dL Creatinine (0.7-1.3) mg/dL Est Cr Clr Drug Dosing mL/min Estimated GFR (MDRD) (>60) mL/min BUN/Creatinine Ratio (14-18) Glucose (70-99) mg/dL POC Glucose 159 H 205 H 288 H (70-99) mg/dL Calcium (8.5-10.1) mg/dL 04/25/21 04/25/21 04/25/21 Range/Units 05:52 06:06 06:06 WBC 12.34 H (4.23-9.07) K/mm3 RBC 4.53 L (4.63-6.08) M/mm3 Hgb 13.0 L (13.7-17.5) gm/dl Hct 42.5 (40.1-51.0) % MCV 93.8 H (79.0-92.2) fl MCH 28.7 (25.7-32.2) pg MCHC 30.6 L (32.2-35.5) g/dl RDW Std Deviation 48.9 H (35.1-43.9) fL Plt Count 264 (163-337) K/mm3 MPV 9.1 L (9.4-12.3) fl Neut % (Auto) 70.8 H (34.0-67.9) % Lymph % (Auto) 17.3 L (21.8-53.1) % [place] % (Auto) 10.3 (5.3-12.2) % Eos % (Auto) 0.8 (0.8-7.0) Baso % (Auto) 0.2 (0.1-1.2) % Neut # (Auto) 8.75 H (1.78-5.38) K/mm3 Lymph # (Auto) 2.13 (1.32-3.57) K/mm3 [place] # (Auto) 1.27 H (0.30-0.82) K/mm3 Eos # (Auto) 0.10 (0.04-0.54) K/mm3 Baso # (Auto) 0.02 (0.01-0.08) K/mm3 Sodium 143 (136-145) mEq/L Potassium 4.6 (3.5-5.1) mEq/L Chloride 106 (98-107) mEq/L Carbon Dioxide 26 (21-32) mEq/L Anion Gap 15.6 H (5-15) BUN 25 H (7-18) mg/dL Creatinine 1.7 H (0.7-1.3) mg/dL Est Cr Clr Drug Dosing 53.14 mL/min Estimated GFR (MDRD) 40 (>60) mL/min BUN/Creatinine Ratio 14.7 (14-18) Glucose 148 H (70-99) mg/dL POC Glucose 139 H (70-99) mg/dL Calcium 8.7 (8.5-10.1) mg/dL 04/25/21 Range/Units 10:50 WBC (4.23-9.07) K/mm3 RBC (4.63-6.08) M/mm3 Hgb (13.7-17.5) gm/dl Hct (40.1-51.0) % MCV (79.0-92.2) fl MCH (25.7-32.2) pg MCHC (32.2-35.5) g/dl RDW Std Deviation (35.1-43.9) fL Plt Count (163-337) K/mm3 MPV (9.4-12.3) fl Neut % (Auto) (34.0-67.9) % Lymph % (Auto) (21.8-53.1) % [place] % (Auto) (5.3-12.2) % Eos % (Auto) (0.8-7.0) Baso % (Auto) (0.1-1.2) % Neut # (Auto) (1.78-5.38) K/mm3 Lymph # (Auto) (1.32-3.57) K/mm3 [place] # (Auto) (0.30-0.82) K/mm3 Eos # (Auto) (0.04-0.54) K/mm3 Baso # (Auto) (0.01-0.08) K/mm3 Sodium (136-145) mEq/L Potassium (3.5-5.1) mEq/L Chloride (98-107) mEq/L Carbon Dioxide (21-32) mEq/L Anion Gap (5-15) BUN (7-18) mg/dL Creatinine (0.7-1.3) mg/dL Est Cr Clr Drug Dosing mL/min Estimated GFR (MDRD) (>60) mL/min BUN/Creatinine Ratio (14-18) Glucose (70-99) mg/dL POC Glucose 226 H (70-99) mg/dL Calcium (8.5-10.1) mg/dL Med Orders - Current: Current Medications Acetaminophen (Acetaminophen 325 Mg Tab) 650 mg PO Q6H REPLACED BY [facility] Last Admin: 04/25/21 10:35 Dose: 650 mg Documented by: Albuterol (Albuterol 6.7 Gm Inhaler) 0 gm INH Q6HR PRN PRN Reason: Shortness of Breath Last Admin: 04/24/21 08:27 Dose: 2 inhalation Documented by: Amlodipine Besylate (Amlodipine 10 Mg Tab) 10 mg PO DAILY REPLACED BY [facility] Last Admin: 04/25/21 10:33 Dose: 10 mg Documented by: Bisacodyl (Bisacodyl 5 Mg Tab) 10 mg PO DAILY PRN PRN Reason: Constipation Digoxin (Digoxin 250 Mcg Tab) 250 mcg PO DAILY REPLACED BY [facility] Last Admin: 04/25/21 10:43 Dose: 250 mcg Documented by: Fentanyl (Fentanyl 100 Mcg/2 Ml Sdv) 50 mcg IVPUSH Q5M PRN PRN Reason: Pain Finasteride (Finasteride 5 Mg Tab) 5 mg PO DAILY REPLACED BY [facility] Last Admin: 04/25/21 10:33 Dose: 5 mg Documented by: Gabapentin (Gabapentin 100 Mg Cap) 100 mg PO TID REPLACED BY [facility] Last Admin: 04/25/21 10:43 Dose: 100 mg Documented by: Ertapenem 1 gm/ Sodium (Chloride) 50 mls @ 100 mls/hr IV Q24H REPLACED BY [facility] Last Admin: 04/24/21 17:18 Dose: 100 mls/hr Documented by: Insulin Glargine (Insulin Glargine,Hum.Rec.Anlog 100 Unit/Ml 3 Ml Pen) 10 unit SUBCUT ACBREAKFAST REPLACED BY [facility] Last Admin: 04/25/21 06:15 Dose: 10 units Documented by: Insulin Glargine (Insulin Glargine,Hum.Rec.Anlog 100 Unit/Ml 3 Ml Pen) 40 unit SUBCUT BEDTIME REPLACED BY [facility] Last Admin: 04/24/21 21:25 Dose: 40 units Documented by: Insulin Human Lispro (Insulin Lispro 100 Unit/Ml 3 Ml Kwikpen) 0 unit SUBCUT QIDACANDBED REPLACED BY [facility]; Protocol Last Admin: 04/25/21 10:44 Dose: Not Given Documented by: Levetiracetam (Levetiracetam 500 Mg Tab) 750 mg PO BID REPLACED BY [facility] Last Admin: 04/25/21 10:34 Dose: 750 mg Documented by: Lorazepam (Lorazepam 1 Mg Tab) 1 mg PO BID REPLACED BY [facility] Last Admin: 04/25/21 10:33 Dose: 1 mg Documented by: Meloxicam (Meloxicam 7.5 Mg Tab) 7.5 mg PO DAILY REPLACED BY [facility] Last Admin: 04/25/21 10:43 Dose: 7.5 mg Documented by: Metoprolol Succinate (Metoprolol Succinate 50 Mg Tab.Er) 50 mg PO DAILY REPLACED BY [facility] Last Admin: 04/25/21 10:43 Dose: 50 mg Documented by: Non-Formulary Medication (Escitalopram) 10 mg PO DAILY REPLACED BY [facility] Last Admin: 04/25/21 10:43 Dose: 10 mg Documented by: Memantine Hcl/Donepezil Hcl Namzaric 28 Mg-10 Mg Capsule 1 cap.sr PO BEDTIME REPLACED BY [facility] Last Admin: 04/24/21 20:18 Dose: 1 cap.sr Documented by: Ondansetron HCl (Ondansetron 4 Mg/2 Ml Sdv) 4 mg IV Q4H PRN PRN Reason: Nausea/Vomiting Oxycodone HCl (Oxycodone 5 Mg Tab) 5 mg PO Q6H PRN PRN Reason: Abdominal Pain Last Admin: 04/24/21 14:44 Dose: 5 mg Documented by: Quetiapine Fumarate (Quetiapine 100 Mg Tab) 200 mg PO BID REPLACED BY [facility] Last Admin: 04/25/21 10:36 Dose: 200 mg Documented by: Senna/Docusate Sodium (Docusate Sodium/Sennosides 50-8.6 Mg Tab) 1 tab PO BID REPLACED BY [facility] Last Admin: 04/25/21 10:33 Dose: 1 tab Documented by: Sodium Chloride (Sodium Chloride 0.9% 10 Ml Syringe) 10 ml FLUSH ASDIRECTED PRN PRN Reason: Keep Vein Open Last Admin: 04/22/21 11:45 Dose: 10 ml Documented by: Tamsulosin HCl (Tamsulosin 0.4 Mg Cap.Er) 0.8 mg PO BEDTIME REPLACED BY [facility] Thiamine HCl (Thiamine 100 Mg Tab) 100 mg PO DAILY REPLACED BY [facility] Last Admin: 04/25/21 10:35 Dose: 100 mg Documented by: Discontinued Medications Amlodipine Besylate (Amlodipine 5 Mg Tab) 10 mg PO DAILY REPLACED BY [facility] Last Admin: 04/24/21 08:33 Dose: 10 mg Documented by: Bupivacaine HCl (Bupivacaine 0.25% 10 Ml Sdv) Confirm Administered Dose 30 ml .ROUTE .STK-MED ONE Stop: 04/24/21 08:28 Cefazolin Sodium (Cefazolin 1 Gm Vial) Confirm Administered Dose 3 gm .ROUTE .STK-MED ONE Stop: 04/24/21 07:58 Dexamethasone (Dexamethasone 4 Mg/Ml 5 Ml Mdv) Confirm Administered Dose 20 mg .ROUTE .STK-MED ONE Stop: 04/24/21 07:58 Digoxin (Digoxin 250 Mcg Tab) 250 mcg PO DAILY REPLACED BY [facility] Last Admin: 04/24/21 08:32 Dose: 250 mcg Documented by: Diphenhydramine HCl (Diphenhydramine 50 Mg/Ml Sdv) Confirm Administered Dose 50 mg .ROUTE .STK-MED ONE Stop: 04/24/21 09:15 Ephedrine Sulfate (Ephedrine 50 Mg/Ml Sdv) Confirm Administered Dose 50 mg .ROUTE .STK-MED ONE Stop: 04/24/21 09:21 Ertapenem (Ertapenem 1 Gm Vial) Confirm Administered Dose 1 gm .ROUTE .STK-MED ONE Stop: 04/22/21 12:42 Last Admin: 04/22/21 12:46 Dose: Not Given Documented by: Fentanyl (Fentanyl 250 Mcg/5 Ml Sdv) Confirm Administered Dose 250 mcg .ROUTE .STK-MED ONE Stop: 04/24/21 07:58 Finasteride (Finasteride 5 Mg Tab) 5 mg PO DAILY REPLACED BY [facility] Last Admin: 04/24/21 08:33 Dose: 5 mg Documented by: Gabapentin (Gabapentin 100 Mg Cap) 100 mg PO TID REPLACED BY [facility] Last Admin: 04/24/21 20:18 Dose: 100 mg Documented by: Gabapentin (Gabapentin 100 Mg Cap) 100 mg PO ONETIME ONE Stop: 04/22/21 21:01 Last Admin: 04/22/21 22:06 Dose: 100 mg Documented by: Glycopyrrolate (Glycopyrrolate 0.2 Mg/Ml 2 Ml Syringe) Confirm Administered Dose 0.4 mg .ROUTE .STK-MED ONE Stop: 04/24/21 10:21 Sodium Chloride (Normal Saline) 1,000 mls @ 75 mls/hr IV ONETIME ONE Stop: 04/23/21 01:54 Last Infusion: 04/22/21 23:24 Dose: 50 mls/hr Documented by: Ertapenem 1 gm/ Sodium (Chloride) 50 mls @ 100 mls/hr IV ONETIME ONE Stop: 04/22/21 13:05 Last Admin: 04/22/21 16:49 Dose: Not Given Documented by: Ertapenem 1 gm/ Sodium (Chloride) 50 mls @ 100 mls/hr IV ONETIME ONE Stop: 04/22/21 16:44 Last Admin: 04/22/21 16:54 Dose: 100 mls/hr Documented by: Lactated Ringer's (Ringers, Lactated) Confirm Administered Dose 1,000 mls @ as directed .ROUTE .STK-MED ONE Stop: 04/24/21 08:00 Sodium Chloride (Normal Saline) Confirm Administered Dose 1,000 mls @ as directed .ROUTE .STK-MED ONE Stop: 04/24/21 09:58 Insulin Human Lispro (Insulin Lispro 100 Unit/Ml 3 Ml Kwikpen) 0 unit SUBCUT QIDACANDBED PRN; Protocol PRN Reason: Hyperglycemia Levetiracetam (Levetiracetam 500 Mg Tab) 750 mg PO ONETIME ONE Stop: 04/22/21 21:01 Last Admin: 04/22/21 22:06 Dose: 750 mg Documented by: Lidocaine HCl (Lidocaine 1% 5 Ml Sdv) Confirm Administered Dose 5 ml .ROUTE .STK-MED ONE Stop: 04/24/21 07:58 Lorazepam (Lorazepam 1 Mg Tab) 1 mg PO BID [facility] Last Admin: 04/24/21 20:17 Dose: 1 mg Documented by: Lorazepam (Lorazepam 1 Mg Tab) 1 mg PO ONETIME ONE Stop: 04/22/21 21:01 Last Admin: 04/22/21 22:07 Dose: 1 mg Documented by: Meloxicam (Meloxicam 7.5 Mg Tab) 7.5 mg PO DAILY REPLACED BY [facility] Last Admin: 04/24/21 08:34 Dose: Not Given Documented by: Metoprolol Succinate (Metoprolol Succinate 50 Mg Tab.Er) 50 mg PO DAILY REPLACED BY [facility] Last Admin: 04/24/21 08:33 Dose: 50 mg Documented by: Midazolam HCl (Midazolam 1 Mg/Ml 2 Ml Sdv) Confirm Administered Dose 2 mg .ROUTE .STK-MED ONE Stop: 04/24/21 07:57 Miscellaneous Medication (Phenylephrine Hcl In 0.9% Nacl 1 Mg/10 Ml Syringe) Confirm Administered Dose 1 mg .ROUTE .STK-MED ONE Stop: 04/24/21 09:25 Neostigmine Methylsulfate (Neostigmine Methylsulfate 5 Mg/5 Ml Syringe) Confirm Administered Dose 5 mg .ROUTE .STK-MED ONE Stop: 04/24/21 10:21 (Levetiracetam [ Levetiracetam] 750mg Tablet) 750 mg PO BID REPLACED BY [facility] Last Admin: 04/24/21 20:18 Dose: 750 mg Documented by: Quetiapine 200mg - (Pt Own Med) 0 each PO BID REPLACED BY [facility] Last Admin: 04/24/21 20:19 Dose: 1 each Documented by: Ondansetron HCl (Ondansetron 4 Mg/2 Ml Sdv) Confirm Administered Dose 4 mg .ROUTE .STK-MED ONE Stop: 04/24/21 07:58 Propofol (Propofol 200 Mg/20 Ml Sdv) Confirm Administered Dose 400 mg .ROUTE .STK-MED ONE Stop: 04/24/21 07:57 Quetiapine Fumarate (Quetiapine 25 Mg Tab) 200 mg PO ONETIME ONE Stop: 04/22/21 21:01 Last Admin: 04/22/21 22:07 Dose: 200 mg Documented by: Rocuronium [place] (Rocuronium 50 Mg/5 Ml Vial) Confirm Administered Dose 50 mg .ROUTE .STK-MED ONE Stop: 04/24/21 07:58 Tamsulosin HCl (Tamsulosin 0.4 Mg Cap.Er - Pt Own Med) 0.8 mg PO BEDTIME REPLACED BY [facility] Last Admin: 04/24/21 20:18 Dose: 0.8 mg Documented by: Tamsulosin HCl (Tamsulosin 0.4 Mg Cap.Er) 0.8 mg PO ONETIME ONE Stop: 04/22/21 21:01 Last Admin: 04/22/21 22:08 Dose: 0.8 mg Documented by: - Exam Quality Assessment: Supplemental Oxygen General: Alert, Oriented, Cooperative GI/Abdominal Exam: Soft, Non-Tender, No Distention Wound/Incisions: Healing Well, No Drainage - Patient Data Lab Results Last 24 hrs: Laboratory Results - last 24 hr 04/24/21 04/24/21 04/24/21 Range/Units 13:20 16:19 21:07 WBC (4.23-9.07) K/mm3 RBC (4.63-6.08) M/mm3 Hgb (13.7-17.5) gm/dl Hct (40.1-51.0) % MCV (79.0-92.2) fl MCH (25.7-32.2) pg MCHC (32.2-35.5) g/dl RDW Std Deviation (35.1-43.9) fL Plt Count (163-337) K/mm3 MPV (9.4-12.3) fl Neut % (Auto) (34.0-67.9) % Lymph % (Auto) (21.8-53.1) % [place] % (Auto) (5.3-12.2) % Eos % (Auto) (0.8-7.0) Baso % (Auto) (0.1-1.2) % Neut # (Auto) (1.78-5.38) K/mm3 Lymph # (Auto) (1.32-3.57) K/mm3 [place] # (Auto) (0.30-0.82) K/mm3 Eos # (Auto) (0.04-0.54) K/mm3 Baso # (Auto) (0.01-0.08) K/mm3 Sodium (136-145) mEq/L Potassium (3.5-5.1) mEq/L Chloride (98-107) mEq/L Carbon Dioxide (21-32) mEq/L Anion Gap (5-15) BUN (7-18) mg/dL Creatinine (0.7-1.3) mg/dL Est Cr Clr Drug Dosing mL/min Estimated GFR (MDRD) (>60) mL/min BUN/Creatinine Ratio (14-18) Glucose (70-99) mg/dL POC Glucose 159 H 205 H 288 H (70-99) mg/dL Calcium (8.5-10.1) mg/dL 04/25/21 04/25/21 04/25/21 Range/Units 05:52 06:06 06:06 WBC 12.34 H (4.23-9.07) K/mm3 RBC 4.53 L (4.63-6.08) M/mm3 Hgb 13.0 L (13.7-17.5) gm/dl Hct 42.5 (40.1-51.0) % MCV 93.8 H (79.0-92.2) fl MCH 28.7 (25.7-32.2) pg MCHC 30.6 L (32.2-35.5) g/dl RDW Std Deviation 48.9 H (35.1-43.9) fL Plt Count 264 (163-337) K/mm3 MPV 9.1 L (9.4-12.3) fl Neut % (Auto) 70.8 H (34.0-67.9) % Lymph % (Auto) 17.3 L (21.8-53.1) % [place] % (Auto) 10.3 (5.3-12.2) % Eos % (Auto) 0.8 (0.8-7.0) Baso % (Auto) 0.2 (0.1-1.2) % Neut # (Auto) 8.75 H (1.78-5.38) K/mm3 Lymph # (Auto) 2.13 (1.32-3.57) K/mm3 [place] # (Auto) 1.27 H (0.30-0.82) K/mm3 Eos # (Auto) 0.10 (0.04-0.54) K/mm3 Baso # (Auto) 0.02 (0.01-0.08) K/mm3 Sodium 143 (136-145) mEq/L Potassium 4.6 (3.5-5.1) mEq/L Chloride 106 (98-107) mEq/L Carbon Dioxide 26 (21-32) mEq/L Anion Gap 15.6 H (5-15) BUN 25 H (7-18) mg/dL Creatinine 1.7 H (0.7-1.3) mg/dL Est Cr Clr Drug Dosing 53.14 mL/min Estimated GFR (MDRD) 40 (>60) mL/min BUN/Creatinine Ratio 14.7 (14-18) Glucose 148 H (70-99) mg/dL POC Glucose 139 H (70-99) mg/dL Calcium 8.7 (8.5-10.1) mg/dL 04/25/21 Range/Units 10:50 WBC (4.23-9.07) K/mm3 RBC (4.63-6.08) M/mm3 Hgb (13.7-17.5) gm/dl Hct (40.1-51.0) % MCV (79.0-92.2) fl MCH (25.7-32.2) pg MCHC (32.2-35.5) g/dl RDW Std Deviation (35.1-43.9) fL Plt Count (163-337) K/mm3 MPV (9.4-12.3) fl Neut % (Auto) (34.0-67.9) % Lymph % (Auto) (21.8-53.1) % [place] % (Auto) (5.3-12.2) % Eos % (Auto) (0.8-7.0) Baso % (Auto) (0.1-1.2) % Neut # (Auto) (1.78-5.38) K/mm3 Lymph # (Auto) (1.32-3.57) K/mm3 [place] # (Auto) (0.30-0.82) K/mm3 Eos # (Auto) (0.04-0.54) K/mm3 Baso # (Auto) (0.01-0.08) K/mm3 Sodium (136-145) mEq/L Potassium (3.5-5.1) mEq/L Chloride (98-107) mEq/L Carbon Dioxide (21-32) mEq/L Anion Gap (5-15) BUN (7-18) mg/dL Creatinine (0.7-1.3) mg/dL Est Cr Clr Drug Dosing mL/min Estimated GFR (MDRD) (>60) mL/min BUN/Creatinine Ratio (14-18) Glucose (70-99) mg/dL POC Glucose 226 H (70-99) mg/dL Calcium (8.5-10.1) mg/dL Result Diagrams: 04/25/21 06:06 04/25/21 06:06 Sepsis Event Note - Evaluation Sepsis Screening Result: No Definite Risk - Focused Exam Vital Signs: Vital Signs Temp Pulse BP Pulse Ox 04/25/21 10:43 60 131/66 04/25/21 10:33 131/66 04/25/21 08:31 98.1 F 04/25/21 08:19 60 131/66 95 04/25/21 03:13 97.9 F 65 131/99 H 94 L 04/25/21 01:18 70 92 L - Problem List Review Problem List Initiated/Reviewed/Updated: No - My Orders Last 24 Hours: My Active Orders 04/24/21 13:39 oxyCODONE 5 mg PO Q6H PRN 04/24/21 13:45 Acetaminophen [TylenoL] 650 mg PO Q6H 04/24/21 Dinner Regular Diet [DIET] 04/25/21 09:00 Digoxin [Lanoxin] 250 mcg PO DAILY Finasteride [Proscar] 5 mg PO DAILY Gabapentin [Neurontin] 100 mg PO TID LORazepam [Ativan] 1 mg PO BID Meloxicam [Mobic] 7.5 mg PO DAILY Metoprolol Succinate [Toprol XL] 50 mg PO DAILY QUEtiapine [SEROqueL] 200 mg PO BID amLODIPine [Norvasc] 10 mg PO DAILY levETIRAcetam [Keppra] 750 mg PO BID 04/25/21 11:18 CORONAVIRUS COVID-19 MADELEINE [MOLEC] Routine 04/25/21 12:05 Ready for Discharge [RC] PER UNIT ROUTINE 04/25/21 21:00 Tamsulosin [Flomax] 0.8 mg PO BEDTIME - Assessment Assessment:: POD1 lap appendectomy. Doing fine - Plan Plan:: Plan - continue all home meds. encourage ambulation. - Will discharge back to facility today.
[2021-04-25 12:09] VITALS: BP 124/81; PULSE 59
--- NOTE | 2021-04-25 12:13 | PCM.DCSUM1 ---
Discharge Summary - Hospital Course Free Text/Narrative:: Patient was found to have acute appendicitis on routine CT scan. He was admitted and had his Eliquis held for 24 hrs while on antibiotics. Appendectomy was performed yesterday. It was inflamed. Patient has been doing well after surgery. He was discharged back to his facility in stable condition. Diagnosis: Stroke: No - Discharge Data Discharge Date: 04/25/21 Discharge Disposition: DC/Tfer to SNF 03 Condition: Good - Referral to Home Health Primary Care Physician: Quirino Greene MD - Patient Summary/Data Consults: Consultations 04/22/21 12:42 Consult to Physician [CONS] Stat 04/22/21 17:06 Consult to Physician [CONS] Routine - Patient Instructions Diet: Heart Healthy Diet Activity: No Lifting Over 20 Pounds (for 2 weeks) Driving: Do Not Drive Showering/Bathing: May Shower Wound/Incision Care: Keep Operative Site/Wound Site Clean and Dry Notify Provider of: Fever, Increased Pain, Swelling and Redness, Drainage Other/Special Instructions: - Patient has not needed opioid pain medications in the past 22 hrs. Please use Tylenol and/or Ibuprofen as needed fpr pain. - Discharge Plan *PRESCRIPTION DRUG MONITORING PROGRAM REVIEWED*: Not Applicable *COPY OF PRESCRIPTION DRUG MONITORING REPORT IN PATIENT AUSTEN: Not Applicable Home Medications: Home Meds levETIRAcetam [Levetiracetam] 750 mg PO BID 04/08/19 [History] Digoxin [Lanoxin] 250 mcg PO DAILY #1 tablet 04/23/19 [Rx] Albuterol [Proventil HFA] 2 puff INH Q6HR PRN 06/19/19 [History] Apixaban [Eliquis] 5 mg PO BID 06/19/19 [History] Escitalopram [Lexapro] 10 mg PO DAILY 06/19/19 [History] Finasteride [Proscar] 5 mg PO DAILY 06/19/19 [History] Multivit-Min/FA/Lycopen/Lutein [Certavite Senior Tablet] 1 tab PO DAILY 06/19/19 [History] QUEtiapine [SEROquel] 200 mg PO BID 06/19/19 [History] Sennosides/Docusate Sodium [Senna Plus 8.6-50 mg Tablet] 1 tab PO BID 06/19/19 [History] Tamsulosin HCl [Flomax] 0.8 mg PO BEDTIME 06/19/19 [History] Thiamine [Vitamin B-1] 100 mg PO DAILY 06/19/19 [History] Calamine/Zinc Oxide [Calamine Lotion] 1 applic TOP Q8HR PRN 06/20/19 [History] Acetaminophen/HYDROcodone [HYDROcodone-Acetaminophen 5-325 MG *] 5 - 325 mg PO TID 12/29/20 [History] Cyanocobalamin (Vitamin B-12) [Cyanocobalamin Injection] 1,000 mcg INJECT WEEKLY 12/29/20 [History] Insulin Glarg,Human.Rec.Analog [Lantus] 10 units SQ ACBREAKFAST 12/29/20 [History] Insulin Glarg,Human.Rec.Analog [Lantus] 40 units SQ BEDTIME 12/29/20 [History] LORazepam [Ativan] 1 mg PO BID 12/29/20 [History] Metoprolol Succinate [Toprol XL] 50 mg PO DAILY 12/29/20 [History] amLODIPine [Norvasc] 10 mg PO DAILY 12/29/20 [History] bisacodyL [Bisacodyl] 10 mg PO DAILY PRN 12/29/20 [History] Gabapentin [Neurontin] 100 mg PO TID 04/22/21 [History] Insulin Lispro [Insulin Lispro Kwikpen U-100] 3 units SQ TID 04/22/21 [History] Insulin Lispro [Insulin Lispro Kwikpen U-100] See Protocol SQ TIDMEALS 04/22/21 [History] Lanolin Alcohol/MO/W.Pet/Beverly [Therapeutic Moisturizing Cream] 1 applic TOP BID 04/22/21 [History] Magnesium Oxide 400 mg PO BID 04/22/21 [History] Meloxicam 7.5 mg PO DAILY 04/22/21 [History] Memantine HCl/Donepezil HCl [Namzaric 28 mg-10 mg Capsule] 1 cap.sr PO BEDTIME 04/22/21 [History] Acetaminophen [Tylenol] 650 mg PO Q6H tablet 04/25/21 [Rx] Oxygen Therapy Mode: Room Air Patient Handouts: Heart Failure, Self Care, Sepsis, Diagnosis, Adult, Laparo scopic Appendectomy, Adult, Care After, [id number] Forms: ED Department Discharge Referrals: Quirino Greene MD [Primary Care Provider] - (Follow up for medical needs as needed.) Kelly Coronel MD [Physician] - (please call [facility] in [place] at [phone] to set up follow up with Dr. Coronel, they were unable to schedule prior to discharge as Berna Garcia didn't have his discharge summary in yet. Appt in 2 weeks) - Discharge Summary/Plan Comment DC Time >30 min.: Yes Total # of Minutes for Discharge Time: 32 - General Info Date of Service: 04/25/21 Admission Dx/Problem (Free Text: Appendicitis Subjective Update: Patient has tolerated diet. Hgb is stable. Is ambulating. Oxygen supplementation is back to baseline. Functional Status: Reports: Pain Controlled, Tolerating Diet, Ambulating, Urinating - Review of Systems General: Reports: No Symptoms HEENT: Reports: No Symptoms Pulmonary: Reports: No Symptoms Cardiovascular: Reports: No Symptoms Gastrointestinal: Reports: No Symptoms Genitourinary: Reports: No Symptoms Musculoskeletal: Reports: No Symptoms Skin: Reports: No Symptoms Neurological: Reports: No Symptoms - Patient Data Vitals - Most Recent: Last Vital Signs Temp 98.1 F 04/25/21 08:31 Pulse 60 04/25/21 10:43 Resp 18 04/24/21 23:54 BP 131/66 04/25/21 10:43 Pulse Ox 95 04/25/21 08:19 Weight - Most Recent: 125.464 kg I&O - Last 24 hours: Intake & Output 04/24/21 04/25/21 04/25/21 22:59 06:59 14:59 Intake Total 370 Balance 370 Lab Results - Last 24 hrs: Laboratory Results - last 24 hr 04/24/21 04/24/21 04/24/21 Range/Units 13:20 16:19 21:07 WBC (4.23-9.07) K/mm3 RBC (4.63-6.08) M/mm3 Hgb (13.7-17.5) gm/dl Hct (40.1-51.0) % MCV (79.0-92.2) fl MCH (25.7-32.2) pg MCHC (32.2-35.5) g/dl RDW Std Deviation (35.1-43.9) fL Plt Count (163-337) K/mm3 MPV (9.4-12.3) fl Neut % (Auto) (34.0-67.9) % Lymph % (Auto) (21.8-53.1) % Amador % (Auto) (5.3-12.2) % Eos % (Auto) (0.8-7.0) Baso % (Auto) (0.1-1.2) % Neut # (Auto) (1.78-5.38) K/mm3 Lymph # (Auto) (1.32-3.57) K/mm3 [place] # (Auto) (0.30-0.82) K/mm3 Eos # (Auto) (0.04-0.54) K/mm3 Baso # (Auto) (0.01-0.08) K/mm3 Sodium (136-145) mEq/L Potassium (3.5-5.1) mEq/L Chloride (98-107) mEq/L Carbon Dioxide (21-32) mEq/L Anion Gap (5-15) BUN (7-18) mg/dL Creatinine (0.7-1.3) mg/dL Est Cr Clr Drug Dosing mL/min Estimated GFR (MDRD) (>60) mL/min BUN/Creatinine Ratio (14-18) Glucose (70-99) mg/dL POC Glucose 159 H 205 H 288 H (70-99) mg/dL Calcium (8.5-10.1) mg/dL 04/25/21 04/25/21 04/25/21 Range/Units 05:52 06:06 06:06 WBC 12.34 H (4.23-9.07) K/mm3 RBC 4.53 L (4.63-6.08) M/mm3 Hgb 13.0 L (13.7-17.5) gm/dl Hct 42.5 (40.1-51.0) % MCV 93.8 H (79.0-92.2) fl MCH 28.7 (25.7-32.2) pg MCHC 30.6 L (32.2-35.5) g/dl RDW Std Deviation 48.9 H (35.1-43.9) fL Plt Count 264 (163-337) K/mm3 MPV 9.1 L (9.4-12.3) fl Neut % (Auto) 70.8 H (34.0-67.9) % Lymph % (Auto) 17.3 L (21.8-53.1) % [place] % (Auto) 10.3 (5.3-12.2) % Eos % (Auto) 0.8 (0.8-7.0) Baso % (Auto) 0.2 (0.1-1.2) % Neut # (Auto) 8.75 H (1.78-5.38) K/mm3 Lymph # (Auto) 2.13 (1.32-3.57) K/mm3 [place] # (Auto) 1.27 H (0.30-0.82) K/mm3 Eos # (Auto) 0.10 (0.04-0.54) K/mm3 Baso # (Auto) 0.02 (0.01-0.08) K/mm3 Sodium 143 (136-145) mEq/L Potassium 4.6 (3.5-5.1) mEq/L Chloride 106 (98-107) mEq/L Carbon Dioxide 26 (21-32) mEq/L Anion Gap 15.6 H (5-15) BUN 25 H (7-18) mg/dL Creatinine 1.7 H (0.7-1.3) mg/dL Est Cr Clr Drug Dosing 53.14 mL/min Estimated GFR (MDRD) 40 (>60) mL/min BUN/Creatinine Ratio 14.7 (14-18) Glucose 148 H (70-99) mg/dL POC Glucose 139 H (70-99) mg/dL Calcium 8.7 (8.5-10.1) mg/dL 04/25/21 Range/Units 10:50 WBC (4.23-9.07) K/mm3 RBC (4.63-6.08) M/mm3 Hgb (13.7-17.5) gm/dl Hct (40.1-51.0) % MCV (79.0-92.2) fl MCH (25.7-32.2) pg MCHC (32.2-35.5) g/dl RDW Std Deviation (35.1-43.9) fL Plt Count (163-337) K/mm3 MPV (9.4-12.3) fl Neut % (Auto) (34.0-67.9) % Lymph % (Auto) (21.8-53.1) % [place] % (Auto) (5.3-12.2) % Eos % (Auto) (0.8-7.0) Baso % (Auto) (0.1-1.2) % Neut # (Auto) (1.78-5.38) K/mm3 Lymph # (Auto) (1.32-3.57) K/mm3 [place] # (Auto) (0.30-0.82) K/mm3 Eos # (Auto) (0.04-0.54) K/mm3 Baso # (Auto) (0.01-0.08) K/mm3 Sodium (136-145) mEq/L Potassium (3.5-5.1) mEq/L Chloride (98-107) mEq/L Carbon Dioxide (21-32) mEq/L Anion Gap (5-15) BUN (7-18) mg/dL Creatinine (0.7-1.3) mg/dL Est Cr Clr Drug Dosing mL/min Estimated GFR (MDRD) (>60) mL/min BUN/Creatinine Ratio (14-18) Glucose (70-99) mg/dL POC Glucose 226 H (70-99) mg/dL Calcium (8.5-10.1) mg/dL Med Orders - Current: Current Medications Acetaminophen (Acetaminophen 325 Mg Tab) 650 mg PO Q6H [facility] Last Admin: 04/25/21 10:35 Dose: 650 mg Documented by: Albuterol (Albuterol 6.7 Gm Inhaler) 0 gm INH Q6HR PRN PRN Reason: Shortness of Breath Last Admin: 04/24/21 08:27 Dose: 2 inhalation Documented by: Amlodipine Besylate (Amlodipine 10 Mg Tab) 10 mg PO DAILY [facility] Last Admin: 04/25/21 10:33 Dose: 10 mg Documented by: Bisacodyl (Bisacodyl 5 Mg Tab) 10 mg PO DAILY PRN PRN Reason: Constipation Digoxin (Digoxin 250 Mcg Tab) 250 mcg PO DAILY [facility] Last Admin: 04/25/21 10:43 Dose: 250 mcg Documented by: Fentanyl (Fentanyl 100 Mcg/2 Ml Sdv) 50 mcg IVPUSH Q5M PRN PRN Reason: Pain Finasteride (Finasteride 5 Mg Tab) 5 mg PO DAILY [facility] Last Admin: 04/25/21 10:33 Dose: 5 mg Documented by: Gabapentin (Gabapentin 100 Mg Cap) 100 mg PO TID [facility] Last Admin: 04/25/21 10:43 Dose: 100 mg Documented by: Ertapenem 1 gm/ Sodium (Chloride) 50 mls @ 100 mls/hr IV Q24H [facility] Last Admin: 04/24/21 17:18 Dose: 100 mls/hr Documented by: Insulin Glargine (Insulin Glargine,Hum.Rec.Anlog 100 Unit/Ml 3 Ml Pen) 10 unit SUBCUT ACBREAKFAST [facility] Last Admin: 04/25/21 06:15 Dose: 10 units Documented by: Insulin Glargine (Insulin Glargine,Hum.Rec.Anlog 100 Unit/Ml 3 Ml Pen) 40 unit SUBCUT BEDTIME [facility] Last Admin: 04/24/21 21:25 Dose: 40 units Documented by: Insulin Human Lispro (Insulin Lispro 100 Unit/Ml 3 Ml Kwikpen) 0 unit SUBCUT Q IDACANDBED [facility]; Protocol Last Admin: 04/25/21 10:44 Dose: Not Given Documented by: Levetiracetam (Levetiracetam 500 Mg Tab) 750 mg PO BID [facility] Last Admin: 04/25/21 10:34 Dose: 750 mg Documented by: Lorazepam (Lorazepam 1 Mg Tab) 1 mg PO BID [facility] Last Admin: 04/25/21 10:33 Dose: 1 mg Documented by: Meloxicam (Meloxicam 7.5 Mg Tab) 7.5 mg PO DAILY [facility] Last Admin: 04/25/21 10:43 Dose: 7.5 mg Documented by: Metoprolol Succinate (Metoprolol Succinate 50 Mg Tab.Er) 50 mg PO DAILY [facility] Last Admin: 04/25/21 10:43 Dose: 50 mg Documented by: Non-Formulary Medication (Escitalopram) 10 mg PO DAILY [facility] Last Admin: 04/25/21 10:43 Dose: 10 mg Documented by: Memantine Hcl/Donepezil Hcl Namzaric 28 Mg-10 Mg Capsule 1 cap.sr PO BEDTIME [facility] Last Admin: 04/24/21 20:18 Dose: 1 cap.sr Documented by: Ondansetron HCl (Ondansetron 4 Mg/2 Ml Sdv) 4 mg IV Q4H PRN PRN Reason: Nausea/Vomiting Oxycodone HCl (Oxycodone 5 Mg Tab) 5 mg PO Q6H PRN PRN Reason: Abdominal Pain Last Admin: 04/24/21 14:44 Dose: 5 mg Documented by: Quetiapine Fumarate (Quetiapine 100 Mg Tab) 200 mg PO BID [facility] Last Admin: 04/25/21 10:36 Dose: 200 mg Documented by: Senna/Docusate Sodium (Docusate Sodium/Sennosides 50-8.6 Mg Tab) 1 tab PO BID [facility] Last Admin: 04/25/21 10:33 Dose: 1 tab Documented by: Sodium Chloride (Sodium Chloride 0.9% 10 Ml Syringe) 10 ml FLUSH ASDIRECTED PRN PRN Reason: Keep Vein Open Last Admin: 04/22/21 11:45 Dose: 10 ml Documented by: Tamsulosin HCl (Tamsulosin 0.4 Mg Cap.Er) 0.8 mg PO BEDTIME [facility] Thiamine HCl (Thiamine 100 Mg Tab) 100 mg PO DAILY [facility] Last Admin: 04/25/21 10:35 Dose: 100 mg Documented by: Discontinued Medications Amlodipine Besylate (Amlodipine 5 Mg Tab) 10 mg PO DAILY [facility] Last Admin: 04/24/21 08:33 Dose: 10 mg Documented by: Bupivacaine HCl (Bupivacaine 0.25% 10 Ml Sdv) Confirm Administered Dose 30 ml .ROUTE .STK-MED ONE Stop: 04/24/21 08:28 Cefazolin Sodium (Cefazolin 1 Gm Vial) Confirm Administered Dose 3 gm .ROUTE .STK-MED ONE Stop: 04/24/21 07:58 Dexamethasone (Dexamethasone 4 Mg/Ml 5 Ml Mdv) Confirm Administered Dose 20 mg .ROUTE .STK-MED ONE Stop: 04/24/21 07:58 Digoxin (Digoxin 250 Mcg Tab) 250 mcg PO DAILY [facility] Last Admin: 04/24/21 08:32 Dose: 250 mcg Documented by: Diphenhydramine HCl (Diphenhydramine 50 Mg/Ml Sdv) Confirm Administered Dose 50 mg .ROUTE .STK-MED ONE Stop: 04/24/21 09:15 Ephedrine Sulfate (Ephedrine 50 Mg/Ml Sdv) Confirm Administered Dose 50 mg .ROUTE .STK-MED ONE Stop: 04/24/21 09:21 Ertapenem (Ertapenem 1 Gm Vial) Confirm Administered Dose 1 gm .ROUTE .STK-MED ONE Stop: 04/22/21 12:42 Last Admin: 04/22/21 12:46 Dose: Not Given Documented by: Fentanyl (Fentanyl 250 Mcg/5 Ml Sdv) Confirm Administered Dose 250 mcg .ROUTE .STK-MED ONE Stop: 04/24/21 07:58 Finasteride (Finasteride 5 Mg Tab) 5 mg PO DAILY [facility] Last Admin: 04/24/21 08:33 Dose: 5 mg Documented by: Gabapentin (Gabapentin 100 Mg Cap) 100 mg PO TID [facility] Last Admin: 04/24/21 20:18 Dose: 100 mg Documented by: Gabapentin (Gabapentin 100 Mg Cap) 100 mg PO ONETIME ONE Stop: 04/22/21 21:01 Last Admin: 04/22/21 22:06 Dose: 100 mg Documented by: Glycopyrrolate (Glycopyrrolate 0.2 Mg/Ml 2 Ml Syringe) Confirm Administered Dose 0.4 mg .ROUTE .STK-MED ONE Stop: 04/24/21 10:21 Sodium Chloride (Normal Saline) 1,000 mls @ 75 mls/hr IV ONETIME ONE Stop: 04/23/21 01:54 Last Infusion: 04/22/21 23:24 Dose: 50 mls/hr Documented by: Ertapenem 1 gm/ Sodium (Chloride) 50 mls @ 100 mls/hr IV ONETIME ONE Stop: 04/22/21 13:05 Last Admin: 04/22/21 16:49 Dose: Not Given Documented by: Ertapenem 1 gm/ Sodium (Chloride) 50 mls @ 100 mls/hr IV ONETIME ONE Stop: 04/22/21 16:44 Last Admin: 04/22/21 16:54 Dose: 100 mls/hr Documented by: Lactated Ringer's (Ringers, Lactated) Confirm Administered Dose 1,000 mls @ as directed .ROUTE .STK-MED ONE Stop: 04/24/21 08:00 Sodium Chloride (Normal Saline) Confirm Administered Dose 1,000 mls @ as directed .ROUTE .STK-MED ONE Stop: 04/24/21 09:58 Insulin Human Lispro (Insulin Lispro 100 Unit/Ml 3 Ml Kwikpen) 0 unit SUBCUT QIDACANDBED PRN; Protocol PRN Reason: Hyperglycemia Levetiracetam (Levetiracetam 500 Mg Tab) 750 mg PO ONETIME ONE Stop: 04/22/21 21:01 Last Admin: 04/22/21 22:06 Dose: 750 mg Documented by: Lidocaine HCl (Lidocaine 1% 5 Ml Sdv) Confirm Administered Dose 5 ml .ROUTE .STK-MED ONE Stop: 04/24/21 07:58 Lorazepam (Lorazepam 1 Mg Tab) 1 mg PO BID [facility] Last Admin: 04/24/21 20:17 Dose: 1 mg Documented by: Lorazepam (Lorazepam 1 Mg Tab) 1 mg PO ONETIME ONE Stop: 04/22/21 21:01 Last Admin: 04/22/21 22:07 Dose: 1 mg Documented by: Meloxicam (Meloxicam 7.5 Mg Tab) 7.5 mg PO DAILY [facility] Last Admin: 04/24/21 08:34 Dose: Not Given Documented by: Metoprolol Succinate (Metoprolol Succinate 50 Mg Tab.Er) 50 mg PO DAILY [facility] Last Admin: 04/24/21 08:33 Dose: 50 mg Documented by: Midazolam HCl (Midazolam 1 Mg/Ml 2 Ml Sdv) Confirm Administered Dose 2 mg .ROUTE .STK-MED ONE Stop: 04/24/21 07:57 Miscellaneous Medication (Phenylephrine Hcl In 0.9% Nacl 1 Mg/10 Ml Syringe) Confirm Administered Dose 1 mg .ROUTE .STK-MED ONE Stop: 04/24/21 09:25 Neostigmine Methylsulfate (Neostigmine Methylsulfate 5 Mg/5 Ml Syringe) Confirm Administered Dose 5 mg .ROUTE .STK-MED ONE Stop: 04/24/21 10:21 (Levetiracetam [ Levetiracetam] 750mg Tablet) 750 mg PO BID [facility] Last Admin: 04/24/21 20:18 Dose: 750 mg Documented by: Quetiapine 200mg - (Pt Own Med) 0 each PO BID [facility] Last Admin: 04/24/21 20:19 Dose: 1 each Documented by: Ondansetron HCl (Ondansetron 4 Mg/2 Ml Sdv) Confirm Administered Dose 4 mg .R OUTE .STK-MED ONE Stop: 04/24/21 07:58 Propofol (Propofol 200 Mg/20 Ml Sdv) Confirm Administered Dose 400 mg .ROUTE .STK-MED ONE Stop: 04/24/21 07:57 Quetiapine Fumarate (Quetiapine 25 Mg Tab) 200 mg PO ONETIME ONE Stop: 04/22/21 21:01 Last Admin: 04/22/21 22:07 Dose: 200 mg Documented by: Rocuronium [place] (Rocuronium 50 Mg/5 Ml Vial) Confirm Administered Dose 50 mg .ROUTE .STK-MED ONE Stop: 04/24/21 07:58 Tamsulosin HCl (Tamsulosin 0.4 Mg Cap.Er - Pt Own Med) 0.8 mg PO BEDTIME [facility] Last Admin: 04/24/21 20:18 Dose: 0.8 mg Documented by: Tamsulosin HCl (Tamsulosin 0.4 Mg Cap.Er) 0.8 mg PO ONETIME ONE Stop: 04/22/21 21:01 Last Admin: 04/22/21 22:08 Dose: 0.8 mg Documented by: - Exam General: Reports: Alert, Oriented, Cooperative Lungs: Reports: Clear to Auscultation, Normal Respiratory Effort Cardiovascular: Reports: Regular Rate, Regular Rhythm GI/Abdominal Exam: Soft, Non-Tender, No Organomegaly Wound/Incisions: Reports: Healing Well, Dressing Dry and Intact
[2021-04-25] MEDS ORDERED: Tamsulosin 0.4 MG Cap.ER PO SCH (21:00)
== END 2021-04-25 14:28 | DRG 342 ==
LOC: JD.ED 10:50 → JD.MS 12:36 → OBSVTOIN 04-24 09:17
PROVIDERS: ADMIT Surgery; ATTEND Surgery
PROC: 0DTJ4ZZ Resection of Appendix, Percutaneous Endoscopic Approach (ICD-10-PCS; principal; 2021-04-24)
DX: D49.0 Neoplasm of unspecified behavior of digestive system (principal); H40.9 Unspecified glaucoma; K35.30 Acute appendicitis with localized peritonitis, without perforation or gangrene; I48.20 Chronic atrial fibrillation, unspecified; I50.42 Chronic combined systolic (congestive) and diastolic (congestive) heart failure; K59.09 Other constipation; E11.21 Type 2 diabetes mellitus with diabetic nephropathy; E11.9 Type 2 diabetes mellitus without complications; E03.9 Hypothyroidism, unspecified; E53.9 Vitamin B deficiency, unspecified; N40.0 Benign prostatic hyperplasia without lower urinary tract symptoms; F32.A Depression, unspecified; Z85.528 Personal history of other malignant neoplasm of kidney; G40.909 Epilepsy, unspecified, not intractable, without status epilepticus; Z20.822 Contact with and (suspected) exposure to COVID-19; I11.0 Hypertensive heart disease with heart failure; G30.0 Alzheimer's disease with early onset; Z88.8 Allergy status to other drugs, medicaments and biological substances; F02.80 Dementia in other diseases classified elsewhere, unspecified severity, without behavioral disturbance, psychotic disturbance, mood disturbance, and anxiety; I27.20 Pulmonary hypertension, unspecified; E66.9 Obesity, unspecified; F10.20 Alcohol dependence, uncomplicated; Y90.9 Presence of alcohol in blood, level not specified; F17.200 Nicotine dependence, unspecified, uncomplicated; F02.81 Dementia in other diseases classified elsewhere, unspecified severity, with behavioral disturbance; F32.9 Major depressive disorder, single episode, unspecified; J43.9 Emphysema, unspecified; Z88.0 Allergy status to penicillin; Z98.49 Cataract extraction status, unspecified eye; Z99.81 Dependence on supplemental oxygen; Z68.32 Body mass index [BMI] 32.0-32.9, adult; Z85.828 Personal history of other malignant neoplasm of skin; Z90.5 Acquired absence of kidney; Z79.01 Long term (current) use of anticoagulants; Z79.890 Hormone replacement therapy; Z79.899 Other long term (current) drug therapy
CPT/HCPCS: 0240U; 36415; 44970; 80048; 80076; 80162; 82947; 83036; 85025; 85610; 85730; 86140; 87641; 94640; 99285; 00840; 96365; 96366; 96376; 99223; 99232; A9270-GY; G0378; J0690; J1100; J1200; J1335; J1815; J2250; J2370; J2405; J2704; J2710; J3010; J3490; J7030; J7120; U0002

== ENCOUNTER 2021-04-26 20:50 | Emergency (ER) | payer MEDICARE, MEDICAID ==
[2021-04-26 21:10] VITALS: BP 158/84; PULSE 67
--- NOTE | 2021-04-26 23:34 | EDM.PDOC ---
ED HPI GENERAL MEDICAL PROBLEM - General Chief Complaint: Abdominal Pain Stated Complaint: [facility] Time Seen by Provider: 04/26/21 21:30 Source of Information: Reports: Halfway Records, Old Records History Limitations: Reports: Other (Dementia) - History of Present Illness INITIAL COMMENTS - FREE TEXT/NARRATIVE: Patient 65-year-old male with recent appendectomy on Sunday presenting with chief complaint of abdominal pain and concerns about abdominal rigidity. Patient unable to provide any history given severe dementia. According to [facility] he had been complaining of some abdominal discomfort. Although it is unclear of this occurs since patient was not complaining of anything here in the emergency room and not verbal at all. They also stated he had some abdominal rigidity on their exam. Otherwise, no reported fevers or vomiting. - Related Data Allergies Allergy/AdvReac Type Severity Reaction Status Date / Time aspirin Allergy Severe Cannot Verified 04/26/21 21:17 Remember Penicillins Allergy Severe unknown Verified 04/26/21 21:17 Home Meds: Home Meds levETIRAcetam [Levetiracetam] 750 mg PO BID 04/08/19 [History] Digoxin [Lanoxin] 250 mcg PO DAILY #1 tablet 04/23/19 [Rx] Albuterol [Proventil HFA] 2 puff INH Q6HR PRN 06/19/19 [History] Apixaban [Eliquis] 5 mg PO BID 06/19/19 [History] Escitalopram [Lexapro] 10 mg PO DAILY 06/19/19 [History] Finasteride [Proscar] 5 mg PO DAILY 06/19/19 [History] Multivit-Min/FA/Lycopen/Lutein [Certavite Senior Tablet] 1 tab PO DAILY 06/19/19 [History] QUEtiapine [SEROquel] 200 mg PO BID 06/19/19 [History] Sennosides/Docusate Sodium [Senna Plus 8.6-50 mg Tablet] 1 tab PO BID 06/19/19 [History] Thiamine [Vitamin B-1] 100 mg PO DAILY 06/19/19 [History] Calamine/Zinc Oxide [Calamine Lotion] 1 applic TOP Q8HR PRN 06/20/19 [History] Acetaminophen/HYDROcodone [HYDROcodone-Acetaminophen 5-325 MG *] 5 - 325 mg PO TID 12/29/20 [History] Cyanocobalamin (Vitamin B-12) [Cyanocobalamin Injection] 1,000 mcg INJECT WEEKLY 12/29/20 [History] Insulin Glarg,Human.Rec.Analog [Lantus] 10 units SQ ACBREAKFAST 12/29/20 [History] Insulin Glarg,Human.Rec.Analog [Lantus] 40 units SQ BEDTIME 12/29/20 [History] LORazepam [Ativan] 1 mg PO BID 12/29/20 [History] Metoprolol Succinate [Toprol XL] 50 mg PO DAILY 12/29/20 [History] amLODIPine [Norvasc] 10 mg PO DAILY 12/29/20 [History] bisacodyL [Bisacodyl] 10 mg PO DAILY PRN 12/29/20 [History] Gabapentin [Neurontin] 100 mg PO TID 04/22/21 [History] Insulin Lispro [Insulin Lispro Kwikpen U-100] 3 units SQ TID 04/22/21 [History] Insulin Lispro [Insulin Lispro Kwikpen U-100] See Protocol SQ TIDMEALS 04/22/21 [History] Magnesium Oxide 400 mg PO BID 04/22/21 [History] Meloxicam 7.5 mg PO DAILY 04/22/21 [History] Memantine HCl/Donepezil HCl [Namzaric 28 mg-10 mg Capsule] 1 cap.sr PO BEDTIME 04/22/21 [History] Acetaminophen [Tylenol] 650 mg PO Q6H tablet 04/25/21 [Rx] Mcneal/Min Oil/Madhuri/Wool Alcoh [Eucerin Creme] 1 applic TOP BID 04/26/21 [History] Tamsulosin [Flomax] 0.8 mg PO DAILY 04/26/21 [History] Na Phos,M-B/Na Phos,DI-B [Fleet Enema] 118 ml RC DAILY 2 Days #236 ml 04/27/21 [Rx] Past Medical History HEENT History: Reports: Cataract, Glaucoma Cardiovascular History: Reports: Afib, Heart Failure, Hypertension Respiratory History: Reports: COPD Other Respiratory History: Long time smoker with a barrell chest Gastrointestinal History: Reports: Chronic Constipation Genitourinary History: Reports: BPH, Diabetic Nephropathy, Other (See Below) Other Genitourinary History: only one kidney, history of kidney cancer- kidney removed Musculoskeletal History: Reports: Other (See Below) Other Musculoskeletal History: bilat knee pain, generalized muscle weakness, shoulder pain Neurological History: Reports: Seizure Other Neuro History: dementia Psychiatric History: Reports: Addiction, Dementia, Depression Other Psychiatric History: 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), nicotine dependence; psychosis with delusions Endocrine/Metabolic History: Reports: Diabetes, Type II, Hypomagnesemia, Hypothyroidism, Obesity/BMI 30+ Other Endocrine/Metabolic History: vitamin B deficiency Hematologic History: Reports: Anticoagulation Therapy Immunologic History: Reports: None Oncologic (Cancer) History: Reports: Renal Other Oncologic History: renal cell carcinoma Dermatologic History: Reports: Other (See Below) Other Dermatologic History: pruritus - Infectious Disease History Infectious Disease History: Reports: Shingles, Other (See Below) Other Infectious Disease History: nCOV acute respiratory disease, other than SNF record, unable to obtain from patient - Past Surgical History HEENT Surgical History: Reports: Cataract Surgery, Oral Surgery Cardiovascular Surgical History: Reports: None Male Surgical History: Reports: Other (See Below) Other Male Surgeries/Procedures: nephrectomy Dermatological Surgical History: Reports: Other (See Below) Social & Family History - Family History Family Medical History: No Pertinent Family History - Tobacco Use Tobacco Use Status *Q: Unknown Ever Used Tobacco - Caffeine Use Caffeine Use: Reports: Coffee Other Caffeine Use: Unknown - Recreational Drug Use Recreational Drug Use: No - Living Situation & Occupation Living situation: Reports: Single, Extended Care Facility ([facility]) Occupation: Disabled ED ROS GENERAL - Review of Systems Review Of Systems: Unable To Obtain Reason Not Obtained: Dementia ED EXAM, GI/ABD - Physical Exam Exam: See Below Text/Narrative:: I have reviewed the triage vital signs Const: Well nourished, well developed, appears stated age. Resting comfortably in bed with eyes closed Eyes: Pupils Equal and reactive to light bilaterally, no conjunctival injection HENT: No signs of trauma or swelling, Neck supple without meningismus CV: Regular Rate Rhythm, Warm, well-perfused extremities RESP: Unlabored respiratory effort GI: soft, non-tender, non-distended, no masses and specifically no guarding or rebound MSK: No gross deformities appreciated Skin: Warm, dry. No rashes Neuro: Alert, marketing business analyst II-XII grossly intact. Sensation and motor function of extremities grossly intact. Psych: Unable to assess Course - Vital Signs Last Recorded V/S: Last Vital Signs Temp 36.2 C 04/26/21 21:09 Pulse 67 04/26/21 21:09 Resp 20 04/26/21 21:09 BP 158/84 H 04/26/21 21:09 Pulse Ox 95 04/26/21 21:09 - Orders/Labs/Meds Orders: Active Orders 24 hr Category Date Time Status Abdomen Pelvis w Cont [CT] Stat Exams 04/26/21 22:22 Taken Chest 1V Frontal [CR] Stat Exams 04/26/21 21:16 Taken Labs: Laboratory Tests 04/26/21 04/26/21 04/26/21 Range/Units 21:25 21:25 21:25 WBC 9.61 H (4.23-9.07) K/mm3 RBC 4.68 (4.63-6.08) M/mm3 Hgb 13.6 L (13.7-17.5) gm/dl Hct 44.2 (40.1-51.0) % MCV 94.4 H (79.0-92.2) fl MCH 29.1 (25.7-32.2) pg MCHC 30.8 L (32.2-35.5) g/dl RDW Std Deviation 49.8 H (35.1-43.9) fL Plt Count 249 (163-337) K/mm3 MPV 9.2 L (9.4-12.3) fl Neut % (Auto) 59.7 (34.0-67.9) % Lymph % (Auto) 22.5 (21.8-53.1) % [place] % (Auto) 11.7 (5.3-12.2) % Eos % (Auto) 4.5 (0.8-7.0) Baso % (Auto) 0.5 (0.1-1.2) % Neut # (Auto) 5.74 H (1.78-5.38) K/mm3 Lymph # (Auto) 2.16 (1.32-3.57) K/mm3 [place] # (Auto) 1.12 H (0.30-0.82) K/mm3 Eos # (Auto) 0.43 (0.04-0.54) K/mm3 Baso # (Auto) 0.05 (0.01-0.08) K/mm3 PT 9.9 (9.7-12.0) SECONDS INR < 0.93 Sodium 138 (136-145) mEq/L Potassium 4.2 (3.5-5.1) mEq/L Chloride 102 (98-107) mEq/L Carbon Dioxide 29 (21-32) mEq/L Anion Gap 11.2 (5-15) BUN 29 H (7-18) mg/dL Creatinine 1.7 H (0.7-1.3) mg/dL Est Cr Clr Drug Dosing 44.91 mL/min Estimated GFR (MDRD) 40 (>60) mL/min BUN/Creatinine Ratio 17.1 (14-18) Glucose 207 H (70-99) mg/dL Lactic Acid (0.4-2.0) mmol/L Calcium 9.1 (8.5-10.1) mg/dL Total Bilirubin 0.3 (0.2-1.0) mg/dL AST 13 L (15-37) U/L ALT 27 (16-63) U/L Alkaline Phosphatase 88 (46-116) U/L Total Protein 8.4 H (6.4-8.2) g/dl Albumin 3.7 (3.4-5.0) g/dl Globulin 4.7 gm/dL Albumin/Globulin Ratio 0.8 L (1-2) 04/26/21 Range/Units 21:25 WBC (4.23-9.07) K/mm3 RBC (4.63-6.08) M/mm3 Hgb (13.7-17.5) gm/dl Hct (40.1-51.0) % MCV (79.0-92.2) fl MCH (25.7-32.2) pg MCHC (32.2-35.5) g/dl RDW Std Deviation (35.1-43.9) fL Plt Count (163-337) K/mm3 MPV (9.4-12.3) fl Neut % (Auto) (34.0-67.9) % Lymph % (Auto) (21.8-53.1) % [place] % (Auto) (5.3-12.2) % Eos % (Auto) (0.8-7.0) Baso % (Auto) (0.1-1.2) % Neut # (Auto) (1.78-5.38) K/mm3 Lymph # (Auto) (1.32-3.57) K/mm3 [place] # (Auto) (0.30-0.82) K/mm3 Eos # (Auto) (0.04-0.54) K/mm3 Baso # (Auto) (0.01-0.08) K/mm3 PT (9.7-12.0) SECONDS INR Sodium (136-145) mEq/L Potassium (3.5-5.1) mEq/L Chloride (98-107) mEq/L Carbon Dioxide (21-32) mEq/L Anion Gap (5-15) BUN (7-18) mg/dL Creatinine (0.7-1.3) mg/dL Est Cr Clr Drug Dosing mL/min Estimated GFR (MDRD) (>60) mL/min BUN/Creatinine Ratio (14-18) Glucose (70-99) mg/dL Lactic Acid 0.9 (0.4-2.0) mmol/L Calcium (8.5-10.1) mg/dL Total Bilirubin (0.2-1.0) mg/dL AST (15-37) U/L ALT (16-63) U/L Alkaline Phosphatase (46-116) U/L Total Protein (6.4-8.2) g/dl Albumin (3.4-5.0) g/dl Globulin gm/dL Albumin/Globulin Ratio (1-2) Departure - Departure Time of Disposition: 01:38 Disposition: DC/Tfer to SNF 03 Clinical Impression: Abdominal pain, Constipation - Discharge Information Prescriptions: Na Phos,M-B/Na Phos,DI-B [Fleet Enema] 118 ml RC DAILY 2 Days #236 ml Referrals: Quirino Greene MD [Primary Care Provider] - Forms: ED Department Discharge Sepsis Event Note (ED) - Focused Exam Vital Signs: Vital Signs Temp Pulse Resp BP Pulse Ox 04/26/21 21:09 36.2 C 67 20 158/84 H 95 - My Orders Last 24 Hours: My Active Orders 04/26/21 21:16 Chest 1V Frontal [CR] Stat 04/26/21 22:22 Abdomen Pelvis w Cont [CT] Stat - Assessment/Plan Last 24 Hours: My Active Orders 04/26/21 21:16 Chest 1V Frontal [CR] Stat 04/26/21 22:22 Abdomen Pelvis w Cont [CT] Stat Assessment:: Patient 65-year-old male with complaints about possible abdominal pain. Unremarkable ER course. Abdominal exam is benign. Vital signs remained stable in the emergency room. Laboratory studies were unremarkable. Differential diagnosis considered for this patient include bowel obstruction, colonic perforation, diverticulitis. CT scan demonstrates significant amount of fecal matter without evidence of obstruction or other acute pathology. Recommend enema use at nursing facility. Discharged in stable condition.
--- NOTE | 2021-04-27 07:22 | CR ---
Chest: Portable view of the chest was obtained. Comparison: Prior chest CT study of 04/22/21 and chest x-ray of 12/29/20. Slight scarring is noted within both lung bases. Lungs otherwise are clear. Heart is mildly enlarged. Tortuous thoracic aorta is seen. No discrete osseous abnormality is appreciated. Impression: 1. Scarring felt to be present within both lung bases. 2. Nothing acute is otherwise seen on chest x-ray. Diagnostic code #2
--- NOTE | 2021-04-27 07:34 | CT ---
CT abdomen and pelvis Technique: Multiple axial sections were obtained from above the dome of the diaphragm inferiorly to the pubic symphysis. Intravenous and oral contrast were utilized. Delayed images were also obtained through the abdomen and pelvis. Reconstructed coronal and sagittal images were obtained. Comparison: Prior CT abdomen and pelvis study of 04/22/21 as well as baseline exam of 04/14/19. Findings: Small nodule is noted within the right lung base which appears stable from prior chest CTs and measures 9 mm. Slight increased density is noted within both lung bases which is improved from prior study and most likely represents slowly resolving pneumonia or slowly resolving atelectasis versus development of scarring. Liver shows fatty infiltration. No focal abnormality is seen. Spleen size is normal. Adrenal glands show no nodule. Prior right nephrectomy is noted. Cysts are seen within the left kidney. One area within the left kidney shows calcifications. This finding is stable from baseline CT and measures approximately 2.5 cm. Left kidney shows normal contrast excretion into the left ureter and within the bladder. Pancreas shows no abnormality. Gallbladder contains no calcified gallstones. Abdominal aorta shows atherosclerotic calcification which continues into the iliac vessels. No aneurysm is seen. Slight calcification is seen at the origin of the left renal artery compatible with atherosclerotic change. Calcification makes evaluation of stenosis difficult. No retroperitoneal adenopathy or mesenteric abnormalities are seen. Appendix is not visualized. No pelvic mass or adenopathy is noted. Slight increased stool is seen within the rectosigmoid region as well as the descending colon and transverse colon. Bone window settings were reviewed which show compression deformity within L1 and superiorly within T12 which are old. Disc space narrowing is seen at L5-S1 with vacuum phenomena. Lesser degenerative change is seen within the lower thoracic spine. Impression: 1. Increased density within both lung bases. Findings have improved from prior exam either due to resolving atelectasis, resolving pneumonia or representing development of scarring. Small stable nodule within the right lung base is seen. 2. Prior right nephrectomy is noted. 3. Findings within the left kidney which are stable and therefore felt to be benign. 4. Mild increased stool within the colon. 5. Other findings as noted above which are believed to be stable. Diagnostic code #3 I agree with preliminary report from [facility], finalized on 04/27/21, 2:31 AM [employer], code 1
== END 2021-04-27 01:45 ==
LOC: JD.ED 20:50 → SUPCPDRO 20:50 → JD.ED 04-27 01:45
DX: K59.00 Constipation, unspecified (principal); I48.91 Unspecified atrial fibrillation; I11.0 Hypertensive heart disease with heart failure; I50.9 Heart failure, unspecified; J44.9 Chronic obstructive pulmonary disease, unspecified; N40.0 Benign prostatic hyperplasia without lower urinary tract symptoms; E11.21 Type 2 diabetes mellitus with diabetic nephropathy; F03.90 Unspecified dementia, unspecified severity, without behavioral disturbance, psychotic disturbance, mood disturbance, and anxiety; E03.9 Hypothyroidism, unspecified; E66.9 Obesity, unspecified; Z68.31 Body mass index [BMI] 31.0-31.9, adult; Z88.6 Allergy status to analgesic agent; Z88.0 Allergy status to penicillin; Z79.01 Long term (current) use of anticoagulants; Z79.4 Long term (current) use of insulin; Z79.899 Other long term (current) drug therapy
CPT/HCPCS: 36415; 71045; 71045-26; 74177; 74177-26; 80053; 83605; 85025; 85610; 99285-25

== ENCOUNTER 2023-03-29 14:45 | Emergency (ER) | payer MEDICARE, MEDICAID ==
[2023-03-29] MEDS ORDERED: Sodium Chloride 0.9% 10 ML Syringe FLUSH PRN (15:12)
[2023-03-29] MEDS ORDERED: Sodium Chloride 0.9% 1,000 ML IV ONE (15:12)
[2023-03-29 15:26] LABS: BASOPHILS PERCENT AUTO 0.4 % (0.0-1.0); EOSINOPHILS ABSOLUTE AUTO 0.3 K/mm3 (0.0-0.4); EOSINOPHILS PERCENT AUTO 3.4 % (0.0-6.0); HEMOGLOBIN 12.6 gm/dl (14.0-18.0); IMMATURE GRAN ABSOLUTE AUTO 0.11 K/mm3 (0.00-0.05); IMMATURE GRAN PERCENT AUTO 1.5 % (0.0-0.4); LYMPHOCYTES ABSOLUTE AUTO 1.9 K/mm3 (1.0-4.8); LYMPHOCYTES PERCENT AUTO 24.5 % (24.0-44.0); MEAN CORPUSCULAR HEMOGLOBIN 30.4 pg (28.0-32.0); MEAN CORPUSCULAR HGB CONC 31.5 g/dl (32.0-36.0); MEAN CORPUSCULAR VOLUME 96.6 fl (83.0-99.0); MEAN PLATELET VOLUME 9.2 fl (9.4-12.4); MONOCYTES ABSOLUTE AUTO 0.9 K/mm3 (0.0-0.8); MONOCYTES PERCENT AUTO 11.4 % (0.0-8.0); NEUTROPHILS ABSOLUTE AUTO 4.4 K/mm3 (1.8-7.7); NEUTROPHILS PERCENT AUTO 58.8 % (41.0-71.0); PLATELET COUNT,PLT 236 K/mm3 (150-400); RED BLOOD CELL COUNT 4.14 M/mm3 (4.52-5.90); WHITE BLOOD CELL COUNT,WBC 7.55 K/mm3 (3.9-11.3)
[2023-03-29 15:51] LABS: A/G RATIO 0.8 (1-2); ALBUMIN 3.6 g/dl (3.4-5.0); ANION GAP 14.3 (5-15); BILIRUBIN TOTAL 0.4 mg/dL (0.2-1.0); BUN/CREATININE RATIO 21.2 (14-18); CALCIUM 9.5 mg/dL (8.5-10.1); CREATININE 2.5 mg/dL (0.7-1.3); EST CRCL DRUG DOSING (CG) 35.15 mL/min; POTASSIUM,K 5.3 mEq/L (3.5-5.1); PROTEIN TOTAL,TP 8.2 g/dl (6.4-8.2)
[2023-03-29] MEDS ORDERED: cefTRIAXone 2 GM in Sodium Chloride 0.9% 100 ML IV ONE (16:12)
[2023-03-29 17:13] VITALS: BP 117/62; PULSE 81
== END 2023-03-29 19:15 | disposition home or self-care (01) ==
LOC: JD.ED 14:45
DX: N30.00 Acute cystitis without hematuria (principal); I11.0 Hypertensive heart disease with heart failure; I50.9 Heart failure, unspecified; I48.91 Unspecified atrial fibrillation; J44.9 Chronic obstructive pulmonary disease, unspecified; E11.21 Type 2 diabetes mellitus with diabetic nephropathy; E03.9 Hypothyroidism, unspecified; Z79.01 Long term (current) use of anticoagulants; Z79.4 Long term (current) use of insulin; Z79.899 Other long term (current) drug therapy; Z88.8 Allergy status to other drugs, medicaments and biological substances; Z88.0 Allergy status to penicillin
CPT/HCPCS: 36415; 80053; 85025; 93005; 96361; 96365; 99284; J0696; J3490; J7030